=== PATIENT | female | born 1940 | race Caucasian/White ===

== ENCOUNTER 2016-05-29 01:24 | Inpatient (IN) | payer MEDICARE ==
[2016-05-29 03:16] LABS: Albumin 3.5 g/dL (3.9-5); Albumin/Globulin Ratio 1.1 %; BUN/Creatinine Ratio 8.29; Bilirubin,Total 0.4 mg/dL (0.1-1.2); Calcium 9.6 mg/dL (8.4-10.2); Total Protein 6.8 g/dL (6.3-8.2)
[2016-05-29 03:17] LABS: Chloride 93.3 mmol/L (98-107); Potassium 5.3 mmol/L (3.6-5.0)
--- NOTE | 2016-05-29 04:31 | Emergency Department Report ---
ED Shortness of Breath HPI - General Chief Complaint: Dyspnea/Respdistress Stated Complaint: KAILA Time Seen by Provider: 05/29/16 04:21 Source: family Mode of arrival: Stretcher Limitations: No Limitations - History of Present Illness Initial Comments: 75-year-old female presents to the emergency department via EMS complaining of difficulty breathing. Onset of symptoms was at approximately midnight. She denies chest pain. Her symptoms became worse so she called EMS. Patient is scheduled for hemodialysis this morning. There are no other complaints. MD Complaint: shortness of breath -: Sudden, During the night Time: 00:00 Pain Scale: 0 Consistency: constant Improves With: nothing Worsens With: nothing Known History Of: diabetes Associated Symptoms: denies other symptoms Treatments Prior to Arrival: none - Related Data Home Medications Medication Instructions Recorded Confirmed Last Taken Sevelamer Carbonate [Renvela] 800 mg PO TIDWM 04/02/13 05/29/16 1 Day Ago 800 Emgan-Juliet Rx Tablet 1 tab PO DAILY 12/31/14 05/29/16 1 Day Ago 1 Pravastatin Sodium [Pravastatin] 10 mg PO QHS 01/24/15 05/29/16 1 Day Ago 10 Doxepin [SINEquan] 10 mg PO QHS 05/01/15 05/29/16 1 Day Ago 10 Tramadol HCl [Conzip 25 MG IR + 75 50 mg PO Q6H PRN 05/01/15 05/29/16 1 Week Ago MG XR CAP] 50 Previous Rx's Medication Instructions Recorded Last Taken Type Docusate Sodium [Colace CAP] 100 mg PO BID PRN #30 capsule 01/24/15 1 Day Ago Rx 100 Famotidine [Pepcid] 40 mg PO QHS #30 tablet 01/24/15 1 Day Ago Rx 40 Promethazine [Phenergan TAB] 25 mg PO Q6HR PRN #20 tab 01/24/15 1 Day Ago Rx 25 Folic Acid/Vit B Comp W-C [Renal 1 cap PO QDAY capsule 05/04/15 1 Day Ago Rx Caps] 1 HYDROcodone/APAP 5-325 [[place] 1 each PO Q6HR PRN #30 tablet 05/04/15 1 Day Ago Rx 5-325 mg TAB] 1 Levothyroxine [Synthroid] 25 mcg PO DAILY@0600 tablet 05/04/15 1 Day Ago Rx 25 Levothyroxine [Synthroid] 112 mcg PO DAILY@0600 tablet 05/04/15 1 Day Ago Rx 112 Apixaban [Eliquis] 2.5 mg PO BID #60 tablet 05/04/16 1 Day Ago Rx 2.5 Carvedilol [Coreg] 6.25 mg PO BID #60 tablet 05/04/16 1 Day Ago Rx 6.25 Diltiazem [Cardizem] 30 mg PO Q8HR #90 tablet 05/04/16 1 Day Ago Rx 30 Allergies Allergy/AdvReac Type Severity Reaction Status Date / Time No Known Allergies Allergy Verified 12/31/14 20:17 ED Review of Systems ROS: Stated complaint: KAILA Other details as noted in HPI Comment: All other systems reviewed and negative Respiratory: shortness of breath ED Past Medical Hx - Past Medical History Previous Medical History?: Yes Hx Hypertension: Yes Hx Diabetes: Yes Hx Deep Vein Thrombosis: Yes Hx Renal Disease: Yes (ESRD on HD T, Th, S) Hx Kidney Stones: Yes - Surgical History Past Surgical History?: Yes Hx Cholecystectomy: Yes Additional Surgical History: A/V graft to right arm - Family History Family history: no significant - Social History Smoking Status: Never Smoker Substance Use Type: None - Medications Home Medications: Home Medications Medication Instructions Recorded Confirmed Last Taken Type Sevelamer Carbonate [Renvela] 800 mg PO TIDWM 04/02/13 05/29/16 1 Day Ago History 800 Megan-Juliet Rx Tablet 1 tab PO DAILY 12/31/14 05/29/16 1 Day Ago History 1 Docusate Sodium [Colace CAP] 100 mg PO BID PRN #30 capsule 01/24/15 05/29/16 1 Day Ago Rx 100 Famotidine [Pepcid] 40 mg PO QHS #30 tablet 01/24/15 05/29/16 1 Day Ago Rx 40 Pravastatin Sodium [Pravastatin] 10 mg PO QHS 01/24/15 05/29/16 1 Day Ago History 10 Promethazine [Phenergan TAB] 25 mg PO Q6HR PRN #20 tab 01/24/15 05/29/16 1 Day Ago Rx 25 Doxepin [SINEquan] 10 mg PO QHS 05/01/15 05/29/16 1 Day Ago History 10 Tramadol HCl [Conzip 25 MG IR + 75 50 mg PO Q6H PRN 05/01/15 05/29/16 1 Week Ago History MG XR CAP] 50 Folic Acid/Vit B Comp W-C [Renal 1 cap PO QDAY capsule 05/04/15 05/29/16 1 Day Ago Rx Caps] 1 HYDROcodone/APAP 5-325 [[place] 1 each PO Q6HR PRN #30 tablet 05/04/15 05/29/16 1 Day Ago Rx 5-325 mg TAB] 1 Levothyroxine [Synthroid] 25 mcg PO DAILY@0600 tablet 05/04/15 05/29/16 1 Day Ago Rx 25 Levothyroxine [Synthroid] 112 mcg PO DAILY@0600 tablet 05/04/15 05/29/16 1 Day Ago Rx 112 Apixaban [Eliquis] 2.5 mg PO BID #60 tablet 05/04/16 05/29/16 1 Day Ago Rx 2.5 Carvedilol [Coreg] 6.25 mg PO BID #60 tablet 05/04/16 05/29/16 1 Day Ago Rx 6.25 Diltiazem [Cardizem] 30 mg PO Q8HR #90 tablet 05/04/16 05/29/16 1 Day Ago Rx 30 ED Physical Exam - General Limitations: No Limitations General appearance: alert, in no apparent distress - Head Head exam: Present: atraumatic, normocephalic - Eye Eye exam: Present: normal appearance, PERRL, EOMI - ENT ENT exam: Present: normal exam, normal orophraynx, mucous membranes moist - Neck Neck exam: Present: normal inspection, full ROM. Absent: tenderness - Respiratory Respiratory exam: Present: normal lung sounds bilaterally. Absent: respiratory distress - Cardiovascular Cardiovascular Exam: Present: regular rate, normal rhythm, normal heart sounds - GI/Abdominal GI/Abdominal exam: Present: soft, normal bowel sounds. Absent: distended, tenderness - Extremities Exam Extremities exam: Present: normal inspection, full ROM. Absent: tenderness - Back Exam Back exam: Present: normal inspection, full ROM. Absent: tenderness - Neurological Exam Neurological exam: Present: alert, oriented X3. Absent: motor sensory deficit - Skin Skin exam: Present: warm, dry, intact ED Course Vital Signs 05/29/16 05/29/16 05/29/16 02:15 02:20 02:26 Temperature 98.0 F 98.0 F Pulse Rate 63 63 Respiratory 18 18 18 Rate Blood Pressure 208/66 Blood Pressure 208/66 208/66 [Left] O2 Sat by Pulse 95 95 95 Oximetry ED Medical Decision Making - Lab Data Result diagrams: 05/29/16 02:43 - EKG Data -: EKG Interpreted by Me EKG shows normal: sinus rhythm, axis, intervals, QRS complexes, ST-T waves Rate: normal - EKG Data When compared to previous EKG there are: no significant change Interpretation: normal EKG, unchanged when compared t (05/01/2016) - Radiology Data Radiology results: image reviewed interpreted by me: Chest x-ray shows no acute cardiopulmonary abnormality. Chest x-ray is unchanged from previous. - Medical Decision Making Lab and imaging results reviewed and discussed with the patient and family. I spoke with Dr. Dubose, nephrology. Patient will be set up for urgent hemodialysis. Patient is to be admitted by the hospitalist. - Differential Diagnosis ESRD on HD, volume overload, electrolyte abnormality Critical care attestation.: If time is entered above; I have spent that time in minutes in the direct care of this critically ill patient, excluding procedure time. ED Disposition Clinical Impression: ESRD needing dialysis Dyspnea Qualifiers: Dyspnea type: shortness of breath Qualified Code(s): R06.02 - Shortness of breath Disposition: OP ADMITTED IP TO THIS HOSP Is pt being admited?: Yes Condition: Stable Time of Disposition: 04:33
[2016-05-29] MEDS ORDERED: NACL 0.9% 1000 ML 100 ML IV PRN (04:48)
--- NOTE | 2016-05-29 06:45 | Admit Criteria Form ---
Admission Criteria Documentation: RENAL FAILURE, CHRONIC Clinical Indications for Admission to Inpatient Care (Place 'X' for any and all applicable criteria): Admission is indicated for ANY ONE of the following (1)(2)(3)(4)(5): [ X]I. Inpatient admission required rather than observation care (Use Renal Failure, Chronic: Observation Care Criteria as appropriate) because of ANY ONE of the following: [ ]a) Volume overload or uremic symptoms (eg, clinically significant pulmonary edema, hypertension, pericarditis, acidosis) too severe for, or not responsive (eg, for over 24 hours) to emergency department or observation care dialysis or treatment regimen (11) [ ]b) Hemodynamic instability that is severe or persistent [ ]c) Respiratory distress that is severe or persistent (11) [ ]d) Clinically significant electrolyte abnormality that requires inpatient care (eg,hyperkalemia with severe ECG findings)[B] [ ]e) Supplement O2 or respiratory therapy for over 24hrs that is performable only in acute inpatient setting [ ]f) Continuous IV infusion of anticoagulation, platelet inhibitor, vasoactive, or Antiarrhythmic medication (15), [ ]g) Pulmonary artery catheter monitoring [ ]h) Temporary pacemaker placement [ ]i) Emergent pericardiocentesis [X ]j) Other condition, treatment or monitoring requiring inpatient admission [ ]II. Unexplained syncope [A] [ ]III. Recurrent seizures [ ]IV. Severe infections not treatable in outpatient setting (eg, peritonitis)(9 ) [ ]V. Cardiac arrhythmias of immediate concern [ ]. Encephalopathy [ ]VII.Bleeding abnormalities (eg, platelet dysfunction) with active (eg, gastrointestinal) bleeding Extended stay beyond goal length of stay may be needed for (3)(4)(35)(36): [ ]a) Continuing uremic complications [ ]b) Comorbidities or complications The original [employer] content created by [employer] has been revised. The portions of the content which have been revised are identified through the use of italic text or in bold, and [facility] [employer] has neither reviewed nor approved the modified material. All other unmodified content is copyright [employer]. Please see references footnoted in the original [facility] edition 2016 Admission Criteria Met: Yes
--- NOTE | 2016-05-29 07:53 | History and Physical Report ---
History of Present Illness Date of examination: 05/29/16 Date of admission: 05/29/16 05:16 Chief complaint: Shortness of breath History of present illness: 75-year-old female presents to the emergency department via EMS complaining of difficulty breathing. Onset of symptoms was at approximately midnight. She admits chest tightness. Her symptoms became worse this morning so she called EMS. Patient is scheduled for hemodialysis this morning. There are no other complaints. Chest x-ray in the ER showed pulmonary congestion and cardiomegaly. Blood pressure on admission was 208/66. Past History Past Medical History: diabetes, DVT, ESRD, hypertension, hyperlipidemia Past Surgical History: cholecystectomy, Other (she has AV graft in the right arm ) Social history: no significant social history. denies: smoking, alcohol abuse Family history: other (unknown, unable to obtain at this time) Medications and Allergies Allergies Allergy/AdvReac Type Severity Reaction Status Date / Time No Known Allergies Allergy Verified 12/31/14 20:17 Home Medications Medication Instructions Recorded Confirmed Last Taken Type Sevelamer Carbonate [Renvela] 800 mg PO TIDWM 04/02/13 05/29/16 1 Day Ago History 800 Megan-Juliet Rx Tablet 1 tab PO DAILY 12/31/14 05/29/16 1 Day Ago History 1 Docusate Sodium [Colace CAP] 100 mg PO BID PRN #30 capsule 01/24/15 05/29/16 1 Day Ago Rx 100 Famotidine [Pepcid] 40 mg PO QHS #30 tablet 01/24/15 05/29/16 1 Day Ago Rx 40 Pravastatin Sodium [Pravastatin] 10 mg PO QHS 01/24/15 05/29/16 1 Day Ago History 10 Promethazine [Phenergan TAB] 25 mg PO Q6HR PRN #20 tab 01/24/15 05/29/16 1 Day Ago Rx 25 Doxepin [SINEquan] 10 mg PO QHS 05/01/15 05/29/16 1 Day Ago History 10 Tramadol HCl [Conzip 25 MG IR + 75 50 mg PO Q6H PRN 05/01/15 05/29/16 1 Week Ago History MG XR CAP] 50 Folic Acid/Vit B Comp W-C [Renal 1 cap PO QDAY capsule 05/04/15 05/29/16 1 Day Ago Rx Caps] 1 HYDROcodone/APAP 5-325 [[place] 1 each PO Q6HR PRN #30 tablet 05/04/15 05/29/16 1 Day Ago Rx 5-325 mg TAB] 1 Levothyroxine [Synthroid] 25 mcg PO DAILY@0600 tablet 05/04/15 05/29/16 1 Day Ago Rx 25 Levothyroxine [Synthroid] 112 mcg PO DAILY@0600 tablet 05/04/15 05/29/16 1 Day Ago Rx 112 Apixaban [Eliquis] 2.5 mg PO BID #60 tablet 05/04/16 05/29/16 1 Day Ago Rx 2.5 Carvedilol [Coreg] 6.25 mg PO BID #60 tablet 05/04/16 05/29/16 1 Day Ago Rx 6.25 Diltiazem [Cardizem] 30 mg PO Q8HR #90 tablet 05/04/16 05/29/16 1 Day Ago Rx 30 Active Meds: Active Medications Sodium Chloride (Nacl 0.9% 1000 Ml) 100 mls @ 999 mls/hr IV ESEQUIEL PRN PRN Reason: Hypotension Review of System: Constitutional: no fever, no chills, no weight loss Ears, eyes, nose, mouth and throat: no nasal congestion, no nasal discharge, no sinus pressure, no vision change, no red eye. Neck: No neck pain or rigidity. Cardiovascular: + pleuretic chest pain, + orthopnea, no palpitations, no leg swelling Respiratory: + shortness of breath, no cough, + congestion, no wheezing Gastrointestinal: no abdominal pain, no nausea, no vomiting Genitourinary : no dysuria, no hematuria Musculoskeletal: no joint swelling or muscle ache Integumentary: no rash, no pruritis Neurological: no parathesias, no numbness, no tingling Endocrine: no cold or heat intolerance, no polyuria or polydipsia Hematologic/Lymphatic: no easy bruising, no easy bleeding, no gland swelling Allergic/Immunologic: no urticaria, no angioedema. Exam - Physical Exam Narrative exam: GENERAL: This is an elderly female skinny female lying on bed appeared to be in no discomfort. HEENT: Normocephalic. Atraumatic. Extraocular motions are intact. No conjunctival congestion or icterus. Patient has moist mucous membranes. External auditory canal and nares patent bilaterally. NECK: Supple. Trachea midline. No JVD, thyromagaly or lymphadenopathy. CHEST/LUNGS: crackles auscultated bilaterally. There is no respiratory distress noted, breathing nonlabored. No wheezes or rhonchi. HEART/CARDIOVASCULAR: Regular in rate and rhythm. PMI at the apex. There is no gallop rub or murmur. ABDOMEN: Abdomen is soft, nontender. Patient has normal bowel sounds. There is no abdominal distention. No organomagaly or rigidity. SKIN: There is no rash, no erythrema. There is no diaphoresis. Warm and dry. NEUROLOGY: The patient is awake, alert, and oriented. The patient is cooperative. The patient has normal speech. No focal motor deficit. MUSCULOSKELETAL: No joint effusion or tenderness. Muscle strength equal bilaterally. No muscle wasting. EXTRIMITY: No edema, cyanosis or clubbing. PSYCH: No depression or anxiety noted. Cooperative. - Constitutional Vitals: Temp Pulse Resp BP Pulse Ox 98.0 F 63 20 179/66 97 05/29/16 02:20 05/29/16 05:36 05/29/16 05:36 05/29/16 05:36 05/29/16 05:36 Results - Labs CBC & Chem 7: 05/30/16 10:11 05/30/16 10:11 Labs: Laboratory Last Values Sodium 135 mmol/L (137-145) L 05/29/16 02:43 Potassium 5.3 mmol/L (3.6-5.0) H 05/29/16 02:43 Chloride 93.3 mmol/L (98-107) L 05/29/16 02:43 Carbon Dioxide 26 mmol/L (22-30) 05/29/16 02:43 Anion Gap 21 mmol/L 05/29/16 02:43 BUN 73 mg/dL (7-17) H 05/29/16 02:43 Creatinine 8.8 mg/dL (0.7-1.2) H 05/29/16 02:43 Estimated GFR 4 ml/min 05/29/16 02:43 BUN/Creatinine Ratio 8.29 % 05/29/16 02:43 Glucose 190 mg/dL (65-100) H 05/29/16 02:43 Calcium 9.6 mg/dL (8.4-10.2) 05/29/16 02:43 Total Bilirubin 0.4 mg/dL (0.1-1.2) 05/29/16 02:43 AST 25 units/L (5-40) 05/29/16 02:43 ALT 18 units/L (7-56) 05/29/16 02:43 Alkaline Phosphatase 210 units/L (35-129) H 05/29/16 02:43 Total Protein 6.8 g/dL (6.3-8.2) 05/29/16 02:43 Albumin 3.5 g/dL (3.9-5) L 05/29/16 02:43 Albumin/Globulin Ratio 1.1 % 05/29/16 02:43 - Imaging and Cardiology Chest x-ray: report reviewed Assessment and Plan Assessment and plan: Acute hypoxic respiratory failure * Likely due to volume overload and pulmonary edema * Status post emergent dialysis today, * Improved following dialysis * Continue breathing treatment and supplemental oxygen via nasal cannula ESRD requiring dialysis * Nephrology on board, HD per nephrology recommendation Chest pain * Likely due to volume overload and uncontrolled blood pressure * We'll monitor her with serial cardiac enzymes * Had 2-D echo last month 05/01 showed 45% ejection fraction Acute exacerbation of systolic CHF * Continue beta jose, and statin * Follow up for dialysis clinical Atrial fibrillation with RVR * Continue rate controlling medications (Coreg and Cardizem) and anticoagulation (Elliquis) Hypertension, malignant * Start on home meds Coreg and Cardizem * Adjust medications as needed, when necessary hydralazine iv Hyperlipidemia * Continue statin Diabetes mellitus type II * Continue insulin coverage to adjust blood glucose Hyperkalemia * Due to end-stage renal disease * Continue to monitor, follow-up after dialysis It took me about 45 minutes for initial care of this patient including history and physical, reviewing initial lab results and ER documents, placing admission orders, bedside counseling and coordination of care. Advance Directives: Yes VTE prophylaxis?: Chemical Plan of care discussed with patient/family: Yes
--- NOTE | 2016-05-29 09:02 | Consultation ---
History of Present Illness - Reason for Consult Consult date: 05/29/16 end stage renal disease - History of Present Illness Mrs. Ferrera is a 75yo with ESRD on HD who presents to the ED with difficutly breathing. History is limited due to language barrier. However, patient does reports chest pain but denies cough and fever. Past History Past Medical History: diabetes, ESRD, hypertension, hyperlipidemia, hypothyroidism Social history: . denies: smoking, alcohol abuse Family history: no significant family history Medications and Allergies Allergies Allergy/AdvReac Type Severity Reaction Status Date / Time No Known Allergies Allergy Verified 12/31/14 20:17 Home Medications Medication Instructions Recorded Confirmed Last Taken Type Sevelamer Carbonate [Renvela] 800 mg PO TIDWM 04/02/13 05/29/16 1 Day Ago History 800 Megan-Juliet Rx Tablet 1 tab PO DAILY 12/31/14 05/29/16 1 Day Ago History 1 Docusate Sodium [Colace CAP] 100 mg PO BID PRN #30 capsule 01/24/15 05/29/16 1 Day Ago Rx 100 Famotidine [Pepcid] 40 mg PO QHS #30 tablet 01/24/15 05/29/16 1 Day Ago Rx 40 Pravastatin Sodium [Pravastatin] 10 mg PO QHS 01/24/15 05/29/16 1 Day Ago History 10 Promethazine [Phenergan TAB] 25 mg PO Q6HR PRN #20 tab 01/24/15 05/29/16 1 Day Ago Rx 25 Doxepin [SINEquan] 10 mg PO QHS 05/01/15 05/29/16 1 Day Ago History 10 Tramadol HCl [Conzip 25 MG IR + 75 50 mg PO Q6H PRN 05/01/15 05/29/16 1 Week Ago History MG XR CAP] 50 Folic Acid/Vit B Comp W-C [Renal 1 cap PO QDAY capsule 05/04/15 05/29/16 1 Day Ago Rx Caps] 1 HYDROcodone/APAP 5-325 [[place] 1 each PO Q6HR PRN #30 tablet 05/04/15 05/29/16 1 Day Ago Rx 5-325 mg TAB] 1 Levothyroxine [Synthroid] 25 mcg PO DAILY@0600 tablet 05/04/15 05/29/16 1 Day Ago Rx 25 Levothyroxine [Synthroid] 112 mcg PO DAILY@0600 tablet 05/04/15 05/29/16 1 Day Ago Rx 112 Apixaban [Eliquis] 2.5 mg PO BID #60 tablet 05/04/16 05/29/16 1 Day Ago Rx 2.5 Carvedilol [Coreg] 6.25 mg PO BID #60 tablet 05/04/16 05/29/16 1 Day Ago Rx 6.25 Diltiazem [Cardizem] 30 mg PO Q8HR #90 tablet 05/04/16 05/29/16 1 Day Ago Rx 30 Active Meds: Active Medications Sodium Chloride (Nacl 0.9% 1000 Ml) 100 mls @ 999 mls/hr IV ESEQUIEL PRN PRN Reason: Hypotension Exam - Vital Signs Vital signs: Vital Signs Temp Pulse Resp BP Pulse Ox 98.0 F 63 18 208/66 95 05/29/16 02:15 05/29/16 02:15 05/29/16 02:15 05/29/16 02:15 05/29/16 02:15 - General Appearance General appearance: well-developed, well-nourished, other (breathing comfortably on room air) EENT: ATNC Respiratory: Decreased Breath Sounds Heart: regular, S1S2 Gastrointestinal: Present: normal. Absent: tenderness, distended Integumentary: no rash Musculoskeletal: Present: other (no edema) Psychiatric: cooperative Results - Lab Results 05/29/16 02:43 Most recent lab results Calcium 9.6 mg/dL (8.4-10.2) 05/29/16 02:43 Assessment and Plan Impression: * End stage renal disease on hemodialysis TTS * Dyspnea * Hyperkalemia, mild * Type II DM * Hypertensioin Plan: * Hemodialysis has been ordered for today * UF as tolerated * Resume home medications * Epogen for goal Hb 10-12 * Renal diet * Binders with meals - Renvela 1 TID w/meals
--- NOTE | 2016-05-29 10:01 | XRay Report ---
AP CHEST: HISTORY: Dyspnea. FINDINGS: Mild cardiomegaly and central pulmonary venous congestion appears stable since 05/01/16. The lungs are generally clear. No evidence for pneumonia, CHF or pneumothorax. Bilateral axillary vein stents are noted. The thoracic cage is intact but the bony structures are demineralized. IMPRESSION: Mild cardiomegaly and pulmonary venous congestion which appears stable since 05/01/16.
[2016-05-29] MEDS: RENVELA PO SCH ×3 (11:30→17:25)
[2016-05-29] MEDS ORDERED: TRAMADOL HCL 50 MG PO PRN (16:24)
[2016-05-29] MEDS ORDERED: PHENERGAN PO PRN (16:24)
[2016-05-29] MEDS ORDERED: COLACE PO PRN (16:24)
[2016-05-29] MEDS ORDERED: ULTRAM PO PRN (16:48)
[2016-05-29] MEDS ORDERED: NON-FORMULARY (Sevelamer Carbonate [Renvela] 800 MG) PO SCH (17:00)
[2016-05-29] MEDS: NORCO 5/325 PO PRN ×2 (17:26→23:06)
[2016-05-29] MEDS ORDERED: NON-FORMULARY (Famotidine [Pepcid] 40 MG) PO SCH (22:00)
[2016-05-29] MEDS ORDERED: NON-FORMULARY (Pravastatin Sodium [Pravastatin] 10 MG) PO SCH (22:00)
[2016-05-29] MEDS: COREG PO SCH (22:41)
[2016-05-29] MEDS: ZOCOR PO SCH (22:42)
[2016-05-29] MEDS: PEPCID PO SCH (22:42)
[2016-05-29] MEDS: SINEquan PO SCH (22:42)
[2016-05-29] MEDS: CARDIZEM PO SCH (22:42)
[2016-05-29] MEDS: ELIQUIS PO SCH (22:43)
[2016-05-30] MEDS: SYNTHROID PO SCH ×2 (06:14)
[2016-05-30] MEDS: CARDIZEM PO SCH ×3 (06:14→23:40)
[2016-05-30] MEDS: RENVELA PO SCH ×4 (07:30→17:20)
--- NOTE | 2016-05-30 09:12 | Progress Note ---
Assessment and Plan Impression: * End stage renal disease on hemodialysis TTS * Dyspnea * Hyperkalemia, mild * Type II DM * Hypertensioin Plan: * Isolated UF today for additional fluid removal * Continue hemodialysis TTS * Epogen for goal Hb 10-12 * Renal diet * Binders with meals - Renvela 1 TID w/meals Subjective Date of service: 05/30/16 Interval history: Patient continues to c/o SOB Objective - Vital Signs Vital signs: Vital Signs - 12hr 05/29/16 05/29/16 05/29/16 22:25 22:41 22:42 Temperature 98.0 F Pulse Rate Pulse Rate [ 128 H Left Radial] Respiratory 18 Rate Blood Pressure 126/72 126/72 Blood Pressure 126/72 [Left Arm] O2 Sat by Pulse 97 Oximetry 05/30/16 05/30/16 06:14 08:49 Temperature 98.1 F Pulse Rate 92 H Pulse Rate [ 70 Left Radial] Respiratory 16 Rate Blood Pressure 154/56 Blood Pressure 103/52 [Left Arm] O2 Sat by Pulse 95 Oximetry - General Appearance General appearance: well-developed, well-nourished EENT: ATNC Respiratory: Present: Rales Cardiology: regular, S1S2 Gastrointestinal: normal, no tenderness, no distended Integumentary: no rash Neurologic: no focal deficit Musculoskeletal: other (no edema) Psychiatric: cooperative - Lab 05/30/16 10:11 05/30/16 10:11 Most recent lab results Calcium 9.6 mg/dL (8.4-10.2) 05/29/16 02:43
[2016-05-30] MEDS ORDERED: Renal Caps PO SCH (10:00)
[2016-05-30] MEDS ORDERED: NON-FORMULARY (Rena-Vite Rx Tablet 1 TAB) PO SCH (10:00)
[2016-05-30] MEDS ORDERED: NACL 0.9% 1000 ML 100 ML IV PRN (10:16)
[2016-05-30 10:34] LABS: Basophils % (Auto) 2.2 % (0.0-1.8); Eosinophils % (Auto) 5.6 % (0.0-4.3); Hemoglobin 11.8 gm/dl (10.1-14.3); Mean Corpuscular HGB Conc 32 % (30-34); Mean Corpuscular Hemoglobin 28 pg (28-32); Mean Corpuscular Volume 89 fl (79-97); Platelet Count 202 K/mm3 (140-440); Red Blood Count 4.16 M/mm3 (3.65-5.03); Red Cell Distribution Width 18.6 % (13.2-15.2); White Blood Count 5.2 K/mm3 (4.5-11.0)
[2016-05-30 10:43] LABS: BUN/Creatinine Ratio 6.03; Calcium 9.2 mg/dL (8.4-10.2); Chloride 93.8 mmol/L (98-107); Potassium 5.6 mmol/L (3.6-5.0)
[2016-05-30] MEDS: ELIQUIS PO SCH ×2 (11:04→23:40)
[2016-05-30] MEDS: COREG PO SCH ×2 (11:04→23:40)
[2016-05-30] MEDS: Renal Caps PO SCH (11:04)
--- NOTE | 2016-05-30 17:27 | Progress Note ---
Assessment and Plan Assessment and plan: Acute hypoxic respiratory failure * Likely due to volume overload and pulmonary edema * Status post emergent dialysis following admission * Symptoms slightly improved, plan for short dialysis today * Continue breathing treatment and supplemental oxygen via nasal cannula needed ESRD requiring dialysis * Nephrology on board, continue HD per nephrology recommendation Chest pain * Likely due to volume overload and uncontrolled blood pressure * serial cardiac enzymes remained stable * Had 2-D echo last month 05/01 showed 45% ejection fraction Acute exacerbation of systolic CHF * Continue beta jose, and statin * Follow up clinically following dialysis * Patient does not make any urine, so no Lasix was added Atrial fibrillation with RVR * Continue rate controlling medications (Coreg and Cardizem) and anticoagulation (Elliquis) Hypertension, malignant * Started on home meds Coreg and Cardizem * Adjust medications as needed, when necessary hydralazine iv Hyperlipidemia * Continue statin Diabetes mellitus type II * Continue insulin coverage to adjust blood glucose Hyperkalemia * Due to end-stage renal disease * Continue to monitor History Interval history: Patient seen and examined. Medical records and medication list reviewed. No acute event overnight noted by the RN. Patient complains of exertional difficulty breathing and chest tightness. Discussed plan of care at bedside with patient. Hospitalist Physical - Physical exam Narrative exam: GENERAL: This is an elderly female skinny female lying on bed appeared to be in no discomfort. HEENT: Normocephalic. Atraumatic. Extraocular motions are intact. No conjunctival congestion or icterus. Patient has moist mucous membranes. External auditory canal and nares patent bilaterally. NECK: Supple. Trachea midline. No JVD, thyromagaly or lymphadenopathy. CHEST/LUNGS: no crackles auscultated bilaterally. There is no respiratory distress noted, breathing nonlabored. No wheezes or rhonchi. HEART/CARDIOVASCULAR: Regular in rate and rhythm. PMI at the apex. There is no gallop rub or murmur. ABDOMEN: Abdomen is soft, nontender. Patient has normal bowel sounds. There is no abdominal distention. No organomagaly or rigidity. SKIN: There is no rash, no erythrema. There is no diaphoresis. Warm and dry. NEUROLOGY: The patient is awake, alert, and oriented. The patient is cooperative. The patient has normal speech. No focal motor deficit. MUSCULOSKELETAL: No joint effusion or tenderness. Muscle strength equal bilaterally. No muscle wasting. EXTRIMITY: No edema, cyanosis or clubbing. PSYCH: No depression or anxiety noted. Cooperative. - Constitutional Vitals: Temp Pulse Resp BP Pulse Ox 98.2 F 82 18 117/37 95 05/30/16 16:01 05/30/16 16:01 05/30/16 16:01 05/30/16 16:01 05/30/16 08:49 Results - Labs CBC & Chem 7: 05/30/16 10:11 05/30/16 10:11 Labs: Laboratory Last Values WBC 5.2 K/mm3 (4.5-11.0) 05/30/16 10:11 RBC 4.16 M/mm3 (3.65-5.03) 05/30/16 10:11 Hgb 11.8 gm/dl (10.1-14.3) 05/30/16 10:11 Hct 37.0 % (30.3-42.9) 05/30/16 10:11 MCV 89 fl (79-97) 05/30/16 10:11 MCH 28 pg (28-32) 05/30/16 10:11 MCHC 32 % (30-34) 05/30/16 10:11 RDW 18.6 % (13.2-15.2) H 05/30/16 10:11 Plt Count 202 K/mm3 (140-440) 05/30/16 10:11 Lymph % (Auto) 34.4 % (13.4-35.0) 05/30/16 10:11 [place] % (Auto) 12.1 % (0.0-7.3) H 05/30/16 10:11 Eos % (Auto) 5.6 % (0.0-4.3) H 05/30/16 10:11 Baso % (Auto) 2.2 % (0.0-1.8) H 05/30/16 10:11 Lymph # 1.8 K/mm3 (1.2-5.4) 05/30/16 10:11 [place] # 0.6 K/mm3 (0.0-0.8) 05/30/16 10:11 Eos # 0.3 K/mm3 (0.0-0.4) 05/30/16 10:11 Baso # 0.1 K/mm3 (0.0-0.1) 05/30/16 10:11 Seg Neutrophils % 45.7 % (40.0-70.0) 05/30/16 10:11 Seg Neutrophils # 2.4 K/mm3 (1.8-7.7) 05/30/16 10:11 Sodium 136 mmol/L (137-145) L 05/30/16 10:11 Potassium 5.6 mmol/L (3.6-5.0) H 05/30/16 10:11 Chloride 93.8 mmol/L (98-107) L 05/30/16 10:11 Carbon Dioxide 26 mmol/L (22-30) 05/30/16 10:11 Anion Gap 22 mmol/L 05/30/16 10:11 BUN 38 mg/dL (7-17) H 05/30/16 10:11 Creatinine 6.3 mg/dL (0.7-1.2) H 05/30/16 10:11 Estimated GFR 6 ml/min 05/30/16 10:11 BUN/Creatinine Ratio 6.03 % 05/30/16 10:11 Glucose 264 mg/dL (65-100) H 05/30/16 10:11 Calcium 9.2 mg/dL (8.4-10.2) 05/30/16 10:11 Total Bilirubin 0.4 mg/dL (0.1-1.2) 05/29/16 02:43 AST 25 units/L (5-40) 05/29/16 02:43 ALT 18 units/L (7-56) 05/29/16 02:43 Alkaline Phosphatase 210 units/L (35-129) H 05/29/16 02:43 Troponin T 0.157 ng/mL (0.00-0.029) H* 05/30/16 14:00 Total Protein 6.8 g/dL (6.3-8.2) 05/29/16 02:43 Albumin 3.5 g/dL (3.9-5) L 05/29/16 02:43 Albumin/Globulin Ratio 1.1 % 05/29/16 02:43 Triglycerides 106 mg/dL (2-149) 05/30/16 14:00 Cholesterol 218 mg/dL (50-199) H 05/30/16 14:00 LDL Cholesterol Direct 115 mg/dL (50-130) 05/30/16 14:00 HDL Cholesterol 82 mg/dL (40-59) H 05/30/16 14:00 Cholesterol/HDL Ratio 2.65 % 05/30/16 14:00
[2016-05-30] MEDS: SINEquan PO SCH (23:39)
[2016-05-30] MEDS: PEPCID PO SCH (23:40)
[2016-05-30] MEDS: ZOCOR PO SCH (23:40)
[2016-05-31] MEDS: CARDIZEM PO SCH ×2 (06:04→14:06)
[2016-05-31] MEDS: SYNTHROID PO SCH ×2 (06:04)
[2016-05-31] MEDS: RENVELA PO SCH ×2 (08:00→14:06)
[2016-05-31] MEDS ORDERED: NACL 0.9% 1000 ML 100 ML IV PRN (09:24)
--- NOTE | 2016-05-31 09:27 | Progress Note ---
Assessment and Plan Impression: * End stage renal disease on hemodialysis TTS * Dyspnea * Hyperkalemia, mild * Type II DM * Hypertensioin Plan: * Hemodialysis today per outpatient TTS schedule * UF as tolerated * Epogen for goal Hb 10-12 * Renal diet * Binders with meals - Renvela 1 TID w/meals * Patient is stable for d/c from a renal standpoint after dialysis today Subjective Date of service: 05/31/16 Interval history: Patient seen on dialysis this am. She denies SOB. Objective - Vital Signs Vital signs: Vital Signs - 12hr 05/30/16 05/30/16 05/30/16 22:00 23:10 23:40 Temperature 98.9 F Pulse Rate 64 Pulse Rate [ 64 Left Radial] Respiratory 18 16 Rate Blood Pressure 125/60 Blood Pressure 125/60 [Left Arm] O2 Sat by Pulse 96 96 Oximetry 05/31/16 05/31/16 06:04 07:32 Temperature 98.3 F Pulse Rate 55 L Pulse Rate [ 55 L Left Radial] Respiratory 12 Rate Blood Pressure 135/61 Blood Pressure 125/57 [Left Arm] O2 Sat by Pulse 97 Oximetry - General Appearance General appearance: well-developed, well-nourished EENT: ATNC Respiratory: Present: Clear to Ascultation Cardiology: regular, S1S2 Gastrointestinal: normal, no tenderness, no distended Integumentary: no rash Musculoskeletal: other (no edema) Psychiatric: cooperative - Lab 05/30/16 10:11 05/30/16 10:11 Most recent lab results Calcium 9.2 mg/dL (8.4-10.2) 05/30/16 10:11
[2016-05-31] MEDS: COREG PO SCH (10:51)
[2016-05-31] MEDS: Renal Caps PO SCH (10:52)
[2016-05-31] MEDS: ELIQUIS PO SCH (10:52)
--- NOTE | 2016-05-31 13:51 | Discharge Summary ---
Providers - Providers Date of Admission: 05/29/16 05:16 Date of discharge: 05/31/16 Attending physician: RADHIKA ANDREW Primary care physician: BRITANY RAMOS Hospitalization Condition: Stable Hospital course: HPI: 75-year-old female presents to the emergency department via EMS complaining of difficulty breathing. Onset of symptoms was at approximately midnight. She admits chest tightness. Her symptoms became worse this morning so she called EMS. Patient is scheduled for hemodialysis this morning. There are no other complaints. Chest x-ray in the ER showed pulmonary congestion and cardiomegaly. Blood pressure on admission was 208/66. Discharge diagnosis and management per plan: Acute hypoxic respiratory failure Likely due to volume overload and pulmonary edema Status post emergent dialysis following admission Improved following dialysis ESRD requiring dialysis Nephrology followed the patient, HD was done per nephrology recommendation had total 3 rounds of dialysis Chest pain, atypical likelt due to GERD Likely due to volume overload and uncontrolled blood pressure cardiac enzymes remained stable Had 2-D echo last month 05/01 showed 45% ejection fraction cont pepcid at home Acute exacerbation of systolic CHF Continue beta jose, and statin No diuretics as patient does not make any urine No ACEI because of hyperkalemia Had 2-D echo last month 05/01 showed 45% ejection fraction Atrial fibrillation with RVR Continue rate controlling medications (Coreg and Cardizem) and anticoagulation (Elliquis) Hypertension, malignant BP was better controlled following dialysis cont on home meds Coreg and Cardizem BP remained stable Hyperlipidemia Continue statin Diabetes mellitus type II by history, diet controlled, did not require SSI during this admission Hyperkalemia Due to end-stage renal disease Continue to monitor, follow-up after dialysis Disposition: DISCHARGED TO HOME OR SELFCARE Time spent for discharge: 35 minutes Core Measure Documentation - Palliative Care Palliative Care/ Comfort Measures: Not Applicable - Core Measures Any of the following diagnoses?: none Exam - Physical Exam Narrative exam: GENERAL: This is an elderly female skinny female lying on bed appeared to be in no discomfort. HEENT: Normocephalic. Atraumatic. Extraocular motions are intact. No conjunctival congestion or icterus. Patient has moist mucous membranes. External auditory canal and nares patent bilaterally. NECK: Supple. Trachea midline. No JVD, thyromagaly or lymphadenopathy. CHEST/LUNGS: no crackles auscultated bilaterally. There is no respiratory distress noted, breathing nonlabored. No wheezes or rhonchi. HEART/CARDIOVASCULAR: Regular in rate and rhythm. PMI at the apex. There is no gallop rub or murmur. ABDOMEN: Abdomen is soft, nontender. Patient has normal bowel sounds. There is no abdominal distention. No organomagaly or rigidity. SKIN: There is no rash, no erythrema. There is no diaphoresis. Warm and dry. NEUROLOGY: The patient is awake, alert, and oriented. The patient is cooperative. The patient has normal speech. No focal motor deficit. MUSCULOSKELETAL: No joint effusion or tenderness. Muscle strength equal bilaterally. No muscle wasting. EXTRIMITY: No edema, cyanosis or clubbing. PSYCH: No depression or anxiety noted. Cooperative. - Constitutional Vitals: Temp Pulse Resp BP Pulse Ox 98.3 F 53 L 18 126/47 97 05/31/16 09:50 05/31/16 12:15 05/31/16 09:50 05/31/16 12:15 05/31/16 07:32 Plan Activity: advance as tolerated, fall precautions Weight Bearing Status: Non-Weight Bearing Diet: renal Follow up with: DR JAMARI [Other] - 3-5 Days
[2016-05-31 14:55] VITALS: BP 130/60
== END 2016-05-31 17:06 | disposition home or self-care (01) | DRG 291 ==
LOC: ED 01:24 → 3A 05:16
PROVIDERS: ADMIT Hospitalist; ATTEND Internal Medicine
PROC: 5A1D60Z (ICD-10-PCS; principal; 2016-05-29)
DX: I13.2 Hypertensive heart and chronic kidney disease with heart failure and with stage 5 chronic kidney disease, or end stage renal disease (principal); J96.01 Acute respiratory failure with hypoxia; N18.6 End stage renal disease; I50.23 Acute on chronic systolic (congestive) heart failure; E11.22 Type 2 diabetes mellitus with diabetic chronic kidney disease; E78.5 Hyperlipidemia, unspecified; I48.91 Unspecified atrial fibrillation; E87.5 Hyperkalemia; E03.9 Hypothyroidism, unspecified; K21.9 Gastro-esophageal reflux disease without esophagitis; Z99.2 Dependence on renal dialysis; Z79.899 Other long term (current) drug therapy; Z86.718 Personal history of other venous thrombosis and embolism; Z87.442 Personal history of urinary calculi; Z90.49 Acquired absence of other specified parts of digestive tract
CPT/HCPCS: 36415; 71010; 80048; 80053; 80061; 84484; 85025; 93005; 93010

== ENCOUNTER 2016-07-30 18:46 | Emergency (ER) | payer MEDICARE ==
[2016-07-30 19:49] VITALS: BP 163/62
[2016-07-30] MEDS ORDERED: PROVENTIL IH ONE (20:30)
[2016-07-30] MEDS ORDERED: ATROVENT IH ONE (20:31)
--- NOTE | 2016-07-30 20:37 | Emergency Department Report ---
HPI - General Chief Complaint: Dyspnea/Respdistress Time Seen by Provider: 07/30/16 20:10 - HPI HPI: This is a 75-year-old female who presents to the emergency department by EMS from home with the complaint of a 1-2 day history of shortness of breath. While she denies any chest pain there is some chest tightness. She denies any fever, cough, back pain, nausea, vomiting or diaphoresis. The patient has a history of DVT, end-stage renal disease on dialysis on Saturday, and Saturday, hypertension, hypothyroidism and hyperlipidemia. She has not taken anything for symptoms prior to presentation. No recent travel or sick contacts at home. Patient is unable to tell me the name of her physicians at this time. ED Past Medical Hx - Past Medical History Previous Medical History?: Yes Hx Hypertension: Yes Hx Diabetes: Yes Hx Deep Vein Thrombosis: Yes Hx Renal Disease: Yes (ESRD on HD , , ) Hx Kidney Stones: Yes Additional medical history: dialysis Tuesdays, , Saturday, av graft right upper arm - Surgical History Past Surgical History?: Yes Hx Cholecystectomy: Yes Additional Surgical History: A/V graft to right arm - Social History Smoking Status: Never Smoker - Medications Home Medications: Home Medications Medication Instructions Recorded Confirmed Last Taken Type Sevelamer Carbonate [Renvela] 800 mg PO TIDWM 04/02/13 05/29/16 1 Day Ago History 800 Megan-Juliet Rx Tablet 1 tab PO DAILY 12/31/14 05/29/16 1 Day Ago History 1 Docusate Sodium [Colace CAP] 100 mg PO BID PRN #30 capsule 01/24/15 05/29/16 1 Day Ago Rx 100 Famotidine [Pepcid] 40 mg PO QHS #30 tablet 01/24/15 05/29/16 1 Day Ago Rx 40 Pravastatin Sodium [Pravastatin] 10 mg PO QHS 01/24/15 05/29/16 1 Day Ago History 10 Promethazine [Phenergan TAB] 25 mg PO Q6HR PRN #20 tab 01/24/15 05/29/16 1 Day Ago Rx 25 Doxepin [SINEquan] 10 mg PO QHS 05/01/15 05/29/16 1 Day Ago History 10 Tramadol HCl [Conzip 25 MG IR + 75 50 mg PO Q6H PRN 05/01/15 05/29/16 1 Week Ago History MG XR CAP] 50 Folic Acid/Vit B Comp W-C [Renal 1 cap PO QDAY capsule 05/04/15 05/29/16 1 Day Ago Rx Caps] 1 HYDROcodone/APAP 5-325 [[place] 1 each PO Q6HR PRN #30 tablet 05/04/15 05/29/16 1 Day Ago Rx 5-325 mg TAB] 1 Levothyroxine [Synthroid] 25 mcg PO DAILY@0600 tablet 05/04/15 05/29/16 1 Day Ago Rx 25 Levothyroxine [Synthroid] 112 mcg PO DAILY@0600 tablet 05/04/15 05/29/16 1 Day Ago Rx 112 Apixaban [Eliquis] 2.5 mg PO BID #60 tablet 05/04/16 05/29/16 1 Day Ago Rx 2.5 Carvedilol [Coreg] 6.25 mg PO BID #60 tablet 05/04/16 05/29/16 1 Day Ago Rx 6.25 Diltiazem [Cardizem] 30 mg PO Q8HR #90 tablet 05/04/16 05/29/16 1 Day Ago Rx 30 ALBUTEROL Inhaler [ProAir HFA 2 puff IH QID PRN #1 inhalation 07/30/16 Unknown Rx Inhaler] ED Review of Systems ROS: Stated complaint: SOB Other details as noted in HPI Comment: All other systems reviewed and negative Constitutional: denies: chills, fever Eyes: denies: eye pain, eye discharge, vision change ENT: denies: ear pain, throat pain Respiratory: shortness of breath. denies: cough Cardiovascular: denies: palpitations, edema Gastrointestinal: denies: abdominal pain, nausea, diarrhea Genitourinary: denies: urgency, dysuria, discharge Musculoskeletal: denies: back pain, joint swelling, arthralgia Skin: denies: rash, lesions Neurological: denies: headache, weakness, paresthesias Physical Exam - Physical Exam Vital Signs: Vital Signs 07/30/16 19:48 Temperature 98.2 F Pulse Rate 76 Respiratory 18 Rate Blood Pressure 163/62 [Left] O2 Sat by Pulse 95 Oximetry Physical Exam: GENERAL: The patient is well-developed well-nourished. HEENT: Normocephalic. Atraumatic. Extraocular motions are intact. Patient has moist mucous membranes. Pupils equal reactive to light bilaterally. NECK: Supple. Trachea is midline. CHEST/LUNGS: Clear to auscultation. There is no respiratory distress noted. No tachypnea or accessory muscle use. HEART/CARDIOVASCULAR: Regular. There is no tachycardia. There is no gallop rub or murmur. ABDOMEN: Abdomen is soft, nontender. Patient has normal bowel sounds. There is no abdominal distention. SKIN: Skin is warm and dry. NEURO: The patient is awake, alert, and oriented. The patient is cooperative. The patient has no focal neurologic deficits. The patient has normal speech. MUSCULOSKELETAL: There is no tenderness or deformity. There is no limitation range of motion. There is no evidence of acute injury. There is a patent AV fistula to the right upper extremity. Radial pulses +2 over 4 bilaterally. Cap refill less than 2 seconds. ED Course Vital Signs 07/30/16 19:48 Temperature 98.2 F Pulse Rate 76 Respiratory 18 Rate Blood Pressure 163/62 [Left] O2 Sat by Pulse 95 Oximetry ED Medical Decision Making - Lab Data Result diagrams: 07/30/16 20:43 07/30/16 20:43 - EKG Data -: EKG Interpreted by Ok EKG shows normal: sinus rhythm, axis, intervals, QRS complexes, ST-T waves ( Nonspecific T waves) - EKG Data When compared to previous EKG there are: changes noted (mostly there is no significant change other than some flattening of T waves) Interpretation: other (sinus rhythm at 75 bpm, some flattening of T waves, no ST elevation CA) - Radiology Data Radiology results: image reviewed interpreted by me: Chest x-ray shows some mild cardiomegaly. There is no pneumothorax, pleural effusions or pneumonia. There might be a few small nodular density seen. - Medical Decision Making 75 to female presents with a 1-2 day history of some shortness of breath. Patient's lungs are clear to auscultation and she does not appear to be in any respiratory distress. There is no swelling of the lower extremities. Chest x- ray does not show any volume overload or pneumonia or any other acute process. Patient's labs are mostly unremarkable. There is some renal insufficiency but she has a history of end-stage renal disease. No hyperkalemia. Patient was given some breathing treatments and upon reevaluation she says she is feeling much better. She has good follow-up with primary care and nephrology. The patient is not having any chest pain and the tightness resolved with the breathing treatments. The patient does have a history of DVT but is on Eloquist and has not missed any doses. Vital signs are stable including being afebrile, no tachypnea, no tachycardia and no hypoxia. Patient appears safe for discharge home at this time. She'll be given a perception for an albuterol inhaler. She has been encouraged to return to the ER with any worsening of her symptoms or any acute distress. - Differential Diagnosis bronchospasm, pneumonia, CHF, asthma Critical Care Time: No Critical care attestation.: If time is entered above; I have spent that time in minutes in the direct care of this critically ill patient, excluding procedure time. ED Disposition Clinical Impression: Shortness of breath, End stage renal disease on dialysis Hypertension Qualifiers: Hypertension type: essential hypertension Qualified Code(s): I10 - Essential ( primary) hypertension Disposition: DISCHARGED TO HOME OR SELFCARE Is pt being admited?: No Condition: Stable Instructions: Hypertension (ED), Chronic Kidney Disease (ED), Dyspnea (ED) Additional Instructions: Please follow-up with your primary care doctor and crystal gazer in the next few days. Continue with your normal dialysis schedule. Return to the emergency department with any worsening of your symptoms or any acute distress. Prescriptions: ALBUTEROL Inhaler [ProAir HFA Inhaler] 2 puff IH QID PRN #1 inhalation PRN Reason: Shortness Of Breath Referrals: PRIMARY CAREMD [Primary Care Provider] - 3-5 Days Time of Disposition: 22:12
[2016-07-30 21:10] LABS: Hematocrit 32.3 % (30.3-42.9); Hemoglobin 10.3 gm/dl (10.1-14.3); Mean Corpuscular HGB Conc 32 % (30-34); Mean Corpuscular Hemoglobin 27 pg (28-32); Mean Corpuscular Volume 86 fl (79-97); Platelet Count 131 K/mm3 (140-440); Red Blood Count 3.77 M/mm3 (3.65-5.03); Red Cell Distribution Width 20.6 % (13.2-15.2)
[2016-07-30 21:16] LABS: Anion Gap 20 mmol/L; BUN/Creatinine Ratio 4.08; Blood Urea Nitrogen 29 mg/dL (7-17); Calcium 9.7 mg/dL (8.4-10.2); Carbon Dioxide 24 mmol/L (22-30); Chloride 95.5 mmol/L (98-107); Glucose 144 mg/dL (65-100); Sodium 135 mmol/L (137-145)
[2016-07-30 21:54] LABS: Basophils % (Manual) 0 % (0.0-1.8); Blastocytes % (Manual) 0 %
[2016-07-30 21:55] LABS: Anisocytosis 1+; Elliptocytes Few; Poikilocytosis 1+; Schistocytes Few
[2016-07-30 21:56] LABS: Diff Status Complete; Platelet Estimate Consistent w Auto
--- NOTE | 2016-07-30 22:03 | Admit Criteria Form ---
Admission Criteria Documentation: RENAL FAILURE, CHRONIC Clinical Indications for Admission to Inpatient Care (Place 'X' for any and all applicable criteria): Admission is indicated for ANY ONE of the following (1)(2)(3)(4)(5): [X ]I. Inpatient admission required rather than observation care (Use Renal Failure, Chronic: Observation Care Criteria as appropriate) because of ANY ONE of the following: [ ]a) Volume overload or uremic symptoms (eg, clinically significant pulmonary edema, hypertension, pericarditis, acidosis) too severe for, or not responsive (eg, for over 24 hours) to emergency department or observation care dialysis or treatment regimen (11) [ ]b) Hemodynamic instability that is severe or persistent [ ]c) Respiratory distress that is severe or persistent (11) [ ]d) Clinically significant electrolyte abnormality that requires inpatient care (eg,hyperkalemia with severe ECG findings)[B] [ ]e) Supplement O2 or respiratory therapy for over 24hrs that is performable only in acute inpatient setting [ ]f) Continuous IV infusion of anticoagulation, platelet inhibitor, vasoactive, or Antiarrhythmic medication (15), [ ]g) Pulmonary artery catheter monitoring [ ]h) Temporary pacemaker placement [ ]i) Emergent pericardiocentesis [ X]j) Other condition, treatment or monitoring requiring inpatient admission [ ]II. Unexplained syncope [A] [ ]III. Recurrent seizures [ ]IV. Severe infections not treatable in outpatient setting (eg, peritonitis)(9 ) [ ]V. Cardiac arrhythmias of immediate concern [ ]. Encephalopathy [ ]VII.Bleeding abnormalities (eg, platelet dysfunction) with active (eg, gastrointestinal) bleeding Extended stay beyond goal length of stay may be needed for (3)(4)(35)(36): [ ]a) Continuing uremic complications [ ]b) Comorbidities or complications The original [employer] content created by [employer] has been revised. The portions of the content which have been revised are identified through the use of italic text or in bold, and [email or web address] has neither reviewed nor approved the modified material. All other unmodified content is copyright [employer]. Please see references footnoted in the original [employer] edition 2016
--- NOTE | 2016-07-31 08:48 | XRay Report ---
PORTABLE CHEST INDICATION: Shortness of breath. COMPARISON: 05/29/2016 FINDINGS: Portable, frontal chest radiograph again demonstrates mild cardiomegaly, aortic knob calcifications, bilateral axillary stents, demineralized bones and EKG leads. Clearer lungs/improved pulmonary venous congestion without large pleural effusions or CHF at this time. Right hemidiaphragm slightly elevated. CONCLUSION: Mild cardiomegaly with interval resolution of pulmonary venous congestion, as described. Please correlate. Thank you for the opportunity to participate in this patient's care.
== END 2016-07-30 22:29 | disposition home or self-care (01) ==
LOC: ED 18:46
DX: I12.0 Hypertensive chronic kidney disease with stage 5 chronic kidney disease or end stage renal disease (principal); N18.6 End stage renal disease; R06.02 Shortness of breath; E11.9 Type 2 diabetes mellitus without complications; Z99.2 Dependence on renal dialysis; Z86.718 Personal history of other venous thrombosis and embolism
CPT/HCPCS: 36415; 71010; 80048; 83880; 85007; 85025; 93005; 93010; 94644

== ENCOUNTER 2016-08-01 18:23 | Inpatient (IN) | payer MEDICARE ==
--- NOTE | 2016-08-01 20:14 | Emergency Department Report ---
Chief Complaint: Nausea/Vomiting/Diarrhea Stated Complaint: NAUSEA/VOMITING Time Seen by Provider: 08/01/16 20:11 - HPI History of Present Illness: PT c/o n/v. - ROS Review of Systems: + sob - abd pain - Exam Physical Exam: pt dry heaving, abd soft and non tender MSE screening note: Focused history and physical exam performed. Due to findings the following was ordered: ekg, labs ED Disposition for MSE Condition: Stable
[2016-08-01 20:56] LABS: Hematocrit 38.1 % (30.3-42.9); Hemoglobin 12.1 gm/dl (10.1-14.3); Mean Corpuscular HGB Conc 32 % (30-34); Mean Corpuscular Hemoglobin 27 pg (28-32); Mean Corpuscular Volume 86 fl (79-97); Platelet Count 144 K/mm3 (140-440); Red Blood Count 4.42 M/mm3 (3.65-5.03); Red Cell Distribution Width 20.6 % (13.2-15.2); White Blood Count 8.3 K/mm3 (4.5-11.0)
[2016-08-01 21:18] LABS: Albumin 3.7 g/dL (3.9-5); Albumin/Globulin Ratio 1.1 %; BUN/Creatinine Ratio 4.84; Bilirubin,Total 1.5 mg/dL (0.1-1.2); Calcium 10.1 mg/dL (8.4-10.2); Total Protein 7.1 g/dL (6.3-8.2)
[2016-08-01 21:45] LABS: Potassium 5.2 mmol/L (3.6-5.0)
[2016-08-01 21:57] LABS: Basophils % (Manual) 0 % (0.0-1.8); Blastocytes % (Manual) 0 %
[2016-08-01 21:58] LABS: Anisocytosis 1+; Elliptocytes Few; Platelet Estimate Consistent w Auto; Poikilocytosis 1+; Schistocytes Few
[2016-08-01 21:59] LABS: Diff Status Complete
[2016-08-01] MEDS ORDERED: ZOFRAN IV ONE (23:08)
[2016-08-01] MEDS ORDERED: MORPHINE IV ONE (23:08)
--- NOTE | 2016-08-01 23:19 | Emergency Department Report ---
HPI - General Chief Complaint: Dyspnea/Respdistress Time Seen by Provider: 08/01/16 20:11 - HPI HPI: Room 22 The patient is a 75-year-old female presenting with a chief complaint of shortness of breath nausea and vomiting. Family states the patient's symptoms began today with shortness of breath nausea vomiting. Patient denies chest pain , cough or fever. Patient denies abdominal pain. Patient does admit to headache and dizziness which also began this morning. Patient denies any history of fall or recent trauma. Patient currently gives her headache score of 6-8/10 Location: [see above] Duration: One day Quality: [see above] Severity: Moderate Modifying factors: [see above] Context: [see above] Mode of transportation: [not driving] ED Past Medical Hx - Past Medical History Previous Medical History?: Yes Hx Hypertension: Yes Hx Diabetes: Yes Hx Deep Vein Thrombosis: Yes Hx Renal Disease: Yes (ESRD on HD , , ) Hx Kidney Stones: Yes Additional medical history: dialysis Tuesdays, , Saturday, av graft right upper arm - Surgical History Past Surgical History?: Yes Hx Cholecystectomy: Yes Additional Surgical History: A/V graft to right arm - Family History Family history: no significant - Social History Smoking Status: Never Smoker Substance Use Type: None - Medications Home Medications: Home Medications Medication Instructions Recorded Confirmed Last Taken Type Sevelamer Carbonate [Renvela] 800 mg PO TIDWM 04/02/13 05/29/16 1 Day Ago History 800 Megan-Juliet Rx Tablet 1 tab PO DAILY 12/31/14 05/29/16 1 Day Ago History 1 Docusate Sodium [Colace CAP] 100 mg PO BID PRN #30 capsule 01/24/15 05/29/16 1 Day Ago Rx 100 Famotidine [Pepcid] 40 mg PO QHS #30 tablet 01/24/15 05/29/16 1 Day Ago Rx 40 Pravastatin Sodium [Pravastatin] 10 mg PO QHS 01/24/15 05/29/16 1 Day Ago History 10 Promethazine [Phenergan TAB] 25 mg PO Q6HR PRN #20 tab 01/24/15 05/29/16 1 Day Ago Rx 25 Doxepin [SINEquan] 10 mg PO QHS 05/01/15 05/29/16 1 Day Ago History 10 Tramadol HCl [Conzip 25 MG IR + 75 50 mg PO Q6H PRN 05/01/15 05/29/16 1 Week Ago History MG XR CAP] 50 Folic Acid/Vit B Comp W-C [Renal 1 cap PO QDAY capsule 05/04/15 05/29/16 1 Day Ago Rx Caps] 1 HYDROcodone/APAP 5-325 [[place] 1 each PO Q6HR PRN #30 tablet 05/04/15 05/29/16 1 Day Ago Rx 5-325 mg TAB] 1 Levothyroxine [Synthroid] 25 mcg PO DAILY@0600 tablet 05/04/15 05/29/16 1 Day Ago Rx 25 Levothyroxine [Synthroid] 112 mcg PO DAILY@0600 tablet 05/04/15 05/29/16 1 Day Ago Rx 112 Apixaban [Eliquis] 2.5 mg PO BID #60 tablet 05/04/16 05/29/16 1 Day Ago Rx 2.5 Carvedilol [Coreg] 6.25 mg PO BID #60 tablet 05/04/16 05/29/16 1 Day Ago Rx 6.25 Diltiazem [Cardizem] 30 mg PO Q8HR #90 tablet 05/04/16 05/29/16 1 Day Ago Rx 30 ALBUTEROL Inhaler [ProAir HFA 2 puff IH QID PRN #1 inhalation 07/30/16 Unknown Rx Inhaler] ED Review of Systems ROS: Stated complaint: NAUSEA/VOMITING Other details as noted in HPI Comment: All other systems reviewed and negative Constitutional: denies: chills, fever Eyes: denies: eye pain, eye discharge, vision change ENT: denies: ear pain, throat pain Respiratory: shortness of breath Cardiovascular: denies: chest pain Endocrine: no symptoms reported Gastrointestinal: nausea, vomiting Genitourinary: denies: urgency, dysuria, discharge Musculoskeletal: denies: back pain, joint swelling, arthralgia Skin: denies: rash, lesions Neurological: headache Psychiatric: denies: anxiety, depression Hematological/Lymphatic: denies: easy bleeding, easy bruising Physical Exam - Physical Exam Vital Signs: Vital Signs 08/01/16 08/01/16 08/01/16 20:05 21:48 21:50 Temperature 98.4 F 97.9 F Pulse Rate 78 89 Respiratory 20 26 H Rate Blood Pressure 191/84 Blood Pressure 176/97 [Left] O2 Sat by Pulse 100 100 100 Oximetry Physical Exam: GENERAL: The patient is well-developed well-nourished female sitting on stretcher appearing to be in mild discomfort. [] HEENT: Normocephalic. Atraumatic. Extraocular motions are intact. Patient has moist mucous membranes. NECK: Supple. No meningitic signs are noted. Trachea midline CHEST/LUNGS: Clear to auscultation. There is no respiratory distress noted. HEART/CARDIOVASCULAR: Regular. There is no tachycardia. There is no gallop rub or murmur. ABDOMEN: Abdomen is soft, nontender. Patient has normal bowel sounds. There is no abdominal distention. SKIN: There is no rash. There is no edema. There is no diaphoresis. NEURO: The patient is awake, alert, and oriented. The patient is cooperative. The patient has no focal neurologic deficits. The patient has normal speech. Moves all extremities well MUSCULOSKELETAL: There is no evidence of acute injury. ED Course Vital Signs 08/01/16 08/01/16 08/01/16 20:05 21:48 21:50 Temperature 98.4 F 97.9 F Pulse Rate 78 89 Respiratory 20 26 H Rate Blood Pressure 191/84 Blood Pressure 176/97 [Left] O2 Sat by Pulse 100 100 100 Oximetry ED Medical Decision Making - Lab Data Result diagrams: 08/01/16 20:37 08/01/16 20:37 Laboratory Tests 08/01/16 08/01/16 08/01/16 20:37 20:37 20:37 WBC 8.3 RBC 4.42 Hgb 12.1 Hct 38.1 MCV 86 MCH 27 L MCHC 32 RDW 20.6 H Plt Count 144 Add Manual Diff Complete Total Counted 100 Seg Neuts % (Manual) 86.0 H Band Neutrophils % 0 Lymphocytes % (Manual) 7.0 L Reactive Lymphs % (Man) 0 Monocytes % (Manual) 6.0 Eosinophils % (Manual) 1.0 Basophils % (Manual) 0 Metamyelocytes % 0 Myelocytes % 0 Promyelocytes % 0 Blast Cells % 0 Nucleated RBC % Not Reportable Seg Neutrophils # Man 7.1 Band Neutrophils # 0.0 Lymphocytes # (Manual) 0.6 L Abs React Lymphs (Man) 0.0 Monocytes # (Manual) 0.5 Eosinophils # (Manual) 0.1 Basophils # (Manual) 0.0 Metamyelocytes # 0.0 Myelocytes # 0.0 Promyelocytes # 0.0 Blast Cells # 0.0 WBC Morphology Not Reportable Hypersegmented Neuts Not Reportable Hyposegmented Neuts Not Reportable Hypogranular Neuts Not Reportable Smudge Cells Not Reportable Toxic Granulation Not Reportable Toxic Vacuolation Not Reportable Dohle Bodies Not Reportable Pelger-Huet Anomaly Not Reportable Jude Rods Not Reportable Platelet Estimate Consistent w auto Clumped Platelets Not Reportable Plt Clumps, EDTA Not Reportable Large Platelets Not Reportable Giant Platelets Not Reportable Platelet Satelliting Not Reportable Plt Morphology Comment Not Reportable RBC Morphology Not Reportable Dimorphic RBCs Not Reportable Polychromasia Not Reportable Hypochromasia Not Reportable Poikilocytosis 1+ Anisocytosis 1+ Microcytosis Not Reportable Macrocytosis Not Reportable Spherocytes Not Reportable Pappenheimer Bodies Not Reportable Sickle Cells Not Reportable Target Cells Not Reportable Tear Drop Cells Not Reportable Ovalocytes Not Reportable Helmet Cells Not Reportable Lopez-Nutrioso Bodies Not Reportable [place] Rings Not Reportable Selma Cells Not Reportable Bite Cells Not Reportable Crenated Cell Not Reportable Elliptocytes Few Acanthocytes (Spur) Not Reportable Rouleaux Not Reportable Hemoglobin C Crystals Not Reportable Schistocytes Few Malaria parasites Not Reportable Aaron Bodies Not Reportable Hem Pathologist Commnt No Sodium 139 Potassium 5.2 H D Chloride 96.0 L Carbon Dioxide 22 Anion Gap 26 BUN 32 H Creatinine 6.6 H Estimated GFR 6 BUN/Creatinine Ratio 4.84 Glucose 144 H Calcium 10.1 Total Bilirubin 1.5 H AST 38 ALT 22 Alkaline Phosphatase 179 H Troponin T 0.183 H* NT-Pro-B Natriuret Pep > 72673 H Total Protein 7.1 Albumin 3.7 L Albumin/Globulin Ratio 1.1 Triglycerides 86 Cholesterol 212 H LDL Cholesterol Direct 101 HDL Cholesterol 94 H Cholesterol/HDL Ratio 2.25 Lipase 19 - EKG Data -: EKG Interpreted by Me EKG shows normal: sinus rhythm Rate: normal - EKG Data When compared to previous EKG there are: no significant change Interpretation: unchanged when compared t (07/30/2016) - Radiology Data Radiology results: report reviewed (CT head), image reviewed (chest x-ray, CT head) interpreted by me: Chest x-ray-no focal infiltrates, no pneumothorax CT head (read by radiologist)-there is no acute intracranial abnormality - Differential Diagnosis ACS, intracranial hemorrhage, pneumonia Critical care attestation.: If time is entered above; I have spent that time in minutes in the direct care of this critically ill patient, excluding procedure time. ED Disposition Clinical Impression: End stage renal disease on dialysis, Nausea & vomiting, Shortness of breath Disposition: OP ADMITTED IP TO THIS HOSP Is pt being admited?: Yes Does the pt Need Aspirin: Yes Condition: Stable Referrals: PRIMARY CARE, [Primary Care Provider] - 3-5 Days Time of Disposition: 01:01 (hospitalist notified)
[2016-08-02] MEDS ORDERED: CATAPRES PO ONE (00:14)
--- NOTE | 2016-08-02 00:53 | Cat Scan Report ---
FINAL REPORT PROCEDURE: CT HEAD/BRAIN WO CON TECHNIQUE: Computerized tomography of the head was performed without contrast material. HISTORY: headache nausea vomiting COMPARISON: No prior studies are available for comparison. FINDINGS: Skull and scalp: Normal. Paranasal sinuses: Normal. Ventricles and subarachnoid spaces: There is mild central and cortical atrophy. There is no hydrocephalus or asymmetry per. Cerebrum: No evidence of hemorrhage, acute infarction or mass. There is chronic deep white matter ischemic gliosis. Cerebellum and brainstem: No evidence of hemorrhage, acute infarction or mass. Vasculature: There is calcified plaque in the cavernous portions of the internal carotid arteries.. Comments: None. IMPRESSION: There is no acute intracranial abnormality.
--- NOTE | 2016-08-02 00:58 | Admit Criteria Form ---
Admission Criteria Documentation: RENAL FAILURE, CHRONIC Clinical Indications for Admission to Inpatient Care (Place 'X' for any and all applicable criteria): Admission is indicated for ANY ONE of the following (1)(2)(3)(4)(5): [ X]I. Inpatient admission required rather than observation care (Use Renal Failure, Chronic: Observation Care Criteria as appropriate) because of ANY ONE of the following: [ ]a) Volume overload or uremic symptoms (eg, clinically significant pulmonary edema, hypertension, pericarditis, acidosis) too severe for, or not responsive (eg, for over 24 hours) to emergency department or observation care dialysis or treatment regimen (11) [ ]b) Hemodynamic instability that is severe or persistent [ ]c) Respiratory distress that is severe or persistent (11) [ ]d) Clinically significant electrolyte abnormality that requires inpatient care (eg,hyperkalemia with severe ECG findings)[B] [ ]e) Supplement O2 or respiratory therapy for over 24hrs that is performable only in acute inpatient setting [ ]f) Continuous IV infusion of anticoagulation, platelet inhibitor, vasoactive, or Antiarrhythmic medication (15), [ ]g) Pulmonary artery catheter monitoring [ ]h) Temporary pacemaker placement [ ]i) Emergent pericardiocentesis [X ]j) Other condition, treatment or monitoring requiring inpatient admission [ ]II. Unexplained syncope [A] [ ]III. Recurrent seizures [ ]IV. Severe infections not treatable in outpatient setting (eg, peritonitis)(9 ) [ ]V. Cardiac arrhythmias of immediate concern [ ]. Encephalopathy [ ]VII.Bleeding abnormalities (eg, platelet dysfunction) with active (eg, gastrointestinal) bleeding Extended stay beyond goal length of stay may be needed for (3)(4)(35)(36): [ ]a) Continuing uremic complications [ ]b) Comorbidities or complications The original [employer] content created by [employer] has been revised. The portions of the content which have been revised are identified through the use of italic text or in bold, and [facility] has neither reviewed nor approved the modified material. All other unmodified content is copyright [employer]. Please see references footnoted in the original [facility] [employer] edition 2016 Admission Criteria Met: Yes
[2016-08-02] MEDS ORDERED: ASPIRIN PO ONE (01:02)
[2016-08-02] MEDS ORDERED: TYLENOL PO PRN (02:02)
[2016-08-02] MEDS ORDERED: ZOFRAN IV PRN (02:02)
[2016-08-02] MEDS ORDERED: DULCOLAX PR PRN (02:02)
[2016-08-02] MEDS ORDERED: D50W (25GM) IV PRN (02:02)
[2016-08-02] MEDS ORDERED: MILK OF MAGNESIA PO PRN (02:02)
--- NOTE | 2016-08-02 02:06 | History and Physical Report ---
History of Present Illness Date of examination: 08/02/16 History of present illness: 75-year-old woman history of hypertension, diabetes, end-stage renal disease on dialysis Saturday, , Saturday, A. fib, coronary artery disease, hypothyroidism currently emergency room with complaining of shortness of breath , nausea, vomiting. Patient is scheduled for dialysis today. Has been, patient also complaining of headache. History is via the spouse, who is the band lining bander Patient denies chest pain, palpitation, cough, abdominal pain, hematochezia, dysuria, frequency, focal weakness, dysarthria, fever chills, polydipsia polyuria, hot or cold intolerance, easy bruisability, or rash or bleeding from mucosal membrane, rhinorrhea, epistaxis, earache, tinnitus, blurry vision, eye discharge, anxiety, depression. Other review of systems negative PAST SURGICAL HISTORY: Cholecystectomy, AV fistula SOCIAL HISTORY: Denies alcohol, tobacco, drugs FAMILY HISTORY: Hypertension, diabetes, coronary artery disease Medications and Allergies Allergies Allergy/AdvReac Type Severity Reaction Status Date / Time No Known Allergies Allergy Verified 07/30/16 19:47 Home Medications Medication Instructions Recorded Confirmed Last Taken Type Sevelamer Carbonate [Renvela] 800 mg PO TIDWM 04/02/13 05/29/16 1 Day Ago History 800 Megan-Juliet Rx Tablet 1 tab PO DAILY 12/31/14 05/29/16 1 Day Ago History 1 Docusate Sodium [Colace CAP] 100 mg PO BID PRN #30 capsule 01/24/15 05/29/16 1 Day Ago Rx 100 Famotidine [Pepcid] 40 mg PO QHS #30 tablet 01/24/15 05/29/16 1 Day Ago Rx 40 Pravastatin Sodium [Pravastatin] 10 mg PO QHS 01/24/15 05/29/16 1 Day Ago History 10 Promethazine [Phenergan TAB] 25 mg PO Q6HR PRN #20 tab 01/24/15 05/29/16 1 Day Ago Rx 25 Doxepin [SINEquan] 10 mg PO QHS 05/01/15 05/29/16 1 Day Ago History 10 Tramadol HCl [Conzip 25 MG IR + 75 50 mg PO Q6H PRN 05/01/15 05/29/16 1 Week Ago History MG XR CAP] 50 Folic Acid/Vit B Comp W-C [Renal 1 cap PO QDAY capsule 05/04/15 05/29/16 1 Day Ago Rx Caps] 1 HYDROcodone/APAP 5-325 [[place] 1 each PO Q6HR PRN #30 tablet 05/04/15 05/29/16 1 Day Ago Rx 5-325 mg TAB] 1 Levothyroxine [Synthroid] 25 mcg PO DAILY@0600 tablet 05/04/15 05/29/16 1 Day Ago Rx 25 Levothyroxine [Synthroid] 112 mcg PO DAILY@0600 tablet 05/04/15 05/29/16 1 Day Ago Rx 112 Apixaban [Eliquis] 2.5 mg PO BID #60 tablet 05/04/16 05/29/16 1 Day Ago Rx 2.5 Carvedilol [Coreg] 6.25 mg PO BID #60 tablet 05/04/16 05/29/16 1 Day Ago Rx 6.25 Diltiazem [Cardizem] 30 mg PO Q8HR #90 tablet 05/04/16 05/29/16 1 Day Ago Rx 30 ALBUTEROL Inhaler [ProAir HFA 2 puff IH QID PRN #1 inhalation 07/30/16 Unknown Rx Inhaler] Exam - Physical Exam Narrative exam: Gen. appearance: Patient lying in bed, no apparent distress HEENT: Normocephalic, atraumatic, pupils equally round and reactive to light, extraocular movement intact, and no sclericterus,. No JVD or thyromegaly or nodule,neck supple, no carotid bruit ,mucous membranes moist, no exudate or erythema Heart: S1, S2, regular rate and rhythm Lungs: Crackles bilaterally, breathing comfortable Abdomen: Positive bowel sounds, nontender, nondistended, no organomegaly Extremity: No edema, cyanosis, clubbing Skin: No rash, nodules, warm, dry Neuro: Oriented 3, cranial nerves II-12 intact, speech is fluent, motor and sensory intact - Constitutional Vitals: Temp Pulse Resp BP Pulse Ox 97.9 F 73 18 157/61 97 08/01/16 21:48 08/02/16 01:16 08/02/16 01:16 08/02/16 01:16 08/02/16 01:16 Results - Labs CBC & Chem 7: 08/01/16 20:37 08/01/16 20:37 Labs: Abnormal lab results 08/01/16 08/01/16 08/01/16 Range/Units 20:37 20:37 20:37 MCH 27 L (28-32) pg RDW 20.6 H (13.2-15.2) % Seg Neuts % (Manual) 86.0 H (40.0-70.0) % Lymphocytes % (Manual) 7.0 L (13.4-35.0) % Lymphocytes # (Manual) 0.6 L (1.2-5.4) K/mm3 Potassium 5.2 H D (3.6-5.0) mmol/L Chloride 96.0 L (98-107) mmol/L BUN 32 H (7-17) mg/dL Creatinine 6.6 H (0.7-1.2) mg/dL Glucose 144 H (65-100) mg/dL Total Bilirubin 1.5 H (0.1-1.2) mg/dL Alkaline Phosphatase 179 H (35-129) units/L Troponin T 0.183 H* (0.00-0.029) ng/mL NT-Pro-B Natriuret Pep > 65475 H (0-900) pg/mL Albumin 3.7 L (3.9-5) g/dL Cholesterol 212 H (50-199) mg/dL HDL Cholesterol 94 H (40-59) mg/dL - Imaging and Cardiology EKG: image reviewed Chest x-ray: image reviewed CT Scan - head: report reviewed Assessment and Plan Fluid overload End-stage renal disease needing dialysis Abnormal cardiac enzymes Hypertension Diabetes of 2 Coronary artery disease A. fib Hypothyroidism Admit to medicine Consult renal for dialysis Check cardiac enzymes, echo Check fingersticks initiate insulin sliding scale Continue appropriate outpatient medications
[2016-08-02 03:16] LABS: Creatine Kinase MB 4.1 ng/mL (0.0-4.0)
[2016-08-02] MEDS: SYNTHROID PO SCH (06:50)
--- NOTE | 2016-08-02 08:53 | XRay Report ---
PORTABLE CHEST INDICATION: Shortness of breath. COMPARISON: 07/30/2016 FINDINGS: Portable, frontal chest radiograph demonstrates poorer inspiration with mild exaggerated cardiomediastinal silhouette and somewhat crowded lung markings. Mild cardiomegaly may again be present. Aortic atherosclerotic calcifications. No dense focal consolidation. Bilateral axillary stents. Right hemidiaphragm slightly elevated. IVC filter incompletely imaged. EKG leads. Demineralized bones. CONCLUSION: No significant interval change, allowing for the difference in technique with mild cardiomegaly and various other findings again noted, as described. Please correlate. Thank you for the opportunity to participate in this patient's care.
[2016-08-02] MEDS ORDERED: LOVENOX SUB-Q SCH (10:00)
[2016-08-02] MEDS ORDERED: NON-FORMULARY (Rena-Vite Rx Tablet 1 TAB) PO SCH (10:00)
--- NOTE | 2016-08-02 10:02 | Nuclear Medicine Report ---
LUNG SCAN, VENTILATION AND PERFUSION: History: Shortness of breath. Technique: 5mci of Tc99m MAA was infused for the perfusion images. 15mci XE 133 gas was inhaled for the ventilatory images. Correlation is made with a chest x-ray dated 08/01/16. Findings: Inhalation of Xenon gas demonstrates a normal distribution of the activity throughout both lungs. The wash out phases show no focal retention of activity. After injection of Technetium 99m macroaggregated albumin gamma camera imaging of the lungs in multiple projections demonstrates normal pulmonary contours with a homogeneous distribution of activity. No focal areas of perfusion deficiency are identified. IMPRESSION: Low probability for pulmonary embolus.
[2016-08-02 11:28] LABS: Creatine Kinase MB 3.9 ng/mL (0.0-4.0)
[2016-08-02] MEDS ORDERED: NACL 0.9% 100 ML IV PRN ×2 (13:44→16:13)
--- NOTE | 2016-08-02 16:45 | Event Note ---
Date: 08/02/16 She was admitted this morning with worsening shortness of breath Seen by nephrology, scheduled for hemodialysis today Patient had elevated d-dimer's, VQ scan low probability for PE Medical records reviewed, AGREED with the management Closely monitor and adjust the management as needed
[2016-08-02] MEDS ORDERED: NACL 0.9 (PRIMING MACHINE ONLY DIALYSIS) MC ONE (17:10)
[2016-08-02] MEDS: Renal Caps PO SCH (17:38)
[2016-08-02] MEDS: RENVELA PO SCH (17:38)
[2016-08-02] MEDS: COREG PO SCH ×2 (17:38→21:55)
[2016-08-02] MEDS: ELIQUIS PO SCH ×2 (17:38→21:49)
[2016-08-02] MEDS: PEPCID PO SCH (21:49)
[2016-08-02] MEDS: ZOCOR PO SCH (21:49)
[2016-08-03] MEDS: SYNTHROID PO SCH (06:00)
[2016-08-03 07:03] LABS: Basophils % (Auto) 0.3 % (0.0-1.8); Eosinophils % (Auto) 8.6 % (0.0-4.3); Hematocrit 32.3 % (30.3-42.9); Hemoglobin 10.5 gm/dl (10.1-14.3); Mean Corpuscular HGB Conc 32 % (30-34); Mean Corpuscular Hemoglobin 28 pg (28-32); Mean Corpuscular Volume 86 fl (79-97); Platelet Count 127 K/mm3 (140-440); Red Blood Count 3.77 M/mm3 (3.65-5.03); White Blood Count 3.5 K/mm3 (4.5-11.0)
[2016-08-03 07:11] LABS: Red Cell Distribution Width 20.5 % (13.2-15.2)
[2016-08-03 07:14] LABS: BUN/Creatinine Ratio 3.54; Chloride 101.3 mmol/L (98-107); Potassium 4.2 mmol/L (3.6-5.0)
[2016-08-03] MEDS: RENVELA PO SCH ×3 (08:06→17:43)
[2016-08-03] MEDS: Renal Caps PO SCH (09:06)
[2016-08-03] MEDS: ELIQUIS PO SCH ×2 (09:07→21:44)
[2016-08-03] MEDS: COREG PO SCH ×2 (09:11→21:44)
--- NOTE | 2016-08-03 11:48 | Progress Note ---
Assessment and Plan end-stage renal disease patient is currently on maintenance hemodialysis on Saturday and and Saturday patient did receive her hemodialysis yesterday and has had no problems during the dialysis Admitted with abnormal cardiac enzymes currently being followed by cardiology Anemia and end-stage renal disease continue to monitor hemoglobin erythropoietin as needed secondary hyperparathyroidism periodically monitor phosphorus and PTH level Malnutrition risk is high in dialysis patient in general these consider nutrition consultation and follow-up Subjective Interval history: patient was seen today for follow-up she is resting comfortably She denies any complaints of chest pain pressure or shortness of breath Tolerated hemodialysis treatment well Appetite is not so good Objective - Vital Signs Vital signs: Vital Signs - 12hr 08/02/16 08/03/16 08/03/16 23:54 03:43 05:16 Temperature 98.6 F 98.4 F Pulse Rate 57 L Pulse Rate [ 61 76 Left] Respiratory 18 18 Rate Blood Pressure Blood Pressure 143/64 138/64 [Left Arm] O2 Sat by Pulse 100 94 Oximetry 08/03/16 08/03/16 08:00 09:11 Temperature 98.1 F Pulse Rate 70 Pulse Rate [ 70 Left] Respiratory 18 Rate Blood Pressure 132/63 Blood Pressure 132/63 [Left Arm] O2 Sat by Pulse 100 Oximetry - General Appearance General appearance: appears stated age EENT: mucous membranes moist Neck: no JVD Respiratory: Present: Clear to Ascultation Cardiology: regular Gastrointestinal: normal (nontender abdomen no organomegaly) Integumentary: no rash - Lab 08/03/16 05:13 08/03/16 05:13 Most recent lab results Calcium 9.0 mg/dL (8.4-10.2) 08/03/16 05:13
--- NOTE | 2016-08-03 12:18 | Progress Note ---
Assessment and Plan Assessment and plan: --End-stage renal disease on hemodialysis Nephrology following, dialysis per schedule Next dialysis tomorrow, patient can be discharged after dialysis tomorrow if stable --Nonspecific elevated cardiac enzymes Without cardiac symptoms, probably secondary to end-stage renal disease Trending down, closely monitor --Hypertension Moderate control, continue current antihypertensives and when necessary medications --History of Type 2 diabetes mellitus Patient's blood sugars are reasonable level, 1 episode of hypoglycemia resolved Not on any medications, closely monitor --History of A. fib, Rate controlled, continue Cardizem closely monitor --Chronic anticoagulation with Eliquis Stable --DVT prophylaxis, patient is on Eliquis --Full CODE STATUS Closely monitor the patient, possible discharge home tomorrow after dialysis if stable Home health if needed discharge Plan of care discussed with the patient as well as the family member and also the nurse History Interval history: Patient seen and evaluated in her room this morning medical records reviewed Patient feels slightly better denies any chest pain or shortness of breath No nausea vomiting, alert awake oriented responding to simple questions Vital signs reviewed stable Family member at the bedside Hospitalist Physical - Constitutional Vitals: Temp Pulse Resp BP Pulse Ox 98.1 F 70 18 132/63 100 08/03/16 08:00 08/03/16 09:11 08/03/16 08:00 08/03/16 09:11 08/03/16 08:00 General appearance: Present: no acute distress, well-nourished - EENT Eyes: Present: PERRL, EOM intact - Neck Neck: Present: supple, normal ROM - Respiratory Respiratory effort: normal Respiratory: bilateral: diminished, rales, negative: rhonchi, wheezing - Cardiovascular Rhythm: regular Heart Sounds: Present: S1 & S2 - Extremities Extremities: no ischemia, pulses intact, pulses symmetrical Extremity abnormal: edema (trace) Peripheral Pulses: within normal limits - Abdominal General gastrointestinal: soft, non-tender, non-distended, normal bowel sounds - Integumentary Integumentary: Present: clear, warm - Psychiatric Psychiatric: appropriate mood/affect, cooperative - Neurologic Neurologic: CNII-XII intact, moves all extremities Results - Labs CBC & Chem 7: 08/03/16 05:13 08/03/16 05:13 Labs: Laboratory Last Values WBC 3.5 K/mm3 (4.5-11.0) L 08/03/16 05:13 RBC 3.77 M/mm3 (3.65-5.03) 08/03/16 05:13 Hgb 10.5 gm/dl (10.1-14.3) 08/03/16 05:13 Hct 32.3 % (30.3-42.9) 08/03/16 05:13 MCV 86 fl (79-97) 08/03/16 05:13 MCH 28 pg (28-32) 08/03/16 05:13 MCHC 32 % (30-34) 08/03/16 05:13 RDW 20.5 % (13.2-15.2) H 08/03/16 05:13 Plt Count 127 K/mm3 (140-440) L 08/03/16 05:13 Lymph % (Auto) 33.0 % (13.4-35.0) 08/03/16 05:13 Hickman % (Auto) 11.3 % (0.0-7.3) H 08/03/16 05:13 Eos % (Auto) 8.6 % (0.0-4.3) H 08/03/16 05:13 Baso % (Auto) 0.3 % (0.0-1.8) 08/03/16 05:13 Lymph # 1.2 K/mm3 (1.2-5.4) 08/03/16 05:13 Hickman # 0.4 K/mm3 (0.0-0.8) 08/03/16 05:13 Eos # 0.3 K/mm3 (0.0-0.4) 08/03/16 05:13 Baso # 0.0 K/mm3 (0.0-0.1) 08/03/16 05:13 Add Manual Diff Complete 08/01/16 20:37 Total Counted 100 08/01/16 20:37 Seg Neutrophils % 46.8 % (40.0-70.0) 08/03/16 05:13 Seg Neuts % (Manual) 86.0 % (40.0-70.0) H 08/01/16 20:37 Band Neutrophils % 0 % 08/01/16 20:37 Lymphocytes % (Manual) 7.0 % (13.4-35.0) L 08/01/16 20:37 Reactive Lymphs % (Man) 0 % 08/01/16 20:37 Monocytes % (Manual) 6.0 % (0.0-7.3) 08/01/16 20:37 Eosinophils % (Manual) 1.0 % (0.0-4.3) 08/01/16 20:37 Basophils % (Manual) 0 % (0.0-1.8) 08/01/16 20:37 Metamyelocytes % 0 % 08/01/16 20:37 Myelocytes % 0 % 08/01/16 20:37 Promyelocytes % 0 % 08/01/16 20:37 Blast Cells % 0 % 08/01/16 20:37 Nucleated RBC % Not Reportable 08/01/16 20:37 Seg Neutrophils # 1.7 K/mm3 (1.8-7.7) L 08/03/16 05:13 Seg Neutrophils # Man 7.1 K/mm3 (1.8-7.7) 08/01/16 20:37 Band Neutrophils # 0.0 K/mm3 08/01/16 20:37 Lymphocytes # (Manual) 0.6 K/mm3 (1.2-5.4) L 08/01/16 20:37 Abs React Lymphs (Man) 0.0 K/mm3 08/01/16 20:37 Monocytes # (Manual) 0.5 K/mm3 (0.0-0.8) 08/01/16 20:37 Eosinophils # (Manual) 0.1 K/mm3 (0.0-0.4) 08/01/16 20:37 Basophils # (Manual) 0.0 K/mm3 (0.0-0.1) 08/01/16 20:37 Metamyelocytes # 0.0 K/mm3 08/01/16 20:37 Myelocytes # 0.0 K/mm3 08/01/16 20:37 Promyelocytes # 0.0 K/mm3 08/01/16 20:37 Blast Cells # 0.0 K/mm3 08/01/16 20:37 WBC Morphology Not Reportable 08/01/16 20:37 Hypersegmented Neuts Not Reportable 08/01/16 20:37 Hyposegmented Neuts Not Reportable 08/01/16 20:37 Hypogranular Neuts Not Reportable 08/01/16 20:37 Smudge Cells Not Reportable 08/01/16 20:37 Toxic Granulation Not Reportable 08/01/16 20:37 Toxic Vacuolation Not Reportable 08/01/16 20:37 Dohle Bodies Not Reportable 08/01/16 20:37 Pelger-Huet Anomaly Not Reportable 08/01/16 20:37 Jude Rods Not Reportable 08/01/16 20:37 Platelet Estimate Consistent w auto 08/01/16 20:37 Clumped Platelets Not Reportable 08/01/16 20:37 Plt Clumps, EDTA Not Reportable 08/01/16 20:37 Large Platelets Not Reportable 08/01/16 20:37 Giant Platelets Not Reportable 08/01/16 20:37 Platelet Satelliting Not Reportable 08/01/16 20:37 Plt Morphology Comment Not Reportable 08/01/16 20:37 RBC Morphology Not Reportable 08/01/16 20:37 Dimorphic RBCs Not Reportable 08/01/16 20:37 Polychromasia Not Reportable 08/01/16 20:37 Hypochromasia Not Reportable 08/01/16 20:37 Poikilocytosis 1+ 08/01/16 20:37 Anisocytosis 1+ 08/01/16 20:37 Microcytosis Not Reportable 08/01/16 20:37 Macrocytosis Not Reportable 08/01/16 20:37 Spherocytes Not Reportable 08/01/16 20:37 Pappenheimer Bodies Not Reportable 08/01/16 20:37 Sickle Cells Not Reportable 08/01/16 20:37 Target Cells Not Reportable 08/01/16 20:37 Tear Drop Cells Not Reportable 08/01/16 20:37 Ovalocytes Not Reportable 08/01/16 20:37 Helmet Cells Not Reportable 08/01/16 20:37 [place] Bodies Not Reportable 08/01/16 20:37 [place] Rings Not Reportable 08/01/16 20:37 Berta Cells Not Reportable 08/01/16 20:37 Bite Cells Not Reportable 08/01/16 20:37 Crenated Cell Not Reportable 08/01/16 20:37 Elliptocytes Few 08/01/16 20:37 Acanthocytes (Spur) Not Reportable 08/01/16 20:37 Rouleaux Not Reportable 08/01/16 20:37 Hemoglobin C Crystals Not Reportable 08/01/16 20:37 Schistocytes Few 08/01/16 20:37 Malaria parasites Not Reportable 08/01/16 20:37 Aaron Bodies Not Reportable 08/01/16 20:37 Hem Pathologist Commnt No 08/01/16 20:37 D-Dimer 1228.85 ng/mlDDU (0-234) H 08/02/16 02:37 Sodium 141 mmol/L (137-145) 08/03/16 05:13 Potassium 4.2 mmol/L (3.6-5.0) 08/03/16 05:13 Chloride 101.3 mmol/L (98-107) 08/03/16 05:13 Carbon Dioxide 28 mmol/L (22-30) 08/03/16 05:13 Anion Gap 16 mmol/L 08/03/16 05:13 BUN 17 mg/dL (7-17) 08/03/16 05:13 Creatinine 4.8 mg/dL (0.7-1.2) H 08/03/16 05:13 Estimated GFR 9 ml/min 08/03/16 05:13 BUN/Creatinine Ratio 3.54 % 08/03/16 05:13 Glucose 55 mg/dL (65-100) L 08/03/16 05:13 POC Glucose 141 (70-105) H 08/02/16 21:47 Calcium 9.0 mg/dL (8.4-10.2) 08/03/16 05:13 Total Bilirubin 1.5 mg/dL (0.1-1.2) H 08/01/16 20:37 AST 38 units/L (5-40) 08/01/16 20:37 ALT 22 units/L (7-56) 08/01/16 20:37 Alkaline Phosphatase 179 units/L (35-129) H 08/01/16 20:37 Total Creatine Kinase 116 units/L (30-135) 08/02/16 10:25 CK-MB (CK-2) 3.9 ng/mL (0.0-4.0) 08/02/16 10:25 CK-MB (CK-2) Rel Index 3.3 (0-4) 08/02/16 10:25 Troponin T 0.173 ng/mL (0.00-0.029) H* 08/02/16 10:25 NT-Pro-B Natriuret Pep > 38179 pg/mL (0-900) H 08/01/16 20:37 Total Protein 7.1 g/dL (6.3-8.2) 08/01/16 20:37 Albumin 3.7 g/dL (3.9-5) L 08/01/16 20:37 Albumin/Globulin Ratio 1.1 % 08/01/16 20:37 Triglycerides 86 mg/dL (2-149) 08/01/16 20:37 Cholesterol 212 mg/dL (50-199) H 08/01/16 20:37 LDL Cholesterol Direct 101 mg/dL (50-130) 08/01/16 20:37 HDL Cholesterol 94 mg/dL (40-59) H 08/01/16 20:37 Cholesterol/HDL Ratio 2.25 % 08/01/16 20:37 Lipase 19 units/L (13-60) 08/01/16 20:37
[2016-08-03] MEDS: ZOCOR PO SCH (21:44)
[2016-08-03] MEDS: PEPCID PO SCH (21:44)
[2016-08-04] MEDS: SYNTHROID PO SCH (05:11)
[2016-08-04 05:27] LABS: BUN/Creatinine Ratio 4.91; Calcium 8.9 mg/dL (8.4-10.2); Chloride 99.7 mmol/L (98-107); Potassium 4.7 mmol/L (3.6-5.0)
[2016-08-04] MEDS: RENVELA PO SCH ×2 (08:31→13:16)
--- NOTE | 2016-08-04 10:19 | Discharge Summary ---
Providers - Providers Date of Admission: 08/02/16 02:02 Date of discharge: 08/04/16 Attending physician: ASHER DEL RIO Primary care physician: ELECTRONIC TRAIN CONTROL TECHNICIAN Hospitalization Reason for admission: n/v and sob Condition: Stable Hospital course: 75-year-old woman history of hypertension, diabetes, end-stage renal disease on dialysis Saturday, , Saturday, A. fib, coronary artery disease, hypothyroidism presented through emergency room with complaints of shortness of breath, nausea, vomiting. P patient also complained of headache. CT scan of the head was negative. Patient underwent evaluation for her dyspnea with echocardiogram and VQ scan. Echocardiogram revealed four-chamber dilated cardiomyopathy with global left ventricular systolic function moderately to severely decreased with an EF of 30-35%. Patient also had moderate concentric left ventricular hypertrophy that was observed. Left atrium was moderately dilated in mild to moderate mitral regurgitation. There was also evidence of moderate pulmonary hypertension. Right ventricular systolic pressure Rate of 52 mmHg. VQ scan showed no evidence of PE. The dyspnea was was felt to be secondary to volume overload and was resolved with hemodialysis. Patient will be discharged after hemodialysis today. Patient had nonspecific elevation of cardiac enzymes and without cardiac symptoms. Therefore, etiology is probably secondary to ESRD. Patient is felt to have received maximal hospital benefit. Dedicated discharge time 35 minutes. Disposition: DC/TX HOME UNDER HOME HEALTH - Discharge Diagnoses (1) End stage renal disease on dialysis Status: Acute (2) Shortness of breath Status: Acute (3) Dyspnea Status: Acute Qualifiers: Dyspnea type: shortness of breath Qualified Code(s): R06.02 - Shortness of breath (4) ESRD needing dialysis Status: Acute (5) Hypertension Status: Acute Qualifiers: Hypertension type: essential hypertension Qualified Code(s): I10 - Essential (primary) hypertension (6) DM type 2 (diabetes mellitus, type 2) Status: Chronic Qualifiers: Diabetes mellitus complication status: D Diabetes mellitus complication detail: D Diabetic retinopathy severity: D Proliferative retinopathy type: P Diabetes mellitus macular edema: D Diabetes mellitus group home insulin use : D Laterality: L Chronic kidney disease stage: C Comment: controlled (7) Hyperlipidemia Status: Chronic Qualifiers: Hyperlipidemia type: H (8) Acute systolic (congestive) heart failure Status: Acute Core Measure Documentation - Palliative Care Palliative Care/ Comfort Measures: Not Applicable - Core Measures Any of the following diagnoses?: heart failure - Heart Failure Discharge Requirements ABRAHAM/ARB for LVSD if EF <40%: No Reason for no ABRAHAM/ARB: Renal impairment Beta jose at discharge: Yes Exam - Constitutional Vitals: Temp Pulse Resp BP Pulse Ox 98.6 F 66 12 154/67 100 08/04/16 08:30 08/04/16 08:30 08/04/16 08:30 08/04/16 08:30 08/04/16 08:30 General appearance: Present: no acute distress, well-nourished - EENT Eyes: Present: PERRL ENT: hearing intact, clear oral mucosa - Neck Neck: Present: supple, normal ROM - Respiratory Respiratory effort: normal Respiratory: bilateral: CTA - Cardiovascular Heart Sounds: Present: S1 & S2. Absent: rub, click - Extremities Extremities: pulses symmetrical, No edema Peripheral Pulses: within normal limits - Abdominal General gastrointestinal: Present: soft, non-tender, non-distended, normal bowel sounds Female genitourinary: Present: normal - Integumentary Integumentary: Present: clear, warm, dry - Musculoskeletal Musculoskeletal: gait normal, strength equal bilaterally - Psychiatric Psychiatric: appropriate mood/affect, intact judgment & insight - Neurologic Neurologic: CNII-XII intact, moves all extremities Plan Activity: no restrictions Weight Bearing Status: Full Weight Bearing Diet: diabetic Follow up with: UMER ARAMBULA MD [Primary Care Provider] - 3-5 Days GIRISH WHALEY MD [Staff Physician] - 7 Days
[2016-08-04] MEDS: Renal Caps PO SCH (10:21)
[2016-08-04] MEDS: ELIQUIS PO SCH (10:22)
[2016-08-04] MEDS: COREG PO SCH (10:23)
[2016-08-04] MEDS ORDERED: NACL 0.9 (PRIMING MACHINE ONLY DIALYSIS) MC ONE (12:45)
--- NOTE | 2016-08-04 14:29 | Progress Note ---
Assessment and Plan Impression: * End-stage renal disease * Elevated troponin * Atrial fibrillation * Dyspnea secondary to pulmonary edema * Secondary hyperparathyroidism * Anemia secondary to ESRD Plan: * Hemodialysis today; UF as tolerated * Continue TTS schedule * Continue antiHTN medications * Renal diet * Note plans for d/c today Subjective Date of service: 08/04/16 Objective - Vital Signs Vital signs: Vital Signs - 12hr 08/04/16 08/04/16 08/04/16 06:22 08:30 10:00 Temperature 99.2 F 98.6 F Pulse Rate Pulse Rate [ 62 66 Left] Respiratory 12 Rate Blood Pressure Blood Pressure 147/67 [Left Arm] Blood Pressure 154/67 [Right Arm] O2 Sat by Pulse 94 100 98 Oximetry 08/04/16 08/04/16 08/04/16 10:23 12:28 12:30 Temperature 98 F Pulse Rate 66 56 L 56 L Pulse Rate [ Left] Respiratory 18 Rate Blood Pressure 154/67 146/56 148/56 Blood Pressure [Left Arm] Blood Pressure [Right Arm] O2 Sat by Pulse Oximetry 08/04/16 08/04/16 08/04/16 12:45 13:00 13:15 Temperature Pulse Rate 56 L 58 L 66 Pulse Rate [ Left] Respiratory Rate Blood Pressure 148/60 154/56 154/56 Blood Pressure [Left Arm] Blood Pressure [Right Arm] O2 Sat by Pulse Oximetry 08/04/16 08/04/16 08/04/16 13:30 13:45 14:09 Temperature Pulse Rate 52 L 58 L 58 L Pulse Rate [ Left] Respiratory Rate Blood Pressure 142/58 126/54 148/76 Blood Pressure [Left Arm] Blood Pressure [Right Arm] O2 Sat by Pulse Oximetry - Lab 08/03/16 05:13 08/04/16 03:58 Most recent lab results Calcium 8.9 mg/dL (8.4-10.2) 08/04/16 03:58
[2016-08-04 15:35] VITALS: BP 148/54
--- NOTE | 2016-08-06 07:08 | Consultation ---
PERSON ASKING FOR CONSULTATION: Hospital Medicine. HISTORY OF PRESENT ILLNESS: The patient is a 75-year-old [place] female, who is currently on maintenance hemodialysis on Saturday, and Saturday. The patient presented to the hospital with complaints of shortness of breath, nausea, and vomiting that started on the day of arrival. The patient does not have any history of fever or chills. The patient also having off and on headaches and upon arrival was noted to have potassium of 5.2. CT scan of the brain that was done showed no evidence of any acute events. PAST MEDICAL HISTORY: Significant for, 1. End-stage renal disease, currently on maintenance hemodialysis Saturday, , and Saturday. 2. Atrial fibrillation. 3. Coronary artery disease. 4. Hypothyroidism. 5. History of chronic headaches. CURRENT SURGICAL HISTORY: Significant for cholecystectomy, AV fistula creation. CURRENT ALLERGIES: None. HOME MEDICATIONS: Present medications reviewed. These include sevelamer, Megan-Juliet, docusate, famotidine, pravastatin, Phenergan, Sinequan, tramadol, Angel Cap, Indian, Synthroid, Eliquis, Coreg, Cardizem, and albuterol. FAMILY HISTORY: Positive for diabetes, hypertension, and coronary artery disease. SOCIAL HISTORY: The patient denies any alcohol, drug, or tobacco use. REVIEW OF SYSTEMS: Positive for intermittent shortness of breath and some discomfort in the chest. No history of any fever or chills. Complete review of systems is obtained, pertinent positive as mentioned above, other review of systems negative. PHYSICAL EXAMINATION: GENERAL: The patient is a pleasant 75-year-old [place] female, who is lying comfortably in bed, does not appear in acute distress. VITAL SIGNS: Reviewed from this admission. HEENT: Normocephalic, atraumatic. Extraocular movements are intact. NECK: Supple without thyromegaly, no JVD. CHEST: Essentially clear to auscultation anteriorly and posteriorly. The patient does appear to have a few faint basilar crackles. HEART: Regular rate and rhythm S1, S2 heard. No S3, S4. ABDOMEN: Soft, nontender. No voluntary guarding, rigidity, rebound, organomegaly, or masses. EXTREMITIES: The patient does have less than 1+ pretibial ankle edema. Peripheral pulses are palpable. No acute discoloration or cyanosis. ENDOCRINE: Thyroid not enlarged. PSYCHIATRIC: The patient appears to be pleasant. ASSESSMENT AND PLAN: 1. End-stage renal disease in a patient who is needing dialysis on Saturday, , and Saturday schedule. The patient will receive her hemodialysis treatment. 2. Anemia on end-stage renal disease. The patient's hemoglobin is currently satisfactory at around 12. 3. Mild shortness of breath, should improve with hemodialysis, does appear to have some crackles and edema. 4. Mild hyperkalemia, ____. 5. Elevated cardiac enzymes. The patient has been seen and followed by Cardiology in the past. In my opinion, she will benefit from a cardiology evaluation, please do consider if she does not feel better and still continues to have some shortness of breath. Plan of care discussed with the patient's spouse. At this time, I do recommend that she should receive her hemodialysis treatment. Her proBNP is more than 35,000. She also does appear to have abnormal cardiac enzymes, which can be foreseen in patient with end-stage renal disease; however, if she still continues to have symptoms of shortness of breath and chest discomfort, then she should be considered for cardiology evaluation. Her bilirubin is mildly elevated, please follow. All questions were answered. We will continue to follow and make recommendations from renal standpoint. JOB# [id number] DEZ/CHAVEZ
== END 2016-08-04 16:59 | disposition home health service (06) | DRG 291 ==
LOC: ED 18:23 → 4A 08-02 02:02
PROVIDERS: ADMIT Internal Medicine; ATTEND Hospitalist
PROC: 5A1D60Z (ICD-10-PCS; principal; 2016-08-04)
DX: I13.2 Hypertensive heart and chronic kidney disease with heart failure and with stage 5 chronic kidney disease, or end stage renal disease (principal); N18.6 End stage renal disease; I50.21 Acute systolic (congestive) heart failure; I50.1 Left ventricular failure, unspecified; E87.70 Fluid overload, unspecified; I48.91 Unspecified atrial fibrillation; E03.9 Hypothyroidism, unspecified; I25.10 Atherosclerotic heart disease of native coronary artery without angina pectoris; E11.22 Type 2 diabetes mellitus with diabetic chronic kidney disease; E11.649 Type 2 diabetes mellitus with hypoglycemia without coma; D63.1 Anemia in chronic kidney disease; E87.5 Hyperkalemia; I27.2 Other secondary pulmonary hypertension; E78.5 Hyperlipidemia, unspecified; I42.0 Dilated cardiomyopathy; Z86.718 Personal history of other venous thrombosis and embolism; Z87.442 Personal history of urinary calculi; Z90.49 Acquired absence of other specified parts of digestive tract; Z82.49 Family history of ischemic heart disease and other diseases of the circulatory system; Z83.3 Family history of diabetes mellitus; Z79.01 Long term (current) use of anticoagulants
CPT/HCPCS: 36415; 70450; 71010; 78582; 80048; 80053; 80061; 82550; 82553; 82962; 83690; 83880; 84484; 85007; 85025; 85379; 93005; 93010; 93306; 94760; 96374; 96375; A9540; A9558; J2270; J2405; J7030

== ENCOUNTER 2016-11-10 05:47 | Inpatient (IN) | payer MEDICARE ==
--- NOTE | 2016-11-10 06:46 | Emergency Department Report ---
HPI - General Chief Complaint: Medical Clearance Time Seen by Provider: 11/10/16 06:13 - HPI HPI: This is a 76-year-old female who presents to the emergency department via EMS from her dialysis clinic with the complaint of chest pain, leg pains and hypotension. The patient began having hypotension just as they were getting ready to start her dialysis at 5:30 in the morning and was found to have a blood pressure of 70/30. She was given 500 mL bolus and sent here by EMS. The patient has a past medical history of DVT, diabetes, atrial fibrillation, hypertension, kidney stones, end-stage renal disease on hemodialysis Saturday/ /Saturday. Her primary care physician is Dr. Talamantes and her spring intern is Dr. Rizo. There is a history of the patient being on Eloquist but she presents with all her medications and does not appear to be on any current blood thinners. ED Past Medical Hx - Past Medical History Hx Hypertension: Yes Hx Diabetes: Yes Hx Deep Vein Thrombosis: Yes Hx Renal Disease: Yes (ESRD on HD , , ) Hx Kidney Stones: Yes Additional medical history: dialysis Tuesdays, , Saturday, av graft right upper arm - Surgical History Hx Cholecystectomy: Yes Additional Surgical History: A/V graft to right arm - Social History Smoking Status: Never Smoker Substance Use Type: None - Medications Home Medications: Home Medications Medication Instructions Recorded Confirmed Last Taken Type Sevelamer Carbonate [Renvela] 800 mg PO TIDWM 04/02/13 05/29/16 1 Day Ago History 800 Megan-Juliet Rx Tablet 1 tab PO DAILY 12/31/14 05/29/16 1 Day Ago History 1 Docusate Sodium [Colace CAP] 100 mg PO BID PRN #30 capsule 01/24/15 05/29/16 1 Day Ago Rx 100 Famotidine [Pepcid] 40 mg PO QHS #30 tablet 01/24/15 05/29/16 1 Day Ago Rx 40 Pravastatin Sodium [Pravastatin] 10 mg PO QHS 01/24/15 05/29/16 1 Day Ago History 10 Promethazine [Phenergan TAB] 25 mg PO Q6HR PRN #20 tab 01/24/15 05/29/16 1 Day Ago Rx 25 Doxepin [SINEquan] 10 mg PO QHS 05/01/15 05/29/16 1 Day Ago History 10 Tramadol HCl [Conzip 25 MG IR + 75 50 mg PO Q6H PRN 05/01/15 05/29/16 1 Week Ago History MG XR CAP] 50 Folic Acid/Vit B Comp W-C [Renal 1 cap PO QDAY capsule 05/04/15 05/29/16 1 Day Ago Rx Caps] 1 HYDROcodone/APAP 5-325 [[place] 1 each PO Q6HR PRN #30 tablet 05/04/15 05/29/16 1 Day Ago Rx 5-325 mg TAB] 1 Levothyroxine [Synthroid] 25 mcg PO DAILY@0600 tablet 05/04/15 05/29/16 1 Day Ago Rx 25 Levothyroxine [Synthroid] 112 mcg PO DAILY@0600 tablet 05/04/15 05/29/16 1 Day Ago Rx 112 Apixaban [Eliquis] 2.5 mg PO BID #60 tablet 05/04/16 05/29/16 1 Day Ago Rx 2.5 Carvedilol [Coreg] 6.25 mg PO BID #60 tablet 05/04/16 05/29/16 1 Day Ago Rx 6.25 Diltiazem [Cardizem] 30 mg PO Q8HR #90 tablet 05/04/16 05/29/16 1 Day Ago Rx 30 ALBUTEROL Inhaler [ProAir HFA 2 puff IH QID PRN #1 inhalation 07/30/16 Unknown Rx Inhaler] ED Review of Systems ROS: Stated complaint: LOW BLOOD PRESSURE Other details as noted in HPI Comment: All other systems reviewed and negative Constitutional: denies: chills, fever Eyes: denies: eye pain, eye discharge, vision change ENT: denies: ear pain, throat pain Respiratory: shortness of breath. denies: cough Cardiovascular: chest pain. denies: palpitations Gastrointestinal: denies: abdominal pain, vomiting Genitourinary: denies: urgency, dysuria, discharge Musculoskeletal: myalgia. denies: joint swelling Skin: denies: rash, lesions Neurological: denies: headache, weakness, paresthesias Physical Exam - Physical Exam Vital Signs: Vital Signs 11/10/16 11/10/16 11/10/16 06:09 06:26 06:37 Temperature 98.1 F Pulse Rate 101 H 114 H 116 H Respiratory 12 14 12 Rate Blood Pressure 105/82 125/65 [Left] O2 Sat by Pulse 99 98 99 Oximetry Physical Exam: GENERAL: The patient is well-developed well-nourished. HEENT: Normocephalic. Atraumatic. Extraocular motions are intact. Patient has moist mucous membranes. Pupils equal reactive to light bilaterally. NECK: Supple. Trachea is mid line. CHEST/LUNGS: Coarse breath sounds with the chest. No tachypnea or accessory muscle use. There is no respiratory distress noted. HEART/CARDIOVASCULAR: Irregularly irregular with mild tachycardia. No murmur. ABDOMEN: Abdomen is soft, nontender. Patient has normal bowel sounds. There is no abdominal distention. SKIN: Skin is warm and dry. NEURO: The patient is awake, alert, and oriented. The patient is cooperative. The patient has no focal neurologic deficits. The patient has normal speech. MUSCULOSKELETAL: There is no tenderness or deformity. There is no limitation range of motion. There is no evidence of acute injury. There appears to be a PE right upper extremity dialysis fistula. ED Course Vital Signs 11/10/16 11/10/16 11/10/16 06:09 06:26 06:37 Temperature 98.1 F Pulse Rate 101 H 114 H 116 H Respiratory 12 14 12 Rate Blood Pressure 105/82 125/65 [Left] O2 Sat by Pulse 99 98 99 Oximetry - Consultations Consultation #1: I spoke with Dr. Brush, the spring intern on for the patient's nephrology service, and Dr. Brush has agreed to see the patient and will do dialysis but would like the patient seen by cardiology prior to dialysis because of her chest pain. Dr. Brush also says that it is appropriate to get the CT angiography of the chest due to the elevated d-dimer as the patient will eventually get dialysis to clear the contrast. 11/10/16 08:03 ED Medical Decision Making - Lab Data Result diagrams: 11/10/16 07:04 11/10/16 07:04 - EKG Data When compared to previous EKG there are: previous EKG unavailable Interpretation: other (Atrial fibrillation with RVR at 105 bpm, normal axis, nonspecific ST-T changes) - Radiology Data Radiology results: report reviewed, image reviewed interpreted by me: Chest x-ray shows some cardiomegaly but no obvious pneumonia or significant pleural effusions. CT angiography of the chest does not show any pulmonary embolism or aortic dissection. - Medical Decision Making 76-year-old female presents to the emergency department after she had some hypotension and chest pain and shortness of breath while at dialysis. She received a bolus in route and her blood pressure has maintained a normal range since that time. First troponin positive but she is dialysis dependent. She had a elevated and equivocal d-dimer so with nephrology's permission a CT angiography of the chest was done that did not show any PE or dissection. Nephrology has asked for the patient to be evaluated by cardiology prior to dialysis if possible but they are aware of the patient's admission and will follow her. Patient will be admitted to the hospital for further evaluation and treatment and has been accepted by the hospitalist. - Differential Diagnosis [place], CVA, PE, pneumonia, CHF Critical Care Time: No Critical care attestation.: If time is entered above; I have spent that time in minutes in the direct care of this critically ill patient, excluding procedure time. ED Disposition Clinical Impression: Atrial fibrillation with RVR, ESRD needing dialysis, Elevated troponin Chest pain Qualifiers: Chest pain type: unspecified Qualified Code(s): R07.9 - Chest pain, unspecified Disposition: 09 OP ADMIT IP TO THIS HOSP Is pt being admited?: Yes Does the pt Need Aspirin: Yes Condition: Stable Time of Disposition: 09:33
[2016-11-10 07:29] LABS: Mean Corpuscular HGB Conc 33 % (30-34); Mean Corpuscular Hemoglobin 27 pg (28-32); Mean Corpuscular Volume 84 fl (79-97); Platelet Count 112 K/mm3 (140-440); Red Cell Distribution Width 15.3 % (13.2-15.2); White Blood Count 6.5 K/mm3 (4.5-11.0)
[2016-11-10 07:39] LABS: INR 0.88 (0.87-1.13)
[2016-11-10 07:40] LABS: Partial Thromboplastin Time 30.6 Sec. (24.2-36.6)
--- NOTE | 2016-11-10 07:42 | XRay Report ---
FINAL REPORT PROCEDURE: XR CHEST 1V AP TECHNIQUE: Chest radiograph anteroposterior view. CPT 80655 HISTORY: Chest Pain COMPARISON: None FINDINGS: The trachea is midline. The heart is enlarged. The lungs are clear. There is no evident pneumothorax or pleural fluid. The thoracic cage is intact. Right axillary stent is noted. IMPRESSION: Cardiomegaly.
[2016-11-10 07:44] LABS: Albumin 3.6 g/dL (3.9-5); Albumin/Globulin Ratio 1.2 %; BUN/Creatinine Ratio 6.33; Bilirubin,Total 0.7 mg/dL (0.1-1.2); Calcium 9.3 mg/dL (8.4-10.2); Chloride 92.1 mmol/L (98-107); Potassium 3.6 mmol/L (3.6-5.0); Total Protein 6.5 g/dL (6.3-8.2)
[2016-11-10] MEDS ORDERED: MORPHINE IV ONE (08:19)
[2016-11-10 08:41] LABS: Anisocytosis 1+; Blastocytes % (Manual) 0 %; Diff Status Complete; Platelet Estimate Cons
--- NOTE | 2016-11-10 09:13 | Cat Scan Report ---
FINAL REPORT PROCEDURE: CT ANGIO CHEST TECHNIQUE: Computerized tomographic angiography of the chest was performed after the IV injection of iodinated nonionic contrast including image processing. The image data was postprocessed using 2-dimensional multiplanar reformatted (MPR) and 3-dimensional (MIP and/or volume rendered) techniques. HISTORY: CP, elevated dimer COMPARISON: Chest one view 11/10/2016 FINDINGS: There is no filling defect of the pulmonary arteries to suggest pulmonary embolism. The heart is enlarged. Coronary artery calcifications are present. There is no thoracic aortic aneurysm or dissection. There is no hilar or mediastinal lymphadenopathy. No pericardial effusion is present. Trace right pleural fluid is seen. There is no pneumothorax. Vague 4.3 millimeter nodular density is present of the posterior superior right middle lobe. There is mild bibasilar and dependent subsegmental atelectasis. Likely more consolidative subsegmental atelectasis of the left lung base anteriorly and laterally is present. There is prominence of the cardiophrenic fat pad. Right axillary stent is in place. Partially included on the examination is atrophic left kidney. The visualized proximal CBD is 1 centimeter in diameter with lesser intrahepatic biliary ductal dilatation suspected. Atrophic pancreas is seen. There is diffuse osteopenia and degenerative changes of the spine as well as few Schmorl's nodes seen. IMPRESSION: No evident pulmonary embolism or thoracic aortic aneurysm or dissection. Calcific atherosclerosis to include the coronary arteries. Cardiomegaly. Trace right pleural fluid. 4.3 millimeter vague nodular density of the posterior superior right middle lobe. Follow-up noncontrast exam in 3 months time is recommended to ensure stability/resolution. Subsegmental atelectasis bilaterally. Left anterior and lateral basilar infiltrate is not definitively excluded. Biliary ductal dilatation possibly related to patient age and prior cholecystectomy, not included in the field of view. Correlate clinically for possible biliary ductal obstruction. Left renal and pancreatic atrophy. Right axillary stent. Diffuse osteopenia. Degenerative changes of the spine with Schmorl's nodes noted.
[2016-11-10] MEDS ORDERED: BABY ASPIRIN PO ONE (09:34)
--- NOTE | 2016-11-10 09:54 | History and Physical Report ---
History of Present Illness Date of examination: 11/10/16 Date of admission: 11/10/16 09:34 Chief complaint: Chest pains History of present illness: [place] Language [employer] services declined, helped Patient is a 76-year-old [place] woman who does speak and understand some Swedish with a history of type 2 diabetes mellitus, hypothyroidism, GERD hypertension, leg DVT, kidney stones, end-stage renal disease on hemodialysis TTS, atrial fibrillation on Eliquis, dyslipidemia, systolic heart failure (08/02) TTE read by Dr. Dunbar reported as 4 chamber dilated cardio myopathy, global left ventricle systolic function is mildly to severely decreased, estimated EF is 30-35%, moderate concentric left ventricular hypertrophy, left atrium is mildly dilated, mild to moderate MR, moderate TR, evidence of moderate pulmonary hypertension, right ventricular systolic pressures calculated at 52 mmHg who presents to [facility] emergency department from the dialysis clinic after she was found to have to be hypotensive 70/30 responded to 500 normal saline bolus and complaining of chest pains. Patient describes the chest pain as constant "bad hurt" located lower chest radiating across the chest to upper abdomen that started prior to hemodialysis today associated with shortness of breath. She denies any aggravating or relieving factors. She denies any fever, chills or nausea vomiting. She denies a productive cough and severe cough or headaches. She did not complete get her hemodialysis today, ED physician has reached out to her agricultural engineer was inserted evaluated by cardiology prior to hemodialysis. CT angiogram chest reported as no evidence of PE aneurysm or dissection, calcification atherosclerosis including coronary artery disease, cardiomegaly, trace right pleural fluid, 4.3 mm vague nodular density in the posterior superior right middle lobe, follow-up noncontrast examination 3 months time is recommended to ensure stability/resolution, subsegmental atelectasis bilaterally , left anterior and lateral by basilar infiltrates is not definitively excluded , the red ductal dilatation probably related to patient's age and prior cholecystectomy, not including the field of view, correlate clinically for possible biliary ductal obstruction, left renal pancreatic atrophy, right axillary stent, diffuse osteopenia, degenerative changes of the spine with Schmorl's nodes noded. Past medical history: As HPI Past surgical history: Cholecystectomy, A/V graft to right arm Social History: She denies tobacco dependency alcohol Family history: She denies ROS: as HPI and all other ROS reviewed and negative. Medications and Allergies Allergies Allergy/AdvReac Type Severity Reaction Status Date / Time No Known Allergies Allergy Verified 07/30/16 19:47 Home Medications Medication Instructions Recorded Confirmed Last Taken Type Sevelamer Carbonate [Renvela] 800 mg PO TIDWM 04/02/13 05/29/16 1 Day Ago History 800 Megan-Juliet Rx Tablet 1 tab PO DAILY 12/31/14 05/29/16 1 Day Ago History 1 Docusate Sodium [Colace CAP] 100 mg PO BID PRN #30 capsule 01/24/15 05/29/16 1 Day Ago Rx 100 Famotidine [Pepcid] 40 mg PO QHS #30 tablet 01/24/15 05/29/16 1 Day Ago Rx 40 Pravastatin Sodium [Pravastatin] 10 mg PO QHS 01/24/15 05/29/16 1 Day Ago History 10 Promethazine [Phenergan TAB] 25 mg PO Q6HR PRN #20 tab 01/24/15 05/29/16 1 Day Ago Rx 25 Doxepin [SINEquan] 10 mg PO QHS 05/01/15 05/29/16 1 Day Ago History 10 Tramadol HCl [Conzip 25 MG IR + 75 50 mg PO Q6H PRN 05/01/15 05/29/16 1 Week Ago History MG XR CAP] 50 Folic Acid/Vit B Comp W-C [Renal 1 cap PO QDAY capsule 05/04/15 05/29/16 1 Day Ago Rx Caps] 1 HYDROcodone/APAP 5-325 [[place] 1 each PO Q6HR PRN #30 tablet 05/04/15 05/29/16 1 Day Ago Rx 5-325 mg TAB] 1 Levothyroxine [Synthroid] 25 mcg PO DAILY@0600 tablet 05/04/15 05/29/16 1 Day Ago Rx 25 Levothyroxine [Synthroid] 112 mcg PO DAILY@0600 tablet 05/04/15 05/29/16 1 Day Ago Rx 112 Apixaban [Eliquis] 2.5 mg PO BID #60 tablet 05/04/16 05/29/16 1 Day Ago Rx 2.5 Carvedilol [Coreg] 6.25 mg PO BID #60 tablet 05/04/16 05/29/16 1 Day Ago Rx 6.25 Diltiazem [Cardizem] 30 mg PO Q8HR #90 tablet 05/04/16 05/29/16 1 Day Ago Rx 30 ALBUTEROL Inhaler [ProAir HFA 2 puff IH QID PRN #1 inhalation 07/30/16 Unknown Rx Inhaler] Exam - Physical Exam Narrative exam: GEN: Thin frail, NAD, AWAKE, ALERT, ORIENTATED x 3 HEENT: NCAT, PERRL, EOMI, OP CLEAR NECK: SUPPLE, NO THYROMEGALY, NO JVD, NO LAD CVS: RRR, NORMAL S1S2 LUNGS/CHEST: CTA B, NORMAL CHEST EXPANSION B, GOOD AIR ENTRY B, across lower chest/upper abdomen reproducible tenderness ABD: SOFT, NTND, GBS, NO REBOUND OR GUARDING EXT/SKIN: NO SIGNIFICANT EDEMA OR RASH MSK: FROM X 4 EXTREMITIES NEURO: CN 2-12 GROSSLY INTACT, NO FOCAL DEFICITS PSY: CALM - Constitutional Vitals: Temp Pulse Resp BP Pulse Ox 98.1 F 107 H 15 117/86 99 11/10/16 08:12 11/10/16 08:12 11/10/16 08:12 11/10/16 08:12 11/10/16 08:12 Results - Labs CBC & Chem 7: 11/10/16 07:04 11/10/16 07:04 Assessment and Plan Patient is a 76-year-old [place] woman who does speak and understand some Swedish with a history of type 2 diabetes mellitus, hypothyroidism, GERD hypertension, leg DVT, kidney stones, end-stage renal disease on hemodialysis TTS, atrial fibrillation on Eliquis, dyslipidemia, systolic heart failure (08/02) TTE read by Dr. Dunbar reported as 4 chamber dilated cardio myopathy, global left ventricle systolic function is mildly to severely decreased, estimated EF is 30-35%, moderate concentric left ventricular hypertrophy, left atrium is mildly dilated, mild to moderate MR, moderate TR, evidence of moderate pulmonary hypertension, right ventricular systolic pressures calculated at 52 mmHg who presents to [facility] emergency department from the dialysis clinic after she was found to have to be hypotensive 70/30 responded to 500 normal saline bolus and complaining of chest pains. Patient describes the chest pain as constant "bad hurt" located lower chest radiating across the chest to upper abdomen that started prior to hemodialysis today associated with shortness of breath. She denies any aggravating or relieving factors. She denies any fever, chills or nausea vomiting. She denies a productive cough and severe cough or headaches. She did not complete get her hemodialysis today, ED physician has reached out to her agricultural engineer, Dr. Brush and he wants her evaluated by cardiology prior to hemodialysis. CT angiogram chest reported as no evidence of PE aneurysm or dissection, calcification atherosclerosis including coronary artery disease, cardiomegaly, trace right pleural fluid, 4.3 mm vague nodular density in the posterior superior right middle lobe, follow-up noncontrast examination 3 months time is recommended to ensure stability/resolution, subsegmental atelectasis bilaterally, left anterior and lateral by basilar infiltrates is not definitively excluded, the red ductal dilatation probably related to patient 's age and prior cholecystectomy, not including the field of view, correlate clinically for possible biliary ductal obstruction, left renal pancreatic atrophy, right axillary stent, diffuse osteopenia, degenerative changes of the spine with Schmorl's nodes noded. EKG shows A. fib with heart rate of [address] and T wave changes. -Chest pain appears to be costochondritis but she has increased risk factor: Stress test and consult cardiology -Elevated troponin: Consulted cardiology -Atrial fibrillation with RVR: Rate control continue Eliquis -Thrombocytopenia which is mild: Continue to follow -Hypotension, drug related versus other: Responded to IV fluids, continue monitor
[2016-11-10] MEDS ORDERED: BABY ASPIRIN ONE (10:00)
[2016-11-10] MEDS ORDERED: NORCO 5/325 PO PRN (10:21)
[2016-11-10] MEDS ORDERED: TRAMADOL HCL 50 MG PO PRN (10:21)
[2016-11-10] MEDS ORDERED: PROAIR IH PRN (10:21)
[2016-11-10] MEDS ORDERED: PHENERGAN PO PRN (10:21)
[2016-11-10] MEDS ORDERED: COLACE PO PRN (10:21)
[2016-11-10] MEDS ORDERED: ZOFRAN IV PRN (10:25)
[2016-11-10] MEDS ORDERED: D50W (25GM) IV PRN (10:26)
[2016-11-10] MEDS ORDERED: MORPHINE IV PRN (10:28)
[2016-11-10] MEDS ORDERED: PROVENTIL IH PRN (10:43)
[2016-11-10] MEDS ORDERED: ULTRAM PO PRN (11:43)
--- NOTE | 2016-11-10 11:54 | Consultation ---
History of Present Illness - History of Present Illness Thank you for the consultation Patient was evaluated today Assessment and plan end-stage renal disease currently on maintenance hemodialysis Patient admitted with marked tachycardia and hypotension, better Low flow HD as toelreated Needs to see cardiology Reviewed the CT scan report Anemia in end-stage renal disease to follow, hemoglobin appears to be normal Potassium is normal at this time Normal troponin given that patient has been hypotensive she should be seen by cardiology before we can dialyze her Secondary hyperparathyroidism to follow Malnutrition risk is high please consider high protein diet History of DVT, kidney stone, hypertension, atrial fibrillation, systolic heart failure, dilated cardiomyopathy ejection fraction 30-35% History of present illness Patient is 76-year-old the [place] female who presented to the hospital complaints of chest pain as well as hypotension troponin was borderline. Patient underwent CT scan of the chest with contrast which did not show any evidence of pulmonary embolism. Patient has many underlying comorbidities and is also currently followed by cardiology [facility] Upon arrival she was noted to be markedly hypotensive blood pressures running in 70s which did improve with 500 mL of normal saline. Patient still remains tachycardic however. He does have history of atrial fibrillation and has been on eliquis. Patient denies having any symptoms of fevers chills cough cold any nausea vomiting. Events of this hospitalization were noted she is also in need for dialysis due to contrast exposure. Her dialysis access has been working well Review of system is positive for chest pain shortness of breath as well as drop in the blood pressure Complete review other systems were obtained Physical examination Vitals: Reviewed from this admission HEENT: Oral mucosa moist no pallor or icterus Neck: Supple no thyromegaly no JVD Chest: Clear to auscultation no crackles rales or wheezes Heart: Regular rate and rhythm S1 and S2 are heard Abdomen: No abdominal tenderness no renal bruit otherwise unremarkable Extremity: Minimal edema dry skin Neurological: Alert awake follows commands Psych: No evidence of agitation and aggression noted Back: Nontender thoracolumbar spine Labs and imaging were reviewed from this admission Medications and Allergies Allergies Allergy/AdvReac Type Severity Reaction Status Date / Time No Known Allergies Allergy Verified 07/30/16 19:47 Home Medications Medication Instructions Recorded Confirmed Last Taken Type Sevelamer Carbonate [Renvela] 800 mg PO TIDWM 04/02/13 05/29/16 1 Day Ago History 800 Megan-Juliet Rx Tablet 1 tab PO DAILY 12/31/14 05/29/16 1 Day Ago History 1 Docusate Sodium [Colace CAP] 100 mg PO BID PRN #30 capsule 01/24/15 05/29/16 1 Day Ago Rx 100 Famotidine [Pepcid] 40 mg PO QHS #30 tablet 01/24/15 05/29/16 1 Day Ago Rx 40 Pravastatin Sodium [Pravastatin] 10 mg PO QHS 01/24/15 05/29/16 1 Day Ago History 10 Promethazine [Phenergan TAB] 25 mg PO Q6HR PRN #20 tab 01/24/15 05/29/16 1 Day Ago Rx 25 Doxepin [SINEquan] 10 mg PO QHS 05/01/15 05/29/16 1 Day Ago History 10 Tramadol HCl [Conzip 25 MG IR + 75 50 mg PO Q6H PRN 05/01/15 05/29/16 1 Week Ago History MG XR CAP] 50 Folic Acid/Vit B Comp W-C [Renal 1 cap PO QDAY capsule 05/04/15 05/29/16 1 Day Ago Rx Caps] 1 HYDROcodone/APAP 5-325 [[place] 1 each PO Q6HR PRN #30 tablet 05/04/15 05/29/16 1 Day Ago Rx 5-325 mg TAB] 1 Levothyroxine [Synthroid] 25 mcg PO DAILY@0600 tablet 05/04/15 05/29/16 1 Day Ago Rx 25 Levothyroxine [Synthroid] 112 mcg PO DAILY@0600 tablet 05/04/15 05/29/16 1 Day Ago Rx 112 Apixaban [Eliquis] 2.5 mg PO BID #60 tablet 05/04/16 05/29/16 1 Day Ago Rx 2.5 Carvedilol [Coreg] 6.25 mg PO BID #60 tablet 05/04/16 05/29/16 1 Day Ago Rx 6.25 Diltiazem [Cardizem] 30 mg PO Q8HR #90 tablet 05/04/16 05/29/16 1 Day Ago Rx 30 ALBUTEROL Inhaler [ProAir HFA 2 puff IH QID PRN #1 inhalation 07/30/16 Unknown Rx Inhaler] Active Meds: Active Medications Acetaminophen/Hydrocodone Bitart ([place] 5/325) 1 each PO Q6HR PRN PRN Reason: Pain Albuterol (Proventil) 2.5 mg IH QIDRT PRN PRN Reason: Shortness Of Breath Apixaban (Eliquis) 2.5 mg PO BID SONNY PRN Reason: Protocol Dextrose (D50w (25gm)) 50 ml IV PRN PRN PRN Reason: Hypoglycemia Diltiazem HCl (Cardizem) 30 mg PO Q8HR SONNY Docusate Sodium (Colace) 100 mg PO BID PRN PRN Reason: Constipation Doxepin HCl (Sinequan) 10 mg PO QHS SONNY Famotidine (Pepcid) 20 mg PO QHS [facility] Insulin Aspart (Novolog) 0 units SUB-Q ACHS SONNY PRN Reason: Protocol Levothyroxine Sodium (Synthroid) 25 mcg PO DAILY@0600 SONNY Levothyroxine Sodium (Synthroid) 112 mcg PO DAILY@0600 [facility] Morphine Sulfate (Morphine) 2 mg IV Q4H PRN PRN Reason: Pain , Severe (7-10) Multivit/Ca Carb/B Cmplx/FA/Prenat (Renal Caps) 1 cap PO QDAY [facility] Ondansetron HCl (Zofran) 4 mg IV Q4H PRN PRN Reason: Nausea And Vomiting Pantoprazole Sodium (Protonix) 40 mg PO DAILY SONNY Sevelamer Carbonate (Renvela) 800 mg PO TIDWM SONNY Simvastatin (Zocor) 10 mg PO QHS [facility] Tramadol HCl (Ultram) 50 mg PO Q6H PRN PRN Reason: Pain, Moderate (4-6) Exam - Vital Signs Vital signs: Vital Signs Pulse Resp 110 H 14 11/10/16 05:48 11/10/16 05:48 Results - Lab Results 11/10/16 07:04 11/10/16 07:04 Most recent lab results Calcium 9.3 mg/dL (8.4-10.2) 11/10/16 07:04
[2016-11-10] MEDS ORDERED: NON-FORMULARY (Sevelamer Carbonate [Renvela] 800 MG) PO SCH (12:00)
[2016-11-10] MEDS: RENVELA PO SCH ×2 (12:01→17:52)
[2016-11-10] MEDS ORDERED: NACL 0.9% 100 ML IV PRN (12:44)
[2016-11-10 13:04] LABS: Creatine Kinase MB 13.4 ng/mL (0.0-4.0)
[2016-11-10] MEDS: NOVOLOG SUB-Q SCH ×3 (16:50→21:58)
[2016-11-10] MEDS: CARDIZEM PO SCH ×2 (18:52→21:56)
[2016-11-10 19:23] LABS: Creatine Kinase MB 17.6 ng/mL (0.0-4.0)
[2016-11-10] MEDS: ELIQUIS PO SCH (21:54)
[2016-11-10] MEDS: SINEquan PO SCH (21:56)
[2016-11-10] MEDS: PEPCID PO SCH (21:56)
[2016-11-10] MEDS ORDERED: NON-FORMULARY (Famotidine [Pepcid] 40 MG) PO SCH ×2 (22:00)
[2016-11-10] MEDS ORDERED: ZOCOR PO SCH (22:00)
[2016-11-10] MEDS ORDERED: NON-FORMULARY (Pravastatin Sodium [Pravastatin] 10 MG) PO SCH (22:00)
--- NOTE | 2016-11-10 23:49 | Consultation ---
History of Present Illness Consult date: 11/11/16 Consult reason: chest pain, shortness of breath History of present illness: Patient is a 76-year-old Laotian woman who does speak and understand some Slovak with a history of type 2 diabetes mellitus, hypothyroidism, GERD hypertension, leg DVT, kidney stones, end-stage renal disease on hemodialysis TTS, atrial fibrillation on Eliquis, dyslipidemia, systolic heart failure. The patient presented to the ER with a complaints of chest pain, lower right sided, radiating to the abdomen. Patient had associated shortness of breath. She had these symptoms during dialysis. Patient denies orthopnea,pnd, palpitations dizziness and syncope. CT chest negative for PE. According to daughter, the patient has had a recent stress test at this hospital, but none is present in the chart. Past History Past Medical History: other (type 2 diabetes mellitus, hypothyroidism, GERD hypertension, leg DVT, kidney stones, end-stage renal disease on hemodialysis TTS, atrial fibrillation on Eliquis, dyslipidemia, systolic heart failure) Past Surgical History: cholecystectomy, Other (AV) Social history: denies: smoking, alcohol abuse, IV drug use Family history: no significant family history Medications and Allergies Allergies Allergy/AdvReac Type Severity Reaction Status Date / Time No Known Allergies Allergy Verified 07/30/16 19:47 Home Medications Medication Instructions Recorded Confirmed Last Taken Type Sevelamer Carbonate [Renvela] 800 mg PO TIDWM 04/02/13 05/29/16 1 Day Ago History 800 Megan-Juliet Rx Tablet 1 tab PO DAILY 12/31/14 05/29/16 1 Day Ago History 1 Docusate Sodium [Colace CAP] 100 mg PO BID PRN #30 capsule 01/24/15 05/29/16 1 Day Ago Rx 100 Famotidine [Pepcid] 40 mg PO QHS #30 tablet 01/24/15 05/29/16 1 Day Ago Rx 40 Pravastatin Sodium [Pravastatin] 10 mg PO QHS 01/24/15 05/29/16 1 Day Ago History 10 Promethazine [Phenergan TAB] 25 mg PO Q6HR PRN #20 tab 01/24/15 05/29/16 1 Day Ago Rx 25 Doxepin [SINEquan] 10 mg PO QHS 05/01/15 05/29/16 1 Day Ago History 10 Tramadol HCl [Conzip 25 MG IR + 75 50 mg PO Q6H PRN 05/01/15 05/29/16 1 Week Ago History MG XR CAP] 50 Folic Acid/Vit B Comp W-C [Renal 1 cap PO QDAY capsule 05/04/15 05/29/16 1 Day Ago Rx Caps] 1 HYDROcodone/APAP 5-325 [[place] 1 each PO Q6HR PRN #30 tablet 05/04/15 05/29/16 1 Day Ago Rx 5-325 mg TAB] 1 Levothyroxine [Synthroid] 25 mcg PO DAILY@0600 tablet 05/04/15 05/29/16 1 Day Ago Rx 25 Levothyroxine [Synthroid] 112 mcg PO DAILY@0600 tablet 05/04/15 05/29/16 1 Day Ago Rx 112 Apixaban [Eliquis] 2.5 mg PO BID #60 tablet 05/04/16 05/29/16 1 Day Ago Rx 2.5 Carvedilol [Coreg] 6.25 mg PO BID #60 tablet 05/04/16 05/29/16 1 Day Ago Rx 6.25 Diltiazem [Cardizem] 30 mg PO Q8HR #90 tablet 05/04/16 05/29/16 1 Day Ago Rx 30 ALBUTEROL Inhaler [ProAir HFA 2 puff IH QID PRN #1 inhalation 07/30/16 Unknown Rx Inhaler] Active Meds: Active Medications Acetaminophen/Hydrocodone Bitart ([place] 5/325) 1 each PO Q6HR PRN PRN Reason: Pain Last Admin: 11/10/16 21:54 Dose: 1 each Albuterol (Proventil) 2.5 mg IH QIDRT PRN PRN Reason: Shortness Of Breath Apixaban (Eliquis) 2.5 mg PO BID SONNY PRN Reason: Protocol Last Admin: 11/10/16 21:54 Dose: 2.5 mg Dextrose (D50w (25gm)) 50 ml IV PRN PRN PRN Reason: Hypoglycemia Diltiazem HCl (Cardizem) 30 mg PO Q8HR [facility] Last Admin: 11/10/16 21:56 Dose: 30 mg Docusate Sodium (Colace) 100 mg PO BID PRN PRN Reason: Constipation Doxepin HCl (Sinequan) 10 mg PO QHS [facility] Last Admin: 11/10/16 21:56 Dose: 10 mg Famotidine (Pepcid) 20 mg PO QHS [facility] Last Admin: 11/10/16 21:56 Dose: 20 mg Sodium Chloride (Nacl 0.9%) 100 mls @ 999 mls/hr IV ESEQUIEL PRN PRN Reason: Hypotension Insulin Aspart (Novolog) 0 units SUB-Q ACHS SONNY PRN Reason: Protocol Last Admin: 11/10/16 21:58 Dose: 2 units Levothyroxine Sodium (Synthroid) 25 mcg PO DAILY@0600 [facility] Levothyroxine Sodium (Synthroid) 112 mcg PO DAILY@0600 [facility] Morphine Sulfate (Morphine) 2 mg IV Q4H PRN PRN Reason: Pain , Severe (7-10) Multivit/Ca Carb/B Cmplx/FA/Prenat (Renal Caps) 1 cap PO QDAY [facility] Ondansetron HCl (Zofran) 4 mg IV Q4H PRN PRN Reason: Nausea And Vomiting Pantoprazole Sodium (Protonix) 40 mg PO DAILY [facility] Sevelamer Carbonate (Renvela) 800 mg PO TIDWM [facility] Last Admin: 11/10/16 17:52 Dose: 800 mg Simvastatin (Zocor) 10 mg PO QHS [facility] Last Admin: 11/10/16 21:56 Dose: 10 mg Tramadol HCl (Ultram) 50 mg PO Q6H PRN PRN Reason: Pain, Moderate (4-6) Physical Examination Vital Signs Pulse Resp 110 H 14 11/10/16 05:48 11/10/16 05:48 Results 11/11/16 07:11 11/11/16 07:11 Cardiac Enzymes 11/10/16 11/10/16 Range/Units 11:51 18:51 CK-MB (CK-2) 13.4 H 17.6 H (0.0-4.0) ng/mL Assessment and Plan type 2 diabetes mellitus hypothyroidism GERD hypertension leg DVT kidney stones end-stage renal disease on hemodialysis TTS atrial fibrillation on Eliquis dyslipidemia systolic heart failure with EF 30-35% moderate to severe pulmonary HTN Chest pain - atypical. EKG shows no significant ST segment changes. Continue medical therapy. troponin elevated secondary to renal dysfunction - not indicative of ACS. stress test today Atrial fibrillation with RVR - Rate controlled. continue Eliquis for anticoagulation.
[2016-11-11] MEDS: SYNTHROID PO SCH ×2 (05:36)
[2016-11-11] MEDS: CARDIZEM PO SCH (05:36)
[2016-11-11 07:50] LABS: Hematocrit 32.4 % (30.3-42.9); Hemoglobin 10.4 gm/dl (10.1-14.3); Mean Corpuscular HGB Conc 32 % (30-34); Mean Corpuscular Hemoglobin 28 pg (28-32); Mean Corpuscular Volume 86 fl (79-97); Red Blood Count 3.77 M/mm3 (3.65-5.03); White Blood Count 5.1 K/mm3 (4.5-11.0)
[2016-11-11] MEDS: RENVELA PO SCH ×3 (07:58→18:48)
[2016-11-11] MEDS: NOVOLOG SUB-Q SCH ×4 (07:58→21:39)
[2016-11-11 08:03] LABS: Platelet Count 110 K/mm3 (140-440)
[2016-11-11 08:07] LABS: BUN/Creatinine Ratio 6.25; Chloride 100.1 mmol/L (98-107)
[2016-11-11] MEDS ORDERED: LEXISCAN IV ONE ×2 (08:09→08:18)
[2016-11-11 08:11] LABS: Potassium 4.6 mmol/L (3.6-5.0)
--- NOTE | 2016-11-11 09:12 | Progress Note ---
Subjective Date of service: 11/11/16 Interval history: Nuclear stress test preliminary results moderate sized fixed inferior and apical defect EF 48% Start medical therapy Objective Vital Signs Temp Pulse Pulse Resp BP BP Pulse Ox 11/11/16 05:36 60 146/63 11/11/16 05:23 98.7 F 57 L 18 146/63 97 11/11/16 00:37 98.8 F 54 L 18 116/57 95 11/10/16 22:54 20 11/10/16 21:56 61 160/67 11/10/16 21:54 20 11/10/16 20:57 98.7 F 61 18 160/67 98 11/10/16 20:19 22 99 11/10/16 20:15 22 99 11/10/16 19:24 58 L 11/10/16 17:30 98.2 F 60 16 140/61 11/10/16 17:15 63 146/58 11/10/16 17:00 60 134/59 11/10/16 16:45 60 143/58 11/10/16 16:30 61 142/58 11/10/16 16:15 61 142/56 11/10/16 16:00 63 140/59 11/10/16 15:45 63 138/58 11/10/16 15:30 63 142/62 11/10/16 15:15 62 138/55 11/10/16 15:00 98.0 F 61 18 158/66 11/10/16 12:20 98.3 F 118 H 18 118/82 96 11/10/16 10:01 124 H 18 117/62 95 - Labs and Meds Cardiac Enzymes 11/10/16 11/10/16 Range/Units 11:51 18:51 CK-MB (CK-2) 13.4 H 17.6 H (0.0-4.0) ng/mL CBC 11/11/16 Range/Units 07:11 WBC 5.1 (4.5-11.0) K/mm3 RBC 3.77 (3.65-5.03) M/mm3 Hgb 10.4 (10.1-14.3) gm/dl Hct 32.4 (30.3-42.9) % Plt Count 110 L (140-440) K/mm3 Comprehensive Metabolic Panel 11/11/16 Range/Units 07:11 Sodium 143 (137-145) mmol/L Potassium 4.6 D (3.6-5.0) mmol/L Chloride 100.1 (98-107) mmol/L Carbon Dioxide 29 (22-30) mmol/L BUN 35 H (7-17) mg/dL Creatinine 5.6 H (0.7-1.2) mg/dL Glucose 104 H (65-100) mg/dL Calcium 9.0 (8.4-10.2) mg/dL
[2016-11-11] MEDS ORDERED: PROTONIX PO SCH (10:00)
[2016-11-11] MEDS ORDERED: NON-FORMULARY (Rena-Vite Rx Tablet 1 TAB) PO SCH (10:00)
--- NOTE | 2016-11-11 10:30 | Progress Note ---
Subjective Interval history: Patient was seen today for follow-up of multiple renal related issues she is feeling better today and a little tired though Admitted here with tachycardia hypotension and atrial fibrillation with rapid ventricular response Has had a CT scan of the chest with contrast did not show any evidence of pulmonary embolism Events of 24 hours vitals labs intake output medications were reviewed Interdisciplinary notes were also reviewed Past medical history; reviewed Family and social history: Reviewed Objective: Vitals: Reviewed HEENT: Oral mucosa moist no uremic order mild pallor no icterus Neck: Supple, no carotid bruit Heart: Regular rate and rhythm S1-S2 heard no S3 or S4 no pericardial rub Abdomen: Soft NT no suprapubic masses no CVA tenderness no renal bruit Extremity: Minimal edema dry skin no peripheral cyanosis Dermatology: Dry skin assessment and plan End-stage renal disease currently on maintenance hemodialysis patient needs to be evaluated tomorrow morning for dialysis due to history of recent hypotension and tachycardia if stable can receive her regular dialysis treatment Atrial fibrillation with rapid ventricular response hypotension did receive IV fluids CT of the chest with contrast was done Anemia and end-stage renal disease to follow Secondary hyperparathyroidism to follow Maintain high protein diet History of cardiomyopathy currently being followed by cardiology Overall stable to better from renal standpoint We will continue to follow and make recommendations Objective - Vital Signs Vital signs: Vital Signs - 12hr 11/10/16 11/11/16 11/11/16 22:54 00:37 05:23 Temperature 98.8 F 98.7 F Pulse Rate Pulse Rate [ 54 L 57 L Left Radial] Respiratory 20 18 18 Rate Blood Pressure Blood Pressure 116/57 146/63 [Left Arm] O2 Sat by Pulse 95 97 Oximetry 11/11/16 05:36 Temperature Pulse Rate 60 Pulse Rate [ Left Radial] Respiratory Rate Blood Pressure 146/63 Blood Pressure [Left Arm] O2 Sat by Pulse Oximetry - Lab 11/11/16 07:11 11/11/16 07:11 Most recent lab results Calcium 9.0 mg/dL (8.4-10.2) 11/11/16 07:11
--- NOTE | 2016-11-11 11:10 | Progress Note ---
Assessment and Plan Assessment and plan: Language Line declined. Daughter Costa reddy Patient is a 76-year-old Laotian woman who does speak and understand some Pashto with a history of type 2 diabetes mellitus, hypothyroidism, GERD hypertension, leg DVT, kidney stones, end-stage renal disease on hemodialysis TTS, atrial fibrillation on Eliquis, dyslipidemia, systolic heart failure (08/02) TTE read by Dr. Dunbar reported as 4 chamber dilated cardio myopathy, global left ventricle systolic function is mildly to severely decreased, estimated EF is 30-35%, moderate concentric left ventricular hypertrophy, left atrium is mildly dilated, mild to moderate MR, moderate TR, evidence of moderate pulmonary hypertension, right ventricular systolic pressures calculated at 52 mmHg who presents to [facility] emergency department from the dialysis clinic after she was found to have to be hypotensive 70/30 responded to 500 normal saline bolus and complaining of chest pains. Patient describes the chest pain as constant "bad hurt" located lower chest radiating across the chest to upper abdomen that started prior to hemodialysis today associated with shortness of breath. She denies any aggravating or relieving factors. She denies any fever, chills or nausea vomiting. She denies a productive cough and severe cough or headaches. She did not complete get her hemodialysis today, ED physician has reached out to her signal wirer, Dr. Brush and he wants her evaluated by cardiology prior to hemodialysis. CT angiogram chest reported as no evidence of PE aneurysm or dissection, calcification atherosclerosis including coronary artery disease, cardiomegaly, trace right pleural fluid, 4.3 mm vague nodular density in the posterior superior right middle lobe, follow-up noncontrast examination 3 months time is recommended to ensure stability/resolution, subsegmental atelectasis bilaterally, left anterior and lateral by basilar infiltrates is not definitively excluded, the red ductal dilatation probably related to patient 's age and prior cholecystectomy, not including the field of view, correlate clinically for possible biliary ductal obstruction, left renal pancreatic atrophy, right axillary stent, diffuse osteopenia, degenerative changes of the spine with Schmorl's nodes noded. EKG shows A. fib with heart rate of [address] and T wave changes. -Chest pain appears to be costochondritis but she has increased risk factor: Stress test pending and consult cardiology -Elevated troponin: Consulted cardiology -Atrial fibrillation with RVR: Rate control continue Eliquis -Thrombocytopenia which is mild: Continue to follow -Hypotension, drug related versus other: Responded to IV fluids, continue monitor History Interval history: Pt seen and examined. Follow up for chest pains. She had no n/v. Hospitalist Physical - Physical exam Narrative exam: GEN: Thin frail, NAD, AWAKE, ALERT, ORIENTATED x 3 HEENT: NCAT, PERRL, EOMI, OP CLEAR NECK: SUPPLE, NO THYROMEGALY, NO JVD, NO LAD CVS: RRR, NORMAL S1S2 LUNGS/CHEST: CTA B, NORMAL CHEST EXPANSION B, GOOD AIR ENTRY B, across lower chest/upper abdomen reproducible tenderness ABD: SOFT, NTND, GBS, NO REBOUND OR GUARDING EXT/SKIN: NO SIGNIFICANT EDEMA OR RASH MSK: FROM X 4 EXTREMITIES NEURO: CN 2-12 GROSSLY INTACT, NO FOCAL DEFICITS PSY: CALM - Constitutional Vitals: Temp Pulse Resp BP Pulse Ox 98.4 F 52 L 18 141/51 97 11/11/16 10:30 11/11/16 10:30 11/11/16 10:30 11/11/16 10:30 11/11/16 05:23 Results - Labs CBC & Chem 7: 11/11/16 07:11 11/11/16 07:11 Labs: Laboratory Last Values WBC 5.1 K/mm3 (4.5-11.0) 11/11/16 07:11 RBC 3.77 M/mm3 (3.65-5.03) 11/11/16 07:11 Hgb 10.4 gm/dl (10.1-14.3) 11/11/16 07:11 Hct 32.4 % (30.3-42.9) 11/11/16 07:11 MCV 86 fl (79-97) 11/11/16 07:11 MCH 28 pg (28-32) 11/11/16 07:11 MCHC 32 % (30-34) 11/11/16 07:11 RDW 16.0 % (13.2-15.2) H 11/11/16 07:11 Plt Count 110 K/mm3 (140-440) L 11/11/16 07:11 Add Manual Diff Complete 11/10/16 07:04 Total Counted 100 11/10/16 07:04 Seg Neuts % (Manual) 66.0 % (40.0-70.0) 11/10/16 07:04 Band Neutrophils % 1.0 % 11/10/16 07:04 Lymphocytes % (Manual) 22.0 % (13.4-35.0) 11/10/16 07:04 Reactive Lymphs % (Man) 1.0 % 11/10/16 07:04 Monocytes % (Manual) 8.0 % (0.0-7.3) H 11/10/16 07:04 Eosinophils % (Manual) 1.0 % (0.0-4.3) 11/10/16 07:04 Basophils % (Manual) 1.0 % (0.0-1.8) 11/10/16 07:04 Metamyelocytes % 0 % 11/10/16 07:04 Myelocytes % 0 % 11/10/16 07:04 Promyelocytes % 0 % 11/10/16 07:04 Blast Cells % 0 % 11/10/16 07:04 Nucleated RBC % Not Reportable 11/10/16 07:04 Seg Neutrophils # Man 4.3 K/mm3 (1.8-7.7) 11/10/16 07:04 Band Neutrophils # 0.1 K/mm3 11/10/16 07:04 Lymphocytes # (Manual) 1.4 K/mm3 (1.2-5.4) 11/10/16 07:04 Abs React Lymphs (Man) 0.1 K/mm3 11/10/16 07:04 Monocytes # (Manual) 0.5 K/mm3 (0.0-0.8) 11/10/16 07:04 Eosinophils # (Manual) 0.1 K/mm3 (0.0-0.4) 11/10/16 07:04 Basophils # (Manual) 0.1 K/mm3 (0.0-0.1) 11/10/16 07:04 Metamyelocytes # 0.0 K/mm3 11/10/16 07:04 Myelocytes # 0.0 K/mm3 11/10/16 07:04 Promyelocytes # 0.0 K/mm3 11/10/16 07:04 Blast Cells # 0.0 K/mm3 11/10/16 07:04 WBC Morphology Not Reportable 11/10/16 07:04 Hypersegmented Neuts Not Reportable 11/10/16 07:04 Hyposegmented Neuts Not Reportable 11/10/16 07:04 Hypogranular Neuts Not Reportable 11/10/16 07:04 Smudge Cells Not Reportable 11/10/16 07:04 Toxic Granulation Not Reportable 11/10/16 07:04 Toxic Vacuolation Not Reportable 11/10/16 07:04 Dohle Bodies Not Reportable 11/10/16 07:04 Pelger-Huet Anomaly Not Reportable 11/10/16 07:04 Jude Rods Not Reportable 11/10/16 07:04 Platelet Estimate Cons 11/10/16 07:04 Clumped Platelets Not Reportable 11/10/16 07:04 Plt Clumps, EDTA Not Reportable 11/10/16 07:04 Large Platelets Not Reportable 11/10/16 07:04 Giant Platelets Not Reportable 11/10/16 07:04 Platelet Satelliting Not Reportable 11/10/16 07:04 Plt Morphology Comment Not Reportable 11/10/16 07:04 RBC Morphology Not Reportable 11/10/16 07:04 Dimorphic RBCs Not Reportable 11/10/16 07:04 Polychromasia Not Reportable 11/10/16 07:04 Hypochromasia Not Reportable 11/10/16 07:04 Poikilocytosis Not Reportable 11/10/16 07:04 Anisocytosis 1+ 11/10/16 07:04 Microcytosis Not Reportable 11/10/16 07:04 Macrocytosis Not Reportable 11/10/16 07:04 Spherocytes Not Reportable 11/10/16 07:04 Pappenheimer Bodies Not Reportable 11/10/16 07:04 Sickle Cells Not Reportable 11/10/16 07:04 Target Cells Not Reportable 11/10/16 07:04 Tear Drop Cells Not Reportable 11/10/16 07:04 Ovalocytes Not Reportable 11/10/16 07:04 Helmet Cells Not Reportable 11/10/16 07:04 Lopez-Harrington Bodies Not Reportable 11/10/16 07:04 [place] Rings Not Reportable 11/10/16 07:04 Berta Cells Not Reportable 11/10/16 07:04 Bite Cells Not Reportable 11/10/16 07:04 Crenated Cell Not Reportable 11/10/16 07:04 Elliptocytes Not Reportable 11/10/16 07:04 Acanthocytes (Spur) Not Reportable 11/10/16 07:04 Rouleaux Not Reportable 11/10/16 07:04 Hemoglobin C Crystals Not Reportable 11/10/16 07:04 Schistocytes Not Reportable 11/10/16 07:04 Malaria parasites Not Reportable 11/10/16 07:04 Aaron Bodies Not Reportable 11/10/16 07:04 Hem Pathologist Commnt No 11/10/16 07:04 PT 12.4 Sec. (12.2-14.9) 11/10/16 07:04 INR 0.88 (0.87-1.13) 11/10/16 07:04 APTT 30.6 Sec. (24.2-36.6) 11/10/16 07:04 D-Dimer 520.37 ng/mlDDU (0-234) H 11/10/16 07:04 Sodium 143 mmol/L (137-145) 11/11/16 07:11 Potassium 4.6 mmol/L (3.6-5.0) D 11/11/16 07:11 Chloride 100.1 mmol/L (98-107) 11/11/16 07:11 Carbon Dioxide 29 mmol/L (22-30) 11/11/16 07:11 Anion Gap 19 mmol/L 11/11/16 07:11 BUN 35 mg/dL (7-17) H 11/11/16 07:11 Creatinine 5.6 mg/dL (0.7-1.2) H 11/11/16 07:11 Estimated GFR 7 ml/min 11/11/16 07:11 BUN/Creatinine Ratio 6.25 % 11/11/16 07:11 Glucose 104 mg/dL (65-100) H 11/11/16 07:11 POC Glucose 200 (70-105) H 11/10/16 21:50 Calcium 9.0 mg/dL (8.4-10.2) 11/11/16 07:11 Total Bilirubin 0.70 mg/dL (0.1-1.2) 11/10/16 07:04 AST 29 units/L (5-40) 11/10/16 07:04 ALT 26 units/L (7-56) 11/10/16 07:04 Alkaline Phosphatase 179 units/L (35-129) H 11/10/16 07:04 Total Creatine Kinase 120 units/L (30-135) 11/10/16 18:51 CK-MB (CK-2) 17.6 ng/mL (0.0-4.0) H 11/10/16 18:51 CK-MB (CK-2) Rel Index 14.6 (0-4) H 11/10/16 18:51 Troponin T 0.282 ng/mL (0.00-0.029) H* D 11/10/16 18:51 Total Protein 6.5 g/dL (6.3-8.2) 11/10/16 07:04 Albumin 3.6 g/dL (3.9-5) L 11/10/16 07:04 Albumin/Globulin Ratio 1.2 % 11/10/16 07:04 Triglycerides 158 mg/dL (2-149) H 11/10/16 07:04 Cholesterol 188 mg/dL (50-199) 11/10/16 07:04 LDL Cholesterol Direct 81 mg/dL (50-130) 11/10/16 07:04 HDL Cholesterol 76 mg/dL (40-59) H 11/10/16 07:04 Cholesterol/HDL Ratio 2.47 % 11/10/16 07:04 TSH 9.110 mlU/mL (0.270-4.200) H 11/11/16 07:11
[2016-11-11] MEDS: COREG PO SCH ×3 (11:26→21:38)
[2016-11-11] MEDS: ELIQUIS PO SCH ×2 (11:34→21:38)
[2016-11-11] MEDS: PROTONIX PO SCH (11:34)
[2016-11-11] MEDS: Renal Caps PO SCH (11:34)
[2016-11-11] MEDS: BABY ASPIRIN PO SCH (11:34)
--- NOTE | 2016-11-11 16:24 | Event Note ---
Date: 11/11/16 Thallium stress test shows a moderate to large, fixed inferior defect, suggestive of an old inferior myocardial infarction. There is no significant reversible ischemia demonstrated. Gated SPECT analysis suggests mild left ventricle systolic dysfunction with calculated ejection fraction 48%. Clinical correlation is recommended.
[2016-11-11] MEDS: SINEquan PO SCH (21:38)
[2016-11-11] MEDS: PEPCID PO SCH (21:38)
[2016-11-12] MEDS: SYNTHROID PO SCH ×2 (05:50)
[2016-11-12 06:16] LABS: Hemoglobin 10.2 gm/dl (10.1-14.3); Mean Corpuscular HGB Conc 33 % (30-34); Mean Corpuscular Hemoglobin 28 pg (28-32); Mean Corpuscular Volume 83 fl (79-97); Platelet Count 105 K/mm3 (140-440); Red Blood Count 3.72 M/mm3 (3.65-5.03); Red Cell Distribution Width 15.9 % (13.2-15.2); White Blood Count 7.5 K/mm3 (4.5-11.0)
[2016-11-12 06:38] LABS: BUN/Creatinine Ratio 8.73; Calcium 9.1 mg/dL (8.4-10.2); Chloride 95.5 mmol/L (98-107)
[2016-11-12] MEDS: RENVELA PO SCH ×3 (08:10→17:02)
[2016-11-12] MEDS: NOVOLOG SUB-Q SCH ×2 (08:14→12:12)
--- NOTE | 2016-11-12 09:04 | Progress Note ---
Assessment and Plan - Patient Problems (1) ESRD needing dialysis Current Visit: Yes Status: Chronic Plan to address problem: HD on T/T/S (2) Fever Current Visit: Yes Status: Acute Qualifiers: Fever type: F Encounter type: E Plan to address problem: ? cause. ID consult. Spoke with - hospitalist (3) Atrial fibrillation with RVR Current Visit: Yes Status: Acute Plan to address problem: rate better now (4) Dilated cardiomyopathy Current Visit: Yes Status: Acute Plan to address problem: cardiology notes reviewed (5) DM type 2 (diabetes mellitus, type 2) Onset Date: 04/02/13 Current Visit: No Status: Chronic Qualifiers: Diabetes mellitus complication status: D Diabetes mellitus complication detail: D Diabetic retinopathy severity: D Proliferative retinopathy type: P Diabetes mellitus macular edema: D Diabetes mellitus assisted insulin use : D Laterality: L Chronic kidney disease stage: C (6) Anemia in CKD (chronic kidney disease) Current Visit: Yes Status: Chronic Qualifiers: Chronic kidney disease stage: C Plan to address problem: Epogen per protocol Subjective Date of service: 11/12/16 Interval history: alert, oriented to place and person. I don't feel good. Reported to have temp spike today, blood cultures ordered Objective - Vital Signs Vital signs: Vital Signs - 12hr 11/11/16 11/12/16 11/12/16 21:38 00:45 04:20 Temperature 99.6 F 98.7 F Pulse Rate 66 Pulse Rate [ 50 L 65 Left Radial] Respiratory 24 18 Rate Blood Pressure 165/72 Blood Pressure 157/70 165/72 [Left Arm] O2 Sat by Pulse 96 93 Oximetry 11/12/16 11/12/16 08:00 08:33 Temperature 102 F H Pulse Rate 64 Pulse Rate [ 67 Left Radial] Respiratory 20 Rate Blood Pressure Blood Pressure 181/70 [Left Arm] O2 Sat by Pulse 94 Oximetry - General Appearance General appearance: chronically ill EENT: mucous membranes dry Neck: no JVD Respiratory: Present: Decreased Breath Sounds Cardiology: irregular Gastrointestinal: normoactive bowel sounds Neurologic: alert and oriented x3 Musculoskeletal: other (no edema, AV access in upper arm has bruit and thrill) Psychiatric: mood/affect appropriate, cooperative - Lab 11/12/16 05:58 11/12/16 05:58 Most recent lab results Calcium 9.1 mg/dL (8.4-10.2) 11/12/16 05:58
[2016-11-12] MEDS: Renal Caps PO SCH (09:44)
[2016-11-12] MEDS: PROTONIX PO SCH (09:45)
[2016-11-12] MEDS: BABY ASPIRIN PO SCH (09:45)
[2016-11-12] MEDS: COREG PO SCH ×2 (09:45→21:53)
[2016-11-12] MEDS: ELIQUIS PO SCH ×2 (09:45→21:53)
--- NOTE | 2016-11-12 10:42 | XRay Report ---
PORTABLE CHEST INDICATION: Pneumonia. COMPARISON: 11/10/2016 FINDINGS: Portable, frontal chest radiograph demonstrates poorer inspiration with slightly crowded markings. Stable dense aortic knob calcifications, possible cardiomegaly and bilateral axillary stents. Right hemidiaphragm slightly elevated. EKG leads. Demineralized bones. CONCLUSION: No significant acute chest process or interval change, providing for the difference in technique, as described. Thank you for the opportunity to participate in this patient's care.
--- NOTE | 2016-11-12 12:08 | Progress Note ---
Assessment and Plan - Patient Problems (1) Hypotension Current Visit: Yes Status: Acute Qualifiers: Hypotension type: H Trimester: T Plan to address problem: Patient is undergoing sepsis workup, blood cultures and urine cultures in progress. Antibiotic therapy directed by the medical service. (2) Dilated cardiomyopathy Current Visit: Yes Status: Acute Plan to address problem: Conservative medical management of dilated cardiomyopathy with afterload reducing agents, beta blockers and oral antiplatelet therapy as tolerated. Subjective Date of service: 11/12/16 Interval history: Patient is a 76-year-old woman with multiple medical problems. She has end- stage renal disease on hemodialysis. She has a dilated cardiomyopathy with left ventricular ejection fraction 30-35%. A recent thallium stress test showed a fixed inferior defect without ischemia. She is on medical therapy for her cardiomyopathy and left ventricle systolic dysfunction. She is admitted to the hospital at this time with weakness, and a finding of hypotension at hemodialysis. Her blood pressure was reported at 70/30. During her cause here, she has also been noted with a fever for 102 and is undergoing sepsis workup. There has been no chest pain, no shortness of breath, no palpitations and no cardiac complaints. Objective Vital Signs Temp Pulse Pulse Resp BP BP Pulse Ox 11/12/16 10:00 86 20 95 11/12/16 08:33 102 F H 67 20 181/70 94 11/12/16 08:00 64 11/12/16 04:20 98.7 F 65 18 165/72 93 11/12/16 00:45 99.6 F 50 L 24 157/70 96 11/11/16 21:38 66 165/72 11/11/16 20:53 99.4 F 66 20 165/72 96 11/11/16 20:13 63 11/11/16 19:45 20 96 11/11/16 16:20 98.8 F 58 L 18 184/78 98 - Physical Examination General: No Apparent Distress HEENT: Positive: PERRL Neck: Positive: neck supple Cardiac: Positive: Reg Rate and Rhythm Lungs: Positive: Decreased Breath Sounds Neuro: Positive: Grossly Intact Abdomen: Positive: Soft Skin: Positive: Clear Extremities: Absent: edema - Labs and Meds CBC 11/12/16 Range/Units 05:58 WBC 7.5 (4.5-11.0) K/mm3 RBC 3.72 (3.65-5.03) M/mm3 Hgb 10.2 (10.1-14.3) gm/dl Hct 31.0 (30.3-42.9) % Plt Count 105 L (140-440) K/mm3 Comprehensive Metabolic Panel 11/12/16 Range/Units 05:58 Sodium 138 (137-145) mmol/L Potassium 5.0 (3.6-5.0) mmol/L Chloride 95.5 L (98-107) mmol/L Carbon Dioxide 24 (22-30) mmol/L BUN 62 H (7-17) mg/dL Creatinine 7.1 H (0.7-1.2) mg/dL Glucose 109 H (65-100) mg/dL Calcium 9.1 (8.4-10.2) mg/dL
[2016-11-12] MEDS: ZESTRIL PO SCH (12:18)
--- NOTE | 2016-11-12 13:42 | Progress Note ---
Assessment and Plan Assessment and plan: Language Line used for Isiah, her Daughter, Costa is not present Patient is a 76-year-old [place] woman with a history of type 2 diabetes mellitus, hypothyroidism, GERD hypertension, leg DVT, kidney stones, end-stage renal disease on hemodialysis TTS, atrial fibrillation on Eliquis, dyslipidemia , systolic heart failure (08/02/2016) TTE read by Dr. Dunbar reported as 4 chamber dilated cardio myopathy, global left ventricle systolic function is mildly to severely decreased, estimated EF is 30-35%, moderate concentric left ventricular hypertrophy, left atrium is mildly dilated, mild to moderate MR, moderate TR, evidence of moderate pulmonary hypertension, right ventricular systolic pressures calculated at 52 mmHg who presents to [facility] emergency department from the dialysis clinic after she was found to have to be hypotensive 70/30 responded to 500 normal saline bolus and complaining of chest pains. Patient describes the chest pain as constant "bad hurt" located lower chest radiating across the chest to upper abdomen that started prior to hemodialysis today associated with shortness of breath. She denies any aggravating or relieving factors. She denies any fever, chills or nausea vomiting. She denies a productive cough and severe cough or headaches. She did not complete get her hemodialysis today, ED physician has reached out to her cannon fire direction specialist, Dr. Brush and he wants her evaluated by cardiology prior to hemodialysis. CT angiogram chest reported as no evidence of PE aneurysm or dissection, calcification atherosclerosis including coronary artery disease, cardiomegaly, trace right pleural fluid, 4.3 mm vague nodular density in the posterior superior right middle lobe, follow-up noncontrast examination 3 months time is recommended to ensure stability/resolution, subsegmental atelectasis bilaterally, left anterior and lateral by basilar infiltrates is not definitively excluded, the red ductal dilatation probably related to patient 's age and prior cholecystectomy, not including the field of view, correlate clinically for possible biliary ductal obstruction, left renal pancreatic atrophy, right axillary stent, diffuse osteopenia, degenerative changes of the spine with Schmorl's nodes noded. EKG shows A. fib with heart rate of [address] and T wave changes. -Chest pain appears to be costochondritis but she has increased risk factor: Stress test reviewed with Dr. Dunbar -Elevated troponin: Consulted cardiology -Atrial fibrillation with RVR: Rate control continue Eliquis -Thrombocytopenia which is mild: Continue to follow -Hypotension, drug related versus other: Responded to IV fluids, continue monitor -Dvt prophylaxis with Eliquis -New issue: fevers, ordered blood ctx, urinalysis (if she makes any), cxr and consulted Cardiology, started empiric iv rocephin. d/w Dr. Dunbar, nothing to do about the stress test except medical management d/w Dr. Rizo History Interval history: Pt seen and examined. Follow up for chest pains. She had no n/v. Overnight she developed fevers. at bedside Hospitalist Physical - Physical exam Narrative exam: GEN: Thin frail, NAD, AWAKE, ALERT, ORIENTATED x 3 HEENT: NCAT, PERRL, EOMI, OP CLEAR NECK: SUPPLE, NO THYROMEGALY, NO JVD, NO LAD CVS: RRR, NORMAL S1S2 LUNGS/CHEST: CTA B, NORMAL CHEST EXPANSION B, GOOD AIR ENTRY B, across lower chest/upper abdomen reproducible tenderness ABD: SOFT, NTND, GBS, NO REBOUND OR GUARDING EXT/SKIN: NO SIGNIFICANT EDEMA OR RASH MSK: FROM X 4 EXTREMITIES NEURO: CN 2-12 GROSSLY INTACT, NO FOCAL DEFICITS PSY: CALM - Constitutional Vitals: Temp Pulse Resp BP Pulse Ox 100.4 F H 65 20 197/81 100 11/12/16 11:36 11/12/16 11:36 11/12/16 11:36 11/12/16 11:36 11/12/16 11:36 Results - Labs CBC & Chem 7: 11/12/16 05:58 11/12/16 05:58 Labs: Laboratory Last Values WBC 7.5 K/mm3 (4.5-11.0) 11/12/16 05:58 RBC 3.72 M/mm3 (3.65-5.03) 11/12/16 05:58 Hgb 10.2 gm/dl (10.1-14.3) 11/12/16 05:58 Hct 31.0 % (30.3-42.9) 11/12/16 05:58 MCV 83 fl (79-97) D 11/12/16 05:58 MCH 28 pg (28-32) 11/12/16 05:58 MCHC 33 % (30-34) 11/12/16 05:58 RDW 15.9 % (13.2-15.2) H 11/12/16 05:58 Plt Count 105 K/mm3 (140-440) L 11/12/16 05:58 Add Manual Diff Complete 11/10/16 07:04 Total Counted 100 11/10/16 07:04 Seg Neuts % (Manual) 66.0 % (40.0-70.0) 11/10/16 07:04 Band Neutrophils % 1.0 % 11/10/16 07:04 Lymphocytes % (Manual) 22.0 % (13.4-35.0) 11/10/16 07:04 Reactive Lymphs % (Man) 1.0 % 11/10/16 07:04 Monocytes % (Manual) 8.0 % (0.0-7.3) H 11/10/16 07:04 Eosinophils % (Manual) 1.0 % (0.0-4.3) 11/10/16 07:04 Basophils % (Manual) 1.0 % (0.0-1.8) 11/10/16 07:04 Metamyelocytes % 0 % 11/10/16 07:04 Myelocytes % 0 % 11/10/16 07:04 Promyelocytes % 0 % 11/10/16 07:04 Blast Cells % 0 % 11/10/16 07:04 Nucleated RBC % Not Reportable 11/10/16 07:04 Seg Neutrophils # Man 4.3 K/mm3 (1.8-7.7) 11/10/16 07:04 Band Neutrophils # 0.1 K/mm3 11/10/16 07:04 Lymphocytes # (Manual) 1.4 K/mm3 (1.2-5.4) 11/10/16 07:04 Abs React Lymphs (Man) 0.1 K/mm3 11/10/16 07:04 Monocytes # (Manual) 0.5 K/mm3 (0.0-0.8) 11/10/16 07:04 Eosinophils # (Manual) 0.1 K/mm3 (0.0-0.4) 11/10/16 07:04 Basophils # (Manual) 0.1 K/mm3 (0.0-0.1) 11/10/16 07:04 Metamyelocytes # 0.0 K/mm3 11/10/16 07:04 Myelocytes # 0.0 K/mm3 11/10/16 07:04 Promyelocytes # 0.0 K/mm3 11/10/16 07:04 Blast Cells # 0.0 K/mm3 11/10/16 07:04 WBC Morphology Not Reportable 11/10/16 07:04 Hypersegmented Neuts Not Reportable 11/10/16 07:04 Hyposegmented Neuts Not Reportable 11/10/16 07:04 Hypogranular Neuts Not Reportable 11/10/16 07:04 Smudge Cells Not Reportable 11/10/16 07:04 Toxic Granulation Not Reportable 11/10/16 07:04 Toxic Vacuolation Not Reportable 11/10/16 07:04 Dohle Bodies Not Reportable 11/10/16 07:04 Pelger-Huet Anomaly Not Reportable 11/10/16 07:04 Jude Rods Not Reportable 11/10/16 07:04 Platelet Estimate Cons 11/10/16 07:04 Clumped Platelets Not Reportable 11/10/16 07:04 Plt Clumps, EDTA Not Reportable 11/10/16 07:04 Large Platelets Not Reportable 11/10/16 07:04 Giant Platelets Not Reportable 11/10/16 07:04 Platelet Satelliting Not Reportable 11/10/16 07:04 Plt Morphology Comment Not Reportable 11/10/16 07:04 RBC Morphology Not Reportable 11/10/16 07:04 Dimorphic RBCs Not Reportable 11/10/16 07:04 Polychromasia Not Reportable 11/10/16 07:04 Hypochromasia Not Reportable 11/10/16 07:04 Poikilocytosis Not Reportable 11/10/16 07:04 Anisocytosis 1+ 11/10/16 07:04 Microcytosis Not Reportable 11/10/16 07:04 Macrocytosis Not Reportable 11/10/16 07:04 Spherocytes Not Reportable 11/10/16 07:04 Pappenheimer Bodies Not Reportable 11/10/16 07:04 Sickle Cells Not Reportable 11/10/16 07:04 Target Cells Not Reportable 11/10/16 07:04 Tear Drop Cells Not Reportable 11/10/16 07:04 Ovalocytes Not Reportable 11/10/16 07:04 Helmet Cells Not Reportable 11/10/16 07:04 Lopez-D[place] Bodies Not Reportable 11/10/16 07:04 Dickson Rings Not Reportable 11/10/16 07:04 [place] Cells Not Reportable 11/10/16 07:04 Bite Cells Not Reportable 11/10/16 07:04 Crenated Cell Not Reportable 11/10/16 07:04 Elliptocytes Not Reportable 11/10/16 07:04 Acanthocytes (Spur) Not Reportable 11/10/16 07:04 Rouleaux Not Reportable 11/10/16 07:04 Hemoglobin C Crystals Not Reportable 11/10/16 07:04 Schistocytes Not Reportable 11/10/16 07:04 Malaria parasites Not Reportable 11/10/16 07:04 Aaron Bodies Not Reportable 11/10/16 07:04 Hem Pathologist Commnt No 11/10/16 07:04 PT 12.4 Sec. (12.2-14.9) 11/10/16 07:04 INR 0.88 (0.87-1.13) 11/10/16 07:04 APTT 30.6 Sec. (24.2-36.6) 11/10/16 07:04 D-Dimer 520.37 ng/mlDDU (0-234) H 11/10/16 07:04 Sodium 138 mmol/L (137-145) 11/12/16 05:58 Potassium 5.0 mmol/L (3.6-5.0) 11/12/16 05:58 Chloride 95.5 mmol/L (98-107) L 11/12/16 05:58 Carbon Dioxide 24 mmol/L (22-30) 11/12/16 05:58 Anion Gap 24 mmol/L 11/12/16 05:58 BUN 62 mg/dL (7-17) H 11/12/16 05:58 Creatinine 7.1 mg/dL (0.7-1.2) H 11/12/16 05:58 Estimated GFR 6 ml/min 11/12/16 05:58 BUN/Creatinine Ratio 8.73 % 11/12/16 05:58 Glucose 109 mg/dL (65-100) H 11/12/16 05:58 POC Glucose 194 (70-105) H 11/12/16 11:36 Calcium 9.1 mg/dL (8.4-10.2) 11/12/16 05:58 Total Bilirubin 0.70 mg/dL (0.1-1.2) 11/10/16 07:04 AST 29 units/L (5-40) 11/10/16 07:04 ALT 26 units/L (7-56) 11/10/16 07:04 Alkaline Phosphatase 179 units/L (35-129) H 11/10/16 07:04 Total Creatine Kinase 120 units/L (30-135) 11/10/16 18:51 CK-MB (CK-2) 17.6 ng/mL (0.0-4.0) H 11/10/16 18:51 CK-MB (CK-2) Rel Index 14.6 (0-4) H 11/10/16 18:51 Troponin T 0.282 ng/mL (0.00-0.029) H* D 11/10/16 18:51 Total Protein 6.5 g/dL (6.3-8.2) 11/10/16 07:04 Albumin 3.6 g/dL (3.9-5) L 11/10/16 07:04 Albumin/Globulin Ratio 1.2 % 11/10/16 07:04 Triglycerides 158 mg/dL (2-149) H 11/10/16 07:04 Cholesterol 188 mg/dL (50-199) 11/10/16 07:04 LDL Cholesterol Direct 81 mg/dL (50-130) 11/10/16 07:04 HDL Cholesterol 76 mg/dL (40-59) H 11/10/16 07:04 Cholesterol/HDL Ratio 2.47 % 11/10/16 07:04 TSH 9.110 mlU/mL (0.270-4.200) H 11/11/16 07:11
--- NOTE | 2016-11-12 13:55 | Consultation ---
History of Present Illness - Reason for Consult Consult date: 11/12/16 Fever Requesting physician: ROLANDO MATHIS - History of Present Illness Ms. Ferrera is a 76-year-old woman with an extensive cardiac history who was admitted for evaluation of chest pain. History is obtained from the patient' s chart, from her nurse and from her spouse at the bedside as the patient is unable to provide a history due to weakness and language barrier. Her spouse serves as service attendant cafeteria. She says she hurts "all over" and that started abruptly today. Her pouse says "yesterday was good; today is bad". There are no other more localizing complaints. A chest radiograph on admission showed cardiomegaly. Also, a CTA chest showed no evidence of PE, dissection or aneurysm but did how a ~4mm nodular density in the right middle lobe. Today she spiked a fever to 102 deg F. Chest radiograph repeated today shows no acute process or interval change. Blood culture has been submitted. She has been started empirically on Rocephin. ID consultation is requested for further eval of fever. Past History Past Medical History: other (type 2 diabetes mellitus, hypothyroidism, GERD hypertension, leg DVT, kidney stones, end-stage renal disease on hemodialysis TTS, atrial fibrillation on Eliquis, dyslipidemia, systolic heart failure) Past Surgical History: cholecystectomy, Other (AV) Social history: denies: smoking, alcohol abuse, IV drug use Family history: no significant family history Medications and Allergies Allergies Allergy/AdvReac Type Severity Reaction Status Date / Time No Known Allergies Allergy Verified 07/30/16 19:47 Home Medications Medication Instructions Recorded Confirmed Last Taken Type Sevelamer Carbonate [Renvela] 800 mg PO TIDWM 04/02/13 05/29/16 1 Day Ago History 800 Megan-Juliet Rx Tablet 1 tab PO DAILY 12/31/14 05/29/16 1 Day Ago History 1 Docusate Sodium [Colace CAP] 100 mg PO BID PRN #30 capsule 01/24/15 05/29/16 1 Day Ago Rx 100 Famotidine [Pepcid] 40 mg PO QHS #30 tablet 01/24/15 05/29/16 1 Day Ago Rx 40 Pravastatin Sodium [Pravastatin] 10 mg PO QHS 01/24/15 05/29/16 1 Day Ago History 10 Promethazine [Phenergan TAB] 25 mg PO Q6HR PRN #20 tab 01/24/15 05/29/16 1 Day Ago Rx 25 Doxepin [SINEquan] 10 mg PO QHS 05/01/15 05/29/16 1 Day Ago History 10 Tramadol HCl [Conzip 25 MG IR + 75 50 mg PO Q6H PRN 05/01/15 05/29/16 1 Week Ago History MG XR CAP] 50 Folic Acid/Vit B Comp W-C [Renal 1 cap PO QDAY capsule 05/04/15 05/29/16 1 Day Ago Rx Caps] 1 HYDROcodone/APAP 5-325 [[place] 1 each PO Q6HR PRN #30 tablet 05/04/15 05/29/16 1 Day Ago Rx 5-325 mg TAB] 1 Levothyroxine [Synthroid] 25 mcg PO DAILY@0600 tablet 05/04/15 05/29/16 1 Day Ago Rx 25 Levothyroxine [Synthroid] 112 mcg PO DAILY@0600 tablet 05/04/15 05/29/16 1 Day Ago Rx 112 Apixaban [Eliquis] 2.5 mg PO BID #60 tablet 05/04/16 05/29/16 1 Day Ago Rx 2.5 Carvedilol [Coreg] 6.25 mg PO BID #60 tablet 05/04/16 05/29/16 1 Day Ago Rx 6.25 Diltiazem [Cardizem] 30 mg PO Q8HR #90 tablet 05/04/16 05/29/16 1 Day Ago Rx 30 ALBUTEROL Inhaler [ProAir HFA 2 puff IH QID PRN #1 inhalation 07/30/16 Unknown Rx Inhaler] Active Meds: Active Medications Acetaminophen (Tylenol) 650 mg PO Q6H PRN PRN Reason: Non Cardiac Pain or Temp>100.5 Acetaminophen/Hydrocodone Bitart ([place] 5/325) 1 each PO Q6HR PRN PRN Reason: Pain, Moderate (4-6) Last Admin: 11/10/16 21:54 Dose: 1 each Albuterol (Proventil) 2.5 mg IH QIDRT PRN PRN Reason: Shortness Of Breath Apixaban (Eliquis) 2.5 mg PO BID SONNY PRN Reason: Protocol Last Admin: 07/10/17 09:45 Dose: 2.5 mg Aspirin (Baby Aspirin) 81 mg PO QDAY [facility] Last Admin: 11/12/16 09:45 Dose: 81 mg Atorvastatin Calcium (Lipitor) 40 mg PO QHS [facility] Last Admin: 11/11/16 21:38 Dose: 40 mg Carvedilol (Coreg) 6.25 mg PO BID [facility] Last Admin: 11/12/16 09:45 Dose: 6.25 mg Dextrose (D50w (25gm)) 50 ml IV PRN PRN PRN Reason: Hypoglycemia Docusate Sodium (Colace) 100 mg PO BID PRN PRN Reason: Constipation Doxepin HCl (Sinequan) 10 mg PO QHS [facility] Last Admin: 11/11/16 21:38 Dose: 10 mg Famotidine (Pepcid) 20 mg PO QHS [facility] Last Admin: 11/11/16 21:38 Dose: 20 mg Sodium Chloride (Nacl 0.9%) 100 mls @ 999 mls/hr IV ESEQUIEL PRN PRN Reason: Hypotension Ceftriaxone Sodium (Rocephin/Ns 1 Gm/50 Ml) 1 gm in 50 mls @ 100 mls/hr IV Q24HR [facility] PRN Reason: Protocol Insulin Aspart (Novolog) 0 units SUB-Q ACHS [facility] PRN Reason: Protocol Last Admin: 11/12/16 12:12 Dose: 1 units Levothyroxine Sodium (Synthroid) 25 mcg PO DAILY@0600 [facility] Last Admin: 11/12/16 05:50 Dose: 25 mcg Levothyroxine Sodium (Synthroid) 112 mcg PO DAILY@0600 [facility] Last Admin: 11/12/16 05:50 Dose: 112 mcg Lisinopril (Zestril) 5 mg PO QDAY [facility] Last Admin: 11/12/16 12:18 Dose: 5 mg Morphine Sulfate (Morphine) 2 mg IV Q4H PRN PRN Reason: Pain , Severe (7-10) Multivit/Ca Carb/B Cmplx/FA/Prenat (Renal Caps) 1 cap PO QDAY [facility] Last Admin: 11/12/16 09:44 Dose: 1 cap Ondansetron HCl (Zofran) 4 mg IV Q4H PRN PRN Reason: Nausea And Vomiting Pantoprazole Sodium (Protonix) 40 mg PO DAILY [facility] Last Admin: 11/12/16 09:45 Dose: 40 mg Sevelamer Carbonate (Renvela) 800 mg PO TIDWM SONNY Last Admin: 11/12/16 12:18 Dose: 800 mg Tramadol HCl (Ultram) 50 mg PO Q6H PRN PRN Reason: Pain, Moderate (4-6) Review of Systems ROS unobtainable: due to mental status ((weakness)) All systems: negative Physical Examination - Constitutional Vitals: Vital Signs Temp Pulse Resp BP Pulse Ox 100.4 F H 65 20 197/81 100 11/12/16 11:36 11/12/16 11:36 11/12/16 11:36 11/12/16 11:36 11/12/16 11:36 Temperature -Last 24 Hours Temperature 100.4 F Temperature 102 F Temperature 98.7 F Temperature 99.6 F Temperature 99.4 F Temperature 98.8 F General appearance: Present: mild distress (appears acutely ill), well-nourished , other (spouse at bedside) - EENT Eyes: Absent: scleral icterus, conjunctival injection ENT: clear oral mucosa - Neck Neck: Present: supple. Absent: masses or JVD, cervical LAD - Respiratory Respiratory effort: normal Respiratory: bilateral: CTA, negative: rales, rhonchi - Cardiovascular Rhythm: regular - Extremities Extremities: No edema - Abdominal General gastrointestinal: Present: soft, non-tender, non-distended - Integumentary Integumentary: Present: clear. Absent: rash - Musculoskeletal Musculoskeletal: generalized weakness - Neurologic Neurologic: CNII-XII intact, no focal deficits, moves all extremities Results - Labs CBC & Chem 7: 11/12/16 05:58 11/12/16 05:58 Labs: Abnormal lab results 11/11/16 11/11/16 11/12/16 Range/Units 12:07 21:35 05:58 RDW 15.9 H (13.2-15.2) % Plt Count 105 L (140-440) K/mm3 Chloride (98-107) mmol/L BUN (7-17) mg/dL Creatinine (0.7-1.2) mg/dL Glucose (65-100) mg/dL POC Glucose 127 H 141 H (70-105) 11/12/16 11/12/16 Range/Units 05:58 11:36 RDW (13.2-15.2) % Plt Count (140-440) K/mm3 Chloride 95.5 L (98-107) mmol/L BUN 62 H (7-17) mg/dL Creatinine 7.1 H (0.7-1.2) mg/dL Glucose 109 H (65-100) mg/dL POC Glucose 194 H (70-105) Microbiology 11/12/16 10:14 Peripheral/Venous Blood Culture - Preliminary Culture in Progress 11/12/16 09:40 Peripheral/Venous Blood Culture - Preliminary Culture in Progress Assessment and Plan - Patient Problems (1) Fever Current Visit: Yes Status: Acute Qualifiers: Fever type: F Encounter type: E Plan to address problem: 1. Generalized, non-localizing complaints. 2. Agree with body fluid cultures. Will also include viral studies. 3. Will start empiric Vancomycin and Rocephin, also Oseltamivir.
[2016-11-12] MEDS: TYLENOL PO PRN ×2 (14:23→23:56)
[2016-11-12] MEDS: ROCEPHIN/NS 1 GM/50 ML 1 GM/50 ML BAG IV SCH (14:24)
[2016-11-12] MEDS ORDERED: D50W (25GM) IV ONE (15:00)
[2016-11-12] MEDS ORDERED: VANCOMYCIN/NS 1 GM/250 ML 1 GM/250 ML BAG IV ONE (15:42)
[2016-11-12] MEDS ORDERED: VANCOMYCIN PHARMACY TO DOSE IV SCH (16:00)
[2016-11-12] MEDS: TAMIFLU PO SCH ×2 (16:52→21:55)
--- NOTE | 2016-11-12 17:28 | Admit Criteria Form ---
Admission Criteria Documentation: ATRIAL FIBRILLATION Clinical Indications for Admission to Inpatient Care (Place 'X' for any and all applicable criteria): Admission indicated for ANY ONE of the following(1)(2)(3)(4)(5) : [ ]I. Myocardial ischemia [ ]II. Dyspnea or hypoxemia [ ]III. Hemodynamic instability [ ]IV. Heart failure (e.g., pulmonary edema) (7) [ ]V. New-onset (less than 48 hours) atrial fibrillation with high risk for causing complications secondary to comorbidities (eg, symptomatic heart failure ) [ ]. Altered mental status [ ]VII. Syncope [ ]VIII. Patient has implantable cardioverter defibrillator that has fired more than once within past 24hr or needs immediate adjustment of settings that cannot be done other than in inpatient setting. (8) [ ]IX. Suspected accessory pathway (e.g., Aekew-Tkxchkkem-Jfene syndrome) on ECG [ ]X. Recent systemic thromboembolism (eg, stroke) [ ]XI. Medication toxicity (e.g., digitalis) causing arrhythmia(9) [ ]XII. Underlying medical condition that necessitates inpatient care (e.g., thyrotoxicosis, pneumonia) (10) [ ]XIII. Continuous ECG monitoring is required for condition causing arrhythmia (e.g., severe hyperkalemia, hypokalemia, acid-base disturbance).(11)(12)(13) [ ]XIV. Initiation of antiarrhythmic drug therapy is needed in patient at high risk of adverse effects as indicated by ANY ONE of the following: [ ]a) Significant structural heart disease (e.g., reduced ejection fraction, congenital heart disease, valvular heart disease) [ ]b) Prolonged QT interval [ ]c) Underlying sinus node or atrioventricular conduction disturbances [ ]d) Need for treatment with antiarrhythmic drugs that have significant proarrhythmic potential (e.g., dofetilide, sotalol, procainamide) [ ]e) Patient whose sinus rhythm has never been observed on ECG [ ]XV. Intolerable symptoms despite optimal outpatient treatment [ ]XVI. Elective or urgent cardioversion that cannot be performed on outpatient basis or during observation care. [A] (Use also Atrial Fibrillation: Observation Care ) as appropriate.(14) [ ]XVII.Contraindications and/or Inappropriate clinical situations for Observational Care in patients with Atrial Fibrillation, when ANY ONE of the following is required: [ ]a) Patient with High risk of cardiac embolism (e.g, patients with previous cardiac embolism, LVEF < 40%, age >75 and patients with prosthetic valve) 18 [ ]b) Patient with Moderate risk including DM patient, CAD and patient aged 65-75 18 [ ]c) Patient with any change in cardiac biomarker especially troponin should be managed as high risk in an inpatient setting 19 [ ]d) Physician judgement irrespective of ECG and other diagnostic findings 20 [X]XVIII.General contraindications and/or Inappropriate clinical situations for Observational Care in patients with Atrial Fibrillation, when ANY ONE of the following is required: [X ]a) Prediction of prolongation of LOS based on ANY ONE of the following may be considered as a contraindication for observational care 2, 3, 4, 5, 6, 7, 8, 9, 10, 11 [X ]i) Age > 65 yrs. [ ]ii) Patient arriving by ambulance [ ]iii) Patient with high acuity [ ]iv) Patient requiring vital sign monitoring [ ]v) Patient on IV medication [ ]b) Systolic blood pressures 180mmHg 3,12 [ ]c) Patient with altered mental status including delirium and other alteration of consciousness3 [ ]d) Patient whose discharge disposition will be to a assisted home or rehabilitation home should not be managed in Emergency Department Observation Unit. CMS rule requires 3 days hospital stay before such placement.3,13 [ ]e) Patient with failure to thrive due to broad array of etiologies 3,16,17 [ ]f) Inability to ambulate 3,14 Extended stay beyond goal length of stay may be needed for (1)(25)(26): [ ]a) Unstable comorbidities [ ]b) Persistently uncontrolled atrial fibrillation or other arrhythmias [ ]c) Acute thromboembolic event (e.g., stroke, limb ischemia) [ ]d) Need for inpatient attainment of full anticoagulation The original [employer] content created by [employer] has been revised. The portions of the content which have been revised are identified through the use of italic text or in bold, and [employer] has neither reviewed nor approved the modified material. All other unmodified content is copyright [employer]. Please see references footnoted in the original [employer] edition 2016 Admission Criteria Met: Yes
--- NOTE | 2016-11-12 18:45 | Consultation ---
History of Present Illness Consult date: 11/12/16 Requesting physician: ROLANDO MATHIS Reason for consult: other (Lung Nodule) History of present illness: 76 y/o female, admitted with chest pain. CTA done shows no PE but evidence of 4mm nodule in right middle lobe. Pulmonary consulted for this. Past History Past Medical History: other (type 2 diabetes mellitus, hypothyroidism, GERD hypertension, leg DVT, kidney stones, end-stage renal disease on hemodialysis TTS, atrial fibrillation on Eliquis, dyslipidemia, systolic heart failure) Past Surgical History: cholecystectomy, Other (AV) Social history: denies: smoking, alcohol abuse, IV drug use Family history: no significant family history Medications and Allergies Allergies Allergy/AdvReac Type Severity Reaction Status Date / Time No Known Allergies Allergy Verified 07/30/16 19:47 Home Medications Medication Instructions Recorded Confirmed Last Taken Type Megan-Juliet Rx Tablet 1 tab PO DAILY 12/31/14 11/13/16 1 Day Ago History 1 Pravastatin Sodium [Pravastatin] 20 mg PO QHS 01/24/15 11/13/16 1 Day Ago History 10 Diltiazem [Cardizem] 30 mg PO Q8HR #90 tablet 05/04/16 11/13/16 1 Day Ago Rx 30 Cyproheptadine [Periactin] 4 mg PO DAILY 11/13/16 11/13/16 Unknown History glipiZIDE [Glucotrol] 5 mg PO QDAY 11/13/16 11/13/16 Unknown History traMADol [Ultram] 50 mg PO BID PRN 11/13/16 11/13/16 Unknown History Active Meds: Active Medications Acetaminophen (Tylenol) 650 mg PO Q6H PRN PRN Reason: Non Cardiac Pain or Temp>100.5 Last Admin: 11/12/16 14:23 Dose: 650 mg Acetaminophen/Hydrocodone Bitart (Winters 5/325) 1 each PO Q6HR PRN PRN Reason: Pain, Moderate (4-6) Last Admin: 11/10/16 21:54 Dose: 1 each Albuterol (Proventil) 2.5 mg IH QIDRT PRN PRN Reason: Shortness Of Breath Apixaban (Eliquis) 2.5 mg PO BID SONNY PRN Reason: Protocol Last Admin: 11/12/16 09:45 Dose: 2.5 mg Aspirin (Baby Aspirin) 81 mg PO QDAY [facility] Last Admin: 11/12/16 09:45 Dose: 81 mg Atorvastatin Calcium (Lipitor) 40 mg PO QHS [facility] Last Admin: 11/11/16 21:38 Dose: 40 mg Carvedilol (Coreg) 6.25 mg PO BID [facility] Last Admin: 11/12/16 09:45 Dose: 6.25 mg Dextrose (D50w (25gm)) 50 ml IV PRN PRN PRN Reason: Hypoglycemia Docusate Sodium (Colace) 100 mg PO BID PRN PRN Reason: Constipation Doxepin HCl (Sinequan) 10 mg PO QHS [facility] Last Admin: 11/11/16 21:38 Dose: 10 mg Famotidine (Pepcid) 20 mg PO QHS [facility] Last Admin: 11/11/16 21:38 Dose: 20 mg Sodium Chloride (Nacl 0.9%) 100 mls @ 999 mls/hr IV ESEQUIEL PRN PRN Reason: Hypotension Ceftriaxone Sodium (Rocephin/Ns 1 Gm/50 Ml) 1 gm in 50 mls @ 100 mls/hr IV Q24HR SONNY PRN Reason: Protocol Last Admin: 11/12/16 14:24 Dose: 100 mls/hr Levothyroxine Sodium (Synthroid) 25 mcg PO DAILY@0600 [facility] Last Admin: 11/12/16 05:50 Dose: 25 mcg Levothyroxine Sodium (Synthroid) 112 mcg PO DAILY@0600 [facility] Last Admin: 11/12/16 05:50 Dose: 112 mcg Lisinopril (Zestril) 5 mg PO QDAY [facility] Last Admin: 11/12/16 12:18 Dose: 5 mg Morphine Sulfate (Morphine) 2 mg IV Q4H PRN PRN Reason: Pain , Severe (7-10) Multivit/Ca Carb/B Cmplx/FA/Prenat (Renal Caps) 1 cap PO QDAY [facility] Last Admin: 11/12/16 09:44 Dose: 1 cap Ondansetron HCl (Zofran) 4 mg IV Q4H PRN PRN Reason: Nausea And Vomiting Oseltamivir Phosphate (Tamiflu) 75 mg PO BID [facility] Stop: 11/16/16 22:01 Last Admin: 11/12/16 16:52 Dose: 75 mg Pantoprazole Sodium (Protonix) 40 mg PO DAILY [facility] Last Admin: 11/12/16 09:45 Dose: 40 mg Sevelamer Carbonate (Renvela) 800 mg PO TIDWM SONNY Last Admin: 11/12/16 17:02 Dose: 800 mg Tramadol HCl (Ultram) 50 mg PO Q6H PRN PRN Reason: Pain, Moderate (4-6) Vancomycin HCl (Vancomycin Pharmacy To Dose) 1 each IV PKCONSULT SONNY PRN Reason: Protocol Review of Systems All systems: negative Physical Examination Vital signs: Vital Signs Pulse Resp 110 H 14 11/10/16 05:48 11/10/16 05:48 General appearance: no acute distress, alert Effort: normal Ascultation: Bilateral: clear Percussion: Bilateral: not dull Cardiovascular: regular rate and rhythm Gastrointestinal: normoactive bowel sounds Results - Laboratory Findings CBC and BMP: 11/13/16 08:13 11/13/16 08:13 PT/INR, D-dimer PT 12.4 Sec. (12.2-14.9) 11/10/16 07:04 INR 0.88 (0.87-1.13) 11/10/16 07:04 D-Dimer 520.37 ng/mlDDU (0-234) H 11/10/16 07:04 Abnormal lab findings: Abnormal Labs 11/10/16 11/10/16 11/10/16 11:51 12:23 18:51 RDW Plt Count Chloride BUN Creatinine Glucose POC Glucose 129 H CK-MB (CK-2) 13.4 H 17.6 H CK-MB (CK-2) Rel Index 13.1 H 14.6 H Troponin T 0.205 H* D 0.282 H* D TSH 11/10/16 11/11/16 11/11/16 21:50 07:11 07:11 RDW 16.0 H Plt Count 110 L Chloride BUN 35 H Creatinine 5.6 H Glucose 104 H POC Glucose 200 H CK-MB (CK-2) CK-MB (CK-2) Rel Index Troponin T TSH 11/11/16 11/11/16 11/11/16 07:11 12:07 21:35 RDW Plt Count Chloride BUN Creatinine Glucose POC Glucose 127 H 141 H CK-MB (CK-2) CK-MB (CK-2) Rel Index Troponin T TSH 9.110 H 11/12/16 11/12/1617 05:58 05:58 11:36 RDW 15.9 H Plt Count 105 L Chloride 95.5 L BUN 62 H Creatinine 7.1 H Glucose 109 H POC Glucose 194 H CK-MB (CK-2) CK-MB (CK-2) Rel Index Troponin T TSH 11/12/16 11/12/16 14:43 15:29 RDW Plt Count Chloride BUN Creatinine Glucose POC Glucose 41 L 147 H CK-MB (CK-2) CK-MB (CK-2) Rel Index Troponin T TSH - Diagnostic Findings CT scan - chest: image reviewed Assessment and Plan 76 y/o female with 4mm lung nodule 1. At this time no further work up is needed. 2. Nodule is too small to even be read by PET CT 3. Rads recommends repeat CT in 3 months, I would actually suggest 12. Using the Solitary Pulmonary Nodule Malignancy Risk Calculator from the [facility], this size nodule in a patient with her history carries only a 3.5% risk for malignancy. Latest Chest Guidelines suggest that a nodule that is less than or equal to 4mm should be re-evaluated at 12 months (1yr) and if no change, no additional follow up or imaging is needed. 4. Will sign off, call if questions.
[2016-11-12 20:39] LABS: Bacteria,Urine 3+ /HPF (Negative); Bilirubin,Urine NEG (Negative); Blood,Urine NEG (Negative); Ketones,Urine NEG (Negative); Leukocyte Esterase,Urine MOD (Negative); Nitrite,Urine NEG (Negative); Urobilinogen,Urine < 2.0 mg/dL (<2.0)
[2016-11-12 20:40] LABS: Protein,Urine >500 mg/dL (Negative)
[2016-11-12] MEDS: SINEquan PO SCH (21:53)
[2016-11-12] MEDS: PEPCID PO SCH (21:54)
[2016-11-12] MEDS ORDERED: APRESOLINE IV ONE (23:44)
[2016-11-12] MEDS ORDERED: APRESOLINE ONE (23:45)
[2016-11-13] MEDS: SYNTHROID PO SCH ×4 (06:17→07:06)
[2016-11-13] MEDS: RENVELA PO SCH ×3 (08:26→17:20)
--- NOTE | 2016-11-13 08:30 | Progress Note ---
Assessment and Plan - Patient Problems (1) Fever Current Visit: Yes Status: Acute Qualifiers: Fever type: F Encounter type: E Plan to address problem: 1. Await further micro data. 2. Influenza screen is negative. Will discontinue Oseltamivir. 3. Continue empiric antibiotics for now. 4. If fevers persist or recur, will interrogate area around AV fistula. Subjective Date of service: 11/13/16 Interval history: Afebrile since yesterday. Awake and smiling today. Says via her that today is "good," and yesterday was "bad". Objective - Constitutional Vitals: Vital Signs Temp Pulse Resp BP Pulse Ox 97.2 F L 69 20 128/58 94 11/13/16 04:15 11/13/16 04:15 11/13/16 04:15 11/13/16 04:15 11/13/16 04:15 Temperature -Last 24 Hours Temperature 97.2 F Temperature 98.3 F Temperature 101.0 F Temperature 98.7 F Temperature 98.3 F Temperature 100.4 F Temperature 102 F General appearance: Present: no acute distress, well-nourished, other ( on cot at bedside) - EENT Eyes: no scleral icterus, no conjunctival injection ENT: clear oral mucosa - Neck Neck: supple - Respiratory Respiratory effort: normal Respiratory: bilateral: CTA, negative: rales, rhonchi - Cardiovascular Rhythm: regular Heart Sounds: Present: S1 & S2 Extremities: No edema - Gastrointestinal General gastrointestinal: Present: soft, non-tender, non-distended - Integumentary Integumentary: clear, no rash - Neurologic Neurologic: moves all extremities - Psychiatric Psychiatric: appropriate mood/affect - Additional findings Additional findings: AV fistula with small surrounding ecchymoses - Labs CBC & Chem 7: 11/13/16 08:13 11/13/16 08:13 Labs: Abnormal lab results 11/12/16 11/12/16 11/12/16 Range/Units 11:36 14:43 15:29 POC Glucose 194 H 41 L 147 H (70-105) Urine pH (5.0-7.0) U Epithel Cells (Auto) (0-13.0) /HPF 11/12/16 11/12/16 Range/Units 20:17 21:58 POC Glucose 330 H (70-105) Urine pH 9.0 H (5.0-7.0) U Epithel Cells (Auto) 41.0 H (0-13.0) /HPF Microbiology 11/12/16 20:17 Nasopharyngeal Swab Influenza Types A,B Antigen (NAHUN) - Final (negative) 11/12/16 10:14 Peripheral/Venous Blood Culture - Preliminary Culture in Progress 11/12/16 09:40 Peripheral/Venous Blood Culture - Preliminary Culture in Progress - Imaging and cardiology Chest x-ray: report reviewed (no acute process or interval change)
[2016-11-13 09:17] LABS: Hematocrit 28.5 % (30.3-42.9); Hemoglobin 9.4 gm/dl (10.1-14.3); Mean Corpuscular HGB Conc 33 % (30-34); Mean Corpuscular Hemoglobin 28 pg (28-32); Mean Corpuscular Volume 85 fl (79-97); Red Blood Count 3.37 M/mm3 (3.65-5.03); Red Cell Distribution Width 15.6 % (13.2-15.2); White Blood Count 6.4 K/mm3 (4.5-11.0)
--- NOTE | 2016-11-13 09:23 | Progress Note ---
Assessment and Plan - Patient Problems (1) ESRD needing dialysis Current Visit: Yes Status: Chronic Plan to address problem: HD today. K- high- advised pt on low K diet (2) Fever Current Visit: Yes Status: Acute Qualifiers: Fever type: F Encounter type: E Plan to address problem: afebrile today. Blood cultures so far negative. ID notes reviewed (3) Atrial fibrillation with RVR Current Visit: Yes Status: Acute (4) Dilated cardiomyopathy Current Visit: Yes Status: Acute (5) DM type 2 (diabetes mellitus, type 2) Onset Date: 04/02/13 Current Visit: No Status: Chronic Qualifiers: Diabetes mellitus complication status: D Diabetes mellitus complication detail: D Diabetic retinopathy severity: D Proliferative retinopathy type: P Diabetes mellitus macular edema: D Diabetes mellitus children's aide insulin use : D Laterality: L Chronic kidney disease stage: C (6) Anemia in CKD (chronic kidney disease) Current Visit: Yes Status: Chronic Qualifiers: Chronic kidney disease stage: C (7) Atrial fibrillation Current Visit: Yes Status: Acute Qualifiers: Atrial fibrillation type: A Subjective Date of service: 11/13/16 Interval history: feels weak, blister on upper lip Objective - Vital Signs Vital signs: Vital Signs - 12hr 11/12/16 11/12/16 11/12/16 22:00 23:32 23:55 Temperature 101.0 F H Pulse Rate 61 74 Pulse Rate [ 74 Left Radial] Pulse Rate [ Right Lower Lobe] Respiratory 20 Rate Respiratory Rate [Right Lower Lobe] Blood Pressure 228/98 Blood Pressure 228/93 [Left Arm] O2 Sat by Pulse 99 Oximetry 11/13/16 11/13/16 11/13/16 00:30 00:45 00:51 Temperature 98.3 F Pulse Rate Pulse Rate [ 88 Left Radial] Pulse Rate [ 87 89 Right Lower Lobe] Respiratory 24 Rate Respiratory 18 18 Rate [Right Lower Lobe] Blood Pressure Blood Pressure 177/72 [Left Arm] O2 Sat by Pulse 100 Oximetry 11/13/16 04:15 Temperature 97.2 F L Pulse Rate Pulse Rate [ 69 Left Radial] Pulse Rate [ Right Lower Lobe] Respiratory 20 Rate Respiratory Rate [Right Lower Lobe] Blood Pressure Blood Pressure 128/58 [Left Arm] O2 Sat by Pulse 94 Oximetry - General Appearance General appearance: chronically ill EENT: mucous membranes dry Neck: no JVD Respiratory: Present: Decreased Breath Sounds Cardiology: irregular Gastrointestinal: normoactive bowel sounds Neurologic: alert and oriented x3 - Lab 11/13/16 08:13 11/13/16 08:13 Most recent lab results Calcium 9.1 mg/dL (8.4-10.2) 11/12/16 05:58
[2016-11-13 09:30] LABS: BUN/Creatinine Ratio 8.72; Calcium 9.3 mg/dL (8.4-10.2); Chloride 93.6 mmol/L (98-107); Potassium 5.9 mmol/L (3.6-5.0)
[2016-11-13 09:31] LABS: Platelet Count 98 K/mm3 (140-440)
[2016-11-13] MEDS ORDERED: NACL 0.9% 100 ML IV PRN (10:00)
[2016-11-13] MEDS: ROCEPHIN/NS 1 GM/50 ML 1 GM/50 ML BAG IV SCH (10:25)
[2016-11-13] MEDS: BABY ASPIRIN PO SCH (10:26)
[2016-11-13] MEDS: ELIQUIS PO SCH ×2 (10:27→22:33)
[2016-11-13] MEDS: PROTONIX PO SCH (10:27)
[2016-11-13] MEDS: COREG PO SCH ×2 (10:27→22:32)
[2016-11-13] MEDS: Renal Caps PO SCH (10:27)
[2016-11-13] MEDS: ZESTRIL PO SCH (10:28)
[2016-11-13] MEDS ORDERED: NACL 0.9 (PRIMING MACHINE ONLY DIALYSIS) MC ONE ×2 (11:54)
--- NOTE | 2016-11-13 12:14 | Progress Note ---
Assessment and Plan Hypotension now hypertensive Fever End-stage renal disease on hemodialysis Dilated Cardiomyopathy EF 30-35% on echo 07/2016 fixed inferior defect without ischemia on MPI this admission Hx of paroxysmal Afib on low dose eliquis for anticoagulation Subjective Date of service: 11/13/16 Interval history: No distress noted. For dialysis today. Objective Vital Signs Temp Pulse Pulse Pulse Resp Resp BP 11/13/16 11:45 66 180/73 11/13/16 11:30 66 183/72 11/13/16 11:15 66 176/69 11/13/16 11:00 61 164/68 11/13/16 10:45 98.4 F 63 18 154/37 11/13/16 07:20 98.8 F 60 18 11/13/16 04:15 97.2 F L 69 20 11/13/16 00:51 98.3 F 88 24 11/13/16 00:45 89 18 11/13/16 00:30 87 18 11/12/16 23:55 74 228/98 11/12/16 23:32 101.0 F H 74 20 11/12/16 22:00 61 11/12/16 20:21 98.7 F 61 20 11/12/16 15:29 98.3 F 58 L 20 BP Pulse Ox 11/13/16 11:45 11/13/16 11:30 11/13/16 11:15 11/13/16 11:00 11/13/16 10:45 11/13/16 07:20 140/65 95 11/13/16 04:15 128/58 94 11/13/16 00:51 177/72 100 11/13/16 00:45 11/13/16 00:30 11/12/16 23:55 11/12/16 23:32 228/93 99 11/12/16 22:00 11/12/16 20:21 148/67 93 11/12/16 15:29 155/66 93 - Physical Examination General: No Apparent Distress Cardiac: Positive: Reg Rate and Rhythm - Labs and Meds CBC 11/13/16 Range/Units 08:13 WBC 6.4 (4.5-11.0) K/mm3 RBC 3.37 L (3.65-5.03) M/mm3 Hgb 9.4 L (10.1-14.3) gm/dl Hct 28.5 L (30.3-42.9) % Plt Count 98 L (140-440) K/mm3 Comprehensive Metabolic Panel 11/13/16 Range/Units 08:13 Sodium 135 L (137-145) mmol/L Potassium 5.9 H (3.6-5.0) mmol/L Chloride 93.6 L (98-107) mmol/L Carbon Dioxide 22 (22-30) mmol/L BUN 82 H (7-17) mg/dL Creatinine 9.4 H (0.7-1.2) mg/dL Glucose 162 H (65-100) mg/dL Calcium 9.3 (8.4-10.2) mg/dL
--- NOTE | 2016-11-13 15:16 | Progress Note ---
Assessment and Plan Assessment and plan: - patient has intermittent fever and ID consulted and patient is on IV vancomycin and tamiflu discontinued after strep test became negative. -Chest pain appears to be costochondritis but she has increased risk factor: Stress test is negative -Elevated troponin: Consulted cardiology -Atrial fibrillation with RVR: Rate control continue Eliquis -Thrombocytopenia which is mild: Continue to follow -Hypotension, drug related versus other: Responded to IV fluids, continue monitor -Dvt prophylaxis with Eliquis History Interval history: Patient was seen and evaluated this morning, patient has blisters on the upper lip. Hospitalist Physical - Physical exam Narrative exam: Not in cardiopulmonary distress. The patient appeared well nourished and normally developed. Vital signs as documented. Head exam is unremarkable. No scleral icterus . Neck is without jugular venous distension, thyromegaly, or carotid bruits. Lungs are clear to auscultation. Cardiac exam reveals regular rate and Rhythm. . Abdominal exam reveals normal bowel sounds, no masses, no organomegaly and no aortic enlargement. Extremities are nonedematous and both femoral and pedal pulses are normal. Skin blister on the upper lip. HOOP CUTTER: Alert and oriented 3. No focal weakness. - Constitutional Vitals: Temp Pulse Resp BP Pulse Ox 98.4 F 66 18 194/66 95 11/13/16 10:45 11/13/16 13:45 11/13/16 10:45 11/13/16 13:45 11/13/16 07:20 General appearance: Present: no acute distress, well-nourished, other ( on cot at bedside) Results - Labs CBC & Chem 7: 11/13/16 08:13 11/13/16 08:13 Labs: Laboratory Last Values WBC 6.4 K/mm3 (4.5-11.0) 11/13/16 08:13 RBC 3.37 M/mm3 (3.65-5.03) L 11/13/16 08:13 Hgb 9.4 gm/dl (10.1-14.3) L 11/13/16 08:13 Hct 28.5 % (30.3-42.9) L 11/13/16 08:13 MCV 85 fl (79-97) 11/13/16 08:13 MCH 28 pg (28-32) 11/13/16 08:13 MCHC 33 % (30-34) 11/13/16 08:13 RDW 15.6 % (13.2-15.2) H 11/13/16 08:13 Plt Count 98 K/mm3 (140-440) L 11/13/16 08:13 Add Manual Diff Complete 11/10/16 07:04 Total Counted 100 11/10/16 07:04 Seg Neuts % (Manual) 66.0 % (40.0-70.0) 11/10/16 07:04 Band Neutrophils % 1.0 % 11/10/16 07:04 Lymphocytes % (Manual) 22.0 % (13.4-35.0) 11/10/16 07:04 Reactive Lymphs % (Man) 1.0 % 11/10/16 07:04 Monocytes % (Manual) 8.0 % (0.0-7.3) H 11/10/16 07:04 Eosinophils % (Manual) 1.0 % (0.0-4.3) 11/10/16 07:04 Basophils % (Manual) 1.0 % (0.0-1.8) 11/10/16 07:04 Metamyelocytes % 0 % 11/10/16 07:04 Myelocytes % 0 % 11/10/16 07:04 Promyelocytes % 0 % 11/10/16 07:04 Blast Cells % 0 % 11/10/16 07:04 Nucleated RBC % Not Reportable 11/10/16 07:04 Seg Neutrophils # Man 4.3 K/mm3 (1.8-7.7) 11/10/16 07:04 Band Neutrophils # 0.1 K/mm3 11/10/16 07:04 Lymphocytes # (Manual) 1.4 K/mm3 (1.2-5.4) 11/10/16 07:04 Abs React Lymphs (Man) 0.1 K/mm3 11/10/16 07:04 Monocytes # (Manual) 0.5 K/mm3 (0.0-0.8) 11/10/16 07:04 Eosinophils # (Manual) 0.1 K/mm3 (0.0-0.4) 11/10/16 07:04 Basophils # (Manual) 0.1 K/mm3 (0.0-0.1) 11/10/16 07:04 Metamyelocytes # 0.0 K/mm3 11/10/16 07:04 Myelocytes # 0.0 K/mm3 11/10/16 07:04 Promyelocytes # 0.0 K/mm3 11/10/16 07:04 Blast Cells # 0.0 K/mm3 11/10/16 07:04 WBC Morphology Not Reportable 11/10/16 07:04 Hypersegmented Neuts Not Reportable 11/10/16 07:04 Hyposegmented Neuts Not Reportable 11/10/16 07:04 Hypogranular Neuts Not Reportable 11/10/16 07:04 Smudge Cells Not Reportable 11/10/16 07:04 Toxic Granulation Not Reportable 11/10/16 07:04 Toxic Vacuolation Not Reportable 11/10/16 07:04 Dohle Bodies Not Reportable 11/10/16 07:04 Pelger-Huet Anomaly Not Reportable 11/10/16 07:04 Jude Rods Not Reportable 11/10/16 07:04 Platelet Estimate Cons 11/10/16 07:04 Clumped Platelets Not Reportable 11/10/16 07:04 Plt Clumps, EDTA Not Reportable 11/10/16 07:04 Large Platelets Not Reportable 11/10/16 07:04 Giant Platelets Not Reportable 11/10/16 07:04 Platelet Satelliting Not Reportable 11/10/16 07:04 Plt Morphology Comment Not Reportable 11/10/16 07:04 RBC Morphology Not Reportable 11/10/16 07:04 Dimorphic RBCs Not Reportable 11/10/16 07:04 Polychromasia Not Reportable 11/10/16 07:04 Hypochromasia Not Reportable 11/10/16 07:04 Poikilocytosis Not Reportable 11/10/16 07:04 Anisocytosis 1+ 11/10/16 07:04 Microcytosis Not Reportable 11/10/16 07:04 Macrocytosis Not Reportable 11/10/16 07:04 Spherocytes Not Reportable 11/10/16 07:04 Pappenheimer Bodies Not Reportable 11/10/16 07:04 Sickle Cells Not Reportable 11/10/16 07:04 Target Cells Not Reportable 11/10/16 07:04 Tear Drop Cells Not Reportable 11/10/16 07:04 Ovalocytes Not Reportable 11/10/16 07:04 Helmet Cells Not Reportable 11/10/16 07:04 Lopez-Mendes Bodies Not Reportable 11/10/16 07:04 Hinckley Rings Not Reportable 11/10/16 07:04 Berta Cells Not Reportable 11/10/16 07:04 Bite Cells Not Reportable 11/10/16 07:04 Crenated Cell Not Reportable 11/10/16 07:04 Elliptocytes Not Reportable 11/10/16 07:04 Acanthocytes (Spur) Not Reportable 11/10/16 07:04 Rouleaux Not Reportable 11/10/16 07:04 Hemoglobin C Crystals Not Reportable 11/10/16 07:04 Schistocytes Not Reportable 11/10/16 07:04 Malaria parasites Not Reportable 11/10/16 07:04 Aaron Bodies Not Reportable 11/10/16 07:04 Hem Pathologist Commnt No 11/10/16 07:04 PT 12.4 Sec. (12.2-14.9) 11/10/16 07:04 INR 0.88 (0.87-1.13) 11/10/16 07:04 APTT 30.6 Sec. (24.2-36.6) 11/10/16 07:04 D-Dimer 520.37 ng/mlDDU (0-234) H 11/10/16 07:04 Sodium 135 mmol/L (137-145) L 11/13/16 08:13 Potassium 5.9 mmol/L (3.6-5.0) H 11/13/16 08:13 Chloride 93.6 mmol/L (98-107) L 11/13/16 08:13 Carbon Dioxide 22 mmol/L (22-30) 11/13/16 08:13 Anion Gap 25 mmol/L 11/13/16 08:13 BUN 82 mg/dL (7-17) H 11/13/16 08:13 Creatinine 9.4 mg/dL (0.7-1.2) H 11/13/16 08:13 Estimated GFR 4 ml/min 11/13/16 08:13 BUN/Creatinine Ratio 8.72 % 11/13/16 08:13 Glucose 162 mg/dL (65-100) H 11/13/16 08:13 POC Glucose 149 (70-105) H 11/13/16 07:22 Calcium 9.3 mg/dL (8.4-10.2) 11/13/16 08:13 Total Bilirubin 0.70 mg/dL (0.1-1.2) 11/10/16 07:04 AST 29 units/L (5-40) 11/10/16 07:04 ALT 26 units/L (7-56) 11/10/16 07:04 Alkaline Phosphatase 179 units/L (35-129) H 11/10/16 07:04 Total Creatine Kinase 120 units/L (30-135) 11/10/16 18:51 CK-MB (CK-2) 17.6 ng/mL (0.0-4.0) H 11/10/16 18:51 CK-MB (CK-2) Rel Index 14.6 (0-4) H 11/10/16 18:51 Troponin T 0.282 ng/mL (0.00-0.029) H* D 11/10/16 18:51 Total Protein 6.5 g/dL (6.3-8.2) 11/10/16 07:04 Albumin 3.6 g/dL (3.9-5) L 11/10/16 07:04 Albumin/Globulin Ratio 1.2 % 11/10/16 07:04 Triglycerides 158 mg/dL (2-149) H 11/10/16 07:04 Cholesterol 188 mg/dL (50-199) 11/10/16 07:04 LDL Cholesterol Direct 81 mg/dL (50-130) 11/10/16 07:04 HDL Cholesterol 76 mg/dL (40-59) H 11/10/16 07:04 Cholesterol/HDL Ratio 2.47 % 11/10/16 07:04 TSH 9.110 mlU/mL (0.270-4.200) H 11/11/16 07:11 Urine Color Yellow (Yellow) 11/12/16 20: Urine Turbidity Cloudy (Clear) 11/12/16 20: Urine pH 9.0 (5.0-7.0) H 11/12/16 20:17 Ur Specific [place] 1.012 (1.003-1.030) 11/12/16 20:17 Urine Protein >500 mg/dL (Negative) 11/12/16 20: Urine Glucose (UA) 150 mg/dL (Negative) 11/12/16 20:17 Urine Ketones Neg mg/dL (Negative) 11/12/16 20:17 Urine Blood Neg (Negative) 11/12/16 20: Urine Nitrite Neg (Negative) 11/12/16 20: Urine Bilirubin Neg (Negative) 11/12/16 20:17 Urine Urobilinogen < 2.0 mg/dL (<2.0) 11/12/16 20:17 Ur Leukocyte Esterase Mod (Negative) 11/12/16 20: Urine WBC (Auto) 5.0 /HPF (0.0-6.0) 11/12/16 20:17 Urine RBC (Auto) 6.0 /HPF (0.0-6.0) 11/12/16 20:17 U Epithel Cells (Auto) 41.0 /HPF (0-13.0) H 11/12/16 20:17 Urine Bacteria (Auto) 3+ /HPF (Negative) 11/12/16 20:17
[2016-11-13] MEDS: PEPCID PO SCH (22:33)
[2016-11-14] MEDS: SINEquan PO SCH ×2 (05:15→21:18)
[2016-11-14] MEDS: SYNTHROID PO SCH ×2 (06:18→06:19)
[2016-11-14 07:43] LABS: Hematocrit 26.9 % (30.3-42.9); Hemoglobin 8.9 gm/dl (10.1-14.3); Mean Corpuscular HGB Conc 33 % (30-34); Mean Corpuscular Hemoglobin 28 pg (28-32); Mean Corpuscular Volume 84 fl (79-97); Red Blood Count 3.21 M/mm3 (3.65-5.03); Red Cell Distribution Width 16.1 % (13.2-15.2); White Blood Count 4.5 K/mm3 (4.5-11.0)
[2016-11-14 07:57] LABS: BUN/Creatinine Ratio 6.83; Chloride 92.6 mmol/L (98-107); Potassium 4.5 mmol/L (3.6-5.0)
[2016-11-14 08:12] LABS: Platelet Count 88 K/mm3 (140-440)
--- NOTE | 2016-11-14 08:49 | Progress Note ---
Assessment and Plan - Patient Problems (1) Fever Current Visit: Yes Status: Acute Qualifiers: Fever type: F Encounter type: E Plan to address problem: 1. Resolved with or without benefit of current antibiotics. 2. I have a low suspicion for an infectious process that caused previous fever. However, can continue an empiric 5-day course of Vancomycin and Rocephin to finish last doses on October 17. 3. Allergy list has already been updated to include Oseltamivir. 4. I will see on an as-needed basis. Please call if there are additional questions or concerns. Subjective Date of service: 11/14/16 Interval history: Afebrile for 48 hours. No new complaints. Patient's daughter explained the events around Oseltamivir use 2 days ago. Objective - Constitutional Vitals: Vital Signs Temp Pulse Resp BP Pulse Ox 99.3 F 56 L 16 142/65 98 11/14/16 05:38 11/14/16 05:53 11/14/16 05:38 11/14/16 05:38 11/14/16 05:38 Temperature -Last 24 Hours Temperature 99.3 F Temperature 99.0 F Temperature 99.0 F Temperature 98.3 F Temperature 98.4 F General appearance: Present: no acute distress, other (spouse, children at bedside) - EENT Eyes: no scleral icterus, no conjunctival injection - Neck Neck: supple - Respiratory Respiratory effort: normal Respiratory: bilateral: CTA - Cardiovascular Rhythm: regular (bradycardic) Heart Sounds: Present: S1 & S2 Extremities: No edema - Gastrointestinal General gastrointestinal: Present: soft, non-tender, non-distended - Integumentary Integumentary: clear, no rash - Neurologic Neurologic: no focal deficits - Psychiatric Psychiatric: appropriate mood/affect - Additional findings Additional findings: AV fistula right arm - Labs CBC & Chem 7: 11/14/16 07:03 11/14/16 07:03 Labs: Abnormal lab results 11/12/16 11/13/16 11/13/16 Range/Units 23:29 07:22 08:13 RBC 3.37 L (3.65-5.03) M/mm3 Hgb 9.4 L (10.1-14.3) gm/dl Hct 28.5 L (30.3-42.9) % RDW 15.6 H (13.2-15.2) % Plt Count 98 L (140-440) K/mm3 Sodium (137-145) mmol/L Potassium (3.6-5.0) mmol/L Chloride (98-107) mmol/L BUN (7-17) mg/dL Creatinine (0.7-1.2) mg/dL Glucose (65-100) mg/dL POC Glucose 296 H 149 H (70-105) 11/13/16 11/13/16 11/14/16 Range/Units 08:13 16:39 07:03 RBC 3.21 L (3.65-5.03) M/mm3 Hgb 8.9 L (10.1-14.3) gm/dl Hct 26.9 L (30.3-42.9) % RDW 16.1 H (13.2-15.2) % Plt Count 88 L (140-440) K/mm3 Sodium 135 L (137-145) mmol/L Potassium 5.9 H (3.6-5.0) mmol/L Chloride 93.6 L (98-107) mmol/L BUN 82 H (7-17) mg/dL Creatinine 9.4 H (0.7-1.2) mg/dL Glucose 162 H (65-100) mg/dL POC Glucose 173 H (70-105) 11/14/16 Range/Units 07:03 RBC (3.65-5.03) M/mm3 Hgb (10.1-14.3) gm/dl Hct (30.3-42.9) % RDW (13.2-15.2) % Plt Count (140-440) K/mm3 Sodium 135 L (137-145) mmol/L Potassium (3.6-5.0) mmol/L Chloride 92.6 L (98-107) mmol/L BUN 41 H (7-17) mg/dL Creatinine 6.0 H (0.7-1.2) mg/dL Glucose (65-100) mg/dL POC Glucose (70-105) Microbiology 11/12/16 10:14 Peripheral/Venous Blood Culture - Preliminary NO GROWTH AFTER 48 HOURS 11/12/16 09:40 Peripheral/Venous Blood Culture - Preliminary NO GROWTH AFTER 48 HOURS 11/12/16 20:17 Nasopharyngeal Swab Influenza Types A,B Antigen (NAHUN) - Final
[2016-11-14] MEDS: ROCEPHIN/NS 1 GM/50 ML 1 GM/50 ML BAG IV SCH (09:07)
[2016-11-14 09:15] LABS: Basophils % (Manual) 0 % (0.0-1.8); Blastocytes % (Manual) 0 %; Ovalocytes Rare; Poikilocytosis 1+; Schistocytes Rare; Tear Drop Cells Rare
[2016-11-14 09:16] LABS: Diff Status Complete; Hypochromasia 1+; Platelet Estimate Consistent w Auto
--- NOTE | 2016-11-14 09:19 | Progress Note ---
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 States that patient is better today. Objective - Vital Signs Vital signs: Vital Signs - 12hr 11/13/16 11/13/16 11/14/16 22:00 22:32 00:37 Temperature 99.0 F Pulse Rate 74 Pulse Rate [ 60 Left Radial] Respiratory 16 Rate Blood Pressure 167/74 Blood Pressure 137/60 [Left Arm] O2 Sat by Pulse 92 Oximetry 11/14/16 11/14/16 05:38 05:53 Temperature 99.3 F Pulse Rate 56 L Pulse Rate [ 58 L Left Radial] Respiratory 16 Rate Blood Pressure Blood Pressure 142/65 [Left Arm] O2 Sat by Pulse 98 Oximetry - General Appearance General appearance: well-developed, well-nourished EENT: ATNC Respiratory: Present: Clear to Ascultation Cardiology: regular, S1S2 Gastrointestinal: normal, no tenderness, no distended Integumentary: no rash Musculoskeletal: other (no edema) Psychiatric: cooperative - Lab 11/14/16 07:03 11/14/16 07:03 Most recent lab results Calcium 9.0 mg/dL (8.4-10.2) 11/14/16 07:03
[2016-11-14] MEDS: Renal Caps PO SCH (09:41)
[2016-11-14] MEDS: RENVELA PO SCH ×3 (09:41→17:55)
[2016-11-14] MEDS: BABY ASPIRIN PO SCH (09:41)
[2016-11-14] MEDS: COREG PO SCH ×2 (09:41→22:00)
[2016-11-14] MEDS: ZESTRIL PO SCH (09:41)
--- NOTE | 2016-11-14 09:53 | Progress Note ---
Assessment and Plan Hypotension now hypertensive Fever End-stage renal disease on hemodialysis Hx of Dilated Cardiomyopathy EF 30-35% on echo 07/2016 fixed inferior defect without ischemia on MPI this admission Hx of paroxysmal Afib on low dose eliquis for anticoagulation Continue medical therapy for her cardiomyopathy and paroxysmal afib. Subjective Date of service: 11/14/16 Interval history: Patient is non-Romanian speaking. No distress noted. Objective Vital Signs Temp Pulse Pulse Resp BP BP Pulse Ox 11/14/16 09:41 54 L 165/61 11/14/16 09:35 98.7 F 54 L 18 165/61 11/14/16 05:53 56 L 11/14/16 05:38 99.3 F 58 L 16 142/65 98 11/14/16 00:37 99.0 F 60 16 137/60 92 11/13/16 22:32 167/74 11/13/16 22:00 74 11/13/16 20:56 99.0 F 73 16 167/74 93 11/13/16 14:00 98.3 F 67 18 184/70 11/13/16 13:45 66 194/66 11/13/16 13:30 66 183/68 11/13/16 13:15 69 183/69 11/13/16 13:00 66 183/68 11/13/16 12:45 67 178/72 11/13/16 12:30 66 180/70 11/13/16 12:15 66 183/70 11/13/16 12:00 66 192/69 11/13/16 11:45 66 180/73 11/13/16 11:30 66 183/72 11/13/16 11:15 66 176/69 11/13/16 11:00 61 164/68 11/13/16 10:45 98.4 F 63 18 154/37 11/13/16 10:00 67 96 - Physical Examination General: No Apparent Distress HEENT: Positive: PERRL Cardiac: Positive: Reg Rate and Rhythm Neuro: Positive: Grossly Intact Extremities: Absent: edema - Labs and Meds CBC 11/14/16 Range/Units 07:03 WBC 4.5 (4.5-11.0) K/mm3 RBC 3.21 L (3.65-5.03) M/mm3 Hgb 8.9 L (10.1-14.3) gm/dl Hct 26.9 L (30.3-42.9) % Plt Count 88 L (140-440) K/mm3 Comprehensive Metabolic Panel 11/14/16 Range/Units 07:03 Sodium 135 L (137-145) mmol/L Potassium 4.5 D (3.6-5.0) mmol/L Chloride 92.6 L (98-107) mmol/L Carbon Dioxide 26 (22-30) mmol/L BUN 41 H (7-17) mg/dL Creatinine 6.0 H (0.7-1.2) mg/dL Glucose 93 (65-100) mg/dL Calcium 9.0 (8.4-10.2) mg/dL
[2016-11-14] MEDS: ELIQUIS PO SCH ×2 (10:00→21:18)
[2016-11-14] MEDS ORDERED: PROCRIT IV PRN (12:00)
--- NOTE | 2016-11-14 15:24 | Progress Note ---
Assessment and Plan - Patient Problems (1) Atrial fibrillation Current Visit: Yes Status: Acute Qualifiers: Atrial fibrillation type: A (2) Chest pain Current Visit: Yes Status: Acute Qualifiers: Chest pain type: unspecified Ischemic chest pain type: I Qualified Code(s ): R07.9 - Chest pain, unspecified (3) Dilated cardiomyopathy Current Visit: Yes Status: Acute (4) Elevated troponin Current Visit: Yes Status: Acute (5) Fever Current Visit: Yes Status: Acute Qualifiers: Fever type: F Encounter type: E Subjective Date of service: 11/14/16 Interval history: Patient seen and examined ,chart reviewed and prior events since admission noted .Patient well known to me from the clinic.Patient denied any chest pain and less shortness of breath ,no fever reported Objective - Constitutional Vitals: Vital Signs - 12hr 11/14/16 11/14/16 11/14/16 05:38 05:53 08:00 Temperature 99.3 F 98.4 F Pulse Rate 56 L Pulse Rate [ 58 L 54 L Left Radial] Respiratory 16 18 Rate Blood Pressure Blood Pressure 142/65 145/60 [Left Arm] O2 Sat by Pulse 98 95 Oximetry 11/14/16 11/14/16 09:35 09:41 Temperature 98.7 F Pulse Rate 54 L Pulse Rate [ 54 L Left Radial] Respiratory 18 Rate Blood Pressure 165/61 Blood Pressure 165/61 [Left Arm] O2 Sat by Pulse Oximetry General appearance: Present: no acute distress - EENT Eyes: PERRL - Neck Neck: supple, normal ROM - Respiratory Respiratory: bilateral: diminished - Cardiovascular Rhythm: regular Heart Sounds: Present: S1 & S2 Extremities: pulses symmetrical Extremity abnormal: pulses diminished - Gastrointestinal General gastrointestinal: Present: soft, non-tender, non-distended, distended, normal bowel sounds - Integumentary Integumentary: warm, dry, normal turgor - Musculoskeletal Musculoskeletal: generalized weakness - Neurologic Neurologic: CNII-XII intact - Psychiatric Psychiatric: depressed - Labs CBC & Chem 7: 11/14/16 07:03 11/14/16 07:03 Labs: Abnormal lab results 11/13/16 11/14/16 11/14/16 Range/Units 16:39 07:03 07:03 RBC 3.21 L (3.65-5.03) M/mm3 Hgb 8.9 L (10.1-14.3) gm/dl Hct 26.9 L (30.3-42.9) % RDW 16.1 H (13.2-15.2) % Plt Count 88 L (140-440) K/mm3 Lymphocytes # (Manual) 1.1 L (1.2-5.4) K/mm3 Sodium 135 L (137-145) mmol/L Chloride 92.6 L (98-107) mmol/L BUN 41 H (7-17) mg/dL Creatinine 6.0 H (0.7-1.2) mg/dL POC Glucose 173 H (70-105)
[2016-11-14] MEDS: PROTONIX PO SCH (17:53)
[2016-11-14] MEDS: PEPCID PO SCH (21:18)
[2016-11-15] MEDS ORDERED: VASELINE LIP THERAPY TP PRN (04:14)
[2016-11-15] MEDS: TYLENOL PO PRN (05:35)
[2016-11-15] MEDS: SYNTHROID PO SCH ×2 (06:39)
--- NOTE | 2016-11-15 08:41 | Progress Note ---
Assessment and Plan - Patient Problems (1) Atrial fibrillation Current Visit: Yes Status: Acute Qualifiers: Atrial fibrillation type: A Plan to address problem: Continue current management, monitor PT and INR (2) Chest pain Current Visit: Yes Status: Acute Qualifiers: Chest pain type: unspecified Ischemic chest pain type: I Qualified Code(s ): R07.9 - Chest pain, unspecified Plan to address problem: Currently asymptomatic, chest been resolved (3) Dilated cardiomyopathy Current Visit: Yes Status: Chronic (4) Elevated troponin Current Visit: Yes Status: Ruled-out (5) Fever Current Visit: Yes Status: Resolved Qualifiers: Fever type: F Encounter type: E Subjective Date of service: 11/15/16 Interval history: Persistent and examined shots reviewed. Patient's family and room with patient' s daughter complains about an open wound in her mother's upper lip since she had an allergic reaction to some medication last week. Patient denies any complaints, no fever Objective - Constitutional Vitals: Vital Signs - 12hr 11/14/16 11/15/16 11/15/16 22:00 00:26 05:29 Temperature 98.4 F 98.9 F Pulse Rate 58 L Pulse Rate [ 52 L 54 L Left Radial] Respiratory 20 20 Rate Blood Pressure 152/57 Blood Pressure 125/54 152/65 [Left Arm] O2 Sat by Pulse 96 97 Oximetry 11/15/16 07:44 Temperature 98.4 F Pulse Rate Pulse Rate [ 57 L Left Radial] Respiratory 16 Rate Blood Pressure Blood Pressure 157/70 [Left Arm] O2 Sat by Pulse 99 Oximetry General appearance: Present: no acute distress - EENT Eyes: PERRL ENT: ulcerations, edentulous - Neck Neck: normal ROM - Respiratory Respiratory: bilateral: CTA - Cardiovascular Rhythm: regular Heart Sounds: Present: S1 & S2 Extremities: no ischemia, pulses intact, pulses symmetrical - Gastrointestinal General gastrointestinal: Present: non-tender, non-distended, normal bowel sounds - Musculoskeletal Musculoskeletal: strength equal bilaterally - Neurologic Neurologic: CNII-XII intact - Psychiatric Psychiatric: appropriate mood/affect - Labs CBC & Chem 7: 11/14/16 07:03 11/14/16 07:03 Labs: Abnormal lab results 11/14/16 11/14/16 11/15/16 Range/Units 07:03 18:01 04:29 Plt Count 88 L (140-440) K/mm3 Lymphocytes # (Manual) 1.1 L (1.2-5.4) K/mm3 POC Glucose 159 H 151 H (70-105) 11/15/16 Range/Units 07:35 Plt Count (140-440) K/mm3 Lymphocytes # (Manual) (1.2-5.4) K/mm3 POC Glucose 113 H (70-105)
--- NOTE | 2016-11-15 10:01 | Progress Note ---
Assessment and Plan Hypotension now hypertensive Fever End-stage renal disease on hemodialysis Hx of Dilated Cardiomyopathy EF 30-35% on echo 07/2016 fixed inferior defect without ischemia on MPI this admission Hx of paroxysmal Afib on low dose eliquis for anticoagulation Plan: Continue medical therapy for her cardiomyopathy and paroxysmal afib. Subjective Date of service: 11/15/16 Interval history: Patient is non-Bulgarian speaking. No distress noted. Objective Vital Signs Temp Pulse Pulse Resp BP BP Pulse Ox 11/15/16 07:44 98.4 F 57 L 16 157/70 99 11/15/16 05:29 98.9 F 54 L 20 152/65 97 11/15/16 00:26 98.4 F 52 L 20 125/54 96 11/14/16 22:00 58 L 152/57 - Physical Examination General: No Apparent Distress HEENT: Positive: PERRL Cardiac: Positive: Reg Rate and Rhythm Skin: Positive: Bruising (upper lip)
[2016-11-15] MEDS: ROCEPHIN/NS 1 GM/50 ML 1 GM/50 ML BAG IV SCH (10:50)
[2016-11-15] MEDS: BABY ASPIRIN PO SCH (10:51)
[2016-11-15] MEDS: RENVELA PO SCH ×3 (10:51→17:35)
[2016-11-15] MEDS: COREG PO SCH ×2 (10:51→17:42)
[2016-11-15] MEDS: ELIQUIS PO SCH ×2 (10:52→21:26)
[2016-11-15] MEDS: Renal Caps PO SCH (10:52)
[2016-11-15] MEDS: PROTONIX PO SCH (10:52)
[2016-11-15] MEDS: ZESTRIL PO SCH ×2 (10:53→17:43)
--- NOTE | 2016-11-15 13:23 | Progress Note ---
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% * Pulmonary nodule * Fever - defervesced * Anemia secondary to ESRD * Secondary hyperparathyroidism Plan: * Continue hemodialysis TTS * UF as tolerated * Pulmonary recommendations noted - needs repeat CT in 1year * Rate control and optimization of cardiac function per cardiology * Abx/work up per ID - blood cx NGTD * Epogen for Hb 10-12 * Renal diet Subjective Date of service: 11/15/16 Principal diagnosis: esrd Interval history: resting well in bed, no acute distress Objective - Exam Narrative Exam: General appearance: well-developed, well-nourished EENT: ATNC Respiratory: Present: Clear to Ascultation Cardiology: regular, S1S2 Gastrointestinal: normal, no tenderness, no distended Integumentary: no rash Musculoskeletal: other (no edema) Psychiatric: cooperative - Vital Signs Vital signs: Vital Signs - 12hr 11/15/16 11/15/16 11/15/16 05:29 07:44 10:15 Temperature 98.9 F 98.4 F 98.0 F Pulse Rate 51 L Pulse Rate [ 54 L 57 L Left Radial] Respiratory 20 16 20 Rate Blood Pressure 167/54 Blood Pressure 152/65 157/70 [Left Arm] O2 Sat by Pulse 97 99 Oximetry 11/15/16 11/15/16 11/15/16 10:30 10:45 11:00 Temperature Pulse Rate 51 L 50 L 48 L Pulse Rate [ Left Radial] Respiratory Rate Blood Pressure 159/60 168/59 174/56 Blood Pressure [Left Arm] O2 Sat by Pulse Oximetry 11/15/16 11/15/16 11/15/16 11:15 11:30 11:45 Temperature Pulse Rate 51 L 51 L 50 L Pulse Rate [ Left Radial] Respiratory Rate Blood Pressure 178/64 181/60 183/58 Blood Pressure [Left Arm] O2 Sat by Pulse Oximetry 11/15/16 11/15/16 11/15/16 12:00 12:15 12:30 Temperature Pulse Rate 48 L 48 L 50 L Pulse Rate [ Left Radial] Respiratory Rate Blood Pressure 177/59 177/60 176/63 Blood Pressure [Left Arm] O2 Sat by Pulse Oximetry 11/15/16 11/15/16 12:45 13:00 Temperature Pulse Rate 51 L 48 L Pulse Rate [ Left Radial] Respiratory Rate Blood Pressure 174/58 169/51 Blood Pressure [Left Arm] O2 Sat by Pulse Oximetry - Lab 11/14/16 07:03 11/14/16 07:03 Most recent lab results Calcium 9.0 mg/dL (8.4-10.2) 11/14/16 07:03
[2016-11-15] MEDS ORDERED: NACL 0.9 (PRIMING MACHINE ONLY DIALYSIS) MC ONE (14:21)
[2016-11-15] MEDS: TRIPLE ANTIBIOTIC TP SCH ×2 (17:35→21:27)
[2016-11-15] MEDS: PEPCID PO SCH (21:26)
[2016-11-15] MEDS: SINEquan PO SCH (21:26)
[2016-11-16] MEDS: COREG PO SCH ×2 (03:58→10:08)
[2016-11-16] MEDS: SYNTHROID PO SCH ×2 (06:38)
[2016-11-16 08:32] VITALS: BP 170/70
--- NOTE | 2016-11-16 08:34 | Discharge Summary ---
Providers - Providers Date of Admission: 11/10/16 09:34 Date of discharge: 11/16/16 Attending physician: BRITANY TALAMANTES 11/10/16 10:24 Consult to Physician [CONS] Routine Consulting Provider: CHAD LYLE Reason For Exam: CP,pt known to you Place consult to:: tae Notified:: [facility] Phone number called:: [phone] Was contact made?: Yes Time called:: 11:59 Consult to Physician [CONS] Routine Consulting Provider: SIMA HERNANDEZ Reason For Exam: esrd on hd Place consult to:: [place] LAST Notified:: yes Comment:: IN PT ROOM 11/12/16 09:25 Consult to Physician [CONS] Routine Consulting Provider: EVELIA HARRIS Reason For Exam: please evaluate 102F [address] consult to:: NIKOLE LAST Notified:: NIKO[place] LAST Phone number called:: [phone] Primary care physician: SECTION BEAMER Hospitalization Reason for admission: Hypotension Condition: Stable Pertinent studies: Stress Thalium showing fixed Apical defect EF aproximately 48% Procedures: Stress Thalium EKG Hospital course: 76 year old female with Type 2 DM , ESRD , HTN and CAD admitted initially to the hospitalist services following an episode of hypotension while at hemodialysis folloed by chest pain . Initial cardiac enzyme was normal but Troponin was elevated . Further workup did not show any additional evidence of cardiac ischemia . Patient was evaluated by Cardiology and Stress thalium showed apical fixed defect with no evidence of acute eveent . Patient recommended for continuation of medical therapy . Patient had and acute episode of generalised pruritus , urticaria and tremors following administration of Tamiflu while in the hospital .Symptoms resolved withtreatment with steroid and Benadryl . Patient is clinically stable and has tolerated Hemodialysis over the past week Patient is stable for discharge home for followup with Primary physician Dr Talamantes and Health Safety Instructor Dr Rizo . Disposition: TO HOME OR SELFCARE - Discharge Diagnoses (1) Atrial fibrillation Status: Chronic Qualifiers: Atrial fibrillation type: A (2) Chest pain Status: Resolved Qualifiers: Chest pain type: unspecified Ischemic chest pain type: I Qualified Code(s ): R07.9 - Chest pain, unspecified (3) Dilated cardiomyopathy Status: Chronic (4) Elevated troponin Status: Ruled-out (5) Fever Status: Resolved Qualifiers: Fever type: due to other condition Encounter type: E Qualified Code(s): R50.81 - Fever presenting with conditions classified elsewhere Core Measure Documentation - Palliative Care Palliative Care/ Comfort Measures: Not Applicable - Core Measures Any of the following diagnoses?: history only Exam - Constitutional Vitals: Temp Pulse Resp BP Pulse Ox 98.1 F 52 L 16 170/70 100 11/16/16 08:11/16/16 08:11/16/16 08:11/16/16 08:11/16/16 08:29 General appearance: Present: no acute distress - EENT ENT: hearing intact - Neck Neck: Present: supple, normal ROM - Respiratory Respiratory effort: normal Respiratory: bilateral: CTA - Cardiovascular Rhythm: irregularly irregular - Extremities Extremities: no ischemia, pulses intact, pulses symmetrical Extremity abnormal: pulses diminished - Abdominal General gastrointestinal: Present: soft, non-tender, non-distended, normal bowel sounds - Integumentary Integumentary: Present: clear, warm - Musculoskeletal Musculoskeletal: strength equal bilaterally - Psychiatric Psychiatric: appropriate mood/affect - Neurologic Neurologic: CNII-XII intact Plan Activity: no restrictions Weight Bearing Status: Full Weight Bearing Diet: diabetic, renal Special Instructions: record blood sugar diary Follow up with: PRIMARY CAREMD [Primary Care Provider] - 3-5 Days
--- NOTE | 2016-11-16 09:53 | Progress Note ---
Assessment and Plan Hypotension now hypertensive Fever End-stage renal disease on hemodialysis Hx of Dilated Cardiomyopathy EF 30-35% on echo 07/2016 fixed inferior defect without ischemia on MPI this admission Hx of paroxysmal Afib on low dose eliquis for anticoagulation Recommendations: Continue medical therapy for her cardiomyopathy and paroxysmal afib. Conservative cardiac management. Subjective Date of service: 11/16/16 Principal diagnosis: esrd Interval history: Patient is non-Turkmen speaking. No interval changes. Objective Vital Signs Temp Pulse Pulse Resp BP BP Pulse Ox 11/16/16 08:29 98.1 F 52 L 16 170/70 100 11/16/16 06:05 98.5 F 51 L 16 143/59 97 11/16/16 03:58 50 L 11/16/16 00:00 98.9 F 50 L 16 161/61 95 11/15/16 22:00 50 L 11/15/16 20:41 98.7 F 50 L 16 182/74 98 11/15/16 17:43 98.2 F 54 L 16 186/74 186/74 99 11/15/16 17:42 186/74 11/15/16 14:30 98.3 F 50 L 20 178/54 11/15/16 13:15 54 L 178/54 11/15/16 13:00 48 L 169/51 11/15/16 12:45 51 L 174/58 11/15/16 12:30 50 L 176/63 11/15/16 12:15 48 L 177/60 11/15/16 12:00 48 L 177/59 11/15/16 11:45 50 L 183/58 11/15/16 11:30 51 L 181/60 11/15/16 11:15 51 L 178/64 11/15/16 11:00 48 L 174/56 11/15/16 10:45 50 L 168/59 11/15/16 10:30 51 L 159/60 11/15/16 10:15 98.0 F 51 L 20 167/54 11/15/16 10:00 56 L - Physical Examination General: No Apparent Distress HEENT: Positive: PERRL Cardiac: Positive: Bradycardia Skin: Positive: Bruising (upper lip)
[2016-11-16] MEDS: BABY ASPIRIN PO SCH (10:07)
[2016-11-16] MEDS: TRIPLE ANTIBIOTIC TP SCH (10:07)
[2016-11-16] MEDS: RENVELA PO SCH (10:07)
[2016-11-16] MEDS: PROTONIX PO SCH (10:08)
[2016-11-16] MEDS: ELIQUIS PO SCH (10:08)
[2016-11-16] MEDS: ROCEPHIN/NS 1 GM/50 ML 1 GM/50 ML BAG IV SCH (10:09)
[2016-11-16] MEDS: ZESTRIL PO SCH (10:09)
[2016-11-16] MEDS: Renal Caps PO SCH (10:09)
== END 2016-11-16 10:27 | disposition home or self-care (01) | DRG 205 ==
LOC: ED 05:47 → 4A 09:34
PROVIDERS: ADMIT Internal Medicine; ATTEND Internal Medicine
PROC: 5A1D60Z (ICD-10-PCS; principal; 2016-11-10)
DX: M94.0 Chondrocostal junction syndrome [Tietze] (principal); N18.6 End stage renal disease; I13.2 Hypertensive heart and chronic kidney disease with heart failure and with stage 5 chronic kidney disease, or end stage renal disease; E46 Unspecified protein-calorie malnutrition; I42.0 Dilated cardiomyopathy; I50.20 Unspecified systolic (congestive) heart failure; Z68.1 Body mass index [BMI] 19.9 or less, adult; I48.91 Unspecified atrial fibrillation; K21.9 Gastro-esophageal reflux disease without esophagitis; D69.6 Thrombocytopenia, unspecified; E11.22 Type 2 diabetes mellitus with diabetic chronic kidney disease; D63.1 Anemia in chronic kidney disease; I27.2 Other secondary pulmonary hypertension; I25.10 Atherosclerotic heart disease of native coronary artery without angina pectoris; Z88.8 Allergy status to other drugs, medicaments and biological substances; Z86.718 Personal history of other venous thrombosis and embolism; Z87.442 Personal history of urinary calculi; Z90.49 Acquired absence of other specified parts of digestive tract; Z99.2 Dependence on renal dialysis; I95.2 Hypotension due to drugs
CPT/HCPCS: 36415; 71010; 71275; 78452; 80048; 80053; 80061; 80202; 81001; 82550; 82553; 82962; 84443; 84484; 85007; 85025; 85027; 85379; 85610; 85730; 87040; 87400; 93005; 93010; 93017; 94640; 96374; A6250; A9270-GY; A9502; J0360; J0696; J1815; J2270; J2785; J3370; J7030; Q9967

== ENCOUNTER 2017-10-10 11:50 | Emergency (ER) | payer MEDICARE ==
[2017-10-10 12:09] VITALS: BP 122/58
--- NOTE | 2017-10-10 12:44 | Emergency Department Report ---
ED General Adult HPI - General Chief complaint: Medical Clearance Stated complaint: HEMORRHAGE Time Seen by Provider: 10/10/17 12:01 Source: EMS, healthcare representative Mode of arrival: Stretcher Limitations: Language Barrier - History of Present Illness Initial comments: Patient is a 77-year-old woman who presents to emergency room via EMS for bleeding from her dialysis shunt after dialysis. Bleeding was controlled by EMS. No bleeding noted at this time. Patient denies any physical complaints. She denies pain. Patient denies chest pain shortness of breath patient denies abdominal pain patient denies fever and chills. Patient states she is ready to go home MD Complaint: bleeding from hd shunt -: Sudden Improves with: rest, other (reference or) Worsens with: none Associated Symptoms: other. denies: confusion, chest pain, cough, diaphoresis, fever/chills, headaches, loss of appetite, malaise, nausea/vomiting, rash, seizure, shortness of breath, syncope, weakness Treatments Prior to Arrival: other (direct pressure) - Related Data Home Medications Medication Instructions Recorded Confirmed Last Taken Megan-Juliet Rx Tablet 1 tab PO DAILY 12/31/14 08/08/17 08/07/17 Pravastatin Sodium [Pravastatin] 20 mg PO QHS 01/24/15 08/08/17 08/07/17 Cyproheptadine [Periactin] 4 mg PO DAILY 11/13/16 08/08/17 08/07/17 traMADol [Ultram 50 MG tab] 50 mg PO BID PRN 11/13/16 08/08/17 Unknown amLODIPine [Norvasc] 5 mg PO DAILY 07/24/17 08/08/17 08/07/17 Previous Rx's Medication Instructions Recorded Last Taken Type Diltiazem [Cardizem] 30 mg PO Q8HR #90 tablet 05/04/16 08/07/17 Rx Sevelamer Carbonate [Renvela] 800 mg PO TIDWM tablet 11/16/16 08/07/17 Rx Allergies Allergy/AdvReac Type Severity Reaction Status Date / Time oseltamivir phosphate Allergy Intermediate Lip rash, Verified 10/10/17 12:03 [From Tamiflu] Increased BP, AMS,headache body ache,dizziness ED Review of Systems ROS: Stated complaint: HEMORRHAGE Other details as noted in HPI Constitutional: denies: chills, fever Eyes: denies: eye pain, eye discharge, vision change ENT: denies: ear pain, throat pain Respiratory: denies: cough, shortness of breath, wheezing Cardiovascular: denies: chest pain, palpitations Endocrine: no symptoms reported Gastrointestinal: denies: abdominal pain, nausea, diarrhea Genitourinary: denies: urgency, dysuria, discharge Musculoskeletal: denies: back pain, joint swelling, arthralgia Skin: denies: rash, lesions Neurological: denies: headache, weakness, paresthesias Psychiatric: denies: anxiety, depression Hematological/Lymphatic: denies: easy bleeding, easy bruising ED Past Medical Hx - Past Medical History Previous Medical History?: Yes Hx Hypertension: Yes Hx Congestive Heart Failure: No Hx Diabetes: Yes Hx Deep Vein Thrombosis: Yes Hx Renal Disease: Yes (ESRD on HD , , ) Hx Kidney Stones: Yes Hx Asthma: No Hx COPD: No Additional medical history: dialysis Tuesdays, , Saturday, av graft right upper arm - Surgical History Past Surgical History?: Yes Hx Cholecystectomy: Yes Additional Surgical History: A/V graft to right arm - Family History Family history: hypertension - Social History Smoking Status: Never Smoker Substance Use Type: None - Medications Home Medications: Home Medications Medication Instructions Recorded Confirmed Last Taken Type Megan-Juliet Rx Tablet 1 tab PO DAILY 12/31/14 08/08/17 08/07/17 History Pravastatin Sodium [Pravastatin] 20 mg PO QHS 01/24/15 08/08/17 08/07/17 History Diltiazem [Cardizem] 30 mg PO Q8HR #90 tablet 05/04/16 08/08/17 08/07/17 Rx Cyproheptadine [Periactin] 4 mg PO DAILY 11/13/16 08/08/17 08/07/17 History traMADol [Ultram 50 MG tab] 50 mg PO BID PRN 11/13/16 08/08/17 Unknown History Sevelamer Carbonate [Renvela] 800 mg PO TIDWM tablet 11/16/16 08/08/17 Rx amLODIPine [Norvasc] 5 mg PO DAILY 07/24/17 08/08/17 08/07/17 History ED Physical Exam - General Limitations: Language Barrier General appearance: alert, in no apparent distress - Head Head exam: Present: atraumatic, normocephalic - Eye Eye exam: Present: normal appearance - ENT ENT exam: Present: mucous membranes moist - Neck Neck exam: Present: normal inspection - Respiratory Respiratory exam: Present: normal lung sounds bilaterally. Absent: respiratory distress - Cardiovascular Cardiovascular Exam: Present: regular rate, normal rhythm. Absent: systolic murmur, diastolic murmur, rubs, gallop - GI/Abdominal GI/Abdominal exam: Present: soft, normal bowel sounds - Extremities Exam Extremities exam: Present: normal inspection - Back Exam Back exam: Present: normal inspection - Neurological Exam Neurological exam: Present: alert, altered (per family patient has memory loss and is at baseline. Patient is A& O 3. Oriented to person and place and situation but disoriented to time) - Psychiatric Psychiatric exam: Present: normal affect, normal mood - Skin Skin exam: Present: warm, dry, intact, normal color, other (dressing removed from right upper arm and no bleeding noted. Site appears stable and closed.). Absent: rash ED Course Vital Signs 10/10/17 12:03 Temperature 97.7 F Pulse Rate 101 H Respiratory 18 Rate Blood Pressure 122/58 O2 Sat by Pulse 98 Oximetry - Reevaluation(s) Reevaluation #1: Patient site appears stable. Sterile dressing applied. No bleeding noted entire stay in the ER. We will check her CBC/ platelet count and an discharge patient home 10/10/17 12:45 Reevaluation #2: CBC within normal limits and patient is stable for discharge. No signs of any bleeding entire ER stay. Patient given strict ER instructions. And patient given discharge instructions. at bedside entire ER visit 10/10/17 14:02 ED Medical Decision Making - Lab Data Result diagrams: 10/10/17 12:58 - Medical Decision Making 77-year-old female presents to emergency room with bleeding from her dialysis shunt that is stable and patient is stable for discharge and ready to go home. Discharge instruction given to patient and family. Family at bedside entire visit. - Differential Diagnosis bleeding. ckd. bleeding from shunt. Critical care attestation.: If time is entered above; I have spent that time in minutes in the direct care of this critically ill patient, excluding procedure time. ED Disposition Clinical Impression: Hemorrhage from dialysis shunt Disposition: DC-01 TO HOME OR SELFCARE Is pt being admited?: No Does the pt Need Aspirin: No Condition: Stable Instructions: Postoperative Bleeding (ED) Additional Instructions: Patient is to follow up with primary care in 3-5 days. Patient to follow-up with dialysis in 1-2 days and see product test specialist in 1-2 days. Patient to return to ER if condition worsens. Patient to rest. Referrals: PRIMARY CARE, [Primary Care Provider] - 3-5 Days Time of Disposition: 14:22
[2017-10-10 13:46] LABS: Basophils # (Auto) 0.1 K/mm3 (0.0-0.1); Basophils % (Auto) 1.4 % (0.0-1.8); Eosinophils # (Auto) 0.1 K/mm3 (0.0-0.4); Eosinophils % (Auto) 2.4 % (0.0-4.3); Hematocrit 36.2 % (30.3-42.9); Hemoglobin 12.1 gm/dl (10.1-14.3); Lymphocytes # (Auto) 1.6 K/mm3 (1.2-5.4); Mean Corpuscular HGB Conc 34 % (30-34); Mean Corpuscular Hemoglobin 32 pg (28-32); Mean Corpuscular Volume 95 fl (79-97); Monocytes # (Auto) 0.3 K/mm3 (0.0-0.8); Platelet Count 146 K/mm3 (140-440); Red Blood Count 3.83 M/mm3 (3.65-5.03); Red Cell Distribution Width 16.4 % (13.2-15.2)
== END 2017-10-10 14:45 | disposition home or self-care (01) ==
LOC: ED 11:50
DX: T82.838A Hemorrhage due to vascular prosthetic devices, implants and grafts, initial encounter (principal); I12.0 Hypertensive chronic kidney disease with stage 5 chronic kidney disease or end stage renal disease; N18.6 End stage renal disease; E11.22 Type 2 diabetes mellitus with diabetic chronic kidney disease; Z99.2 Dependence on renal dialysis; Z86.718 Personal history of other venous thrombosis and embolism; Z88.8 Allergy status to other drugs, medicaments and biological substances; Z90.49 Acquired absence of other specified parts of digestive tract
CPT/HCPCS: 36415; 85025; 99283

== ENCOUNTER 2018-01-18 07:35 | Emergency (ER) | payer MEDICARE ==
[2018-01-18 08:49] LABS: Basophils % (Auto) 0.9 % (0.0-1.8); Eosinophils # (Auto) 0.4 K/mm3 (0.0-0.4); Eosinophils % (Auto) 8.3 % (0.0-4.3); Hemoglobin 10.3 gm/dl (10.1-14.3); Lymphocytes # (Auto) 1.2 K/mm3 (1.2-5.4); Lymphocytes % (Auto) 26.9 % (13.4-35.0); Mean Corpuscular HGB Conc 33 % (30-34); Mean Corpuscular Hemoglobin 30 pg (28-32); Mean Corpuscular Volume 89 fl (79-97); Monocytes # (Auto) 0.6 K/mm3 (0.0-0.8); Monocytes % (Auto) 12.3 % (0.0-7.3); Platelet Count 188 K/mm3 (140-440); Red Blood Count 3.48 M/mm3 (3.65-5.03); Red Cell Distribution Width 18.2 % (13.2-15.2)
[2018-01-18 08:53] LABS: INR 0.97 (0.87-1.13)
[2018-01-18 08:54] LABS: Partial Thromboplastin Time 33.5 Sec. (24.2-36.6)
[2018-01-18 09:05] LABS: Albumin 3.7 g/dL (3.9-5); Calcium 9.6 mg/dL (8.4-10.2)
--- NOTE | 2018-01-18 09:15 | Emergency Department Report ---
ED General Adult HPI - General Chief complaint: Medical Clearance Stated complaint: BLEEDING FISTULA Time Seen by Provider: 01/18/18 09:14 Source: EMS Mode of arrival: Stretcher Limitations: Physical Limitation - History of Present Illness Initial comments: 77-year-old female went to dialysis today on her regularly scheduled day. Dialysis was interrupted due to bleeding from the fistula. The patient was sent here for evaluation after a dressing was applied. She arrives with an essentially dry dressing which is not bloodstained. There is no active bleeding. The patient does not speak Turkmen. However through her disorder she has no specific complaints. She is comfortable lying flat and certainly in no distress. She has not missed any dialysis recently. -: minutes(s) Associated Symptoms: denies other symptoms - Related Data Home Medications Medication Instructions Recorded Confirmed Last Taken Megan-Juliet Rx Tablet 1 tab PO DAILY 12/31/14 08/08/17 08/07/17 Pravastatin Sodium [Pravastatin] 20 mg PO QHS 01/24/15 08/08/17 08/07/17 Cyproheptadine [Periactin] 4 mg PO DAILY 11/13/16 08/08/17 08/07/17 traMADol [Ultram 50 MG tab] 50 mg PO BID PRN 11/13/16 08/08/17 Unknown amLODIPine [Norvasc] 5 mg PO DAILY 07/24/17 08/08/17 08/07/17 Previous Rx's Medication Instructions Recorded Last Taken Type Sevelamer Carbonate [Renvela] 800 mg PO TIDWM tablet 11/16/16 08/07/17 Rx Famotidine [Pepcid] 10 mg PO BID #20 tablet 10/27/17 Unknown Rx Levothyroxine Sodium [Synthroid] 175 mcg PO QDAY #30 tab 10/27/17 Unknown Rx Allergies Allergy/AdvReac Type Severity Reaction Status Date / Time oseltamivir phosphate Allergy Intermediate Lip rash, Verified 10/10/17 12:03 [From Tamiflu] Increased BP, AMS,headache body ache,dizziness ED Review of Systems ROS: Stated complaint: BLEEDING FISTULA Other details as noted in HPI Constitutional: denies: chills, fever Eyes: eye discharge. denies: eye pain, vision change ENT: denies: ear pain, throat pain Respiratory: wheezing. denies: cough, shortness of breath Cardiovascular: palpitations, syncope. denies: chest pain Endocrine: no symptoms reported Gastrointestinal: vomiting. denies: abdominal pain Genitourinary: as per HPI (dialysis patient), discharge Musculoskeletal: back pain. denies: joint swelling, arthralgia Skin: denies: rash, lesions Neurological: denies: headache, weakness Psychiatric: denies: anxiety, depression Hematological/Lymphatic: as per HPI, easy bleeding (bleeding from fistula). denies: easy bruising ED Past Medical Hx - Past Medical History Hx Hypertension: Yes Hx Congestive Heart Failure: No Hx Diabetes: Yes Hx Deep Vein Thrombosis: Yes Hx Renal Disease: Yes (ESRD on HD , , ) Hx Kidney Stones: Yes Hx Asthma: No Hx COPD: No Additional medical history: dialysis Tuesdays, , Saturday, av graft right upper arm - Surgical History Hx Cholecystectomy: Yes Additional Surgical History: A/V graft to right arm - Social History Smoking Status: Unknown if ever smoked - Medications Home Medications: Home Medications Medication Instructions Recorded Confirmed Last Taken Type Megan-Juliet Rx Tablet 1 tab PO DAILY 12/31/14 08/08/17 08/07/17 History Pravastatin Sodium [Pravastatin] 20 mg PO QHS 01/24/15 08/08/17 08/07/17 History Cyproheptadine [Periactin] 4 mg PO DAILY 11/13/16 08/08/17 08/07/17 History traMADol [Ultram 50 MG tab] 50 mg PO BID PRN 11/13/16 08/08/17 Unknown History Sevelamer Carbonate [Renvela] 800 mg PO TIDWM tablet 11/16/16 08/08/17 Rx amLODIPine [Norvasc] 5 mg PO DAILY 07/24/17 08/08/17 08/07/17 History Famotidine [Pepcid] 10 mg PO BID #20 tablet 10/27/17 Unknown Rx Levothyroxine Sodium [Synthroid] 175 mcg PO QDAY #30 tab 10/27/17 Unknown Rx ED Physical Exam - General Limitations: Physical Limitation General appearance: alert, in no apparent distress - Head Head exam: Present: atraumatic, normocephalic - Eye Eye exam: Present: normal appearance. Absent: scleral icterus - ENT ENT exam: Present: mucous membranes moist - Neck Neck exam: Present: normal inspection. Absent: meningismus - Respiratory Respiratory exam: Present: normal lung sounds bilaterally. Absent: respiratory distress - Cardiovascular Cardiovascular Exam: Present: regular rate, normal rhythm. Absent: systolic murmur, diastolic murmur, rubs, gallop - GI/Abdominal GI/Abdominal exam: Present: soft, normal bowel sounds. Absent: distended, tenderness, guarding, rebound, rigid - Extremities Exam Extremities exam: Present: other (fistula has a thrill. There is no bleeding.) - Back Exam Back exam: Present: normal inspection - Neurological Exam Neurological exam: Present: alert, oriented X3, CN II-XII intact. Absent: motor sensory deficit - Psychiatric Psychiatric exam: Present: normal affect, normal mood - Skin Skin exam: Present: warm, dry, intact, normal color. Absent: rash ED Course Vital Signs 01/18/18 01/18/18 01/18/18 07:52 08:00 08:03 Temperature 97.5 F L Pulse Rate 71 84 Respiratory 13 16 Rate Blood Pressure 190/88 177/79 O2 Sat by Pulse 98 98 98 Oximetry 01/18/18 01/18/18 01/18/18 08:15 08:30 08:45 Temperature Pulse Rate 75 82 80 Respiratory 18 18 14 Rate Blood Pressure 175/80 178/81 157/77 O2 Sat by Pulse 98 98 98 Oximetry 01/18/18 01/18/18 01/18/18 09:00 09:15 09:30 Temperature Pulse Rate 84 82 77 Respiratory 14 Rate Blood Pressure 163/80 171/74 171/74 O2 Sat by Pulse 99 99 Oximetry 01/18/18 01/18/18 09:46 10:00 Temperature Pulse Rate 73 83 Respiratory 15 Rate Blood Pressure 182/86 180/77 O2 Sat by Pulse 97 99 Oximetry - Reevaluation(s) Reevaluation #1: Dr. Gold did come and see the patient. He stated that clinically the fistula had good flow. He removed the dressing. There was no bleeding. He stated the patient should, on Saturday for a fistulogram. If there is any issue such as a need for dilatation and he will take care of it on Saturday. The patient can be dialyzed after the fistulogram here. I spoke with Dr. Sanz. He was in agreement with this plan. The family has been informed. 01/18/18 11:04 ED Medical Decision Making - Lab Data Result diagrams: 01/18/18 08:36 01/18/18 08:37 Laboratory Results - last 24 hr 01/18/18 01/18/18 01/18/18 08:36 08:37 08:37 WBC 4.6 RBC 3.48 L Hgb 10.3 Hct 31.0 MCV 89 MCH 30 MCHC 33 RDW 18.2 H Plt Count 188 Lymph % (Auto) 26.9 Bond % (Auto) 12.3 H Eos % (Auto) 8.3 H Baso % (Auto) 0.9 Lymph # 1.2 Bond # 0.6 Eos # 0.4 Baso # 0.0 Seg Neutrophils % 51.6 Seg Neutrophils # 2.4 PT 13.4 INR 0.97 APTT 33.5 Sodium 135 L Potassium 4.0 Chloride 96.7 L Carbon Dioxide 24 Anion Gap 18 BUN 35 H Creatinine 5.9 H Estimated GFR 7 BUN/Creatinine Ratio 6 Glucose 112 H Calcium 9.6 Total Bilirubin 0.60 AST 20 ALT 13 Alkaline Phosphatase 256 H Total Protein 7.0 Albumin 3.7 L Albumin/Globulin Ratio 1.1 - Radiology Data Radiology results: report reviewed (mild pulmonary venous prominence no pulmonary edema) Critical care attestation.: If time is entered above; I have spent that time in minutes in the direct care of this critically ill patient, excluding procedure time. ED Disposition Clinical Impression: End stage renal disease on dialysis Hemorrhage of arteriovenous fistula Qualifiers: Encounter type: initial encounter Qualified Code(s): T82.838A - Hemorrhage due to vascular prosthetic devices, implants and grafts, initial encounter Disposition: OP ADMIT IP TO THIS HOSP Is pt being admited?: No Does the pt Need Aspirin: No Condition: Stable Additional Instructions: The patient is to come him back to the outpatient area on Saturday. She will have a fistulogram study. Dr. Gold will review it. She will be dialyzed on Saturday thereafter. If the patient has any problems at home bring her back to the emergency department earlier. No significant fluids or salt until next dialysis. Referrals: PRIMARY CARE, [Primary Care Provider] - 3-5 Days outpatient care unit, [facility] [Other] - [facility] (Return for fistulogram Saturday) GILA SNAZ MD [Staff Physician] - 2-3 Days Time of Disposition: 11:08
--- NOTE | 2018-01-18 10:16 | XRay Report ---
FINAL REPORT EXAM: XR CHEST 1V AP HISTORY: hypertension TECHNIQUE: Chest, portable PRIORS: 10/24/2017 FINDINGS: There is unchanged cardiomegaly. Pulmonary vasculature is mildly prominent. There is no pneumothorax or pleural effusion. There is no focal infiltrates. Stents are seen in bilateral axillary regions. IMPRESSION: Mild pulmonary vascular congestion suspected.
--- NOTE | 2018-01-18 11:19 | Event Note ---
Date: 01/18/18 Called by dialysis Center regarding bleeding from patient's right upper extremity graft. The patient had been sent to the emergency department. Evaluated the patient in the emergency department. There is no evidence of bleeding. The dressing is clean and dry. Palpable thrill is present. There is some pulsatility along the superior aspect of the fistula. From a vascular standpoint, the patient may be discharged from the emergency department and return for outpatient fistulogram on Saturday. Patient to report to the outpatient registration desk at 8:30 on Saturday
[2018-01-18 12:06] VITALS: BP 170/72
== END 2018-01-18 12:21 | disposition admitted as inpatient to this hospital (09) ==
LOC: ED 07:35
DX: T82.838A Hemorrhage due to vascular prosthetic devices, implants and grafts, initial encounter (principal); I12.0 Hypertensive chronic kidney disease with stage 5 chronic kidney disease or end stage renal disease; E11.22 Type 2 diabetes mellitus with diabetic chronic kidney disease; N18.6 End stage renal disease; Z99.2 Dependence on renal dialysis; Z90.49 Acquired absence of other specified parts of digestive tract; Z88.8 Allergy status to other drugs, medicaments and biological substances
CPT/HCPCS: 36415; 71045; 80053; 85025; 85610; 85730; 93005; 93010; 99284

== ENCOUNTER 2018-01-20 08:02 | Day surgery (SDC) | payer MEDICARE ==
--- NOTE | 2018-01-20 09:39 | Short Stay Summary ---
Short Stay Documentation Date of service: 01/20/18 - History Principal diagnosis: Malfunctioning dialysis access Past Medical History: dialysis, ESRD Past Surgical History: Other (RUE AVG) Social history: no significant social history, lives with family - Allergies and Medications Current Medications: Allergies oseltamivir phosphate [From Tamiflu] Allergy (Intermediate, Verified 10/10/17 12 :03) Lip rash, Increased BP, AMS,headache body ache,dizziness pt developed lip rash, increased bp,head ache ,dizziness , AMS , diarrhae, shaking, body aches. Home Medications Medication Instructions Recorded Confirmed Last Taken Type Megan-Juliet Rx Tablet 1 tab PO DAILY 12/31/14 01/20/18 01/19/18 History 1 Pravastatin Sodium [Pravastatin] 20 mg PO QHS 01/24/15 01/20/18 01/19/18 History 20mg Cyproheptadine [Periactin] 4 mg PO DAILY 11/13/16 01/20/18 01/19/18 History 4mg traMADol [Ultram 50 MG tab] 50 mg PO BID PRN 11/13/16 01/20/18 01/19/18 History 50mg Sevelamer Carbonate [Renvela] 800 mg PO TIDWM tablet 11/16/16 01/20/18 Rx 800mg amLODIPine [Norvasc] 5 mg PO DAILY 07/24/17 01/20/18 01/19/18 History 5mg Famotidine [Pepcid] 10 mg PO BID #20 tablet 10/27/17 01/20/18 01/19/18 Rx 10mg Levothyroxine Sodium [Synthroid] 175 mcg PO QDAY #30 tab 10/27/17 01/20/1801/19 Rx 175mcg - Physical exam General appearance: no acute distress Integumentary: no rash HEENT: Atraumatic Lungs: Normal air movement Breasts: deferred Heart: Regular rate Gastrointestinal: normal Female Genitourinary: deferred Rectal Exam: deferred Extremities: abnormal (RUE graft with positive thrill) Neurological: Normal gait, Normal speech - Brief post op/procedure progress note Date of procedure: 01/20/18 Pre-op diagnosis: malfunctioning dialysis access Post-op diagnosis: same Procedure: RUE FGA with venoplasty Anesthesia: local Surgeon: ADRIANA RAMOS Estimated blood loss: minimal Pathology: none Condition: stable - Disposition Condition at discharge: Good Disposition: DC-01 TO HOME OR SELFCARE Short Stay Discharge Plan Activity: advance as tolerated Weight Bearing Status: Weight Bear as Tolerated Diet: regular Wound: keep clean and dry, per your surgeon's advice Follow up with: BRITANY RAMOS MD [Primary Care Provider] - 7 Days
[2018-01-20] MEDS ORDERED: NACL 0.9% 250ML 250 ML ONE (10:01)
[2018-01-20] MEDS ORDERED: HEPARIN 10,000 UNITS/10 ML ONE (10:01)
[2018-01-20] MEDS ORDERED: XYLOCAINE 1%/ EPI 1:100,000 INFILTRATI ONE (10:01)
[2018-01-20] MEDS ORDERED: HEPARIN/NS 5000 UNIT/500ML(CATH LAB) 1,000 ML IR ONE (10:01)
[2018-01-20] MEDS ORDERED: SUBLIMAZE ONE (10:02)
[2018-01-20] MEDS: VERSED ONE ×2 (10:22→10:30)
--- NOTE | 2018-01-20 10:46 | Operative Report ---
Operative Report Operative Report: Exam: Right upper extremity fistulogram, venoplasty Clinical indication: Patient with malfunctioning hemodialysis access, prolonged bleeding Date: 01/20/2018 Procedure: Following an explanation of the risks, benefits and alternatives; written informed consent was obtained. The patient was brought to the angiographic suite and placed in supine position on the examination table. Initial evaluation of her right upper arm graft demonstrates a palpable thrill. There is some pulsatility along the superior aspect of the graft. Patient's right upper arm was prepped and draped in the usual sterile fashion. 1% lidocaine was used for anesthesia. The graft was cannulated towards the venous outflow using a 7 cm 21-gauge needle. A 0.018 guidewire was advanced centrally. The needle was removed and a micro-sheath placed. A 0.018 guidewire was exchanged for a 0.035 guidewire and the micro-sheath exchanged for a 7 Malian vascular sheath. Angiography was performed at throughout the graft which demonstrates 70% stenosis within the body the graft. There is additionally, a 30% stenosis involving the innominate vein. Angioplasty of the body of the graft stenosis was performed using an 8 mm x 40 mm balloon insufflated to 12 nate for 30 seconds. Post angioplasty imaging demonstrated reduction of the stenosis to less than 10%. At this point, the catheters, guidewires and sheaths were removed and hemostasis achieved using 4-0 Vicryl suture and manual compression. A sterile dressing was then applied. The patient tolerated the procedure well. There were no immediate post procedure complications. Conscious sedation was performed under the guidance of radiologic nursing. Continuous cardiopulmonary monitoring was utilized. Impression: 1) Right upper extremity fistulogram demonstrating 70% stenosis within the body the graft and 30% stenosis involving the innominate vein. 2) Venoplasty of the body the graft stenosis with residual less than 10% stenosis.
[2018-01-20 11:57] VITALS: BP 152/55
== END 2018-01-20 12:15 | disposition home or self-care (01) ==
LOC: CATHLABREC 08:02
PROVIDERS: ATTEND Radiology Diagnostic Radiology
DX: T82.858A Stenosis of other vascular prosthetic devices, implants and grafts, initial encounter (principal); I13.2 Hypertensive heart and chronic kidney disease with heart failure and with stage 5 chronic kidney disease, or end stage renal disease; E11.22 Type 2 diabetes mellitus with diabetic chronic kidney disease; I50.21 Acute systolic (congestive) heart failure; N18.6 End stage renal disease; I87.1 Compression of vein; E03.9 Hypothyroidism, unspecified; I48.91 Unspecified atrial fibrillation; E78.5 Hyperlipidemia, unspecified; Z88.8 Allergy status to other drugs, medicaments and biological substances; Z79.01 Long term (current) use of anticoagulants; Z99.2 Dependence on renal dialysis; Z79.899 Other long term (current) drug therapy; D63.1 Anemia in chronic kidney disease; E78.00 Pure hypercholesterolemia, unspecified; Z86.718 Personal history of other venous thrombosis and embolism; Z90.49 Acquired absence of other specified parts of digestive tract; Z87.442 Personal history of urinary calculi; Z82.49 Family history of ischemic heart disease and other diseases of the circulatory system; Z98.890 Other specified postprocedural states; Z86.2 Personal history of diseases of the blood and blood-forming organs and certain disorders involving the immune mechanism; Y83.8 Other surgical procedures as the cause of abnormal reaction of the patient, or of later complication, without mention of misadventure at the time of the procedure; Y92.89 Other specified places as the place of occurrence of the external cause
CPT/HCPCS: 36902; 99156; C1725; C1751; C1769; C1894; J1644; J2250; J3010; J7050; Q9967

== ENCOUNTER 2019-04-27 12:12 | Inpatient (IN) | payer MEDICARE ==
[2019-04-27] MEDS ORDERED: SODIUM CHLORIDE 0.9% 250ML 250 ML ONE (13:00)
[2019-04-27] MEDS ORDERED: SODIUM CHLORIDE 0.9% 1000 ML IV SOLN IV ONE (13:10)
[2019-04-27] MEDS ORDERED: ACETAMINOPHEN 325 MG TAB PO ONE (13:11)
[2019-04-27] MEDS ORDERED: VANCOMYCIN 1,000 MG in SODIUM CHLORIDE 0.9% 500 ML 500 ML IV ONE (13:31)
[2019-04-27 13:39] LABS: Basophils % (Auto) 0.4 % (0.0-1.8); Eosinophils % (Auto) 0.3 % (0.0-4.3); Hematocrit 28.6 % (30.3-42.9); Hemoglobin 9.4 gm/dl (10.1-14.3); Lymphocytes # (Auto) 0.6 K/mm3 (1.2-5.4); Lymphocytes % (Auto) 6.5 % (13.4-35.0); Mean Corpuscular HGB Conc 33 % (30-34); Mean Corpuscular Volume 88 fl (79-97); Monocytes # (Auto) 0.9 K/mm3 (0.0-0.8); Monocytes % (Auto) 8.8 % (0.0-7.3); Platelet Count 143 K/mm3 (140-440); Red Blood Count 3.24 M/mm3 (3.65-5.03); Red Cell Distribution Width 17.1 % (13.2-15.2)
[2019-04-27 13:50] LABS: INR 1.07 (0.87-1.13)
[2019-04-27 13:51] LABS: Partial Thromboplastin Time 30.3 Sec. (24.2-36.6)
[2019-04-27] MEDS ORDERED: LEVALBUTEROL 0.63 MG/3 ML NEBU IH ONE ×2 (13:56)
[2019-04-27] MEDS ORDERED: IPRATROPIUM 0.02% NEBU 2.5 ML IH ONE (13:56)
[2019-04-27] MEDS ORDERED: dilTIAZem/D5W 100 MG/100 ML BAG IV SCH (14:00)
[2019-04-27] MEDS ORDERED: VANCOMYCIN PHARMACY TO DOSE IV SCH (14:00)
[2019-04-27] MEDS ORDERED: CEFEPIME/NS 2 GM/100 ML 2 GM/100 ML BAG IV SCH (14:00)
[2019-04-27 14:03] LABS: Albumin 3.5 g/dL (3.9-5); Calcium 9.1 mg/dL (8.4-10.2)
[2019-04-27 14:09] LABS: Free T4 (Free Thyroxine) 1.53 ng/dL (0.76-1.46)
[2019-04-27 14:16] LABS: Chol/HDL Ratio 3.29 %
[2019-04-27] MEDS ORDERED: VANCOMYCIN/NS 1 GM/250 ML 1 GM/250 ML BAG IV ONE (14:30)
--- NOTE | 2019-04-27 15:10 | Emergency Department Report ---
ED Fever HPI - General Chief Complaint: Arrhythmia/Palpitations Stated Complaint: AFIB Time Seen by Provider: 04/27/19 13:00 Source: patient Exam Limitations: language barrier, other (possible dementia?) - History of Present Illness Initial Comments: 78 year old female with a past medical history HSV fibrillation, end-stage renal disease on dialysis, dementia, diabetes, and hypertension this to the hospital with A. fib RVR that started with the completion of her dialysis. EMS reports that patient was initially hypoxic at 85% on 2 L nasal cannula. Patient presents here tachycardic with a fever 102. Patient has complained of cough as per family member. No significant pain reported. Patient is on Eliquis as per JUL. Per family patient does not make urine. ED Review of Systems ROS: Stated complaint: AFIB Other details as noted in HPI Comment: All other systems reviewed and negative ED Past Medical Hx - Past Medical History Previous Medical History?: Yes Hx Hypertension: Yes Hx Heart Attack/AMI: No Hx Congestive Heart Failure: No Hx Diabetes: Yes Hx Deep Vein Thrombosis: Yes Hx Renal Disease: Yes (ESRD on HD , , ) Hx Kidney Stones: Yes Hx Asthma: No Hx COPD: No Hx Dementia: Yes Additional medical history: dialysis Tuesdays, , Saturday, av graft right upper arm - Surgical History Past Surgical History?: Yes Hx Cholecystectomy: Yes Additional Surgical History: A/V graft to right arm - Social History Smoking Status: Unknown if ever smoked Substance Use Type: None - Medications Home Medications: Home Medications Medication Instructions Recorded Confirmed Last Taken Type Megan-Juliet Rx Tablet 1 tab PO DAILY 12/31/14 05/01/18 01/19/18 History 1 Pravastatin Sodium [Pravastatin] 20 mg PO QHS 01/24/15 05/01/18 01/19/18 History 20 mg Cyproheptadine [Periactin] 4 mg PO DAILY 11/13/16 05/01/18 01/19/18 History 4 mg Sevelamer Carbonate [Renvela] 800 mg PO TIDWM tablet 11/16/16 05/01/18 04/30/18 10:00 Rx 800 mg Acetaminophen [Acetaminophen TAB] 650 mg PO Q4H PRN tablet 05/03/18 Unknown Rx Apixaban [Eliquis] 2.5 mg PO BID #60 tablet 05/03/18 Unknown Rx Aspirin EC [Halfprin EC] 81 mg PO QDAY tablet 05/03/18 Unknown Rx Cyproheptadine [Periactin] 4 mg PO DAILY tablet 05/03/18 Unknown Rx Levothyroxine Sodium [Synthroid] 175 mcg PO QDAY #30 tab 05/03/18 Unknown Rx Metoprolol [Lopressor TAB] 25 mg PO BID #30 tablet 05/03/18 Unknown Rx Pravastatin [Pravachol] 20 mg PO QHS #30 tablet 05/03/18 Unknown Rx Sevelamer Carbonate [Renvela] 800 mg PO TIDWM tablet 05/03/18 Unknown Rx hydrALAZINE [Apresoline TAB] 10 mg PO BID #60 tablet 05/03/18 Unknown Rx traMADoL [Ultram 50 MG tab] 50 mg PO BID PRN #60 tablet 05/03/18 Unknown Rx ED Physical Exam - General Limitations: Language Barrier - Other Other exam information: General: No acute distress Head: Atraumatic Eyes: normal appearance ENT: Moist mucous membranes Neck: Normal appearance, no midline tenderness Chest: Bilateral crackles and wheezing CV: Tachycardic regular rhythm Abdomen: Soft, normal bowel sounds, nontender, nondistended, no rebound or guarding Back: Normal inspection Extremity: Normal inspection infection, full range of motion Neuro: Alert no facial asymmetry, speech clear, no gross motor sensory deficit Psych: Appropriate behavior Skin: No rash ED Course Vital Signs 04/27/19 04/27/19 04/27/19 12:32 12:40 12:52 Temperature Pulse Rate 135 H 126 H Pulse Rate [ Anterior Bilateral Throughout] Respiratory 25 H 21 16 Rate Respiratory Rate [Anterior Bilateral Throughout] Blood Pressure 157/85 Blood Pressure 157/85 [Left] O2 Sat by Pulse 100 100 100 Oximetry 04/27/19 04/27/19 04/27/19 13:00 13:04 13:20 Temperature 102.0 F H Pulse Rate 126 H 121 H 125 H Pulse Rate [ Anterior Bilateral Throughout] Respiratory 25 H 22 Rate Respiratory Rate [Anterior Bilateral Throughout] Blood Pressure 136/73 152/77 Blood Pressure [Left] O2 Sat by Pulse 100 96 Oximetry 04/27/19 04/27/19 04/27/19 13:40 14:00 14:15 Temperature Pulse Rate 142 H 101 H 120 H Pulse Rate [ Anterior Bilateral Throughout] Respiratory 22 26 H Rate Respiratory Rate [Anterior Bilateral Throughout] Blood Pressure 149/56 138/77 156/69 Blood Pressure [Left] O2 Sat by Pulse 89 100 Oximetry 04/27/19 04/27/19 04/27/19 14:20 14:40 14:44 Temperature Pulse Rate 105 H 100 H Pulse Rate [ 118 H Anterior Bilateral Throughout] Respiratory 23 21 Rate Respiratory 18 Rate [Anterior Bilateral Throughout] Blood Pressure 152/62 153/64 Blood Pressure [Left] O2 Sat by Pulse 100 100 Oximetry 04/27/19 04/27/19 04/27/19 15:00 15:20 15:40 Temperature Pulse Rate 111 H 102 H 101 H Pulse Rate [ Anterior Bilateral Throughout] Respiratory 21 22 21 Rate Respiratory Rate [Anterior Bilateral Throughout] Blood Pressure 146/62 129/62 142/64 Blood Pressure [Left] O2 Sat by Pulse 96 100 94 Oximetry 04/27/19 04/27/19 04/27/19 16:00 16:20 16:22 Temperature 98.0 F Pulse Rate 116 H 118 H Pulse Rate [ Anterior Bilateral Throughout] Respiratory 19 20 Rate Respiratory Rate [Anterior Bilateral Throughout] Blood Pressure 129/62 131/62 Blood Pressure [Left] O2 Sat by Pulse 98 99 Oximetry 04/27/19 04/27/19 04/27/19 16:24 16:30 17:00 Temperature 98.5 F Pulse Rate 110 H 98 H Pulse Rate [ Anterior Bilateral Throughout] Respiratory 16 22 Rate Respiratory Rate [Anterior Bilateral Throughout] Blood Pressure 137/70 132/49 Blood Pressure [Left] O2 Sat by Pulse 95 100 Oximetry 04/27/19 04/27/19 17:30 18:00 Temperature Pulse Rate 103 H 109 H Pulse Rate [ Anterior Bilateral Throughout] Respiratory 17 18 Rate Respiratory Rate [Anterior Bilateral Throughout] Blood Pressure 137/59 131/46 Blood Pressure [Left] O2 Sat by Pulse 99 99 Oximetry - Consultations Consultation #1: 04/27/19 17:09 case d/w Dr Rizo nephdarrell: will consult for dialysis management during admissions 04/27/19 17:26 case d/w Dr Freeman cardiolgy for consult for afib rvr/chf admission ED Medical Decision Making - Lab Data Result diagrams: 04/27/19 13:24 04/27/19 13:24 Lab Results 04/27/19 04/27/19 04/27/19 Range/Units 12:44 13:24 13:24 WBC 9.8 (4.5-11.0) K/mm3 RBC 3.24 L (3.65-5.03) M/mm3 Hgb 9.4 L (10.1-14.3) gm/dl Hct 28.6 L (30.3-42.9) % MCV 88 (79-97) fl MCH 29 (28-32) pg MCHC 33 (30-34) % RDW 17.1 H (13.2-15.2) % Plt Count 143 (140-440) K/mm3 Lymph % (Auto) 6.5 L (13.4-35.0) % [place] % (Auto) 8.8 H (0.0-7.3) % Eos % (Auto) 0.3 (0.0-4.3) % Baso % (Auto) 0.4 (0.0-1.8) % Lymph # 0.6 L (1.2-5.4) K/mm3 [place] # 0.9 H (0.0-0.8) K/mm3 Eos # 0.0 (0.0-0.4) K/mm3 Baso # 0.0 (0.0-0.1) K/mm3 Seg Neutrophils % 84.0 H (40.0-70.0) % Seg Neutrophils # 8.2 H (1.8-7.7) K/mm3 PT 14.0 (12.2-14.9) Sec. INR 1.07 (0.87-1.13) APTT 30.3 (24.2-36.6) Sec. VBG pH (7.320-7.420) Sodium (137-145) mmol/L Potassium (3.6-5.0) mmol/L Chloride (98-107) mmol/L Carbon Dioxide (22-30) mmol/L Anion Gap mmol/L BUN (7-17) mg/dL Creatinine (0.7-1.2) mg/dL Estimated GFR ml/min BUN/Creatinine Ratio % Glucose (65-100) mg/dL Lactic Acid 2.20 H* (0.7-2.0) mmol/L Calcium (8.4-10.2) mg/dL Total Bilirubin (0.1-1.2) mg/dL AST (5-40) units/L ALT (7-56) units/L Alkaline Phosphatase (35-129) units/L Troponin T (0.00-0.029) ng/mL Total Protein (6.3-8.2) g/dL Albumin (3.9-5) g/dL Albumin/Globulin Ratio % Triglycerides (2-149) mg/dL Cholesterol (50-199) mg/dL LDL Cholesterol Direct (50-130) mg/dL HDL Cholesterol (40-59) mg/dL Cholesterol/HDL Ratio % TSH (0.270-4.200) mlU/mL Free T4 (0.76-1.46) ng/dL 04/27/19 04/27/19 04/27/19 Range/Units 13:24 13:24 13:24 WBC (4.5-11.0) K/mm3 RBC (3.65-5.03) M/mm3 Hgb (10.1-14.3) gm/dl Hct (30.3-42.9) % MCV (79-97) fl MCH (28-32) pg MCHC (30-34) % RDW (13.2-15.2) % Plt Count (140-440) K/mm3 Lymph % (Auto) (13.4-35.0) % [place] % (Auto) (0.0-7.3) % Eos % (Auto) (0.0-4.3) % Baso % (Auto) (0.0-1.8) % Lymph # (1.2-5.4) K/mm3 [place] # (0.0-0.8) K/mm3 Eos # (0.0-0.4) K/mm3 Baso # (0.0-0.1) K/mm3 Seg Neutrophils % (40.0-70.0) % Seg Neutrophils # (1.8-7.7) K/mm3 PT (12.2-14.9) Sec. INR (0.87-1.13) APTT (24.2-36.6) Sec. VBG pH 7.442 H (7.320-7.420) Sodium 136 L (137-145) mmol/L Potassium 3.3 L (3.6-5.0) mmol/L Chloride 95.0 L (98-107) mmol/L Carbon Dioxide 26 (22-30) mmol/L Anion Gap 18 mmol/L BUN 10 (7-17) mg/dL Creatinine 1.9 H (0.7-1.2) mg/dL Estimated GFR 26 ml/min BUN/Creatinine Ratio 5 % Glucose 178 H (65-100) mg/dL Lactic Acid (0.7-2.0) mmol/L Calcium 9.1 (8.4-10.2) mg/dL Total Bilirubin 1.60 H (0.1-1.2) mg/dL AST 28 (5-40) units/L ALT 15 (7-56) units/L Alkaline Phosphatase 145 H (35-129) units/L Troponin T 0.079 H (0.00-0.029) ng/mL Total Protein 6.7 (6.3-8.2) g/dL Albumin 3.5 L (3.9-5) g/dL Albumin/Globulin Ratio 1.1 % Triglycerides 98 (2-149) mg/dL Cholesterol 260 H (50-199) mg/dL LDL Cholesterol Direct 162 H (50-130) mg/dL HDL Cholesterol 79 H (40-59) mg/dL Cholesterol/HDL Ratio 3.29 % TSH 2.290 (0.270-4.200) mlU/mL Free T4 1.53 H (0.76-1.46) ng/dL 04/27/19 04/27/19 Range/Units 15:06 15:06 WBC (4.5-11.0) K/mm3 RBC (3.65-5.03) M/mm3 Hgb (10.1-14.3) gm/dl Hct (30.3-42.9) % MCV (79-97) fl MCH (28-32) pg MCHC (30-34) % RDW (13.2-15.2) % Plt Count (140-440) K/mm3 Lymph % (Auto) (13.4-35.0) % [place] % (Auto) (0.0-7.3) % Eos % (Auto) (0.0-4.3) % Baso % (Auto) (0.0-1.8) % Lymph # (1.2-5.4) K/mm3 [place] # (0.0-0.8) K/mm3 Eos # (0.0-0.4) K/mm3 Baso # (0.0-0.1) K/mm3 Seg Neutrophils % (40.0-70.0) % Seg Neutrophils # (1.8-7.7) K/mm3 PT (12.2-14.9) Sec. INR (0.87-1.13) APTT (24.2-36.6) Sec. VBG pH (7.320-7.420) Sodium (137-145) mmol/L Potassium (3.6-5.0) mmol/L Chloride (98-107) mmol/L Carbon Dioxide (22-30) mmol/L Anion Gap mmol/L BUN (7-17) mg/dL Creatinine (0.7-1.2) mg/dL Estimated GFR ml/min BUN/Creatinine Ratio % Glucose (65-100) mg/dL Lactic Acid 1.50 1.40 (0.7-2.0) mmol/L Calcium (8.4-10.2) mg/dL Total Bilirubin (0.1-1.2) mg/dL AST (5-40) units/L ALT (7-56) units/L Alkaline Phosphatase (35-129) units/L Troponin T (0.00-0.029) ng/mL Total Protein (6.3-8.2) g/dL Albumin (3.9-5) g/dL Albumin/Globulin Ratio % Triglycerides (2-149) mg/dL Cholesterol (50-199) mg/dL LDL Cholesterol Direct (50-130) mg/dL HDL Cholesterol (40-59) mg/dL Cholesterol/HDL Ratio % TSH (0.270-4.200) mlU/mL Free T4 (0.76-1.46) ng/dL - EKG Data -: EKG Interpreted by Me (afib) EKG shows normal: ST-T waves (lvh, repol) Rate: tachycardia (111) - Radiology Data Radiology results: report reviewed Chest x-ray: CHF with mild perihilar alveolar pulmonary edema - Medical Decision Making pt received just over 500 mL of normal saline. Further 30 MG bolus canceled given active finding of CHF on x-ray. Lactic acid is improving with the ED treatment. Patient treated with cefepime and vancomycin giving respiratory sy mptoms plus fever. Patient started on a Cardizem drip for rate control and Tylenol for fever. Flu test negative. Hospitalist informed for admission. Case discussed with nephrology and cardiology for inpatient management - Differential Diagnosis sepsis, pneumonia, A. fib RVR, CHF, COPD Critical Care Time: Yes Critical care time in (mins) excluding proc time.: 35 Critical care attestation.: If time is entered above; I have spent that time in minutes in the direct care of this critically ill patient, excluding procedure time. ED Disposition Clinical Impression: Fever, Cough, Atrial fibrillation with RVR, ESRD (end stage renal disease) on dialysis, DM type 2 (diabetes mellitus, type 2), CHF exacerbation Disposition: OP ADMIT IP TO THIS HOSP Is pt being admited?: Yes Condition: Stable Time of Disposition: 15:09 (Dr garcía/hosp)
--- NOTE | 2019-04-27 15:21 | XRay Report ---
CHEST 1 VIEW INDICATION: sob. COMPARISON: 05/01/2018 FINDINGS: Support devices: None. Heart: Stable cardiomegaly. Pulmonary vasculature: Central vascular congestion not significantly changed compared to the previous exam. Lungs/Pleura: Mild bilateral patchy perihilar opacities which appear new. The right minor fissure is mildly thickened and more prominent than on the last exam. Additional findings: None. IMPRESSION: 1. CHF with mild perihilar alveolar pulmonary edema. Signer Name: Jonathan Hebert MD Signed: 04/27/2019 3:16 PM Workstation Name: [id number]
[2019-04-27] MEDS ORDERED: traMADol 50 MG TAB PO PRN (23:19)
[2019-04-27] MEDS ORDERED: ACETAMINOPHEN 325 MG TAB PO PRN (23:19)
[2019-04-28] MEDS ORDERED: METOPROLOL TARTRATE 50 MG TAB ONE
[2019-04-28] MEDS: hydrALAZINE 10 MG TAB PO SCH ×3 (00:06→21:28)
[2019-04-28] MEDS: APIXABAN 2.5 MG TAB PO SCH ×3 (00:06→21:31)
[2019-04-28] MEDS: METOPROLOL TARTRATE 25 MG TAB PO SCH ×3 (00:07→21:29)
[2019-04-28] MEDS: CEFEPIME/NS 1 GM/100 ML 1 GM/100 ML BAG IV SCH ×3 (02:24→21:32)
[2019-04-28] MEDS ORDERED: CEFEPIME/NS 1 GM/100 ML 1 GM/100 ML BAG IV ONE (02:27)
[2019-04-28] MEDS: LEVOTHYROXINE 75 MCG TAB PO SCH (06:28)
[2019-04-28] MEDS: LEVOTHYROXINE 100 MCG TAB PO SCH (06:28)
[2019-04-28] MEDS ORDERED: VANCOMYCIN 750 MG in SODIUM CHLORIDE 0.9% 250ML 250 ML IV SCH (07:15)
[2019-04-28] MEDS ORDERED: VANCOMYCIN PHARMACY TO DOSE IV SCH (08:00)
[2019-04-28] MEDS ORDERED: HEPARIN 10,000 UNITS/10 ML VIAL IV ONE (08:30)
--- NOTE | 2019-04-28 08:33 | Event Note ---
Date: 04/27/19 See history and physical in the reports Fever/bacteremia A. fib with RVR Non-STEMI ESRD on hemodialysis
[2019-04-28] MEDS ORDERED: HEPARIN/ 0.45% NACL DRIP 25,000 UNIT/500 ML BAG IV SCH (09:00)
--- NOTE | 2019-04-28 09:14 | Consultation ---
History of Present Illness Consult date: 04/28/19 Consult reason: atrial fibrillation History of present illness: 78-year old woman with end stage renal disease on dialysis. She has a dilated nonischemic cardiomyopathy, ejection fraction 30-35%. She has chronic atrial fibrillation, on rate controlling agents. She was previously recommended for oral anticoagulation but was declined by family members. Co-morbidities includes hypertension, hypothyroidism, hyperlipidemia, diabetes and dementia. Patient was sent from dialysis with rapid atrial fibrillation. This was treated with intravenous Diltiazem for rate control. In the emergency department, she was also noted with fever and hypoxic respiratory failure. It's reported an O2 saturation in the 80s. WBC is normal. Chest x-ray reports mild patchy perihilar opacities. It is unclear if she missed any dialysis sessions. A cardiac consultation has been requested for management of atrial fibrillation. Medications and Allergies Allergies Allergy/AdvReac Type Severity Reaction Status Date / Time oseltamivir phosphate Allergy Intermediate Lip rash, Verified 05/01/18 07:07 [From Tamiflu] Increased BP, AMS,headache body ache,dizziness Home Medications Medication Instructions Recorded Confirmed Last Taken Type Megan-Juliet Rx Tablet 1 tab PO DAILY 12/31/14 04/28/19 01/19/18 History 1 Cyproheptadine [Periactin] 4 mg PO DAILY 11/13/16 04/28/19 01/19/18 History 4 mg Sevelamer Carbonate [Renvela] 800 mg PO TIDWM tablet 11/16/16 04/28/19 04/30/18 10:00 Rx 800 mg Acetaminophen [Acetaminophen TAB] 650 mg PO Q4H PRN tablet 05/03/18 04/28/19 Unknown Rx Apixaban [Eliquis] 2.5 mg PO BID #60 tablet 05/03/18 04/28/19 Unknown Rx Aspirin EC [Halfprin EC] 81 mg PO QDAY tablet 05/03/18 04/28/19 Unknown Rx Levothyroxine Sodium [Synthroid] 175 mcg PO QDAY #30 tab 05/03/18 04/28/19 Unknown Rx Metoprolol [Lopressor TAB] 25 mg PO BID #30 tablet 05/03/18 04/28/19 Unknown Rx Pravastatin [Pravachol] 20 mg PO QHS #30 tablet 05/03/18 04/28/19 Unknown Rx hydrALAZINE [Apresoline TAB] 10 mg PO BID #60 tablet 05/03/18 04/28/19 Unknown Rx traMADoL [Ultram 50 MG tab] 50 mg PO BID PRN #60 tablet 05/03/18 04/28/19 Unknown Rx Active Meds: Active Medications Acetaminophen (Tylenol) 650 mg PO Q4H PRN PRN Reason: Pain MILD(1-3)/Fever >100.5/AWAN Apixaban (Eliquis) 2.5 mg PO BID [facility]; Protocol Last Admin: 04/28/19 00:06 Dose: 2.5 mg Documented by: Aspirin (Halfprin Ec) 81 mg PO QDAY [facility] Cyproheptadine HCl (Periactin) 4 mg PO DAILY [facility] Hydralazine HCl (Apresoline) 10 mg PO BID [facility] Last Admin: 04/28/19 00:06 Dose: 10 mg Documented by: Diltiazem HCl (Cardizem/D5w 100mg/100ml) 100 mg in 100 mls @ 5 mls/hr IV TITR [facility]; Protocol Last Titration: 04/28/19 03:01 Dose: 0 mg/hr, 0 mls/hr Documented by: Cefepime HCl (Cefepime/Ns 1 Gm/100 Ml) 1 gm in 100 mls @ 200 mls/hr IV Q24H [facility]; Protocol Levothyroxine Sodium (Synthroid) 100 mcg PO DAILY@0600 [facility] Last Admin: 04/28/19 06:28 Dose: 100 mcg Documented by: Levothyroxine Sodium (Synthroid) 75 mcg PO DAILY@0600 [facility] Last Admin: 04/28/19 06:28 Dose: 75 mcg Documented by: Metoprolol Tartrate (Metoprolol) 25 mg PO BID [facility] Last Admin: 04/28/19 00:07 Dose: 25 mg Documented by: Multivit/Ca Carb/B Cmplx/FA/Prenat (Renal Caps) 1 cap PO QDAY [facility] Pravastatin Sodium (Pravachol) 20 mg PO QHS [facility] Sevelamer Carbonate (Renvela) 800 mg PO TIDWM [facility] Tramadol HCl (Ultram) 50 mg PO BID PRN PRN Reason: Pain, Moderate (4-6) Physical Examination Vital Signs Pulse Resp BP Pulse Ox 130 H 20 157/85 100 04/27/19 12:32 04/27/19 12:32 04/27/19 12:32 04/27/19 12:32 General appearance: no acute distress HEENT: Positive: PERRL Cardiac: Positive: irregularly irregular Lungs: Positive: Decreased Breath Sounds Results 04/27/19 13:24 04/27/19 13:24 Cardiac Enzymes 04/27/19 Range/Units 13:24 AST 28 (5-40) units/L Coagulation 04/27/19 Range/Units 13:24 PT 14.0 (12.2-14.9) Sec. INR 1.07 (0.87-1.13) APTT 30.3 (24.2-36.6) Sec. Lipids 04/27/19 Range/Units 13:24 Triglycerides 98 (2-149) mg/dL Cholesterol 260 H (50-199) mg/dL HDL Cholesterol 79 H (40-59) mg/dL Cholesterol/HDL Ratio 3.29 % CBC 04/27/19 Range/Units 13:24 WBC 9.8 (4.5-11.0) K/mm3 RBC 3.24 L (3.65-5.03) M/mm3 Hgb 9.4 L (10.1-14.3) gm/dl Hct 28.6 L (30.3-42.9) % Plt Count 143 (140-440) K/mm3 Lymph # 0.6 L (1.2-5.4) K/mm3 [place] # 0.9 H (0.0-0.8) K/mm3 Eos # 0.0 (0.0-0.4) K/mm3 Baso # 0.0 (0.0-0.1) K/mm3 Comprehensive Metabolic Panel 04/27/19 Range/Units 13:24 Sodium 136 L (137-145) mmol/L Potassium 3.3 L (3.6-5.0) mmol/L Chloride 95.0 L (98-107) mmol/L Carbon Dioxide 26 (22-30) mmol/L BUN 10 (7-17) mg/dL Creatinine 1.9 H (0.7-1.2) mg/dL Glucose 178 H (65-100) mg/dL Calcium 9.1 (8.4-10.2) mg/dL AST 28 (5-40) units/L ALT 15 (7-56) units/L Alkaline Phosphatase 145 H (35-129) units/L Total Protein 6.7 (6.3-8.2) g/dL Albumin 3.5 L (3.9-5) g/dL Assessment and Plan Chronic Atrial fibrillation, rate control previously declined oral anticoagulation Acute hypoxic respiratory failure Fever Hx of Hypothyroidism End-stage renal disease on hemodialysis Hx of Dilated Nonischemic Cardiomyopathy EF 30-35% on echo 07/2016 fixed inferior defect without ischemia on MPI 11/2016 Dementia Hypertension Diabetes
[2019-04-28] MEDS: SEVELAMER CARBONATE 800 MG TAB PO SCH ×3 (09:50→17:39)
[2019-04-28] MEDS ORDERED: LEVOTHYROXINE SODIUM 175 MCG PO SCH (10:00)
[2019-04-28] MEDS ORDERED: NON-FORMULARY EACH (Rena-Vite Rx Tablet 1 TAB) PO SCH (10:00)
--- NOTE | 2019-04-28 10:38 | Consultation ---
History of Present Illness - Reason for Consult Consult date: 04/28/19 end stage renal disease, hypokalemia Requesting physician: HONG MAX - History of Present Illness 78 year old female with a past medical history HSV fibrillation, end-stage renal disease on dialysis, dementia, diabetes, and hypertension this to the hospital with A. fib RVR that started with the completion of her dialysis. EMS reports that patient was initially hypoxic at 85% on 2 L nasal cannula. Patient presents here tachycardic with a fever 102. Patient has complained of cough as per family member. No significant pain reported. Patient is on Eliquis as per MAR. Per family patient does not make urine. ROS: Stated complaint: AFIB Other details as noted in HPI Comment: All other systems reviewed and negative - Past Medical History Previous Medical History?: Yes Hx Hypertension: Yes Hx Heart Attack/AMI: No Hx Congestive Heart Failure: No Hx Diabetes: Yes Hx Deep Vein Thrombosis: Yes Hx Renal Disease: Yes (ESRD on HD , , ) Hx Kidney Stones: Yes Hx Asthma: No Hx COPD: No Hx Dementia: Yes Additional medical history: dialysis Tuesdays, , Saturday, av graft right upper arm - Surgical History Past Surgical History?: Yes Hx Cholecystectomy: Yes Additional Surgical History: A/V graft to right arm - Social History Smoking Status: Unknown if ever smoked Substance Use Type: None - General Limitations: Language Barrier - Other Other exam information: Medications and Allergies Allergies Allergy/AdvReac Type Severity Reaction Status Date / Time oseltamivir phosphate Allergy Intermediate Lip rash, Verified 05/01/18 07:07 [From Tamiflu] Increased BP, AMS,headache body ache,dizziness Home Medications Medication Instructions Recorded Confirmed Last Taken Type Megan-Juliet Rx Tablet 1 tab PO DAILY 12/31/14 04/28/19 01/19/18 History 1 Cyproheptadine [Periactin] 4 mg PO DAILY 11/13/16 04/28/19 01/19/18 History 4 mg Sevelamer Carbonate [Renvela] 800 mg PO TIDWM tablet 11/16/16 04/28/19 04/30/18 10:00 Rx 800 mg Acetaminophen [Acetaminophen TAB] 650 mg PO Q4H PRN tablet 05/03/18 04/28/19 Unknown Rx Apixaban [Eliquis] 2.5 mg PO BID #60 tablet 05/03/18 04/28/19 Unknown Rx Aspirin EC [Halfprin EC] 81 mg PO QDAY tablet 05/03/18 04/28/19 Unknown Rx Levothyroxine Sodium [Synthroid] 175 mcg PO QDAY #30 tab 05/03/18 04/28/19 Unknown Rx Metoprolol [Lopressor TAB] 25 mg PO BID #30 tablet 05/03/18 04/28/19 Unknown Rx Pravastatin [Pravachol] 20 mg PO QHS #30 tablet 05/03/18 04/28/19 Unknown Rx hydrALAZINE [Apresoline TAB] 10 mg PO BID #60 tablet 05/03/18 04/28/19 Unknown Rx traMADoL [Ultram 50 MG tab] 50 mg PO BID PRN #60 tablet 05/03/18 04/28/19 Unknown Rx Active Meds: Active Medications Acetaminophen (Tylenol) 650 mg PO Q4H PRN PRN Reason: Pain MILD(1-3)/Fever >100.5/AWAN Apixaban (Eliquis) 2.5 mg PO BID [facility]; Protocol Last Admin: 04/28/19 00:06 Dose: 2.5 mg Documented by: Aspirin (Halfprin Ec) 81 mg PO QDAY [facility] Cyproheptadine HCl (Periactin) 4 mg PO DAILY [facility] Hydralazine HCl (Apresoline) 10 mg PO BID [facility] Last Admin: 04/28/19 00:06 Dose: 10 mg Documented by: Diltiazem HCl (Cardizem/D5w 100mg/100ml) 100 mg in 100 mls @ 5 mls/hr IV TITR [facility]; Protocol Last Titration: 04/28/19 03:01 Dose: 0 mg/hr, 0 mls/hr Documented by: Cefepime HCl (Cefepime/Ns 1 Gm/100 Ml) 1 gm in 100 mls @ 200 mls/hr IV Q24H [facility]; Protocol Insulin Human Lispro (Humalog) 0 unit SUB-Q ACHS [facility]; Protocol Levothyroxine Sodium (Synthroid) 100 mcg PO DAILY@0600 [facility] Last Admin: 04/28/19 06:28 Dose: 100 mcg Documented by: Levothyroxine Sodium (Synthroid) 75 mcg PO DAILY@0600 [facility] Last Admin: 04/28/19 06:28 Dose: 75 mcg Documented by: Metoprolol Tartrate (Metoprolol) 25 mg PO BID [facility] Last Admin: 04/28/19 00:07 Dose: 25 mg Documented by: Multivit/Ca Carb/B Cmplx/FA/Prenat (Renal Caps) 1 cap PO QDAY [facility] Pravastatin Sodium (Pravachol) 20 mg PO QHS [facility] Sevelamer Carbonate (Renvela) 800 mg PO TIDWM [facility] Tramadol HCl (Ultram) 50 mg PO BID PRN PRN Reason: Pain, Moderate (4-6) Exam - Vital Signs Vital signs: Vital Signs Pulse Resp BP Pulse Ox 130 H 20 157/85 100 04/27/19 12:32 04/27/19 12:32 04/27/19 12:32 04/27/19 12:32 - Physical Exam Narrative exam: General: No acute distress Head: Atraumatic Eyes: normal appearance ENT: Moist mucous membranes Neck: Normal appearance, no midline tenderness Chest: Bilateral crackles and wheezing CV: Tachycardic regular rhythm Abdomen: Soft, normal bowel sounds, nontender, nondistended, no rebound or guarding Back: Normal inspection Extremity: Normal inspection infection, full range of motion Neuro: Alert no facial asymmetry, speech clear, no gross motor sensory deficit Psych: Appropriate behavior Skin: No rash Results - Lab Results 04/27/19 13:24 04/27/19 13:24 Most recent lab results Calcium 9.1 mg/dL (8.4-10.2) 04/27/19 13:24 Assessment and Plan Impression: * End stage renal disease * Atrial fibrillation w/ RVR * hypokalemia * Anemia secondary to ESRD * Secondary hyperparathyroisim Plan: * Continue hemodialysis prn, follow up in AM * UF as tolerated * treat k medically * Rate control per cardiology * Renal diet * Epogen TIW prn * Dose medications for renal function
[2019-04-28] MEDS: ASPIRIN EC 81 MG TAB PO SCH (10:52)
[2019-04-28] MEDS: FOLIC ACID/VIT B COMP W-C 1 MG (RENAL CAPS) PO SCH (10:52)
[2019-04-28] MEDS: CYPROHEPTADINE 4 MG TAB PO SCH (11:40)
--- NOTE | 2019-04-28 11:43 | Progress Note ---
Assessment and Plan - Patient Problems (1) SIRS (systemic inflammatory response syndrome) Current Visit: Yes Status: Acute Plan to address problem: Continue IV antibiotics. Patient has tachycardia tachypnea hypoxia. (2) Atrial fibrillation with RVR Current Visit: Yes Status: Acute Plan to address problem: Rate control with Cardizem. (3) Acute respiratory failure with hypoxia Current Visit: Yes Status: Acute (4) End stage renal disease on dialysis Current Visit: Yes Status: Chronic Plan to address problem: Continue hemodialysis. (5) Hypothyroidism (acquired) Current Visit: Yes Status: Chronic Plan to address problem: Decrease Synthroid to 150 mcg (6) Hypertension Current Visit: Yes Status: Chronic Qualifiers: Hypertension type: essential hypertension Qualified Code(s): I10 - Essential (primary) hypertension Plan to address problem: Continue antihypertensives. (7) DVT prophylaxis Current Visit: Yes Status: Acute Plan to address problem: Heparin 5000 every 12 and GI prophylaxis. Subjective Date of service: 04/28/19 Principal diagnosis: Atrial fibrillation with RVR, acute respiratory failure, SIRS Interval history: 78-year-old female with history of atrial fibrillation, end-stage renal disease on hemodialysis, dementia, diabetes and hypertension comes to the hospital for palpitation and for completion of dialysis. As per EMS the patient was hypoxic at 85% on 2 L nasal cannula oxygen. In the emergency room patient presents with high heart rate and a fever of 102. Patient also complains of cough but no wheezing. Patient is on Eliquis for atrial fibrillation. Symptomatically better today. No palpitations. Objective - Constitutional Vitals: Vital Signs - 12hr 04/27/19 04/28/19 04/28/19 23:56 00:00 00:30 Temperature Pulse Rate 67 65 59 L Pulse Rate [ From Monitor] Respiratory 20 19 18 Rate Blood Pressure 134/56 135/92 134/52 O2 Sat by Pulse 100 99 92 Oximetry 04/28/19 04/28/19 04/28/19 01:00 01:30 02:00 Temperature Pulse Rate 59 L 55 L 56 L Pulse Rate [ From Monitor] Respiratory 18 18 16 Rate Blood Pressure 132/48 144/53 141/48 O2 Sat by Pulse 97 100 98 Oximetry 04/28/19 04/28/19 04/28/19 02:30 03:10 04:00 Temperature 98.5 F 98.5 F Pulse Rate 64 Pulse Rate [ 69 From Monitor] Respiratory 19 Rate Blood Pressure 136/51 O2 Sat by Pulse 97 Oximetry 04/28/19 04/28/19 04/28/19 04:27 05:24 05:26 Temperature Pulse Rate 74 73 74 Pulse Rate [ From Monitor] Respiratory 16 22 21 Rate Blood Pressure 141/61 141/61 O2 Sat by Pulse 95 98 97 Oximetry 04/28/19 04/28/19 04/28/19 05:28 05:30 05:32 Temperature Pulse Rate 71 75 72 Pulse Rate [ From Monitor] Respiratory 25 H 28 H 21 Rate Blood Pressure 141/61 141/61 141/61 O2 Sat by Pulse 96 100 100 Oximetry 04/28/19 04/28/19 04/28/19 05:34 05:36 05:38 Temperature Pulse Rate 72 63 66 Pulse Rate [ From Monitor] Respiratory 16 15 14 Rate Blood Pressure 141/61 141/61 141/61 O2 Sat by Pulse 100 100 99 Oximetry 04/28/19 04/28/19 04/28/19 05:40 05:42 05:44 Temperature Pulse Rate 81 73 66 Pulse Rate [ From Monitor] Respiratory 25 H 25 H 20 Rate Blood Pressure 141/61 141/61 141/61 O2 Sat by Pulse 100 100 98 Oximetry 04/28/19 04/28/19 04/28/19 05:46 05:48 05:50 Temperature Pulse Rate 67 74 75 Pulse Rate [ From Monitor] Respiratory 18 12 18 Rate Blood Pressure 141/61 141/61 141/61 O2 Sat by Pulse 99 97 98 Oximetry 04/28/19 04/28/19 04/28/19 05:52 05:54 05:56 Temperature Pulse Rate 77 67 69 Pulse Rate [ From Monitor] Respiratory 18 21 21 Rate Blood Pressure 141/61 141/61 141/61 O2 Sat by Pulse 98 99 100 Oximetry 04/28/19 04/28/19 04/28/19 05:58 06:00 06:02 Temperature Pulse Rate 83 63 65 Pulse Rate [ From Monitor] Respiratory 15 20 19 Rate Blood Pressure 141/61 147/63 147/63 O2 Sat by Pulse 100 99 100 Oximetry 04/28/19 04/28/19 04/28/19 06:04 06:06 06:08 Temperature Pulse Rate 62 66 58 L Pulse Rate [ From Monitor] Respiratory 18 17 18 Rate Blood Pressure 147/63 147/63 147/63 O2 Sat by Pulse 99 98 98 Oximetry 04/28/19 04/28/19 04/28/19 06:10 06:12 06:14 Temperature Pulse Rate 73 69 66 Pulse Rate [ From Monitor] Respiratory 24 22 20 Rate Blood Pressure 147/63 147/63 147/63 O2 Sat by Pulse 100 99 98 Oximetry 04/28/19 04/28/19 04/28/19 06:16 06:18 06:20 Temperature Pulse Rate 63 70 70 Pulse Rate [ From Monitor] Respiratory 20 16 17 Rate Blood Pressure 147/63 147/63 147/63 O2 Sat by Pulse 100 99 100 Oximetry 04/28/19 04/28/19 04/28/19 06:21 06:22 06:24 Temperature Pulse Rate 79 80 75 Pulse Rate [ From Monitor] Respiratory 19 13 23 Rate Blood Pressure 147/63 147/63 147/63 O2 Sat by Pulse 99 99 98 Oximetry 04/28/19 04/28/19 04/28/19 06:26 06:28 06:30 Temperature Pulse Rate 99 H 80 84 Pulse Rate [ From Monitor] Respiratory 16 20 18 Rate Blood Pressure 147/63 147/63 147/63 O2 Sat by Pulse 98 99 100 Oximetry 04/28/19 04/28/19 04/28/19 06:32 06:34 06:36 Temperature Pulse Rate 75 72 78 Pulse Rate [ From Monitor] Respiratory 19 21 22 Rate Blood Pressure 147/63 147/63 147/63 O2 Sat by Pulse 98 97 97 Oximetry 04/28/19 04/28/19 04/28/19 06:38 06:40 06:42 Temperature Pulse Rate 83 78 80 Pulse Rate [ From Monitor] Respiratory 21 20 20 Rate Blood Pressure 147/63 147/63 147/63 O2 Sat by Pulse 97 98 97 Oximetry 04/28/19 04/28/19 04/28/19 06:44 06:46 06:48 Temperature Pulse Rate 73 77 82 Pulse Rate [ From Monitor] Respiratory 15 15 12 Rate Blood Pressure 147/63 147/63 147/63 O2 Sat by Pulse 96 99 96 Oximetry 04/28/19 04/28/19 04/28/19 06:50 06:52 06:54 Temperature Pulse Rate 87 72 82 Pulse Rate [ From Monitor] Respiratory 26 H 25 H 20 Rate Blood Pressure 147/63 147/63 147/63 O2 Sat by Pulse 98 96 98 Oximetry 04/28/19 04/28/19 04/28/19 06:56 06:58 07:00 Temperature Pulse Rate 83 81 84 Pulse Rate [ From Monitor] Respiratory 22 27 H 21 Rate Blood Pressure 147/63 147/63 161/56 O2 Sat by Pulse 98 98 99 Oximetry 04/28/19 04/28/19 04/28/19 07:34 07:36 07:38 Temperature Pulse Rate 72 77 77 Pulse Rate [ From Monitor] Respiratory 18 18 18 Rate Blood Pressure 161/56 161/56 161/56 O2 Sat by Pulse 97 96 96 Oximetry 04/28/19 04/28/19 04/28/19 07:40 07:42 07:44 Temperature Pulse Rate 74 75 69 Pulse Rate [ From Monitor] Respiratory 18 17 19 Rate Blood Pressure 161/56 161/56 161/56 O2 Sat by Pulse 98 98 96 Oximetry 04/28/19 04/28/19 04/28/19 07:46 07:48 07:50 Temperature Pulse Rate 94 H 78 81 Pulse Rate [ From Monitor] Respiratory 25 H 14 16 Rate Blood Pressure 161/56 161/56 161/56 O2 Sat by Pulse 97 96 95 Oximetry 04/28/19 04/28/19 04/28/19 07:52 07:54 07:56 Temperature Pulse Rate 91 H 93 H 81 Pulse Rate [ From Monitor] Respiratory 19 17 14 Rate Blood Pressure 161/56 161/56 161/56 O2 Sat by Pulse 98 96 98 Oximetry 04/28/19 04/28/19 04/28/19 07:58 08:00 08:02 Temperature 98.2 F Pulse Rate 78 84 83 Pulse Rate [ From Monitor] Respiratory 22 18 23 Rate Blood Pressure 161/56 152/51 152/51 O2 Sat by Pulse 97 98 98 Oximetry 04/28/19 04/28/19 04/28/19 08:04 08:06 08:08 Temperature Pulse Rate 77 77 80 Pulse Rate [ From Monitor] Respiratory 23 14 19 Rate Blood Pressure 152/51 152/51 152/51 O2 Sat by Pulse 96 98 99 Oximetry 04/28/19 04/28/19 04/28/19 08:09 08:10 08:12 Temperature Pulse Rate 77 81 85 Pulse Rate [ From Monitor] Respiratory 22 17 17 Rate Blood Pressure 152/51 152/51 152/51 O2 Sat by Pulse 97 98 96 Oximetry 1204/28/19 04/28/19 08:14 08:16 08:18 Temperature Pulse Rate 88 91 H 80 Pulse Rate [ From Monitor] Respiratory 18 21 14 Rate Blood Pressure 152/51 152/51 152/51 O2 Sat by Pulse 99 94 97 Oximetry 04/28/19 04/28/19 04/28/19 08:20 08:22 08:24 Temperature Pulse Rate 79 88 72 Pulse Rate [ From Monitor] Respiratory 21 24 16 Rate Blood Pressure 152/51 152/51 152/51 O2 Sat by Pulse 100 98 97 Oximetry 04/28/19 04/28/19 04/28/19 08:26 08:28 08:30 Temperature Pulse Rate 83 79 79 Pulse Rate [ From Monitor] Respiratory 18 16 20 Rate Blood Pressure 152/51 152/51 152/51 O2 Sat by Pulse 97 92 98 Oximetry 04/28/19 04/28/19 04/28/19 08:32 08:34 08:36 Temperature Pulse Rate 88 79 76 Pulse Rate [ From Monitor] Respiratory 17 17 12 Rate Blood Pressure 152/51 152/51 152/51 O2 Sat by Pulse 87 78 L 99 Oximetry 04/28/19 04/28/19 04/28/19 08:38 08:40 08:42 Temperature Pulse Rate 80 82 81 Pulse Rate [ From Monitor] Respiratory 21 20 19 Rate Blood Pressure 152/51 152/51 152/51 O2 Sat by Pulse 93 98 100 Oximetry 04/28/19 04/28/19 04/28/19 08:44 08:46 08:48 Temperature Pulse Rate 80 82 84 Pulse Rate [ From Monitor] Respiratory 17 21 16 Rate Blood Pressure 152/51 152/51 152/51 O2 Sat by Pulse 100 99 99 Oximetry 04/28/19 04/28/19 04/28/19 08:50 08:52 08:54 Temperature Pulse Rate 83 95 H 72 Pulse Rate [ From Monitor] Respiratory 20 20 20 Rate Blood Pressure 152/51 152/51 152/51 O2 Sat by Pulse 97 100 98 Oximetry 04/28/19 04/28/19 04/28/19 08:56 08:58 09:00 Temperature Pulse Rate 90 77 81 Pulse Rate [ From Monitor] Respiratory 23 13 20 Rate Blood Pressure 152/51 152/51 163/53 O2 Sat by Pulse 100 100 99 Oximetry 04/28/19 04/28/19 04/28/19 09:01 09:02 09:04 Temperature Pulse Rate 78 80 81 Pulse Rate [ From Monitor] Respiratory 17 20 14 Rate Blood Pressure 163/53 163/53 163/53 O2 Sat by Pulse 98 100 100 Oximetry 04/28/19 04/28/19 04/28/19 09:06 09:08 09:10 Temperature Pulse Rate 78 76 74 Pulse Rate [ From Monitor] Respiratory 26 H 18 20 Rate Blood Pressure 163/53 163/53 163/53 O2 Sat by Pulse 100 98 100 Oximetry 04/28/19 04/28/19 04/28/19 09:12 09:14 09:16 Temperature Pulse Rate 70 80 86 Pulse Rate [ From Monitor] Respiratory 16 19 19 Rate Blood Pressure 163/53 163/53 163/53 O2 Sat by Pulse 97 99 99 Oximetry 04/28/19 04/28/19 04/28/19 09:18 09:20 09:22 Temperature Pulse Rate 73 78 69 Pulse Rate [ From Monitor] Respiratory 18 18 19 Rate Blood Pressure 163/53 163/53 163/53 O2 Sat by Pulse 99 98 97 Oximetry 04/28/19 04/28/19 04/28/19 09:24 09:26 09:28 Temperature Pulse Rate 84 74 83 Pulse Rate [ From Monitor] Respiratory 20 16 17 Rate Blood Pressure 163/53 163/53 163/53 O2 Sat by Pulse 100 97 99 Oximetry 04/28/19 04/28/19 04/28/19 09:30 09:32 09:34 Temperature Pulse Rate 86 94 H 85 Pulse Rate [ From Monitor] Respiratory 22 18 22 Rate Blood Pressure 163/53 163/53 163/53 O2 Sat by Pulse 96 97 91 Oximetry 04/28/19 04/28/19 04/28/19 09:36 09:38 09:40 Temperature Pulse Rate 87 83 90 Pulse Rate [ From Monitor] Respiratory 19 20 22 Rate Blood Pressure 163/53 163/53 163/53 O2 Sat by Pulse 98 98 98 Oximetry 04/28/19 04/28/19 04/28/19 09:42 09:44 09:46 Temperature Pulse Rate 86 81 86 Pulse Rate [ From Monitor] Respiratory 17 16 16 Rate Blood Pressure 163/53 163/53 163/53 O2 Sat by Pulse 99 97 85 Oximetry 04/28/19 04/28/19 04/28/19 09:48 09:50 09:52 Temperature Pulse Rate 90 78 74 Pulse Rate [ From Monitor] Respiratory 16 28 H 26 H Rate Blood Pressure 163/53 163/53 163/53 O2 Sat by Pulse 97 100 100 Oximetry 04/28/19 04/28/19 04/28/19 09:54 09:56 09:58 Temperature Pulse Rate 74 86 84 Pulse Rate [ From Monitor] Respiratory 22 21 25 H Rate Blood Pressure 163/53 163/53 163/53 O2 Sat by Pulse 100 96 100 Oximetry 04/28/19 04/28/19 04/28/19 10:00 10:01 10:02 Temperature Pulse Rate 82 82 79 Pulse Rate [ From Monitor] Respiratory 18 17 22 Rate Blood Pressure 157/50 157/50 157/50 O2 Sat by Pulse 100 98 100 Oximetry 04/28/19 04/28/19 04/28/19 10:04 10:06 10:08 Temperature Pulse Rate 76 79 84 Pulse Rate [ From Monitor] Respiratory 19 25 H 16 Rate Blood Pressure 157/50 157/50 157/50 O2 Sat by Pulse 99 100 100 Oximetry 04/28/19 04/28/19 04/28/19 10:10 10:12 10:14 Temperature Pulse Rate 89 86 84 Pulse Rate [ From Monitor] Respiratory 15 22 26 H Rate Blood Pressure 157/50 157/50 157/50 O2 Sat by Pulse 100 100 98 Oximetry 04/28/19 04/28/19 04/28/19 10:16 10:18 10:20 Temperature Pulse Rate 82 75 89 Pulse Rate [ From Monitor] Respiratory 15 16 21 Rate Blood Pressure 157/50 157/50 157/50 O2 Sat by Pulse 100 100 92 Oximetry 04/28/19 04/28/19 04/28/19 10:22 10:24 10:26 Temperature Pulse Rate 87 88 82 Pulse Rate [ From Monitor] Respiratory 21 14 23 Rate Blood Pressure 157/50 157/50 157/50 O2 Sat by Pulse 99 100 99 Oximetry 04/28/19 04/28/19 04/28/19 10:28 10:30 10:32 Temperature Pulse Rate 79 102 H 71 Pulse Rate [ From Monitor] Respiratory 22 17 15 Rate Blood Pressure 157/50 157/50 157/50 O2 Sat by Pulse 98 99 99 Oximetry 04/28/19 04/28/19 04/28/19 10:34 10:36 10:38 Temperature Pulse Rate 92 H 78 78 Pulse Rate [ From Monitor] Respiratory 16 19 22 Rate Blood Pressure 157/50 157/50 157/50 O2 Sat by Pulse 98 100 98 Oximetry 04/28/19 04/28/19 04/28/19 10:40 10:42 10:44 Temperature Pulse Rate 78 91 H 87 Pulse Rate [ From Monitor] Respiratory 23 23 26 H Rate Blood Pressure 157/50 157/50 157/50 O2 Sat by Pulse 98 100 97 Oximetry 04/28/19 04/28/19 04/28/19 10:46 10:52 10:54 Temperature Pulse Rate 83 88 86 Pulse Rate [ From Monitor] Respiratory 23 Rate Blood Pressure 157/50 157/50 157/50 O2 Sat by Pulse 98 Oximetry General appearance: Present: no acute distress, well-nourished - EENT Eyes: PERRL, EOM intact ENT: hearing intact, clear oral mucosa Ears: bilateral: normal - Neck Neck: supple, normal ROM - Respiratory Respiratory effort: normal Respiratory: bilateral: CTA - Breasts Breasts: normal - Cardiovascular Heart rate: 98 Rhythm: irregularly irregular Heart Sounds: Present: S1 & S2. Absent: gallop, rub Extremities: pulses intact, No edema, normal color, Full ROM - Gastrointestinal General gastrointestinal: Present: soft, non-tender, non-distended, normal bowel sounds - Genitourinary Female genitourinary: normal - Integumentary Integumentary: clear, warm, dry - Musculoskeletal Musculoskeletal: 1, strength equal bilaterally - Neurologic Neurologic: moves all extremities - Psychiatric Psychiatric: memory intact, appropriate mood/affect, intact judgment & insight - Labs CBC & Chem 7: 04/29/19 05:17 04/29/19 05:17 Labs: Abnormal lab results 04/27/19 04/27/19 04/27/19 Range/Units 12:44 13:24 13:24 RBC 3.24 L (3.65-5.03) M/mm3 Hgb 9.4 L (10.1-14.3) gm/dl Hct 28.6 L (30.3-42.9) % RDW 17.1 H (13.2-15.2) % Lymph % (Auto) 6.5 L (13.4-35.0) % Mitchell % (Auto) 8.8 H (0.0-7.3) % Lymph # 0.6 L (1.2-5.4) K/mm3 Mitchell # 0.9 H (0.0-0.8) K/mm3 Seg Neutrophils % 84.0 H (40.0-70.0) % Seg Neutrophils # 8.2 H (1.8-7.7) K/mm3 VBG pH 7.442 H (7.320-7.420) Sodium (137-145) mmol/L Potassium (3.6-5.0) mmol/L Chloride (98-107) mmol/L Creatinine (0.7-1.2) mg/dL Glucose (65-100) mg/dL POC Glucose (70-105) Lactic Acid 2.20 H* (0.7-2.0) mmol/L Total Bilirubin (0.1-1.2) mg/dL Alkaline Phosphatase (35-129) units/L Troponin T (0.00-0.029) ng/mL Albumin (3.9-5) g/dL Cholesterol (50-199) mg/dL LDL Cholesterol Direct (50-130) mg/dL HDL Cholesterol (40-59) mg/dL Free T4 (0.76-1.46) ng/dL 04/27/19 04/27/19 04/28/19 Range/Units 13:24 13:24 00:59 RBC (3.65-5.03) M/mm3 Hgb (10.1-14.3) gm/dl Hct (30.3-42.9) % RDW (13.2-15.2) % Lymph % (Auto) (13.4-35.0) % Mitchell % (Auto) (0.0-7.3) % Lymph # (1.2-5.4) K/mm3 Mitchell # (0.0-0.8) K/mm3 Seg Neutrophils % (40.0-70.0) % Seg Neutrophils # (1.8-7.7) K/mm3 VBG pH (7.320-7.420) Sodium 136 L (137-145) mmol/L Potassium 3.3 L (3.6-5.0) mmol/L Chloride 95.0 L (98-107) mmol/L Creatinine 1.9 H (0.7-1.2) mg/dL Glucose 178 H (65-100) mg/dL POC Glucose (70-105) Lactic Acid (0.7-2.0) mmol/L Total Bilirubin 1.60 H (0.1-1.2) mg/dL Alkaline Phosphatase 145 H (35-129) units/L Troponin T 0.079 H 0.086 H (0.00-0.029) ng/mL Albumin 3.5 L (3.9-5) g/dL Cholesterol 260 H (50-199) mg/dL LDL Cholesterol Direct 162 H (50-130) mg/dL HDL Cholesterol 79 H (40-59) mg/dL Free T4 1.53 H (0.76-1.46) ng/dL 04/28/19 04/28/19 Range/Units 04:02 08:06 RBC (3.65-5.03) M/mm3 Hgb (10.1-14.3) gm/dl Hct (30.3-42.9) % RDW (13.2-15.2) % Lymph % (Auto) (13.4-35.0) % Mitchell % (Auto) (0.0-7.3) % Lymph # (1.2-5.4) K/mm3 Mitchell # (0.0-0.8) K/mm3 Seg Neutrophils % (40.0-70.0) % Seg Neutrophils # (1.8-7.7) K/mm3 VBG pH (7.320-7.420) Sodium (137-145) mmol/L Potassium (3.6-5.0) mmol/L Chloride (98-107) mmol/L Creatinine (0.7-1.2) mg/dL Glucose (65-100) mg/dL POC Glucose 182 H 153 H (70-105) Lactic Acid (0.7-2.0) mmol/L Total Bilirubin (0.1-1.2) mg/dL Alkaline Phosphatase (35-129) units/L Troponin T (0.00-0.029) ng/mL Albumin (3.9-5) g/dL Cholesterol (50-199) mg/dL LDL Cholesterol Direct (50-130) mg/dL HDL Cholesterol (40-59) mg/dL Free T4 (0.76-1.46) ng/dL
--- NOTE | 2019-04-28 11:59 | History and Physical Report ---
CHIEF COMPLAINT: 1. Palpitations. 2. Fever. HISTORY OF PRESENT ILLNESS: A 78-year-old female with a history of atrial fibrillation, end-stage renal disease, on dialysis, dementia, diabetes and hypertension, comes to the hospital for palpitations after completion of dialysis. As per EMS, the patient was hypoxic at 85% on 2 liters nasal cannula. In the Emergency Room, the patient presents with high heart rate and a fever of 102. The patient also complains of cough. No wheezing. The patient is on Eliquis for atrial fibrillation. No exacerbating or relieving symptoms. No chest pain. PAST MEDICAL HISTORY: Significant for hypertension, diabetes, DVT, end-stage renal disease, on dialysis, kidney stones, and dementia. Dialysis, on Tuesdays, , Saturdays. PAST SURGICAL HISTORY: Cholecystectomy and AV graft to the right arm. SOCIAL HISTORY: Does not smoke. No alcohol, no recreational drugs. FAMILY HISTORY: Hypertension. CURRENT MEDICATIONS: On the chart and includes Synthroid 175 mcg p.o. daily and pravastatin 20 mg p.o. at bedtime. REVIEW OF SYSTEMS: Significant for fever and palpitations and slight shortness of breath. No chest pain. Otherwise, review of systems negative. A 14-point review of systems done. PHYSICAL EXAMINATION: GENERAL: Elderly female, cooperative during examination. VITAL SIGNS: Temperature is 102.0, heart rate is 126, respiratory rate is 25, and blood pressure is 136, sats are 85%. Repeat sats were 100 and 89% on 2 liters nasal cannula oxygen. HEENT: Unremarkable. Pupils are equal and reactive. NECK: Supple, no lymphadenopathy, no thyromegaly. LUNGS: Clear to auscultation and percussion. CARDIOVASCULAR: S1, S2 heard. No gallop, no murmur, no rub. Apical impulse in left fifth intercostal space and midclavicular line. Heart rate is irregular and heart rate of 130 per minute. ABDOMEN: Soft and benign. No hepatosplenomegaly. No guarding, no rigidity. Hernial orifices are normal. EXTREMITIES: Good pedal pulses. No pedal edema. CENTRAL NERVOUS SYSTEM: Alert and oriented x 4, nonfocal exam. SKIN: Normal. DIAGNOSTIC DATA: Chest x-ray shows perihilar alveolar pulmonary edema. Congestive heart failure. EKG shows AFib with RVR, heart rate of 130 per minute. LABORATORY DATA: Significant for white count of 9800, H and H is 9.4 and 28.6, platelet count is 143,000. Sodium is 136, potassium is 3.3, BUN and creatinine is 10 and 1.9, glucose is 178, total bilirubin is 1.6. Troponin is 0.079. TSH is 2.29, free T4 is 1.53. Influenza A is negative. ASSESSMENT AND PLAN: 1. Acute respiratory failure. The patient has atrial fibrillation with RVR and also some pulmonary congestion. The patient needs increased ultrafiltration and removal of fluid. 2. Systemic inflammatory response syndrome. The patient has a high fever, hypoxia, tachycardia consistent with systemic inflammatory response syndrome. Continue IV antibiotics and continue dialysis. 3. Atrial fibrillation with rapid ventricular response. The patient is started on diltiazem drip to be titrated to control the heart rate to be low around 80-60. 4. Hypertension. Continue antihypertensives. 5. Hypothyroidism. On levothyroxine, dose seems to be higher. We will reduce it to 150 from 175. 6. Hyperlipidemia. Continue pravastatin. 7. End-stage renal disease, on hemodialysis. Continue hemodialysis. Critical care time is 40 minutes. In summary, the patient has: 1. Atrial fibrillation with rapid ventricular rate. 2. Systemic inflammatory response syndrome. 3. End-stage renal disease, on dialysis. 4. Acute respiratory failure with hypoxia. JOB# [id number] HEIDY/NTS
[2019-04-28] MEDS: INSULIN LISPRO 100 UNIT/ML SUB-Q SCH ×3 (13:56→21:33)
[2019-04-28 15:56] LABS: Hematocrit 29.8 % (30.3-42.9); Hemoglobin 9.6 gm/dl (10.1-14.3)
[2019-04-28 16:03] LABS: INR 1.43 (0.87-1.13)
[2019-04-28 16:04] LABS: Partial Thromboplastin Time 38.8 Sec. (24.2-36.6)
[2019-04-28 16:05] LABS: Calcium 9.7 mg/dL (8.4-10.2)
[2019-04-28 16:18] LABS: Bacteria,Urine 2+ /HPF (Negative); Bilirubin,Urine NEG (Negative); Blood,Urine MOD (Negative); Color,Urine Yellow (Yellow); Mucus,Urine FEW /HPF; Urobilinogen,Urine < 2.0 mg/dL (<2.0)
[2019-04-28 16:23] LABS: WBC,Urine > 182.0 /HPF (0.0-6.0)
[2019-04-28] MEDS: PRAVASTATIN 20 MG TAB PO SCH (21:37)
--- NOTE | 2019-04-28 23:41 | Progress Note ---
Assessment and Plan Chronic Atrial fibrillation, rate control on metoprolol. on oral anticoagulation with eliquis. Acute hypoxic respiratory failure - resolved Hx of Hypothyroidism - management per primary End-stage renal disease on hemodialysis - management per nephrology Hx of Dilated Nonischemic Cardiomyopathy - on BB. REcommend ACEi when blood pressure is able to tolerate EF 30-35% on echo 07/2016 fixed inferior defect without ischemia on MPI 11/2016 Dementia Hypertension - controlled Diabetes - management per primary Subjective Date of service: 04/28/19 Interval history: No acute events. Resting comfortably. No chest pain or SOB. Objective Vital Signs Temp Pulse Pulse Resp BP Pulse Ox 04/28/19 21:29 81 150/73 04/28/19 21:28 81 150/73 04/28/19 20:11 98.2 F 81 18 150/73 95 04/28/19 17:50 119 H 25 H 135/54 99 04/28/19 17:40 118 H 28 H 111/66 99 04/28/19 17:30 122 H 24 111/66 98 04/28/19 17:20 120 H 23 114/64 99 04/28/19 17:14 124 H 27 H 135/54 04/28/19 17:05 97.4 F L 85 18 134/94 94 04/28/19 14:37 87 18 135/54 04/28/19 14:36 94 H 17 135/54 04/28/19 14:34 30 H 135/54 04/28/19 14:32 86 21 135/54 04/28/19 14:30 79 21 135/54 04/28/19 14:28 73 13 135/54 04/28/19 14:26 77 23 135/54 04/28/19 14:24 85 19 135/54 04/28/19 14:22 90 14 135/54 04/28/19 14:20 70 11 L 135/54 04/28/19 14:18 72 16 135/54 04/28/19 14:16 77 18 135/54 04/28/19 14:14 84 19 135/54 04/28/19 14:12 90 25 H 135/54 04/28/19 14:10 87 20 135/54 04/28/19 14:08 93 H 14 135/54 04/28/19 14:06 94 H 19 135/54 04/28/19 14:04 77 17 135/54 04/28/19 14:02 82 19 135/54 04/28/19 14:01 79 17 135/54 04/28/19 14:00 88 17 135/54 04/28/19 13:58 76 15 140/62 04/28/19 13:56 83 17 140/62 04/28/19 13:54 90 13 140/62 04/28/19 13:52 92 H 16 140/62 04/28/19 13:50 67 16 140/62 04/28/19 13:48 94 H 12 140/62 04/28/19 13:46 69 11 L 140/62 04/28/19 13:44 73 20 140/62 04/28/19 13:42 73 16 140/62 04/28/19 13:40 78 16 140/62 04/28/19 13:38 82 17 140/62 04/28/19 13:36 77 17 140/62 04/28/19 13:34 75 19 140/62 96 04/28/19 13:32 71 18 140/62 99 04/28/19 13:30 76 18 140/62 99 04/28/19 13:28 70 22 140/62 96 04/28/19 13:26 89 19 140/62 97 04/28/19 13:24 83 20 140/62 96 04/28/19 13:22 76 22 140/62 95 04/28/19 13:20 69 17 140/62 96 04/28/19 13:18 82 24 140/62 95 04/28/19 13:16 72 22 140/62 96 04/28/19 13:14 83 18 140/62 95 04/28/19 13:12 82 24 140/62 94 04/28/19 13:10 82 20 140/62 95 04/28/19 13:08 78 24 140/62 98 04/28/19 13:06 67 19 140/62 91 04/28/19 13:04 80 20 140/62 95 04/28/19 13:02 69 21 140/62 92 04/28/19 13:00 77 20 140/62 92 04/28/19 12:58 79 20 135/57 95 04/28/19 12:56 75 21 135/57 93 04/28/19 12:54 74 24 135/57 93 04/28/19 12:52 66 20 135/57 93 04/28/19 12:50 66 17 135/57 94 04/28/19 12:48 82 17 135/57 95 04/28/19 12:46 81 23 135/57 94 04/28/19 12:44 72 20 135/57 95 04/28/19 12:42 86 21 135/57 93 04/28/19 12:40 74 17 135/57 96 04/28/19 12:38 77 20 135/57 96 04/28/19 12:36 72 12 135/57 94 04/28/19 12:34 78 14 135/57 94 04/28/19 12:32 76 22 135/57 95 04/28/19 12:30 79 12 135/57 93 04/28/19 12:28 77 15 135/57 94 04/28/19 12:26 96 H 18 135/57 94 04/28/19 12:24 77 10 L 135/57 95 04/28/19 12:22 71 11 L 135/57 94 04/28/19 12:20 70 22 135/57 97 04/28/19 12:18 74 22 135/57 96 04/28/19 12:16 67 27 H 135/57 98 04/28/19 12:14 71 28 H 135/57 91 04/28/19 12:12 64 29 H 135/57 84 04/28/19 12:10 61 20 135/57 97 04/28/19 12:08 72 24 135/57 91 04/28/19 12:06 72 21 135/57 93 04/28/19 12:04 67 24 135/57 96 04/28/19 12:02 81 18 135/57 95 04/28/19 12:00 98.6 F 72 19 135/57 95 04/28/19 11:58 68 19 150/68 95 04/28/19 11:56 78 28 H 150/68 93 04/28/19 11:54 69 21 150/68 95 04/28/19 11:52 65 24 150/68 95 04/28/19 11:50 76 19 150/68 97 04/28/19 11:48 73 16 150/68 96 04/28/19 11:46 73 24 150/68 99 04/28/19 10:54 86 157/50 04/28/19 10:52 88 157/50 04/28/19 10:46 83 23 157/50 98 04/28/19 10:44 87 26 H 157/50 97 04/28/19 10:42 91 H 23 157/50 100 04/28/19 10:40 78 23 157/50 98 04/28/19 10:38 78 22 157/50 98 04/28/19 10:36 78 19 157/50 100 04/28/19 10:34 92 H 16 157/50 98 04/28/19 10:32 71 15 157/50 99 04/28/19 10:30 102 H 17 157/50 99 04/28/19 10:28 79 22 157/50 98 04/28/19 10:26 82 23 157/50 99 04/28/19 10:24 88 14 157/50 100 04/28/19 10:22 87 21 157/50 99 04/28/19 10:20 89 21 157/50 92 04/28/19 10:18 75 16 157/50 100 04/28/19 10:16 82 15 157/50 100 04/28/19 10:14 84 26 H 157/50 98 04/28/19 10:12 86 22 157/50 100 04/28/19 10:10 89 15 157/50 100 04/28/19 10:08 84 16 157/50 100 04/28/19 10:06 79 25 H 157/50 100 04/28/19 10:04 76 19 157/50 99 04/28/19 10:02 79 22 157/50 100 04/28/19 10:01 82 17 157/50 98 04/28/19 10:00 82 18 157/50 100 04/28/19 09:58 84 25 H 163/53 100 04/28/19 09:56 86 21 163/53 96 04/28/19 09:54 74 22 163/53 100 04/28/19 09:52 74 26 H 163/53 100 04/28/19 09:50 78 28 H 163/53 100 04/28/19 09:48 90 16 163/53 97 04/28/19 09:46 86 16 163/53 85 04/28/19 09:44 81 16 163/53 97 04/28/19 09:42 86 17 163/53 99 04/28/19 09:40 90 22 163/53 98 04/28/19 09:38 83 20 163/53 98 04/28/19 09:36 87 19 163/53 98 04/28/19 09:34 85 22 163/53 91 04/28/19 09:32 94 H 18 163/53 97 04/28/19 09:30 86 22 163/53 96 04/28/19 09:28 83 17 163/53 99 04/28/19 09:26 74 16 163/53 97 04/28/19 09:24 84 20 163/53 100 04/28/19 09:22 69 19 163/53 97 04/28/19 09:20 78 18 163/53 98 04/28/19 09:18 73 18 163/53 99 04/28/19 09:16 86 19 163/53 99 04/28/19 09:14 80 19 163/53 99 04/28/19 09:12 70 16 163/53 97 04/28/19 09:10 74 20 163/53 100 04/28/19 09:08 76 18 163/53 98 04/28/19 09:06 78 26 H 163/53 100 04/28/19 09:04 81 14 163/53 100 04/28/19 09:02 80 20 163/53 100 04/28/19 09:01 78 17 163/53 98 04/28/19 09:00 81 20 163/53 99 04/28/19 08:58 77 13 152/51 100 04/28/19 08:56 90 23 152/51 100 04/28/19 08:54 72 20 152/51 98 04/28/19 08:52 95 H 20 152/51 100 04/28/19 08:50 83 20 152/51 97 04/28/19 08:48 84 16 152/51 99 04/28/19 08:46 82 21 152/51 99 04/28/19 08:44 80 17 152/51 100 04/28/19 08:42 81 19 152/51 100 04/28/19 08:40 82 20 152/51 98 04/28/19 08:38 80 21 152/51 93 04/28/19 08:36 76 12 152/51 99 04/28/19 08:34 79 17 152/51 78 L 04/28/19 08:32 88 17 152/51 87 12/24/19 08:30 79 20 152/51 98 04/28/19 08:28 79 16 152/51 92 04/28/19 08:26 83 18 152/51 97 04/28/19 08:24 72 16 152/51 97 04/28/19 08:22 88 24 152/51 98 04/28/19 08:20 79 21 152/51 100 04/28/19 08:18 80 14 152/51 97 04/28/19 08:16 91 H 21 152/51 94 04/28/19 08:14 88 18 152/51 99 04/28/19 08:12 85 17 152/51 96 04/28/19 08:10 81 17 152/51 98 04/28/19 08:09 77 22 152/51 97 04/28/19 08:08 80 19 152/51 99 04/28/19 08:06 77 14 152/51 98 04/28/19 08:04 77 23 152/51 96 04/28/19 08:02 83 23 152/51 98 04/28/19 08:00 98.2 F 84 18 152/51 98 04/28/19 07:58 78 22 161/56 97 04/28/19 07:56 81 14 161/56 98 04/28/19 07:54 93 H 17 161/56 96 04/28/19 07:52 91 H 19 161/56 98 04/28/19 07:50 81 16 161/56 95 04/28/19 07:48 78 14 161/56 96 04/28/19 07:46 94 H 25 H 161/56 97 04/28/19 07:44 69 19 161/56 96 04/28/19 07:42 75 17 161/56 98 04/28/19 07:40 74 18 161/56 98 04/28/19 07:38 77 18 161/56 96 04/28/19 07:36 77 18 161/56 96 04/28/19 07:34 72 18 161/56 97 04/28/19 07:00 84 21 161/56 99 04/28/19 06:58 81 27 H 147/63 98 04/28/19 06:56 83 22 147/63 98 04/28/19 06:54 82 20 147/63 98 04/28/19 06:52 72 25 H 147/63 96 12/24/19 06:50 87 26 H 147/63 98 04/28/19 06:48 82 12 147/63 96 04/28/19 06:46 77 15 147/63 99 04/28/19 06:44 73 15 147/63 96 04/28/19 06:42 80 20 147/63 97 04/28/19 06:40 78 20 147/63 98 04/28/19 06:38 83 21 147/63 97 04/28/19 06:36 78 22 147/63 97 04/28/19 06:34 72 21 147/63 97 04/28/19 06:32 75 19 147/63 98 04/28/19 06:30 84 18 147/63 100 04/28/19 06:28 80 20 147/63 99 04/28/19 06:26 99 H 16 147/63 98 04/28/19 06:24 75 23 147/63 98 04/28/19 06:22 80 13 147/63 99 04/28/19 06:21 79 19 147/63 99 04/28/19 06:20 70 17 147/63 100 04/28/19 06:18 70 16 147/63 99 04/28/19 06:16 63 20 147/63 100 04/28/19 06:14 66 20 147/63 98 04/28/19 06:12 69 22 147/63 99 04/28/19 06:10 73 24 147/63 100 04/28/19 06:08 58 L 18 147/63 98 04/28/19 06:06 66 17 147/63 98 04/28/19 06:04 62 18 147/63 99 04/28/19 06:02 65 19 147/63 100 04/28/19 06:00 63 20 147/63 99 04/28/19 05:58 83 15 141/61 100 04/28/19 05:56 69 21 141/61 100 04/28/19 05:54 67 21 141/61 99 04/28/19 05:52 77 18 141/61 98 04/28/19 05:50 75 18 141/61 98 04/28/19 05:48 74 12 141/61 97 04/28/19 05:46 67 18 141/61 99 04/28/19 05:44 66 20 141/61 98 04/28/19 05:42 73 25 H 141/61 100 04/28/19 05:40 81 25 H 141/61 100 04/28/19 05:38 66 14 141/61 99 04/28/19 05:36 63 15 141/61 100 04/28/19 05:34 72 16 141/61 100 04/28/19 05:32 72 21 141/61 100 04/28/19 05:30 75 28 H 141/61 100 04/28/19 05:28 71 25 H 141/61 96 04/28/19 05:26 74 21 141/61 97 04/28/19 05:24 73 22 141/61 98 04/28/19 04:27 74 16 95 04/28/19 04:00 98.5 F 69 04/28/19 03:10 98.5 F 04/28/19 02:30 64 19 136/51 97 04/28/19 02:00 56 L 16 141/48 98 04/28/19 01:30 55 L 18 144/53 100 04/28/19 01:00 59 L 18 132/48 97 04/28/19 00:30 59 L 18 134/52 92 04/28/19 00:00 65 19 135/92 99 04/27/19 23:56 67 20 134/56 100 - Physical Examination HEENT: Positive: PERRL - Labs and Meds Coagulation 04/28/19 Range/Units 15:32 PT 17.7 H (12.2-14.9) Sec. INR 1.43 H (0.87-1.13) APTT 38.8 H (24.2-36.6) Sec. CBC 04/28/19 Range/Units 15:32 Hgb 9.6 L (10.1-14.3) gm/dl Hct 29.8 L (30.3-42.9) % Plt Count 210 (140-440) K/mm3 Comprehensive Metabolic Panel 04/28/19 Range/Units 15:32 Sodium 134 L (137-145) mmol/L Potassium 4.3 D (3.6-5.0) mmol/L Chloride 93.7 L (98-107) mmol/L Carbon Dioxide 23 (22-30) mmol/L BUN 20 H (7-17) mg/dL Creatinine 3.5 H D (0.7-1.2) mg/dL Glucose 201 H (65-100) mg/dL Calcium 9.7 (8.4-10.2) mg/dL
[2019-04-29] MEDS: LEVOTHYROXINE 100 MCG TAB PO SCH ×2 (05:18→05:36)
[2019-04-29] MEDS: LEVOTHYROXINE 75 MCG TAB PO SCH ×2 (05:18→05:36)
[2019-04-29 06:14] LABS: Calcium 9.6 mg/dL (8.4-10.2)
[2019-04-29 06:46] LABS: Hemoglobin 8.5 gm/dl (10.1-14.3); Mean Corpuscular HGB Conc 33 % (30-34); Mean Corpuscular Volume 91 fl (79-97); Red Blood Count 2.86 M/mm3 (3.65-5.03); Red Cell Distribution Width 17.5 % (13.2-15.2)
[2019-04-29 06:47] LABS: Platelet Count 92 K/mm3 (140-440)
[2019-04-29] MEDS: SEVELAMER CARBONATE 800 MG TAB PO SCH ×3 (09:08→17:09)
[2019-04-29] MEDS: INSULIN LISPRO 100 UNIT/ML SUB-Q SCH ×4 (09:18→23:55)
[2019-04-29] MEDS ORDERED: ALBUMIN HUMAN 25% (25 GM/100 ML) INJ IV PRN (10:10)
[2019-04-29] MEDS ORDERED: SODIUM CHLORIDE 0.9% 100 ML IV PRN ×2 (10:10→19:01)
[2019-04-29] MEDS ORDERED: EPOETIN ALFA 10,000 UNIT/1 ML INJ IV PRN (10:10)
--- NOTE | 2019-04-29 10:10 | Progress Note ---
Assessment and Plan Impression: * End stage renal disease * Atrial fibrillation w/ RVR * hypokalemia * Anemia secondary to ESRD * Secondary hyperparathyroisim Plan: * Continue hemodialysis prn, follow up in AM * UF as tolerated * treat k medically * Rate control per cardiology * Renal diet * Epogen TIW prn * Dose medications for renal function Subjective Date of service: 04/29/19 Principal diagnosis: esrd Interval history: resting in bed today Objective - Exam Narrative Exam: General: No acute distress Head: Atraumatic Eyes: normal appearance ENT: Moist mucous membranes Neck: Normal appearance, no midline tenderness Chest: Bilateral crackles and wheezing CV: Tachycardic regular rhythm Abdomen: Soft, normal bowel sounds, nontender, nondistended, no rebound or guarding Back: Normal inspection Extremity: Normal inspection infection, full range of motion Neuro: Alert no facial asymmetry, speech clear, no gross motor sensory deficit Psych: Appropriate behavior Skin: No rash - Vital Signs Vital signs: Vital Signs - 12hr 04/29/19 04/29/19 05:58 07:49 Temperature 97.8 F 97.9 F Pulse Rate 77 91 H Respiratory 18 18 Rate Blood Pressure 75/38 133/112 O2 Sat by Pulse 95 99 Oximetry - Lab 04/29/19 05:17 04/29/19 05:17 Most recent lab results Calcium 9.6 mg/dL (8.4-10.2) 04/29/19 05:17 Medications & Allergies - Medications Allergies/Adverse Reactions: Allergies oseltamivir phosphate [From Tamiflu] Allergy (Intermediate, Verified 05/01/18 07:07) Lip rash, Increased BP, AMS,headache body ache,dizziness pt developed lip rash, increased bp,head ache ,dizziness , AMS , diarrhae, shaking, body aches. Home Medications: Home Medications Medication Instructions Recorded Confirmed Last Taken Type Megan-Juliet Rx Tablet 1 tab PO DAILY 12/31/14 04/28/19 01/19/18 History 1 Cyproheptadine [Periactin] 4 mg PO DAILY 11/13/16 04/28/19 01/19/18 History 4 mg Sevelamer Carbonate [Renvela] 800 mg PO TIDWM tablet 11/16/16 04/28/19 04/30/18 10:00 Rx 800 mg Acetaminophen [Acetaminophen TAB] 650 mg PO Q4H PRN tablet 05/03/18 04/28/19 Unknown Rx Apixaban [Eliquis] 2.5 mg PO BID #60 tablet 05/03/18 04/28/19 Unknown Rx Aspirin EC [Halfprin EC] 81 mg PO QDAY tablet 05/03/18 04/28/19 Unknown Rx Levothyroxine Sodium [Synthroid] 175 mcg PO QDAY #30 tab 05/03/18 04/28/19 Unknown Rx Metoprolol [Lopressor TAB] 25 mg PO BID #30 tablet 05/03/18 04/28/19 Unknown Rx Pravastatin [Pravachol] 20 mg PO QHS #30 tablet 05/03/18 04/28/19 Unknown Rx hydrALAZINE [Apresoline TAB] 10 mg PO BID #60 tablet 05/03/18 04/28/19 Unknown Rx traMADoL [Ultram 50 MG tab] 50 mg PO BID PRN #60 tablet 05/03/18 04/28/19 Unknown Rx Active Medications: Generic Name Dose Route Start Last Admin Trade Name Freq PRN Reason Stop Dose Admin Acetaminophen 650 mg 04/27/19 23:19 Tylenol PO Q4H PRN Pain MILD(1-3)/Fever >100.5/AWAN Apixaban 2.5 mg 04/27/19 23:45 04/28/19 21:31 Eliquis PO 2.5 mg BID SONNY Administration Protocol Aspirin 81 mg 04/28/19 10:00 04/28/19 10:52 Halfprin Ec PO 81 mg QDAY SONNY Administration Cyproheptadine HCl 4 mg 04/28/19 10:00 04/28/19 11:40 Periactin PO 4 mg DAILY SONNY Administration Hydralazine HCl 10 mg 04/27/19 23:45 04/28/19 21:28 Apresoline PO 10 mg BID SONNY Administration Diltiazem HCl 100 mg in 100 mls @ 5 mls/hr 04/27/19 14:00 04/28/19 03:01 Cardizem/D5w 100mg/100ml IV 0 mg/hr TITR SONNY 0 mls/hr Titration Protocol 5 MG/HR Cefepime HCl 1 gm in 100 mls @ 200 mls/hr 04/28/19 22:00 04/28/19 21:32 Cefepime/Ns 1 Gm/100 Ml IV 200 mls/hr Q24H SONNY Administration Protocol Insulin Human Lispro 0 unit 04/28/19 11:30 04/29/19 09:18 Humalog SUB-Q Not Given ACHS [facility] Protocol Levothyroxine Sodium 100 mcg 04/28/19 06:00 04/29/19 05:36 Synthroid PO Not Given DAILY@0600 [facility] Levothyroxine Sodium 75 mcg 04/28/19 06:00 04/29/19 05:36 Synthroid PO Not Given DAILY@0600 [facility] Metoprolol Tartrate 25 mg 04/27/19 23:45 04/28/19 21:29 Metoprolol PO 25 mg BID SONNY Administration Multivit/Ca Carb/B Cmplx/FA/Prenat 1 cap 04/28/19 10:00 04/28/19 10:52 Renal Caps PO 1 cap QDAY SONNY Administration Pravastatin Sodium 20 mg 04/28/19 22:00 04/28/19 21:37 Pravachol PO 20 mg QHS SONNY Administration Sevelamer Carbonate 800 mg 04/28/19 08:00 04/29/19 09:08 Renvela PO 800 mg TIDWM SONNY Administration Tramadol HCl 50 mg 04/27/19 23:19 Ultram PO BID PRN Pain, Moderate (4-6)
--- NOTE | 2019-04-29 10:50 | Consultation ---
History of Present Illness Consult date: 04/29/19 Reason for consult: dyspnea, cough, hypoxemia, other (CHF,Atrial fibrillation.) History of present illness: PULMONARY AND CRITICAL CARE CONSULTATION DR. NERI THANK YOU FOR ASKING US TO PARTICIPATE IN THE CARE OF THIS PATIENT. 78 year old female with a past medical history HSV fibrillation, end-stage renal disease on dialysis, dementia, diabetes, and hypertension this to the [facility]inette[facility] araujo RVR that started with the completion of her dialysis. EMS reports that patient was initially hypoxic at 85% on 2 L nasal cannula. Patient presents here tachycardic with a fever 102. Patient has complained of cough as per family member. No significant pain reported. Patient is on Eliquis . Patient presently resting on room air. O2 saturation 94%. Patient has slight non productive cough. No acute respiratory distress. Patient has no history of smoking, alcohol or drug abuse. Patient used worked in [employer] for [employer]. Patient has no known allergies. she has 3 children. Chest xray reported CHF and perihilar pulmonary edema. Past History Past Medical History: diabetes, ESRD, hypertension Social history: denies: smoking, alcohol abuse, prescription drug abuse Medications and Allergies Allergies Allergy/AdvReac Type Severity Reaction Status Date / Time oseltamivir phosphate Allergy Intermediate Lip rash, Verified 05/01/18 07:07 [From Tamiflu] Increased BP, AMS,headache body ache,dizziness Home Medications Medication Instructions Recorded Confirmed Last Taken Type Megan-Juliet Rx Tablet 1 tab PO DAILY 12/31/14 04/28/19 01/19/18 History 1 Cyproheptadine [Periactin] 4 mg PO DAILY 11/13/16 04/28/19 01/19/18 History 4 mg Sevelamer Carbonate [Renvela] 800 mg PO TIDWM tablet 11/16/16 04/28/19 04/30/18 10:00 Rx 800 mg Acetaminophen [Acetaminophen TAB] 650 mg PO Q4H PRN tablet 05/03/18 04/28/19 Unknown Rx Apixaban [Eliquis] 2.5 mg PO BID #60 tablet 05/03/18 04/28/19 Unknown Rx Aspirin EC [Halfprin EC] 81 mg PO QDAY tablet 05/03/18 04/28/19 Unknown Rx Levothyroxine Sodium [Synthroid] 175 mcg PO QDAY #30 tab 05/03/18 04/28/19 Unknown Rx Metoprolol [Lopressor TAB] 25 mg PO BID #30 tablet 05/03/18 04/28/19 Unknown Rx Pravastatin [Pravachol] 20 mg PO QHS #30 tablet 05/03/18 04/28/19 Unknown Rx hydrALAZINE [Apresoline TAB] 10 mg PO BID #60 tablet 05/03/18 04/28/19 Unknown Rx traMADoL [Ultram 50 MG tab] 50 mg PO BID PRN #60 tablet 05/03/18 04/28/19 Unknown Rx Active Meds: Active Medications Acetaminophen (Tylenol) 650 mg PO Q4H PRN PRN Reason: Pain MILD(1-3)/Fever >100.5/AWAN Albumin Human (Alburx 25% (Albumin)) 25 gm IV ESEQUIEL PRN PRN Reason: Hypotension Apixaban (Eliquis) 2.5 mg PO BID [facility]; Protocol Last Admin: 04/28/19 21:31 Dose: 2.5 mg Documented by: Aspirin (Halfprin Ec) 81 mg PO QDAY [facility] Last Admin: 04/28/19 10:52 Dose: 81 mg Documented by: Cyproheptadine HCl (Periactin) 4 mg PO DAILY [facility] Last Admin: 04/28/19 11:40 Dose: 4 mg Documented by: Epoetin Kali (Procrit) 10,000 unit IV ESEQUIEL PRN PRN Reason: hemodialysis Hydralazine HCl (Apresoline) 10 mg PO BID [facility] Last Admin: 04/28/19 21:28 Dose: 10 mg Documented by: Diltiazem HCl (Cardizem/D5w 100mg/100ml) 100 mg in 100 mls @ 5 mls/hr IV TITR [facility]; Protocol Last Titration: 04/28/19 03:01 Dose: 0 mg/hr, 0 mls/hr Documented by: Cefepime HCl (Cefepime/Ns 1 Gm/100 Ml) 1 gm in 100 mls @ 200 mls/hr IV Q24H [facility]; Protocol Last Admin: 04/28/19 21:32 Dose: 200 mls/hr Documented by: Sodium Chloride (Nacl 0.9%) 100 mls @ 999 mls/hr IV ESEQUIEL PRN PRN Reason: Hypotension Insulin Human Lispro (Humalog) 0 unit SUB-Q ACHS [facility]; Protocol Last Admin: 04/29/19 09:18 Dose: Not Given Documented by: Levothyroxine Sodium (Synthroid) 100 mcg PO DAILY@0600 [facility] Last Admin: 04/29/19 05:36 Dose: Not Given Documented by: Levothyroxine Sodium (Synthroid) 75 mcg PO DAILY@0600 [facility] Last Admin: 04/29/19 05:36 Dose: Not Given Documented by: Metoprolol Tartrate (Metoprolol) 25 mg PO BID [facility] Last Admin: 04/28/19 21:29 Dose: 25 mg Documented by: Multivit/Ca Carb/B Cmplx/FA/Prenat (Renal Caps) 1 cap PO QDAY [facility] Last Admin: 04/28/19 10:52 Dose: 1 cap Documented by: Pravastatin Sodium (Pravachol) 20 mg PO QHS [facility] Last Admin: 04/28/19 21:37 Dose: 20 mg Documented by: Sevelamer Carbonate (Renvela) 800 mg PO TIDWM [facility] Last Admin: 04/29/19 09:08 Dose: 800 mg Documented by: Tramadol HCl (Ultram) 50 mg PO BID PRN PRN Reason: Pain, Moderate (4-6) Review of Systems ROS unobtainable: due to mental status Physical Examination Vital signs: Vital Signs Pulse Resp BP Pulse Ox 130 H 20 157/85 100 04/27/19 12:32 04/27/19 12:32 04/27/19 12:32 04/27/19 12:32 General appearance: no acute distress, alert, agitated Eyes: non-icteric Neck: supple, no JVD Ascultation: Bilateral: diminished breath sounds Cardiovascular: regular rate and rhythm Gastrointestinal: normoactive bowel sounds, soft, non-tender Integumentary: normal Extremities: no cyanosis, no edema Musculoskeletal: no deformities Gait: other (Unable to assess at this time.) unable to assess other (Unable to assess due to mental status.) Results - Laboratory Findings CBC and BMP: 04/29/19 05:17 04/29/19 05:17 PT/INR, D-dimer PT 17.7 Sec. (12.2-14.9) H 04/28/19 15:32 INR 1.43 (0.87-1.13) H 04/28/19 15:32 Abnormal lab findings: Abnormal Labs 04/27/19 04/27/19 04/27/19 12:44 13:24 13:24 RBC 3.24 L Hgb 9.4 L Hct 28.6 L RDW 17.1 H Plt Count Lymph % (Auto) 6.5 L [place] % (Auto) 8.8 H Lymph # 0.6 L Bates # 0.9 H Seg Neutrophils % 84.0 H Seg Neutrophils # 8.2 H PT INR APTT VBG pH 7.442 H Sodium Potassium Chloride Carbon Dioxide BUN Creatinine Glucose POC Glucose Lactic Acid 2.20 H* Total Bilirubin Alkaline Phosphatase Troponin T Albumin Cholesterol LDL Cholesterol Direct HDL Cholesterol Free T4 Urine pH Urine WBC (Auto) U Epithel Cells (Auto) 04/27/19 04/27/19 04/28/19 13:24 13:24 00:59 RBC Hgb Hct RDW Plt Count Lymph % (Auto) [place] % (Auto) Lymph # [place] # Seg Neutrophils % Seg Neutrophils # PT INR APTT VBG pH Sodium 136 L Potassium 3.3 L Chloride 95.0 L Carbon Dioxide BUN Creatinine 1.9 H Glucose 178 H POC Glucose Lactic Acid Total Bilirubin 1.60 H Alkaline Phosphatase 145 H Troponin T 0.079 H 0.086 H Albumin 3.5 L Cholesterol 260 H LDL Cholesterol Direct 162 H HDL Cholesterol 79 H Free T4 1.53 H Urine pH Urine WBC (Auto) U Epithel Cells (Auto) 04/28/19 04/28/19 04/28/19 04:02 08:06 12:58 RBC Hgb Hct RDW Plt Count Lymph % (Auto) [place] % (Auto) Lymph # [place] # Seg Neutrophils % Seg Neutrophils # PT INR APTT VBG pH Sodium Potassium Chloride Carbon Dioxide BUN Creatinine Glucose POC Glucose 182 H 153 H 143 H Lactic Acid Total Bilirubin Alkaline Phosphatase Troponin T Albumin Cholesterol LDL Cholesterol Direct HDL Cholesterol Free T4 Urine pH Urine WBC (Auto) U Epithel Cells (Auto) 04/28/19 04/28/19 04/28/19 13:10 15:32 15:32 RBC Hgb 9.6 L Hct 29.8 L RDW Plt Count Lymph % (Auto) [place] % (Auto) Lymph # [place] # Seg Neutrophils % Seg Neutrophils # PT 17.7 H INR 1.43 H APTT 38.8 H VBG pH Sodium Potassium Chloride Carbon Dioxide BUN Creatinine Glucose POC Glucose Lactic Acid Total Bilirubin Alkaline Phosphatase Troponin T Albumin Cholesterol LDL Cholesterol Direct HDL Cholesterol Free T4 Urine pH 9.0 H Urine WBC (Auto) > 182.0 H U Epithel Cells (Auto) 38.0 H 04/28/19 04/28/19 04/28/19 15:32 17:37 21:35 RBC Hgb Hct RDW Plt Count Lymph % (Auto) [place] % (Auto) Lymph # [place] # Seg Neutrophils % Seg Neutrophils # PT INR APTT VBG pH Sodium 134 L Potassium Chloride 93.7 L Carbon Dioxide BUN 20 H Creatinine 3.5 H D Glucose 201 H POC Glucose 269 H 65 L Lactic Acid Total Bilirubin Alkaline Phosphatase Troponin T Albumin Cholesterol LDL Cholesterol Direct HDL Cholesterol Free T4 Urine pH Urine WBC (Auto) U Epithel Cells (Auto) 04/29/19 04/29/19 04/29/19 00:10 05:17 05:17 RBC 2.86 L Hgb 8.5 L Hct 26.0 L RDW 17.5 H Plt Count 92 L Lymph % (Auto) [place] % (Auto) Lymph # [place] # Seg Neutrophils % Seg Neutrophils # PT INR APTT VBG pH Sodium 133 L Potassium Chloride 94.7 L Carbon Dioxide 21 L BUN 29 H Creatinine 4.3 H Glucose 129 H POC Glucose 141 H Lactic Acid Total Bilirubin Alkaline Phosphatase Troponin T Albumin Cholesterol LDL Cholesterol Direct HDL Cholesterol Free T4 Urine pH Urine WBC (Auto) U Epithel Cells (Auto) 04/29/19 07:43 RBC Hgb Hct RDW Plt Count Lymph % (Auto) [place] % (Auto) Lymph # [place] # Seg Neutrophils % Seg Neutrophils # PT INR APTT VBG pH Sodium Potassium Chloride Carbon Dioxide BUN Creatinine Glucose POC Glucose 153 H Lactic Acid Total Bilirubin Alkaline Phosphatase Troponin T Albumin Cholesterol LDL Cholesterol Direct HDL Cholesterol Free T4 Urine pH Urine WBC (Auto) U Epithel Cells (Auto) - Diagnostic Findings Chest x-ray: report reviewed (CHF , Mild perihilar alveolar edema.), image reviewed Assessment and Plan 78 year old female with a past medical history HSV fibrillation, end-stage renal disease on dialysis, dementia, diabetes, and hypertension this to the hospital with A. fib RVR that started with the completion of her dialysis. EMS reports that patient was initially hypoxic at 85% on 2 L nasal cannula. Patient presents here tachycardic with a fever 102. Patient has complained of cough as per family member. No significant pain reported. Patient is on Eliquis . Patient presently resting on room air. O2 saturation 94%. Patient has slight non productive cough. No acute respiratory distress. Patient has no history of smoking, alcohol or drug abuse. Patient used worked in [employer] for [employer]. Patient has no known allergies. she has 3 children. Chest xray reported CHF and perihilar pulmonary edema. Talk to the family at length and explained patients respiratory status. - Patient Problems (1) Acute respiratory failure with hypoxia Current Visit: Yes Status: Acute Plan to address problem: Improved. Patient presently on room air with O2 saturation 94%. Still recommend O2 2 litres via nasal canula ABGs on room air. (2) Atrial fibrillation with RVR Current Visit: Yes Status: Acute Plan to address problem: Patient is on apixaban. Management as per primary care and cardiology. (3) CHF exacerbation Current Visit: Yes Status: Acute Plan to address problem: Management as per primary care and cardiology. (4) Cough Current Visit: Yes Status: Acute Plan to address problem: Non productive cough. Could be related to her CHF (5) Hypertension Current Visit: Yes Status: Chronic Qualifiers: Hypertension type: essential hypertension Qualified Code(s): I10 - Essential (primary) hypertension Plan to address problem: Management as per primary care. (6) DM type 2 (diabetes mellitus, type 2) Onset Date: 04/02/13 Current Visit: Yes Status: Chronic Plan to address problem: Management as per primary care. (7) End stage renal disease on dialysis Current Visit: Yes Status: Chronic Plan to address problem: Management as per nephrology. (8) Hypothyroidism (acquired) Current Visit: Yes Status: Chronic Plan to address problem: Patient is on Levothyroxine. Management as per primary care.
[2019-04-29] MEDS: FOLIC ACID/VIT B COMP W-C 1 MG (RENAL CAPS) PO SCH ×2 (11:08→13:37)
[2019-04-29] MEDS: METOPROLOL TARTRATE 25 MG TAB PO SCH ×3 (11:08→22:11)
[2019-04-29] MEDS: hydrALAZINE 10 MG TAB PO SCH ×3 (11:09→22:12)
[2019-04-29] MEDS: ASPIRIN EC 81 MG TAB PO SCH ×2 (11:09→13:36)
[2019-04-29] MEDS: APIXABAN 2.5 MG TAB PO SCH ×3 (11:09→22:11)
[2019-04-29] MEDS: CYPROHEPTADINE 4 MG TAB PO SCH ×2 (11:09→13:36)
--- NOTE | 2019-04-29 11:48 | Progress Note ---
Assessment and Plan - Patient Problems (1) SIRS (systemic inflammatory response syndrome) Current Visit: Yes Status: Acute Plan to address problem: Continue IV antibiotics. Patient has tachycardia tachypnea hypoxia. (2) Atrial fibrillation with RVR Current Visit: Yes Status: Acute Plan to address problem: Rate control on metoprolol. on oral anticoagulation with eliquis. (3) Acute respiratory failure with hypoxia Current Visit: Yes Status: Acute Plan to address problem: Bronchodilators, low-dose steroids and IV antibiotics (4) End stage renal disease on dialysis Current Visit: Yes Status: Chronic Plan to address problem: Continue hemodialysis. (5) Hypothyroidism (acquired) Current Visit: Yes Status: Chronic Plan to address problem: Decrease Synthroid to 150 mcg (6) Hypertension Current Visit: Yes Status: Chronic Qualifiers: Hypertension type: essential hypertension Qualified Code(s): I10 - Essential (primary) hypertension Plan to address problem: Continue antihypertensives. (7) DVT prophylaxis Current Visit: Yes Status: Acute Plan to address problem: Heparin 5000 every 12 and GI prophylaxis. (8) Discharge planning issues Current Visit: Yes Status: Acute Plan to address problem: Probable discharge tomorrow if doing well Subjective Date of service: 04/29/19 Principal diagnosis: Atrial fibrillation with RVR, acute respiratory failure, SIRS Interval history: 78-year-old female with history of atrial fibrillation, end-stage renal disease on hemodialysis, dementia, diabetes and hypertension comes to the hospital for palpitation and for completion of dialysis. As per EMS the patient was hypoxic at 85% on 2 L nasal cannula oxygen. In the emergency room patient presents with high heart rate and a fever of 102. Patient also complains of cough but no wheezing. Patient is on Eliquis for atrial fibrillation. Symptomatically better today. No palpitations. Objective - Constitutional Vitals: Vital Signs - 12hr 04/29/19 04/29/19 05:58 07:49 Temperature 97.8 F 97.9 F Pulse Rate 77 91 H Respiratory 18 18 Rate Blood Pressure 75/38 133/112 O2 Sat by Pulse 95 99 Oximetry General appearance: Present: no acute distress, well-nourished - EENT Eyes: PERRL, EOM intact ENT: hearing intact, clear oral mucosa Ears: bilateral: normal - Neck Neck: supple, normal ROM - Respiratory Respiratory effort: normal Respiratory: bilateral: CTA - Breasts Breasts: normal - Cardiovascular Heart rate: 88 Rhythm: irregularly irregular Heart Sounds: Present: S1 & S2. Absent: gallop, rub Extremities: no ischemia, pulses intact, No edema, normal color, Full ROM - Gastrointestinal General gastrointestinal: Present: soft, non-tender, non-distended, normal bowel sounds - Genitourinary Female genitourinary: normal - Integumentary Integumentary: clear, warm, dry - Musculoskeletal Musculoskeletal: 1, strength equal bilaterally - Neurologic Neurologic: moves all extremities - Psychiatric Psychiatric: memory intact, appropriate mood/affect, intact judgment & insight - Labs CBC & Chem 7: 04/29/19 05:17 04/29/19 05:17 Labs: Abnormal lab results 04/28/19 04/28/19 04/28/19 Range/Units 12:58 13:10 15:32 RBC (3.65-5.03) M/mm3 Hgb 9.6 L (10.1-14.3) gm/dl Hct 29.8 L (30.3-42.9) % RDW (13.2-15.2) % Plt Count (140-440) K/mm3 PT (12.2-14.9) Sec. INR (0.87-1.13) APTT (24.2-36.6) Sec. Sodium (137-145) mmol/L Chloride (98-107) mmol/L Carbon Dioxide (22-30) mmol/L BUN (7-17) mg/dL Creatinine (0.7-1.2) mg/dL Glucose (65-100) mg/dL POC Glucose 143 H (70-105) Urine pH 9.0 H (5.0-7.0) Urine WBC (Auto) > 182.0 H (0.0-6.0) /HPF U Epithel Cells (Auto) 38.0 H (0-13.0) /HPF 04/28/19 04/28/19 04/28/19 Range/Units 15:32 15:32 17:37 RBC (3.65-5.03) M/mm3 Hgb (10.1-14.3) gm/dl Hct (30.3-42.9) % RDW (13.2-15.2) % Plt Count (140-440) K/mm3 PT 17.7 H (12.2-14.9) Sec. INR 1.43 H (0.87-1.13) APTT 38.8 H (24.2-36.6) Sec. Sodium 134 L (137-145) mmol/L Chloride 93.7 L (98-107) mmol/L Carbon Dioxide (22-30) mmol/L BUN 20 H (7-17) mg/dL Creatinine 3.5 H D (0.7-1.2) mg/dL Glucose 201 H (65-100) mg/dL POC Glucose 269 H (70-105) Urine pH (5.0-7.0) Urine WBC (Auto) (0.0-6.0) /HPF U Epithel Cells (Auto) (0-13.0) /HPF 04/28/19 04/29/19 04/29/19 Range/Units 21:35 00:10 05:17 RBC 2.86 L (3.65-5.03) M/mm3 Hgb 8.5 L (10.1-14.3) gm/dl Hct 26.0 L (30.3-42.9) % RDW 17.5 H (13.2-15.2) % Plt Count 92 L (140-440) K/mm3 PT (12.2-14.9) Sec. INR (0.87-1.13) APTT (24.2-36.6) Sec. Sodium (137-145) mmol/L Chloride (98-107) mmol/L Carbon Dioxide (22-30) mmol/L BUN (7-17) mg/dL Creatinine (0.7-1.2) mg/dL Glucose (65-100) mg/dL POC Glucose 65 L 141 H (70-105) Urine pH (5.0-7.0) Urine WBC (Auto) (0.0-6.0) /HPF U Epithel Cells (Auto) (0-13.0) /HPF 04/29/19 04/29/19 04/29/19 Range/Units 05:17 07:43 11:34 RBC (3.65-5.03) M/mm3 Hgb (10.1-14.3) gm/dl Hct (30.3-42.9) % RDW (13.2-15.2) % Plt Count (140-440) K/mm3 PT (12.2-14.9) Sec. INR (0.87-1.13) APTT (24.2-36.6) Sec. Sodium 133 L (137-145) mmol/L Chloride 94.7 L (98-107) mmol/L Carbon Dioxide 21 L (22-30) mmol/L BUN 29 H (7-17) mg/dL Creatinine 4.3 H (0.7-1.2) mg/dL Glucose 129 H (65-100) mg/dL POC Glucose 153 H 142 H (70-105) Urine pH (5.0-7.0) Urine WBC (Auto) (0.0-6.0) /HPF U Epithel Cells (Auto) (0-13.0) /HPF
[2019-04-29 16:21] LABS: Hepatitis B Surface Antigen Non-Reactive (Negative); Hepatitis C Virus Antibody Non-Reactive (NonReactive)
[2019-04-29] MEDS ORDERED: guaiFENesin DM 200/20 MG ORAL LIQD 10 ML PO PRN (16:52)
[2019-04-29] MEDS: PRAVASTATIN 20 MG TAB PO SCH (21:45)
[2019-04-30] MEDS ORDERED: hydrALAZINE 20 MG/1 ML INJ IV PRN ×2 (00:08→05:06)
[2019-04-30] MEDS: CEFEPIME/NS 1 GM/100 ML 1 GM/100 ML BAG IV SCH (00:39)
[2019-04-30] MEDS: LEVOTHYROXINE 100 MCG TAB PO SCH (05:02)
[2019-04-30] MEDS: LEVOTHYROXINE 75 MCG TAB PO SCH (05:03)
--- NOTE | 2019-04-30 11:58 | Progress Note ---
Assessment and Plan Pt is receiving hemodialysis. Pt is on room air. Pt is agitated and confused. ABG results: pH 7.6, Pco2 28, Po2 54, bicarb 28. Patient has both respiratory and metabolic alkalosis. Patient also hypoxic, recommend O2 2L via nasal cannula. Also recommend something for anxiety. Obtaining VQ scan. - Patient Problems (1) Acute respiratory failure with hypoxia Current Visit: Yes Status: Deleted Plan to address problem: Improved. Patient presently on room air with O2 saturation 94%. Still recommend O2 2 litres via nasal canula Obtaining VQ scan (2) Atrial fibrillation with RVR Current Visit: Yes Status: Deleted Plan to address problem: Patient is on apixaban. Management as per primary care and cardiology. (3) CHF exacerbation Current Visit: Yes Status: Acute Plan to address problem: Management as per primary care and cardiology. (4) Cough Current Visit: Yes Status: Acute Plan to address problem: Non productive cough. Pt on Guaifenicn Pt is on cefipime. (5) Hypertension Current Visit: Yes Status: Deleted Qualifiers: Hypertension type: essential hypertension Qualified Code(s): I10 - Essential (primary) hypertension Plan to address problem: Management as per primary care. (6) DM type 2 (diabetes mellitus, type 2) Onset Date: 04/02/13 Current Visit: Yes Status: Chronic Plan to address problem: Management as per primary care. (7) End stage renal disease on dialysis Current Visit: Yes Status: Deleted Plan to address problem: Management as per nephrology. (8) Hypothyroidism (acquired) Current Visit: Yes Status: Deleted Plan to address problem: Patient is on Levothyroxine. Management as per primary care. Subjective Date of service: 04/30/19 Principal diagnosis: Atrial fibrillation with RVR, acute respiratory failure, SIRS Interval history: Pt is receiving hemodialysis. Pt is on room air. Pt is agitated and confused. ABG results: pH 7.6, Pco2 28, Po2 54, bicarb 28. Patient has both respiratory and metabolic alkalosis. Patient also hypoxic, recommend O2 2L via nasal cannula. Also recommend something for anxiety. Obtaining VQ scan. Objective - Exam Narrative Exam: General: No acute distress Head: Atraumatic Eyes: normal appearance ENT: Moist mucous membranes Neck: Normal appearance, no midline tenderness Chest: Bilateral crackles and wheezing CV: Tachycardic regular rhythm Abdomen: Soft, normal bowel sounds, nontender, nondistended, no rebound or guarding Back: Normal inspection Extremity: Normal inspection infection, full range of motion Neuro: Alert no facial asymmetry, speech clear, no gross motor sensory deficit Psych: Appropriate behavior Skin: No rash Vital Signs - 12hr 04/30/19 04/30/19 02:18 07:43 Temperature 97.3 F L 97.3 F L Pulse Rate 107 H 77 Respiratory 20 18 Rate Blood Pressure 160/88 120/84 O2 Sat by Pulse 93 96 Oximetry Constitutional: no acute distress, alert, agitated, other (anxious) Eyes: non-icteric Neck: supple, no JVD Ascultation: Bilateral: diminished breath sounds Cardiovascular: regular rate and rhythm Gastrointestinal: normoactive bowel sounds, soft, non-tender Integumentary: normal Extremities: no cyanosis, no edema Neurologic: unable to assess Psychiatric: anxious CBC and BMP: 04/29/19 05:17 04/29/19 05:17 ABG, PT/INR, D-dimer: PT/INR, D-dimer PT 17.7 Sec. (12.2-14.9) H 04/28/19 15:32 INR 1.43 (0.87-1.13) H 04/28/19 15:32 Abnormal lab findings: Abnormal Labs 04/27/19 04/27/19 04/27/19 12:44 13:24 13:24 RBC 3.24 L Hgb 9.4 L Hct 28.6 L RDW 17.1 H Plt Count Lymph % (Auto) 6.5 L [place] % (Auto) 8.8 H Lymph # 0.6 L [place] # 0.9 H Seg Neutrophils % 84.0 H Seg Neutrophils # 8.2 H PT INR APTT VBG pH 7.442 H Sodium Potassium Chloride Carbon Dioxide BUN Creatinine Glucose POC Glucose Lactic Acid 2.20 H* Total Bilirubin Alkaline Phosphatase Troponin T Albumin Cholesterol LDL Cholesterol Direct HDL Cholesterol Free T4 Urine pH Urine WBC (Auto) U Epithel Cells (Auto) 04/27/19 04/27/19 04/28/19 13:24 13:24 00:59 RBC Hgb Hct RDW Plt Count Lymph % (Auto) [place] % (Auto) Lymph # [place] # Seg Neutrophils % Seg Neutrophils # PT INR APTT VBG pH Sodium 136 L Potassium 3.3 L Chloride 95.0 L Carbon Dioxide BUN Creatinine 1.9 H Glucose 178 H POC Glucose Lactic Acid Total Bilirubin 1.60 H Alkaline Phosphatase 145 H Troponin T 0.079 H 0.086 H Albumin 3.5 L Cholesterol 260 H LDL Cholesterol Direct 162 H HDL Cholesterol 79 H Free T4 1.53 H Urine pH Urine WBC (Auto) U Epithel Cells (Auto) 04/28/19 04/28/19 04/28/19 04:02 08:06 12:58 RBC Hgb Hct RDW Plt Count Lymph % (Auto) [place] % (Auto) Lymph # [place] # Seg Neutrophils % Seg Neutrophils # PT INR APTT VBG pH Sodium Potassium Chloride Carbon Dioxide BUN Creatinine Glucose POC Glucose 182 H 153 H 143 H Lactic Acid Total Bilirubin Alkaline Phosphatase Troponin T Albumin Cholesterol LDL Cholesterol Direct HDL Cholesterol Free T4 Urine pH Urine WBC (Auto) U Epithel Cells (Auto) 04/28/19 04/28/19 04/28/19 13:10 15:32 15:32 RBC Hgb 9.6 L Hct 29.8 L RDW Plt Count Lymph % (Auto) [place] % (Auto) Lymph # [place] # Seg Neutrophils % Seg Neutrophils # PT 17.7 H INR 1.43 H APTT 38.8 H VBG pH Sodium Potassium Chloride Carbon Dioxide BUN Creatinine Glucose POC Glucose Lactic Acid Total Bilirubin Alkaline Phosphatase Troponin T Albumin Cholesterol LDL Cholesterol Direct HDL Cholesterol Free T4 Urine pH 9.0 H Urine WBC (Auto) > 182.0 H U Epithel Cells (Auto) 38.0 H 04/28/19 04/28/19 04/28/19 15:32 17:37 21:35 RBC Hgb Hct RDW Plt Count Lymph % (Auto) [place] % (Auto) Lymph # [place] # Seg Neutrophils % Seg Neutrophils # PT INR APTT VBG pH Sodium 134 L Potassium Chloride 93.7 L Carbon Dioxide BUN 20 H Creatinine 3.5 H D Glucose 201 H POC Glucose 269 H 65 L Lactic Acid Total Bilirubin Alkaline Phosphatase Troponin T Albumin Cholesterol LDL Cholesterol Direct HDL Cholesterol Free T4 Urine pH Urine WBC (Auto) U Epithel Cells (Auto) 04/29/19 04/29/19 04/29/19 00:10 05:17 05:17 RBC 2.86 L Hgb 8.5 L Hct 26.0 L RDW 17.5 H Plt Count 92 L Lymph % (Auto) [place] % (Auto) Lymph # [place] # Seg Neutrophils % Seg Neutrophils # PT INR APTT VBG pH Sodium 133 L Potassium Chloride 94.7 L Carbon Dioxide 21 L BUN 29 H Creatinine 4.3 H Glucose 129 H POC Glucose 141 H Lactic Acid Total Bilirubin Alkaline Phosphatase Troponin T Albumin Cholesterol LDL Cholesterol Direct HDL Cholesterol Free T4 Urine pH Urine WBC (Auto) U Epithel Cells (Auto) 04/29/19 04/29/19 04/29/19 07:43 11:34 16:22 RBC Hgb Hct RDW Plt Count Lymph % (Auto) [place] % (Auto) Lymph # [place] # Seg Neutrophils % Seg Neutrophils # PT INR APTT VBG pH Sodium Potassium Chloride Carbon Dioxide BUN Creatinine Glucose POC Glucose 153 H 142 H 176 H Lactic Acid Total Bilirubin Alkaline Phosphatase Troponin T Albumin Cholesterol LDL Cholesterol Direct HDL Cholesterol Free T4 Urine pH Urine WBC (Auto) U Epithel Cells (Auto) 04/29/19 04/30/19 21:36 07:59 RBC Hgb Hct RDW Plt Count Lymph % (Auto) [place] % (Auto) Lymph # [place] # Seg Neutrophils % Seg Neutrophils # PT INR APTT VBG pH Sodium Potassium Chloride Carbon Dioxide BUN Creatinine Glucose POC Glucose 181 H 174 H Lactic Acid Total Bilirubin Alkaline Phosphatase Troponin T Albumin Cholesterol LDL Cholesterol Direct HDL Cholesterol Free T4 Urine pH Urine WBC (Auto) U Epithel Cells (Auto)
--- NOTE | 2019-04-30 12:29 | Progress Note ---
Assessment and Plan - Patient Problems (1) Atrial fibrillation with RVR Current Visit: Yes Status: Acute Plan to address problem: We will continue medical management of chronic atrial fibrillation on a rate control strategy, and nonischemic cardiomyopathy on guideline directed medical therapy as previously outlined. Patient and family have previously refused oral anticoagulation for atrial fibrillation stroke prophylaxis. Otherwise, patient is stable for cardiac discharge on medical therapy. Subjective Date of service: 04/30/19 Principal diagnosis: Atrial fibrillation with RVR, acute respiratory failure, SIRS Interval history: Patient is comfortable, currently on hemodialysis. Atrial fibrillation rate is well controlled. Objective Vital Signs Temp Pulse Pulse Resp BP Pulse Ox 04/30/19 07:43 97.3 F L 77 18 120/84 96 04/30/19 02:18 97.3 F L 107 H 20 160/88 93 04/29/19 22:12 106 H 159/84 04/29/19 22:11 106 H 159/84 04/29/19 20:51 17 94 04/29/19 19:42 98.1 F 86 18 186/94 94 04/29/19 18:51 18 143/61 91 04/29/19 14:18 97 H 04/29/19 13:39 172/91 04/29/19 13:37 165/81 04/29/19 13:36 82 130/64 04/29/19 13:35 97.1 F L 83 20 199/106 96 - Physical Examination General: Cachectic HEENT: Positive: PERRL Neck: Positive: neck supple Cardiac: Positive: irregularly irregular Lungs: Positive: clear to auscultation Neuro: Positive: Grossly Intact Abdomen: Positive: Soft Skin: Positive: Clear Extremities: Absent: edema
--- NOTE | 2019-04-30 12:52 | Discharge Summary ---
Providers - Providers Date of Admission: 04/27/19 15:10 Date of discharge: 04/30/19 Attending physician: CHRISSY NERI 04/27/19 17:04 Consult to Physician [CONS] Urgent Comment: Consulting Provider: JUNIOR SCOTT Physician Instructions: Reason For Exam: esrd, dialysis, fever 04/27/19 17:26 Consult to Physician [CONS] Urgent Comment: Consulting Provider: GAYE GARDINER Physician Instructions: Reason For Exam: afib rvr 04/28/19 09:55 Consult to Physician [CONS] Stat Comment: Consulting Provider: MOSHE RODRIGUEZ Physician Instructions: Reason For Exam: admit to ICU 04/29/19 16:55 Consult to Physician [CONS] Routine Comment: Consulting Provider: CIRA COLE Physician Instructions: Reason For Exam: ESRD [facility] Condition: Stable Hospital course: 78 year old female with a past medical history HSV fibrillation, end-stage renal disease on dialysis, dementia, diabetes, and hypertension this to the hospital with A. fib RVR that started with the completion of her dialysis. EMS reports that patient was initially hypoxic at 85% on 2 L nasal cannula. Patient presents here tachycardic with a fever 102. Patient has complained of cough as per family member. No significant pain reported. Per family patient does not make urine. (1) SIRS (systemic inflammatory response syndrome) Current Visit: Yes Status: Acute Plan to address problem: Continue IV antibiotics. Patient has tachycardia tachypnea hypoxia. Resolved (2) Atrial fibrillation with RVR Current Visit: Yes Status: Acute Plan to address problem: Rate control on metoprolol. on oral anticoagulation with eliquis. We will continue medical management of chronic atrial fibrillation on a rate control strategy, and nonischemic cardiomyopathy on guideline directed medical therapy as previously outlined. Patient and family have previously refused oral anticoagulation for atrial fibrillation stroke prophylaxis. Otherwise, patient is stable for discharge on medical therapy. (3) Acute respiratory failure with hypoxia Current Visit: Yes Status: Acute Plan to address problem: Bronchodilators, low-dose steroids and IV antibiotics Improved (4) End stage renal disease on dialysis Current Visit: Yes Status: Chronic Plan to address problem: Continue hemodialysis. (5) Hypothyroidism (acquired) Current Visit: Yes Status: Chronic Plan to address problem: Decreased Synthroid to 150 mcg (6) Hypertension Current Visit: Yes Status: Chronic Qualifiers: Hypertension type: essential hypertension Qualified Code(s): I10 - Essential (primary) hypertension Plan to address problem: Continue antihypertensives. Disposition: -01 TO HOME OR SELFCARE Core Measure Documentation - Palliative Care Palliative Care/ Comfort Measures: Not Applicable - Core Measures Any of the following diagnoses?: none Exam - Constitutional Vitals: Temp Pulse Resp BP Pulse Ox 97.3 F L 77 18 120/84 96 04/30/19 07:43 04/30/19 07:43 04/30/19 07:43 04/30/19 07:43 04/30/19 07:43 General appearance: Present: no acute distress, well-nourished - EENT Eyes: Present: PERRL ENT: hearing intact, clear oral mucosa - Neck Neck: Present: supple, normal ROM - Respiratory Respiratory effort: normal Respiratory: bilateral: CTA - Cardiovascular Heart rate: 88 Rhythm: irregularly irregular Heart Sounds: Present: S1 & S2. Absent: rub, click - Extremities Extremities: no ischemia, pulses intact, pulses symmetrical, No edema Peripheral Pulses: within normal limits - Abdominal General gastrointestinal: Present: soft, non-tender, non-distended, normal bowel sounds Female genitourinary: Present: normal - Rectal Rectal Exam: deferred - Integumentary Integumentary: Present: clear, warm, dry - Musculoskeletal Musculoskeletal: gait normal, strength equal bilaterally - Psychiatric Psychiatric: appropriate mood/affect, intact judgment & insight - Neurologic Neurologic: CNII-XII intact, moves all extremities - Allied Health Allied health notes reviewed: nursing, case management Plan Activity: no restrictions Diet: renal Follow up with: GEETHA HERRERA MD [Primary Care Provider] - 3-5 Days CHAD LYLE MD [Staff Physician] - 7 Days
--- NOTE | 2019-04-30 16:21 | Progress Note ---
Assessment and Plan - Patient Problems (1) DM type 2 (diabetes mellitus, type 2) Onset Date: 04/02/13 Current Visit: Yes Status: Chronic Plan to address problem: diabetes mellitus type 2 continue medications (2) ESRD needing dialysis Current Visit: No Status: Chronic Plan to address problem: end stage renal disease we'll initiate dialysis continue dialysis on Saturday, , Saturday (3) Hypertension Current Visit: No Status: Chronic Qualifiers: Hypertension type: essential hypertension Qualified Code(s): I10 - Essential (primary) hypertension Plan to address problem: hypertension c ontinue current medications (4) Anemia in CKD (chronic kidney disease) Current Visit: No Status: Chronic Plan to address problem: moderate anemia. secondary to chronic kidney disease Continue Epogen Subjective Principal diagnosis: Atrial fibrillation with RVR, acute respiratory failure, SIRS Interval history: 78-year-old with atrial fibrillation, end-stage renal disease dementia, diabetes mellitus type 2, hypertension admitted with hypoxia and fevers I attest that I saw the patient on dialysis Patient doing well . Denies any fevers or chills Objective - Vital Signs Vital signs: Vital Signs - 12hr 04/30/19 07:43 Temperature 97.3 F L Pulse Rate 77 Respiratory 18 Rate Blood Pressure 120/84 O2 Sat by Pulse 96 Oximetry - General Appearance General appearance: chronically ill, frail EENT: ATNC, PERRL Neck: no JVD Respiratory: Present: Clear to Ascultation Cardiology: regular, S1S2 Gastrointestinal: normal, normoactive bowel sounds Integumentary: no rash Neurologic: confused, disoriented Psychiatric: mood/affect appropriate - Lab 04/29/19 05:17 04/29/19 05:17 Most recent lab results Calcium 9.6 mg/dL (8.4-10.2) 04/29/19 05:17 - Imaging Chest x-ray: image reviewed Medications & Allergies - Medications Allergies/Adverse Reactions: Allergies oseltamivir phosphate [From Tamiflu] Allergy (Intermediate, Verified 05/01/18 0 7:07) Lip rash, Increased BP, AMS,headache body ache,dizziness pt developed lip rash, increased bp,head ache ,dizziness , AMS , diarrhae, shaking, body aches. Home Medications: Home Medications Medication Instructions Recorded Confirmed Last Taken Type Megan-Juliet Rx Tablet 1 tab PO DAILY 12/31/14 04/28/19 01/19/18 History 1 Cyproheptadine [Periactin] 4 mg PO DAILY 11/13/16 04/28/19 01/19/18 History 4 mg Sevelamer Carbonate [Renvela] 800 mg PO TIDWM tablet 11/16/16 04/28/19 04/30/18 10:00 Rx 800 mg Acetaminophen [Acetaminophen TAB] 650 mg PO Q4H PRN tablet 05/03/18 04/28/19 Unknown Rx traMADoL [Ultram 50 MG tab] 50 mg PO BID PRN #60 tablet 05/03/18 04/28/19 Unknown Rx Apixaban [Eliquis] 2.5 mg PO BID #60 tablet 04/30/19 Unknown Rx Aspirin EC [Halfprin EC] 81 mg PO QDAY tablet 04/30/19 Unknown Rx Cyproheptadine [Periactin] 4 mg PO DAILY tablet 04/30/19 Unknown Rx Epoetin Kali 10,000 Unit [Procrit] 10,000 unit IV ESEQUIEL PRN vial 04/30/19 Unknown Rx Folic Acid/Vit B Comp W-C [Renal 1 cap PO QDAY capsule 04/30/19 Unknown Rx Caps] Levothyroxine [Synthroid] 150 mcg PO DAILY@0600 #30 tablet 04/30/19 Unknown Rx Lispro Insulin [HumaLOG] 0 unit SUB-Q ACHS units 04/30/19 Unknown Rx Metoprolol [Lopressor TAB] 25 mg PO BID tablet 04/30/19 Unknown Rx Sevelamer Carbonate [Renvela] 800 mg PO TIDWM tablet 04/30/19 Unknown Rx hydrALAZINE [Apresoline TAB] 10 mg PO BID tablet 04/30/19 Unknown Rx Active Medications: Generic Name Dose Route Start Last Admin Trade Name Freq PRN Reason Stop Dose Admin Acetaminophen 650 mg 04/27/19 23:19 Tylenol PO Q4H PRN Pain MILD(1-3)/Fever >100.5/AWAN Albumin Human 25 gm 04/29/19 10:10 Alburx 25% (Albumin) IV ESEQUIEL PRN Hypotension Apixaban 2.5 mg 04/27/19 23:45 04/29/19 22:11 Eliquis PO 2.5 mg BID SONNY Administration Protocol Aspirin 81 mg 04/28/19 10:00 04/29/19 13:36 Halfprin Ec PO Not Given QDAY [facility] Cyproheptadine HCl 4 mg 04/28/19 10:00 04/29/19 13:36 Periactin PO Not Given DAILY [facility] Epoetin Kali 10,000 unit 04/29/19 10:10 Procrit IV ESEQUIEL PRN hemodialysis Guaifenesin 10 ml 04/29/19 16:52 04/29/19 22:11 Guaifenesin Dm Syrup PO 10 ml Q6H PRN Administration Cough Hydralazine HCl 10 mg 04/27/19 23:45 04/29/19 22:12 Apresoline PO 10 mg BID SONNY Administration Hydralazine HCl 10 mg 04/30/19 05:06 Apresoline IV Q6HR PRN Hypertension Diltiazem HCl 100 mg in 100 mls @ 5 mls/hr 04/27/19 14:00 04/28/19 03:01 Cardizem/D5w 100mg/100ml IV 0 mg/hr TITR SONNY 0 mls/hr Titration Protocol 5 MG/HR Cefepime HCl 1 gm in 100 mls @ 200 mls/hr 04/28/19 22:00 04/30/19 00:39 Cefepime/Ns 1 Gm/100 Ml IV 200 mls/hr Q24H SONNY Administration Protocol Sodium Chloride 100 mls @ 999 mls/hr 04/29/19 10:10 Nacl 0.9% IV ESEQUIEL PRN Hypotension Sodium Chloride 100 mls @ 999 mls/hr 04/29/19 19:01 Nacl 0.9% IV ESEQUIEL PRN Hypotension Insulin Human Lispro 0 unit 04/28/19 11:30 04/29/19 23:55 Humalog SUB-Q Not Given ACHS [facility] Protocol Levothyroxine Sodium 100 mcg 04/28/19 06:00 04/30/19 05:02 Synthroid PO Not Given DAILY@0600 [facility] Levothyroxine Sodium 75 mcg 04/28/19 06:00 04/30/19 05:03 Synthroid PO Not Given DAILY@0600 [facility] Metoprolol Tartrate 25 mg 04/27/19 23:45 04/29/19 22:11 Metoprolol PO 25 mg BID [facility] Administration Multivit/Ca Carb/B Cmplx/FA/Prenat 1 cap 04/28/19 10:00 04/29/19 13:37 Renal Caps PO Not Given QDAY SONNY Pravastatin Sodium 20 mg 04/28/19 22:00 04/29/19 21:45 Pravachol PO 20 mg QHS SONNY Administration Sevelamer Carbonate 800 mg 04/28/19 08:00 04/29/19 17:09 Renvela PO Not Given TIDWM SONNY Tramadol HCl 50 mg 04/27/19 23:19 Ultram PO BID PRN Pain, Moderate (4-6)
[2019-04-30] MEDS: INSULIN LISPRO 100 UNIT/ML SUB-Q SCH (16:29)
[2019-04-30] MEDS: hydrALAZINE 10 MG TAB PO SCH (16:31)
[2019-04-30] MEDS: SEVELAMER CARBONATE 800 MG TAB PO SCH (16:31)
[2019-04-30] MEDS: APIXABAN 2.5 MG TAB PO SCH (16:32)
[2019-04-30] MEDS: CYPROHEPTADINE 4 MG TAB PO SCH (16:33)
[2019-04-30] MEDS: FOLIC ACID/VIT B COMP W-C 1 MG (RENAL CAPS) PO SCH (16:33)
[2019-04-30] MEDS: METOPROLOL TARTRATE 25 MG TAB PO SCH (16:33)
[2019-04-30] MEDS: ASPIRIN EC 81 MG TAB PO SCH (16:33)
[2019-04-30 19:27] VITALS: BP 155/64
== END 2019-04-30 17:25 | disposition home or self-care (01) | DRG 280 ==
LOC: ED 12:12 → CC1 15:10 → 2B-ACE 04-28 16:12
PROVIDERS: ADMIT Internal Medicine; ATTEND Internal Medicine
PROC: 4A033R1 Measurement of Arterial Saturation, Peripheral, Percutaneous Approach (ICD-10-PCS; principal; 2019-04-30)
PROC: 5A1D70Z Performance of Urinary Filtration, Intermittent, Less than 6 Hours Per Day (ICD-10-PCS; 2019-04-30)
DX: I48.91 Unspecified atrial fibrillation (principal); J96.01 Acute respiratory failure with hypoxia; I21.4 Non-ST elevation (NSTEMI) myocardial infarction; N18.6 End stage renal disease; I13.2 Hypertensive heart and chronic kidney disease with heart failure and with stage 5 chronic kidney disease, or end stage renal disease; R65.10 Systemic inflammatory response syndrome (SIRS) of non-infectious origin without acute organ dysfunction; N25.81 Secondary hyperparathyroidism of renal origin; I42.0 Dilated cardiomyopathy; E11.22 Type 2 diabetes mellitus with diabetic chronic kidney disease; F03.90 Unspecified dementia, unspecified severity, without behavioral disturbance, psychotic disturbance, mood disturbance, and anxiety; I50.9 Heart failure, unspecified; E87.6 Hypokalemia; E03.9 Hypothyroidism, unspecified; D63.1 Anemia in chronic kidney disease; Z99.2 Dependence on renal dialysis; Z79.82 Long term (current) use of aspirin; Z79.899 Other long term (current) drug therapy; Z86.718 Personal history of other venous thrombosis and embolism; Z87.442 Personal history of urinary calculi
CPT/HCPCS: 36415; 36600; 71045; 80048; 80053; 80061; 80074; 81001; 82140; 82803; 82805; 82962; 84439; 84443; 84484; 85014; 85018; 85025; 85049; 85610; 85730; 87040; 87400; 93005; 93010; 94644; G0378; A9270-GY; J0692; J1815; J3370; J7030; J7050